=== PATIENT | female | born 1940 | race Caucasian/White ===

== ENCOUNTER → 2017-03-30 | Outpatient (REF) | payer MEDICARE ==
[2017-03-30 15:43] LABS: ALBUMIN 3.5 GM/DL (3.2-5.2); ALBUMIN/GLOBULIN RATIO 1.06 (1.00-1.93); BILIRUBIN,TOTAL 0.6 MG/DL (0.2-1.0); CALCIUM LEVEL 8.9 MG/DL (8.8-10.2); CREATININE FOR GFR 1.01 MG/DL (0.55-1.02); GLOMERULAR FILTRATION RATE 56.6 (>39); POTASSIUM SERUM 4.3 MEQ/L (3.5-5.1); TOTAL PROTEIN 6.8 GM/DL (6.4-8.2)
== END ==
LOC: M SFHCLACO 07:59
PROVIDERS: ATTEND Physician Assistant
DX: I10 Essential (primary) hypertension (principal); E11.9 Type 2 diabetes mellitus without complications; E78.2 Mixed hyperlipidemia

== ENCOUNTER → 2017-10-03 | Outpatient (REF) | payer MEDICARE ==
[2017-10-03 13:21] LABS: ALBUMIN 3.9 GM/DL (3.2-5.2); ALBUMIN/GLOBULIN RATIO 1.26 (1.00-1.93); BILIRUBIN,TOTAL 0.5 MG/DL (0.2-1.0); CALCIUM LEVEL 9.2 MG/DL (8.8-10.2); CREATININE FOR GFR 0.98 MG/DL (0.55-1.02); GLOMERULAR FILTRATION RATE 58.6 (>39); POTASSIUM SERUM 4.1 MEQ/L (3.5-5.1)
== END ==
LOC: M SFHCLACO 07:58
PROVIDERS: ATTEND Physician Assistant
DX: I10 Essential (primary) hypertension (principal); E78.2 Mixed hyperlipidemia; E11.9 Type 2 diabetes mellitus without complications; Z23 Encounter for immunization
CPT/HCPCS: 36415; 80053; 80061; 83036; 90662; G0008

== ENCOUNTER → 2018-05-17 | Outpatient (REF) | payer MEDICARE ==
[2018-05-17 15:01] LABS: ESTIMATED AVERAGE GLUCOSE 120 MG/DL (60-110); HEMOGLOBIN A1c 5.8 %
[2018-05-17 15:10] LABS: ALBUMIN 3.7 GM/DL (3.2-5.2); ALBUMIN/GLOBULIN RATIO 1.09 (1.00-1.93); ALKALINE PHOSPHATASE 78 U/L (45-117); ALT/SGPT 60 U/L (12-78); ANION GAP 11 MEQ/L (8-16); AST/SGOT 75 U/L (7-37); BILIRUBIN,TOTAL 0.6 MG/DL (0.2-1.0); BLOOD UREA NITROGEN 20 MG/DL (7-18); CARBON DIOXIDE LEVEL 28 MEQ/L (21-32); CHLORIDE LEVEL 90 MEQ/L (98-107); CHOLESTEROL LEVEL 207 MG/DL (<200); CHOLESTEROL RISK RATIO 2.325 (<5); CREATININE FOR GFR 0.94 MG/DL (0.55-1.30); GLOMERULAR FILTRATION RATE > 60.0 (>39); GLUCOSE, FASTING 201 MG/DL (70-100); HDL CHOLESTEROL 89 MG/DL (>40); LDL CHOLESTEROL 101.6 MG/DL (<100); NON-HDL-C 118 MG/DL; POTASSIUM SERUM 4.3 MEQ/L (3.5-5.1); SODIUM LEVEL 129 MEQ/L (136-145); TOTAL PROTEIN 7.1 GM/DL (6.4-8.2); TRIGLYCERIDES LEVEL 82 MG/DL (<150)
== END ==
LOC: M SFHCLACO 08:03
DX: I10 Essential (primary) hypertension (principal); E11.9 Type 2 diabetes mellitus without complications; E78.2 Mixed hyperlipidemia
CPT/HCPCS: 80053

== ENCOUNTER 2018-11-22 08:00 | Day surgery (SDC) | payer MEDICARE ==
[~2018-11-22] VITALS: Ht 165.1 cm; Wt 56.2 kg
[~2018-11-22 08:00] MED LIST: BALANCED SALT IRRIGATION SOLUTION 500ML BAG (FOR OR EYE MACHINE) As Ordered ONE; CEFUROXIME 1MG/0.1ML INTRACAMERAL INJ As Ordered ONE; DUOVISC (0.50ML VISCOAT/0.55ML PROVISC) OPHTH KIT As Ordered ONE; LIDOCAINE 0.75%/EPINEPHRINE 0.025% IN BSS 1ML SYR INTRACAMERAL (OR ONLY) As Ordered ONE; LISI10TA4 PO; MIDAZOLAM INJ 2 MG/2 ML VIAL (J2250) As Ordered ONE; OFLOXACIN 0.3 % (OCUFLOX) OPTH SOL 5ML OD ONE; PHENYLEPHRINE 2.5% OPHTH SOL 2ML OD ONE; POVIDONE-IODINE 5% OPHTH PREP SOL 30ML As Ordered ONE; PROPARACAINE 0.5% OPHTH SOL 15ML OD ONE; TRIA37.5 PO; TROPICAMIDE 1% OPHTH SOLN 2ML OD ONE; fentaNYL 100 MCG/2 ML INJECTION (J3010) As Ordered ONE
[2018-11-22 10:10] VITALS: BP 133/95
--- NOTE | 2018-11-22 16:05 | RO ---
DATE OF PROCEDURE: 11/22/2018 PREOPERATIVE DIAGNOSIS: 1. Visually significant nuclear sclerotic cataract right eye. POSTOPERATIVE DIAGNOSIS: 1. Visually significant nuclear sclerotic cataract right eye. PROCEDURE: 1. Cataract extraction with use of phacoemulsification and placement of intraocular lens AU00T0, 21.5 D, right eye. SURGEON: Joe Tiwari DO PURCHASING INTERNSHIP: None. ANESTHESIA: Local with monitored anesthesia care (MAC). COMPLICATIONS: None. POSTOPERATIVE CONDITION: Stable. INDICATIONS FOR SURGERY: 1. Blurred vision affecting patients activities of daily living. DESCRIPTION OF PROCEDURE: The patient was seen in the preoperative area and properly identified. The correct operative eye was identified and marked. The patient received topical anesthetic, antibiotics, and topical dilating drops. The patient was then transferred to the operating room. The correct side was re-identified, and a time-out was performed. The eye was prepped and draped in a sterile fashion. The eyelids were isolated with Tegaderm tape, and the lids were held open with an adjustable speculum. A 1.0 mm paracentesis incision was made. Intraocular preservative-free Shugarcaine was then injected into the anterior chamber. Viscoelastic was then injected into the anterior chamber through the paracentesis. Using a 2.4 mm sharp-tipped keratome, the anterior chamber was entered via a temporal clear cornea incision. A continuous curvilinear capsulorrhexis was created with Utrata forceps. Hydrodissection was performed with balanced salt solution (BSS) on a blunt cannula until the nucleus was able to rotate freely. The crystalline lens was phacoemulsified and aspirated. Irrigation/aspiration was used to remove the cortical material. Cohesive viscoelastic was placed into the capsular bag to deepen it. The implant was placed into the capsular bag and allowed to unfold. Placement was confirmed by visualizing the anterior capsulorrhexis. Irrigation/aspiration was used to remove the viscoelastic. The clear corneal incision was hydrated with BSS on a blunt cannula. The lens was well positioned. The incisions were then tested for leaks and found to be negative. The eye was then palpated for appropriate pressure and adjusted accordingly with BSS. The eyelid speculum was then carefully removed. A shield was placed over the eye. The patient tolerated the procedure well and was discharged to the recovery unit in a stable condition.
== END 2018-11-22 10:44 | disposition home or self-care (01) ==
LOC: M SDC 08:00
PROVIDERS: ATTEND Ophthalmology
DX: H25.11 Age-related nuclear cataract, right eye (principal); Z87.891 Personal history of nicotine dependence; Z79.899 Other long term (current) drug therapy
CPT/HCPCS: 66982; J2250; J3010; V2632

== ENCOUNTER 2018-11-29 08:09 | Day surgery (SDC) | payer MEDICARE ==
[~2018-11-29] VITALS: Ht 165.1 cm; Wt 56.2 kg
[~2018-11-29 08:09] MED LIST changes: -OFLOXACIN 0.3 % (OCUFLOX) OPTH SOL 5ML OD ONE; +OFLOXACIN 0.3 % (OCUFLOX) OPTH SOL 5ML OS ONE; -PHENYLEPHRINE 2.5% OPHTH SOL 2ML OD ONE; +PHENYLEPHRINE 2.5% OPHTH SOL 2ML OS ONE; -PROPARACAINE 0.5% OPHTH SOL 15ML OD ONE; +PROPARACAINE 0.5% OPHTH SOL 15ML OS ONE; -TROPICAMIDE 1% OPHTH SOLN 2ML OD ONE; +TROPICAMIDE 1% OPHTH SOLN 2ML OS ONE
[2018-11-29 11:15] VITALS: BP 144/82
--- NOTE | 2018-11-29 15:48 | RO ---
DATE OF PROCEDURE: 11/29/2018 PREOPERATIVE DIAGNOSIS: 1. Visually significant nuclear sclerotic cataract left eye. POSTOPERATIVE DIAGNOSIS: 1. Visually significant nuclear sclerotic cataract left eye. PROCEDURE: 1. Cataract extraction with use of phacoemulsification and placement of intraocular lens, AU00T0, 21.5 D, left eye. SURGEON: Joe Tiwari DO WHIPPED TOPPING SUPERVISOR: None. ANESTHESIA: Local with monitored anesthesia care (MAC). COMPLICATIONS: None. POSTOPERATIVE CONDITION: Stable. INDICATIONS FOR SURGERY: 1. Blurred vision affecting patients activities of daily living. DESCRIPTION OF PROCEDURE: The patient was seen in the preoperative area and properly identified. The correct operative eye was identified and marked. The patient received topical anesthetic, antibiotics, and topical dilating drops. The patient was then transferred to the operating room. The correct side was re-identified, and a time-out was performed. The eye was prepped and draped in a sterile fashion. The eyelids were isolated with Tegaderm tape, and the lids were held open with an adjustable speculum. A 1.0 mm paracentesis incision was made. Intraocular preservative-free Shugarcaine was then injected into the anterior chamber. Viscoelastic was then injected into the anterior chamber through the paracentesis. Using a 2.4 mm sharp-tipped keratome, the anterior chamber was entered via a temporal clear cornea incision. A continuous curvilinear capsulorrhexis was created with Utrata forceps. Hydrodissection was performed with balanced salt solution (BSS) on a blunt cannula until the nucleus was able to rotate freely. The crystalline lens was phacoemulsified and aspirated. Irrigation/aspiration was used to remove the cortical material. Cohesive viscoelastic was placed into the capsular bag to deepen it. The implant was placed into the capsular bag and allowed to unfold. Placement was confirmed by visualizing the anterior capsulorrhexis. Irrigation/aspiration was used to remove the viscoelastic. The clear corneal incision was hydrated with BSS on a blunt cannula. The lens was well positioned. The incisions were then tested for leaks and found to be negative. The eye was then palpated for appropriate pressure and adjusted accordingly with BSS. The eyelid speculum was then carefully removed. A shield was placed over the eye. The patient tolerated the procedure well and was discharged to the recovery unit in a stable condition. YVETTE
== END 2018-11-29 11:20 | disposition home or self-care (01) ==
LOC: M SDC 08:09
PROVIDERS: ATTEND Ophthalmology
DX: H25.12 Age-related nuclear cataract, left eye (principal); M54.2 Cervicalgia; Z87.891 Personal history of nicotine dependence; Z79.899 Other long term (current) drug therapy
CPT/HCPCS: 66984; J2250; J3010; V2632

== ENCOUNTER → 2019-02-22 | Outpatient (REF) | payer MEDICARE ==
[~2019-02-22] MED LIST changes: -BALANCED SALT IRRIGATION SOLUTION 500ML BAG (FOR OR EYE MACHINE) As Ordered ONE; -CEFUROXIME 1MG/0.1ML INTRACAMERAL INJ As Ordered ONE; -DUOVISC (0.50ML VISCOAT/0.55ML PROVISC) OPHTH KIT As Ordered ONE; -LIDOCAINE 0.75%/EPINEPHRINE 0.025% IN BSS 1ML SYR INTRACAMERAL (OR ONLY) As Ordered ONE; -MIDAZOLAM INJ 2 MG/2 ML VIAL (J2250) As Ordered ONE; -OFLOXACIN 0.3 % (OCUFLOX) OPTH SOL 5ML OS ONE; -PHENYLEPHRINE 2.5% OPHTH SOL 2ML OS ONE; -POVIDONE-IODINE 5% OPHTH PREP SOL 30ML As Ordered ONE; -PROPARACAINE 0.5% OPHTH SOL 15ML OS ONE; -TROPICAMIDE 1% OPHTH SOLN 2ML OS ONE; -fentaNYL 100 MCG/2 ML INJECTION (J3010) As Ordered ONE
[2019-02-22 19:17] LABS: ALBUMIN 3.9 GM/DL (3.2-5.2); BILIRUBIN,TOTAL 0.4 MG/DL (0.2-1.0); CALCIUM LEVEL 9.4 MG/DL (8.8-10.2); CHOLESTEROL RISK RATIO 2.375 (<5); CREATININE FOR GFR 1.05 MG/DL (0.55-1.30); GLOMERULAR FILTRATION RATE 53.8 (>39); HEMOGLOBIN A1c 6.5 %; POTASSIUM SERUM 5.3 MEQ/L (3.5-5.1); TOTAL PROTEIN 6.9 GM/DL (6.4-8.2)
== END ==
LOC: M SFHCADAM 14:32
PROVIDERS: ATTEND Physician Assistant
DX: I10 Essential (primary) hypertension (principal); E78.2 Mixed hyperlipidemia; E11.9 Type 2 diabetes mellitus without complications

== ENCOUNTER → 2019-08-30 | Outpatient (REF) | payer MEDICARE ==
[2019-08-30 16:29] LABS: BILIRUBIN,TOTAL 0.4 MG/DL (0.2-1.0); CALCIUM LEVEL 9.1 MG/DL (8.8-10.2); CREATININE FOR GFR 1.12 MG/DL (0.55-1.30); POTASSIUM SERUM 4.1 MEQ/L (3.5-5.1)
[2019-08-30 16:30] LABS: ALBUMIN 3.6 GM/DL (3.2-5.2); CHOLESTEROL RISK RATIO 2.043 (<5); TOTAL PROTEIN 6.7 GM/DL (6.4-8.2)
== END ==
LOC: M SFHCADAM 14:38
PROVIDERS: ATTEND Physician Assistant
DX: I10 Essential (primary) hypertension (principal); E78.2 Mixed hyperlipidemia; E11.9 Type 2 diabetes mellitus without complications

== ENCOUNTER → 2020-03-03 | Outpatient (REF) | payer MEDICARE ==
[2020-03-03 16:22] LABS: HEMOGLOBIN A1c 6.3 %
[2020-03-03 16:26] LABS: ALBUMIN 3.7 GM/DL (3.2-5.2); BILIRUBIN,TOTAL 0.5 MG/DL (0.2-1.0); CALCIUM LEVEL 9.9 MG/DL (8.8-10.2); CHOLESTEROL RISK RATIO 2.488 (<5); CREATININE FOR GFR 1.3 MG/DL (0.55-1.30); POTASSIUM SERUM 4.8 MEQ/L (3.5-5.1); TOTAL PROTEIN 7.3 GM/DL (6.4-8.2)
== END ==
LOC: M SFHCADAM 14:38
PROVIDERS: ATTEND Physician Assistant
DX: I10 Essential (primary) hypertension (principal); E78.2 Mixed hyperlipidemia; E11.9 Type 2 diabetes mellitus without complications

== ENCOUNTER 2020-06-05 09:38 | Inpatient (IN) | payer MEDICARE ==
[~2020-06-05] VITALS: Ht 167.6 cm; Wt 49.2 kg
[2020-06-05] MEDS ORDERED: LISI-538 PO (09:48)
[2020-06-05] MEDS ORDERED: BIMA01SOL (09:48)
[2020-06-05 10:24] LABS: BASO % 0.2 % (0.0-1.0); HEMATOCRIT 35.6 % (36.0-47.0); HEMOGLOBIN 12.5 g/dl (12.0-15.5); LYMPH # 0.7 10^3/uL (1.5-5.0); LYMPH % 16.4 % (24.0-44.0); MEAN CORPUSCULAR HGB CONC 35.1 g/dl (32.0-36.5); MEAN CORPUSCULAR VOLUME 108.2 fl (80.0-96.0); MONO # 0.6 10^3/uL (0.0-0.8); MONO % 14.3 % (0.0-5.0); NEUTROPHILS # 2.8 10^3/uL (1.5-8.5); NEUTROPHILS % 68.4 % (36.0-66.0); PLATELET COUNT, AUTOMATED 169 10^3/uL (150-450); RED BLOOD COUNT 3.29 10^6/uL (4.00-5.40); WHITE BLOOD COUNT 4.1 10^3/uL (4.0-10.0)
[2020-06-05 10:56] LABS: BILIRUBIN,DIRECT 0.2 MG/DL (0.0-0.2); BILIRUBIN,TOTAL 0.5 MG/DL (0.2-1.0); THYROID STIMULATING HORMONE 0.605 uIU/ML (0.358-3.740); TOTAL PROTEIN 7.5 GM/DL (6.4-8.2)
[2020-06-05] MEDS ORDERED: NS 1,580 ML in IV 1 EA IV ONE (11:00)
--- NOTE | 2020-06-05 11:31 | REP ---
REASON: Unilateral ocular disturbance. There are no priors for comparison. There is decreased density in the left insular cortex. The ventricles and sulci are within normal limits. There are no extra-axial fluid collections. There is no shift of the midline structures. Posterior fossa is within normal limits. The imaged paranasal sinuses and mastoid air cells are clear. IMPRESSION: Decreased density in the left insular cortex suggesting acute nonhemorrhagic infarction. This should be correlated clinically and if necessary, obtain an MRI examination for further evaluation. Electronically Signed by Indra Garcia DO 06/05/2020 04:58 P
--- NOTE | 2020-06-05 11:51 | REP ---
CHEST, SINGLE VIEW: There is no evidence of acute infiltrate. No pleural effusion is seen. The heart is normal in size. The mediastinal silhouette is unremarkable. The visualized osseous structures are intact. IMPRESSION: No acute pulmonary disease. Electronically Signed by Anthony Hassan MD 06/08/2020 09:24 A
[2020-06-05] MEDS: ASPIRIN 81 MG CHEW TABLET PO ONE ×2 (13:15→16:10)
[2020-06-05] MEDS ORDERED: GLUCOSE 4GM CHEW TABLET PO PRN (13:30)
[2020-06-05] MEDS ORDERED: DEXTROSE 50% 50 ML SYRINGE IV PRN (13:30)
[2020-06-05] MEDS ORDERED: GLUCAGON INJ 1MG VIAL SC PRN (13:30)
--- NOTE | 2020-06-05 13:30 | HPEPDOC ---
General Date of Admission 06/05/20 Date of Service: Jun 05, 2020 Chief Complaint The patient is a 79-year-old female admitted with a reason for visit of Altered Mental Status. Source: Patient Exam Limitations: No limitations Timing/Duration: Week(s) Severity: Moderate History of Present Illness Patient is 79 years old female with past history of hyperlipidemia, hypertension presented to the hospital with altered mental status. According to her for past 3-4 weeks patient developed progressive forgetfulness and she became aggressive towards him. He described that his became easily angry, and its very unusual for her, they lived more than 50 years together and she never had angry or aggressive towards him. Today in the morning patient stated that most likely she developed stroke and asked her to bring her to the hospital. Since morning she has been having fluctuating mental status, he was disoriented in time and in place. When I saw patient in ER she refused to talk to me and her , she developed emotional flat affect. In ER patient was found to have on CT head Decreased density in the left insular cortex suggesting acute nonhemorrhagic infarction. Also patient was found to have elevated blood pressure 200/110. Labs pertinent for macrocytic anemia. 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 1 SON(S) - HEALTHY. Social History * Smoker: former Smoker Alcohol: occationally Drugs: denies A-FIB/CHADSVASC A-FIB History Current/History of A-Fib/PAF?: No Current PO Anticoag Therapy: No Review of Systems Constitutional: Reports: Chills, Other (unable to obtain due to the emotional affect) Physical Examination General Exam: Negative: Cooperative Eye Exam: Negative: PERRLA ENT Exam: Negative: Atraumatic Neck Exam: Negative: Supple, JVD Chest Exam: Positive: Clear to auscultation Heart Exam: Positive: Rate Normal Telemetry: Positive: No significant arrhythmia Abdomen Exam: Positive: Normal bowel sounds Extremity Exam: Negative: Clubbing Skin Exam: Positive: Nl turgor and temperature Neuro Exam: Positive: Normal Tone, Reflexes 2+ Psych Exam: Positive: Other (flat emotional affect) Vital Signs Vital Signs Date Time Temp Pulse Resp B/P (MAP) Pulse Ox O2 Delivery O2 Flow Rate FiO2 06/05/20 12:15 95 18 187/107 (133) 96 Room Air 06/05/20 09:38 96.9 Laboratory Data Labs 24H Laboratory Tests 2 06/05/20 10:06: Immature Granulocyte % (Auto) 0.7, Neutrophils (%) (Auto) 68.4H, Lymphocytes (%) (Auto) 16.4L, Monocytes (%) (Auto) 14.3H, Eosinophils (%) (Auto) 0.0, Basophils (%) (Auto) 0.2, Neutrophils # (Auto) 2.8, Lymphocytes # (Auto) 0.7L, Monocytes # (Auto) 0.6, Eosinophils # (Auto) 0.0, Basophils # (Auto) 0.0, Nucleated Red Blood Cells % (auto) 0.0, Lactic Acid Level 4.4*H, Total Bilirubin 0.5, Direct Bilirubin 0.2, Aspartate Amino Transf (AST/SGOT) 49H, Alanine Aminotransferase (ALT/SGPT) 40, Alkaline Phosphatase 73, Ammonia < 10, Total Protein 7.5, Albumin 4.0, Albumin/Globulin Ratio 1.1L, Thyroid Stimulating Hormone (TSH) 0.605 06/05/20 10:08: POC Glucose (Misc Panel) 207H, POC Sodium (Misc Panel) 127L, POC Potassium (Misc Panel) 3.8, POC Chloride (Misc Panel) 92L, POC Total CO2 (Misc Panel) 21.0L, POC Blood Urea Nitrogen (Misc Panel 18, POC Ionized Calcium (Misc Panel) 4.3L, POC Creatinine (Misc Panel) 1.0, POC Hematocrit (Misc Panel) 41.0 06/05/20 10:11: POC Troponin I (Misc) 0.00 CBC/BMP Laboratory Tests 06/05/20 10:06 Microbiology Microbiology 06/05/20 Blood Culture, Received Pending 06/05/20 Blood Culture, Received Pending Assessment/Plan Patient is 79 years old female with past history of hyperlipidemia, hypertension presented to the hospital with altered mental status. According to her for past 3-4 weeks patient developed progressive forgetfulness and she became aggressive towards him. He described that his became easily angry, and its very unusual for her, they lived more than 50 years together and she never had angry or aggressive towards him. Today in the morning patient stated that most likely she developed stroke and asked her to bring her to the hospital. Since morning she has been having fluctuating mental status, he was disoriented in time and in place. When I saw patient in ER she refused to talk to me and her , she developed emotional flat affect. In ER patient was found to have on CT head Decreased density in the left insular cortex suggesting acute nonhemorrhagic infarction. Also patient was found to have elevated blood pressure 200/110 Problems (1) Altered mental status Status: Acute Problem Text: Differential diagnosis includes CVA, manifestation of Alzheimer diseases/dementia Patient afebrile, doesn't have leukocytosis. Elevated lactic acid can be attributed to possible ischemic stroke. Patient developed gradual forgetfulness with aggressive behavior. Patient might need psych evaluation We will check UA (2) CVA (cerebrovascular accident due to intracerebral hemorrhage) Status: Acute Problem Text: CT showed Decreased density in the left insular cortex suggesting acute nonhemorrhagic infarction We will proceed with MRI and MRA Aspirin 325 mg Continue statin (3) Hypertensive urgency Status: Acute Problem Text: Capoten 6.25 with parameters Continue home cardioprotective medications (4) Hyperlipidemia Status: Chronic Problem Text: I started statin and daily aspirin (5) Macrocytic anemia Status: Chronic Problem Text: There is concern for alcohol abuse However denied that she drinks alcohol daily, but admitted that she drinks wine frequently We will check B12 and folate Utox Carbohydrate deficient transferrin to rule out alcohol abuse Plan / VTE VTE Prophylaxis Ordered?: Yes LORELEI ARGUELLES DO Jun 05, 2020 13:30
[2020-06-05] MEDS ORDERED: CAPTOpril 6.25 MG PER 1/2 TABLET PO SCH (14:00)
[2020-06-05 14:51] LABS: FOLATE 20.1 NG/ML (>5.4)
[2020-06-05] MEDS: CAPTOpril 6.25 MG PER 1/2 TABLET PO SCH ×3 (15:00→17:00)
[2020-06-05 15:30] LABS: AMPHETAMINES LEVEL URINE NEGATIVE (NEGATIVE); BARBITURATES URINE NEGATIVE (NEGATIVE); BENZODIAZEPINES URINE NEGATIVE (NEGATIVE); CANNABINOIDS URINE NEGATIVE (NEGATIVE); COCAINE METABOLITE URINE NEGATIVE (NEGATIVE); METHADONE URINE NEGATIVE (NEGATIVE); OPIATES URINE NEGATIVE (NEGATIVE); PHENCYCLIDINE URINE NEGATIVE (NEGATIVE)
[2020-06-05] MEDS: lisinopriL 10 MG TAB PO SCH (16:11)
[2020-06-05] MEDS: HumaLOG INSULIN (NovoLOG) PER UNIT SC SCH ×2 (17:30→22:40)
[2020-06-05] MEDS: HEPARIN SOD (PORCINE) 5000UNITS/ML VIAL (J1644 PER 1000UNITS) SC SCH (18:00)
[2020-06-05] MEDS: DYAZIDE 37.5/25 CAP (TRIAM/HCTZ) PO SCH (21:00)
[2020-06-05] MEDS: ATORVASTATIN 20 MG TAB PO SCH (21:00)
[2020-06-05] MEDS: LABETALOL 100MG/20ML VIAL IV PRN ×2 (21:34→22:34)
[2020-06-05 22:34] VITALS: BP 206/122
[2020-06-05 22:40] VITALS: BP 160/90
[2020-06-06] VITALS (8 sets, daily range): BP systolic 132–188; BP diastolic 70–108
[2020-06-06] MEDS: LABETALOL 100MG/20ML VIAL IV PRN ×2 (00:17→16:50)
[2020-06-06 05:13] LABS: HEMATOCRIT 32.6 % (36.0-47.0); HEMOGLOBIN 11.6 g/dl (12.0-15.5); MEAN CORPUSCULAR HEMOGLOBIN 37.9 pg (27.0-33.0); MEAN CORPUSCULAR HGB CONC 35.6 g/dl (32.0-36.5); MEAN CORPUSCULAR VOLUME 106.5 fl (80.0-96.0); PLATELET COUNT, AUTOMATED 144 10^3/uL (150-450); RED BLOOD COUNT 3.06 10^6/uL (4.00-5.40)
[2020-06-06 05:38] LABS: ALBUMIN 3.1 GM/DL (3.2-5.2); ALT/SGPT 32 U/L (12-78); BILIRUBIN,TOTAL 0.7 MG/DL (0.2-1.0); BLOOD UREA NITROGEN 15 MG/DL (7-18); CALCIUM LEVEL 8.5 MG/DL (8.8-10.2); CARBON DIOXIDE LEVEL 28 MEQ/L (21-32); CHLORIDE LEVEL 95 MEQ/L (98-107); CREATININE FOR GFR 0.81 MG/DL (0.55-1.30); GLOMERULAR FILTRATION RATE > 60.0 (>32); GLUCOSE, FASTING 103 MG/DL (70-100); MAGNESIUM LEVEL 1.2 MG/DL (1.8-2.4); POTASSIUM SERUM 4.2 MEQ/L (3.5-5.1); SODIUM LEVEL 131 MEQ/L (136-145); TOTAL PROTEIN 6.5 GM/DL (6.4-8.2)
[2020-06-06] MEDS: HEPARIN SOD (PORCINE) 5000UNITS/ML VIAL (J1644 PER 1000UNITS) SC SCH ×2 (06:07→18:32)
[2020-06-06] MEDS: MAG SULF 1GM/100ML (MAG RUN) 1 GM in IV 1 EA IV SCH ×2 (06:59→09:06)
[2020-06-06] MEDS: HumaLOG INSULIN (NovoLOG) PER UNIT SC SCH ×4 (07:30→21:00)
[2020-06-06] MEDS: NS 1,000 ML IV SCH ×2 (09:00→22:58)
[2020-06-06] MEDS ORDERED: LORazepam 2 MG/ML VIAL IV ONE ×2 (09:00)
[2020-06-06] MEDS: DYAZIDE 37.5/25 CAP (TRIAM/HCTZ) PO SCH ×2 (09:03→21:00)
[2020-06-06] MEDS: ASPIRIN 81 MG CHEW TABLET PO SCH (09:03)
[2020-06-06] MEDS: lisinopriL 10 MG TAB PO SCH (09:03)
--- NOTE | 2020-06-06 09:24 | ECGEPIP ---
[facility] - ED Test Date: 2020-06-05 Pat Name: SAPPHIRE SMYTH Department: Room: - Gender: Female Artist Representative: TC : 1940 Requested By: Africa Malone Order Number: [id number] Reading MD: Donnie Isaac Measurements Intervals [place] Rate: 108 P: 66 [place]: 204 QRS: -7 QRSD: 105 T: 52 QT: 321 QTc: 430 Interpretive Statements SINUS TACHYCARDIA POSSIBLE LEFT ATRIAL ENLARGEMENT LOW QRS VOLTAGE IN PRECORDIAL LEADS POSSIBLE ANTERIOR MYOCARDIAL INFARCTION, OF INDETERMINATE AGE POSSIBLE PRIOR INFERIOR INFARCT NO PRIORS FOR COMPARISON Electronically Signed on 06-06-2020 9:24:20 EDT by Donnie Isaac
--- NOTE | 2020-06-06 19:06 | IPNPDOC ---
Date Seen The patient was seen on 06/06/20. Progress Note SUBJECTIVE: Patient would not interact with most people today, including her son. Believed to be intentionally ignoring questions, concerns. On exam, clinically would not follow commands. OBJECTIVE: VITAL SIGNS: Please see below PHYSICAL EXAMINATION: CONSTITUTIONAL: No acute distress, resting comfortably in bed, awake but not answering questions of orientation EYES: PERRLA, EOM intact HENT, MOUTH: Normocephalic, atraumatic, moist mucous membranes NECK: SUPPLE, no JVD, no lymphadenopathy, no carotid bruit CV: Regular rate and rhythm, S1S2 normal, no murmurs/rubs/gallops RESPIRATORY: Clear to auscultation bilaterally, no rales/rhonchi/wheezes GI: BS positive in 4 quadrants, soft, nontender, nondistended, no rebound or guarding, no organomegaly : Deferred MUSCULOSKELETAL: Normal ROM. No cyanosis, clubbing, swelling, joint deformity, extremity edema INTEGUMENTARY: Intact, no rashes, no lesions, no erythema NEUROLOGIC: Cranial Nerves II-XII are intact, no focal deficits PSYCHIATRIC: Mood and affect are normal CURRENT MEDICATIONS: Please see below LABORATORY DATA: Please see below IMAGING: No new imaging MRI/MRA ordered ASSESSMENT: 79 years old female with past history of hyperlipidemia, hypertension presented to the hospital with hypertensive emergency, altered mental status, admitted for CVA, questionable behaviors. PLAN: 1. Altered mental status, possibly 2/2 to moderate hyponatremia, CVA, underlying behaviors (psych?, aggressive at times) or dementia? or multifactorial -Per , his is normally AAOx3, manages bills in house and this is co mpletely different from her baseline -Ignored me and staff today when trying to do exam. -Vitamin B12, folate, TSH wnl - Please see below for treatment of individual issues 2. Acute on chronic hyponatremia, moderate -As per , she has had this issue for some time. Cause unknown, was on ofe t tabs in the past. - F/u urine osmolality, urine sodium, serum osmolality -Improving slowly, totay 131 from 127 -C/w IVFS, monitoring of Na 3. CVA likely 2/2 to hypertensive emergency -CT head: acute nonhemorrhagic infarction -F/u MRI and MRA, echo, carotid doppler -ASA, statin, no dysphagia concerns -PT/OT 4. Hypertensive emergency. Resolved. -Increase lisinopril to home dose 20 mg PO daily -Unfortunately with low sodium, need mild IVFs; however, when able start diuretics. -Monitor closely 5. Lactic acidosis- resolved -wnl 6. Hyperlipidemia -C/w statin and daily aspirin 7. Macrocytic anemia, chronic. -Vitamin B12, folate wnl. -F/u daily cBC -No signs of acute bleeding 8. DVT -Heparin DISPOSITION: Admitted under acute inpatient. If patient continues to not speak to us, may want to consider psych consult. VS, I&O, 24H, Fishbone Vital Signs/I&O Vital Signs Date Time Temp Pulse Resp B/P (MAP) Pulse Ox O2 Delivery O2 Flow Rate FiO2 06/06/20 16:50 80 172/90 06/06/20 16:00 96.4 16 97 Room Air I&O- Last 24 Hours up to 6 AM 06/06/20 05:59 Intake Total 1580 ml Output Total 0 ml Balance 1580 ml Laboratory Data 24H LABS Laboratory Tests 2 06/05/20 22:37: Bedside Glucose (Misc Panel) 127H 06/06/20 05:00: Nucleated Red Blood Cells % (auto) 0.0, Anion Gap 8, Glomerular Filtration Rate > 60.0, Calcium Level 8.5L, Magnesium Level 1.2L, Total Bilirubin 0.7, Aspartate Amino Transf (AST/SGOT) 38H, Alanine Aminotransferase (ALT/SGPT) 32, Alkaline Phosphatase 55, Total Protein 6.5, Albumin 3.1#L, Albumin/Globulin Ratio 0.9L 06/06/20 08:55: Lactic Acid Level 1.3 06/06/20 11:10: Bedside Glucose (Misc Panel) 136H 06/06/20 15:08: Magnesium Level 1.9 06/06/20 17:23: Bedside Glucose (Misc Panel) 138H CBC/BMP Laboratory Tests 06/06/20 05:00 Microbiology Microbiology 06/05/20 Blood Culture - Preliminary, Resulted No growth after 24 hours . All specim... 06/05/20 Blood Culture - Preliminary, Resulted No growth after 24 hours . All specim... 06/05/20 Blood Culture - Preliminary, Resulted No growth after 24 hours . All specim... Current Medications Current Medications Medications (Trade) Dose Ordered Sig/Yandy Route PRN Reason Start Time Stop Time Status Last Admin Dose Admin Aspirin (Aspirin Chewable) 81 mg DAILY PO 06/06/20 09:00 06/06/20 09:03 Atorvastatin Calcium (Lipitor) 20 mg QHS PO 06/05/20 21:00 Captopril (CAPOten) 6.25 mg NOW PO 06/05/20 14:00 06/05/20 14:01 DC 06/05/20 16:11 Captopril (CAPOten) 6.25 mg Q1H PO 06/05/20 15:00 06/05/20 17:01 DC Dextrose (Dextrose 50%) 25 ml ASDIRECTED PRN IV SEE LABEL COMMENTS 06/05/20 13:30 Glucagon (Glucagon) 1 mg ASDIRECTED PRN SC SEE LABEL COMMENTS 06/05/20 13:30 Glucose (Glucose) 16 GM ASDIRECTED PRN PO SEE LABEL COMMENTS 06/05/20 13:30 Heparin Sodium (Porcine) (Heparin) 5,000 units Q12H SC 06/05/20 18:00 06/06/20 18:32 Home Med (Med Rec Complete!) ASDIRECTED XX 06/05/20 12:15 06/05/20 12:07 DC Insulin Human Lispro (HumaLOG INSULIN) SEE PROTOCOL TABLE AC SC 06/05/20 17:30 06/06/20 18:32 Insulin Human Lispro (HumaLOG INSULIN) SEE PROTOCOL TABLE QHS MT 06/05/20 21:00 Labetalol HCl (Normodyne, Trandate) 10 mg Q1H PRN IV htn 06/05/20 16:00 06/06/20 16:50 Lisinopril (Prinivil) 10 mg DAILY PO 06/05/20 09:00 06/06/20 09:03 Magnesium Sulfate/ Dextrose 1 gm/IV Miscellaneous Supplies 100 ml @ 100 mls/hr 0700,0800 IV 06/06/20 07:00 06/06/20 14:00 DC 06/06/20 09:06 Sodium Chloride 1,000 ml @ 75 mls/hr [id number] IV 06/06/20 09:00 06/06/20 09:00 Triamterene/HCTZ (Dyazide 37.5-25 Mg) 1 ea BID PO 06/05/20 21:00 06/06/20 09:03 Allergies Coded Allergies: aspirin (Verified Adverse Reaction, Mild, stomach upset , 06/05/20) Kirstin Chambers MD Jun 06, 2020 19:06
[2020-06-06] MEDS ORDERED: lisinopriL 10 MG TAB PO ONE (19:15)
[2020-06-06 19:41] LABS: OSMOLALITY URINE 468 MOSM/KG (500-800)
[2020-06-06 19:44] LABS: BLOOD UREA NITROGEN 16 MG/DL (7-18); CALCIUM LEVEL 8.5 MG/DL (8.8-10.2); CARBON DIOXIDE LEVEL 28 MEQ/L (21-32); CHLORIDE LEVEL 96 MEQ/L (98-107); CREATININE FOR GFR 0.92 MG/DL (0.55-1.30); GLOMERULAR FILTRATION RATE > 60.0 (>32); GLUCOSE, FASTING 153 MG/DL (70-100); POTASSIUM SERUM 3.5 MEQ/L (3.5-5.1); SODIUM LEVEL 130 MEQ/L (136-145)
[2020-06-06 19:46] LABS: OSMOLALITY SERUM 274 MOSM/KG (280-301)
[2020-06-06 19:51] LABS: SODIUM,RANDOM URINE 157 MEQ/L
[2020-06-06] MEDS: ATORVASTATIN 20 MG TAB PO SCH (21:00)
--- NOTE | 2020-06-06 22:20 | REPVR ---
PROCEDURE INFORMATION: Exam: US Duplex Bilateral Extracranial Arteries Exam date and time: 06/06/2020 9:21 PM Age: 79 years old Clinical indication: Other: TIA; Additional info: CVA TECHNIQUE: Imaging protocol: Real-time Duplex ultrasound scan of the bilateral carotid and vertebral arteries combining nunez scale, color Doppler and spectral waveform analysis. Bilateral exam. COMPARISON: No relevant prior studies available. FINDINGS: Right common carotid artery: Mild plaque without significant stenosis or occlusion. Waveforms are normal. Right internal carotid artery: Mild plaque in the proximal ICA and bifurcation. Waveforms are normal. Peak systolic velocity is 50.6 cm/s. Right ICA/CCA ratio: Normal at 0.7. Right external carotid artery: No stenosis in the origin. Right vertebral artery: Unremarkable. Antegrade flow. Left common carotid artery: Mild plaque without significant stenosis or occlusion.. Waveforms are normal. Left internal carotid artery: Mild plaque in the proximal ICA and bifurcation. Peak systolic velocity is 75 cm/s. Waveforms are normal. Left ICA/CCA ratio: Normal at 1.2. Left external carotid artery: No stenosis in the origin. Left vertebral artery: Unremarkable. Antegrade flow. IMPRESSION: Mild atherosclerotic plaque without significant stenosis or occlusion. REFERENCES: SRU CRITERIA. The degree of internal carotid artery stenosis is based on criteria defined by the Society of Radiologists in Ultrasound (SRU). Normal is no stenosis. Mild is less than 50% stenosis. Moderate is 50-69% stenosis. Severe is greater than 69% stenosis to near occlusion. Near occlusion is a markedly narrowed lumen. Total occlusion is no detectable patent lumen. Electronically signed by: Keon Ponce On 06/06/2020 22:20:08 PM
[2020-06-07] VITALS (7 sets, daily range): BP systolic 130–190; BP diastolic 70–100
[2020-06-07] MEDS: LABETALOL 100MG/20ML VIAL IV PRN ×3 (00:34→12:56)
[2020-06-07 05:34] LABS: HEMATOCRIT 32.9 % (36.0-47.0); HEMOGLOBIN 11.7 g/dl (12.0-15.5); MEAN CORPUSCULAR HEMOGLOBIN 37.9 pg (27.0-33.0); MEAN CORPUSCULAR HGB CONC 35.6 g/dl (32.0-36.5); MEAN CORPUSCULAR VOLUME 106.5 fl (80.0-96.0); PLATELET COUNT, AUTOMATED 148 10^3/uL (150-450); RED BLOOD COUNT 3.09 10^6/uL (4.00-5.40); WHITE BLOOD COUNT 4.5 10^3/uL (4.0-10.0)
[2020-06-07] MEDS: HEPARIN SOD (PORCINE) 5000UNITS/ML VIAL (J1644 PER 1000UNITS) SC SCH ×2 (05:44→18:03)
[2020-06-07 05:57] LABS: ALBUMIN 3.2 GM/DL (3.2-5.2); ALT/SGPT 33 U/L (12-78); BILIRUBIN,TOTAL 0.8 MG/DL (0.2-1.0); BLOOD UREA NITROGEN 15 MG/DL (7-18); CALCIUM LEVEL 8.5 MG/DL (8.8-10.2); CARBON DIOXIDE LEVEL 27 MEQ/L (21-32); CHLORIDE LEVEL 99 MEQ/L (98-107); CREATININE FOR GFR 0.84 MG/DL (0.55-1.30); GLOMERULAR FILTRATION RATE > 60.0 (>32); GLUCOSE, FASTING 133 MG/DL (70-100); POTASSIUM SERUM 3.4 MEQ/L (3.5-5.1); SODIUM LEVEL 133 MEQ/L (136-145); TOTAL PROTEIN 6.9 GM/DL (6.4-8.2)
[2020-06-07] MEDS: HumaLOG INSULIN (NovoLOG) PER UNIT SC SCH ×4 (07:30→21:00)
[2020-06-07] MEDS: ASPIRIN 81 MG CHEW TABLET PO SCH ×2 (08:28→09:00)
[2020-06-07] MEDS: DYAZIDE 37.5/25 CAP (TRIAM/HCTZ) PO SCH (08:29)
[2020-06-07] MEDS: POTASSIUM CHLORIDE 10 MEQ SR TABLET PO ONE ×2 (08:29→09:29)
[2020-06-07] MEDS ORDERED: lisinopriL 10 MG TAB PO SCH (09:00)
[2020-06-07] MEDS: NS 1,000 ML IV SCH ×2 (11:40→18:51)
--- NOTE | 2020-06-07 18:22 | IPNPDOC ---
Date Seen The patient was seen on 06/07/20. Progress Note SUBJECTIVE: I tried multiple times to engage the patient during morning rounds, she would not answer questions however when observed from afar the patient was getting up, moving her bedside tray, going to the bathroom. She was communicating with both her and the nurse today. Again, believed to be intentionally ignoring questions at times. Sodium is improving, physical therapy to resume therapy in the morning. OBJECTIVE: VITAL SIGNS: Please see below PHYSICAL EXAMINATION: CONSTITUTIONAL: No acute distress, laying still in bed, eyes closed, not answering questions of orientation EYES: PERRLA, EOM intact HENT, MOUTH: Normocephalic, atraumatic, moist mucous membranes NECK: SUPPLE, no JVD, no lymphadenopathy, no carotid bruit CV: Regular rate and rhythm, S1S2 normal, no murmurs/rubs/gallops RESPIRATORY: Clear to auscultation bilaterally, no rales/rhonchi/wheezes GI: BS positive in 4 quadrants, soft, nontender, nondistended, no rebound or guarding, no organomegaly : Deferred MUSCULOSKELETAL: Normal ROM. No cyanosis, clubbing, swelling, joint deformity, extremity edema INTEGUMENTARY: Intact, no rashes, no lesions, no erythema NEUROLOGIC:no focal deficits CURRENT MEDICATIONS: Please see below LABORATORY DATA: Please see below IMAGING: MRI/MRA- patient refused Carotid US: Mild atherosclerotic plaque without significant stenosis or occlusion. ASSESSMENT: 79 years old female with past history of hyperlipidemia, hypertension presented to the hospital with hypertensive emergency, altered mental status, admitted for CVA, questionable behaviors. PLAN: 1. Altered mental status, possibly 2/2 to moderate hyponatremia, CVA, underlying behaviors (psych?, aggressive at times) or dementia? or multifactorial -Per , his is normally AAOx3, manages bills in house and this is completely different from her baseline -Ignored me again today when trying to do exam; however, is noticed by myself from afar that she is functioning when she chooses at times, interacting when she chooses . -Vitamin B12, folate, TSH wnl - Please see below for treatment of individual issues 2. Acute on chronic hyponatremia, moderate possibly 2/2 to thiazide diuretic -Improving slowly -As per , she has had this issue for some time. Cause unknown, was on s alt tabs in the past. -C/w IVFS, monitoring of Na -If hyponatremia after stopping thiazide diuretic,then likely medication that caused this. If does not, then check another urine osmolality, urine sodium. -F/u daily labs 3. CVA likely 2/2 to hypertensive emergency -CT head: acute nonhemorrhagic infarction -MRI and MRA- patient refused. -Echo: f/u results -Carotid doppler: neg for stenosis -ASA, statin, no dysphagia concerns -PT/OT: Safety concerns. Resume therapy on 06/08/20 4. HTN, uncontrolled -Increase lisinopril to home dose 20 mg PO daily -Stopped thiazide, replaced with spironolactone -Unfortunately with low sodium, need mild IVFs; however, when able start lasix instead of HCTZ. -Hydralazine x 1 now. -Tele 5. Hyperlipidemia -C/w statin and daily aspirin 6. Macrocytic anemia, chronic. -Vitamin B12, folate wnl. -F/u daily cBC -No signs of acute bleeding 7. DVT -Heparin DISPOSITION: Admitted under acute inpatient. If patient continues to not speak to us, may want to consider psych consult if there is a concern that this is behavioral. Updated this AM. VS, I&O, 24H, Fishbone Vital Signs/I&O Vital Signs Date Time Temp Pulse Resp B/P (MAP) Pulse Ox O2 Delivery O2 Flow Rate FiO2 06/07/20 12:56 65 188/90 06/07/20 12:00 97.8 17 95 Room Air I&O- Last 24 Hours up to 6 AM 06/07/20 05:59 Intake Total 375 ml Output Total 950 ml Balance -575 ml Laboratory Data 24H LABS Laboratory Tests 2 06/06/20 19:01: Anion Gap 6L, Glomerular Filtration Rate > 60.0, Osmolality 274L, Calcium Level 8.5L 06/06/20 19:13: Urine Random Osmolality 468L, Urine Random Sodium 157 06/06/20 21:56: Bedside Glucose (Misc Panel) 143H 06/07/20 05:17: Anion Gap 7L, Glomerular Filtration Rate > 60.0, Calcium Level 8.5L, Nucleated Red Blood Cells % (auto) 0.0, Total Bilirubin 0.8, Aspartate Amino Transf (AST/SGOT) 41H, Alanine Aminotransferase (ALT/SGPT) 33, Alkaline Phosphatase 64, Total Protein 6.9, Albumin 3.2, Albumin/Globulin Ratio 0.9L 06/07/20 11:21: Bedside Glucose (Misc Panel) 163H 06/07/20 17:17: Bedside Glucose (Misc Panel) 130H CBC/BMP Laboratory Tests 06/06/20 19:01 06/07/20 05:17 Microbiology Microbiology 06/05/20 Blood Culture - Preliminary, Resulted No Growth after 48 hours. All Specime... 06/05/20 Blood Culture - Preliminary, Resulted No Growth after 48 hours. All Specime... 06/05/20 Blood Culture - Preliminary, Resulted No Growth after 48 hours. All Specime... Current Medications Current Medications Medications (Trade) Dose Ordered Sig/Yandy Route PRN Reason Start Time Stop Time Status Last Admin Dose Admin Aspirin (Aspirin Chewable) 81 mg DAILY PO 06/06/20 09:00 06/06/20 09:03 Atorvastatin Calcium (Lipitor) 20 mg QHS PO 06/05/20 21:00 Captopril (CAPOten) 6.25 mg NOW PO 06/05/20 14:00 06/05/20 14:01 DC 06/05/20 16:11 Captopril (CAPOten) 6.25 mg Q1H PO 06/05/20 15:00 06/05/20 17:01 DC Dextrose (Dextrose 50%) 25 ml ASDIRECTED PRN IV SEE LABEL COMMENTS 06/05/20 13:30 Glucagon (Glucagon) 1 mg ASDIRECTED PRN SC SEE LABEL COMMENTS 06/05/20 13:30 Glucose (Glucose) 16 GM ASDIRECTED PRN PO SEE LABEL COMMENTS 06/05/20 13:30 Heparin Sodium (Porcine) (Heparin) 5,000 units Q12H SC 06/05/20 18:00 06/07/20 18:03 Home Med (Med Rec Complete!) ASDIRECTED XX 06/05/20 12:15 06/05/20 12:07 DC Insulin Human Lispro (HumaLOG INSULIN) SEE PROTOCOL TABLE AC SC 06/05/20 17:30 06/06/20 18:32 Insulin Human Lispro (HumaLOG INSULIN) SEE PROTOCOL TABLE QHS SC 06/05/20 21:00 Labetalol HCl (Normodyne, Trandate) 10 mg Q1H PRN IV htn 06/05/20 16:00 06/07/20 12:56 Lisinopril (Prinivil) 10 mg DAILY PO 06/05/20 09:00 06/06/20 19:03 DC 06/06/20 09:03 Lisinopril (Prinivil) 20 mg DAILY PO 06/07/20 09:00 06/07/20 08:41 DC Lisinopril (Prinivil) 20 mg DAILY PO 06/08/20 09:00 Magnesium Sulfate/ Dextrose 1 gm/IV Miscellaneous Supplies 100 ml @ 100 mls/hr 0700,0800 IV 06/06/20 07:00 06/06/20 14:00 DC 06/06/20 09:06 Sodium Chloride 1,000 ml @ 50 mls/hr Q20H IV 06/07/20 18:30 UNV Sodium Chloride 1,000 ml @ 75 mls/hr [id number] IV 06/06/20 09:00 06/07/20 18:20 DC 06/07/20 11:40 Spironolactone (Aldactone) 25 mg QAM PO 06/08/20 09:00 Triamterene/HCTZ (Dyazide 37.5-25 Mg) 1 ea BID PO 06/05/20 21:00 06/07/20 08:39 DC 06/06/20 09:03 Allergies Coded Allergies: aspirin (Verified Adverse Reaction, Mild, stomach upset , 06/05/20) Kirstin Chambers MD Jun 07, 2020 18:22
[2020-06-07] MEDS ORDERED: hydrALAZINE 20MG/ML 1ML VIAL (J0360 PER 20MG) IV STA (18:24)
[2020-06-07] MEDS ORDERED: FUROSEMIDE 40MG/4ML VIAL (J1940) IV ONE (19:00)
[2020-06-07] MEDS ORDERED: hydrALAZINE 20MG/ML 1ML VIAL (J0360 PER 20MG) IV PRN (20:30)
[2020-06-07] MEDS: ATORVASTATIN 20 MG TAB PO SCH (21:00)
[2020-06-08] VITALS (7 sets, daily range): BP systolic 116–178; BP diastolic 76–89
[2020-06-08] MEDS: NS 1,000 ML IV SCH (04:58)
[2020-06-08 05:47] LABS: HEMATOCRIT 32.4 % (36.0-47.0); HEMOGLOBIN 11.3 g/dl (12.0-15.5); MEAN CORPUSCULAR HEMOGLOBIN 37.4 pg (27.0-33.0); MEAN CORPUSCULAR HGB CONC 34.9 g/dl (32.0-36.5); MEAN CORPUSCULAR VOLUME 107.3 fl (80.0-96.0); PLATELET COUNT, AUTOMATED 139 10^3/uL (150-450); RED BLOOD COUNT 3.02 10^6/uL (4.00-5.40)
[2020-06-08 06:09] LABS: ALBUMIN 2.9 GM/DL (3.2-5.2); ALT/SGPT 33 U/L (12-78); BILIRUBIN,TOTAL 0.7 MG/DL (0.2-1.0); BLOOD UREA NITROGEN 13 MG/DL (7-18); CARBON DIOXIDE LEVEL 25 MEQ/L (21-32); CHLORIDE LEVEL 97 MEQ/L (98-107); CREATININE FOR GFR 0.72 MG/DL (0.55-1.30); GLOMERULAR FILTRATION RATE > 60.0 (>32); GLUCOSE, FASTING 90 MG/DL (70-100); POTASSIUM SERUM 3.2 MEQ/L (3.5-5.1); SODIUM LEVEL 132 MEQ/L (136-145); TOTAL PROTEIN 5.8 GM/DL (6.4-8.2)
[2020-06-08] MEDS: HEPARIN SOD (PORCINE) 5000UNITS/ML VIAL (J1644 PER 1000UNITS) SC SCH ×2 (06:28→17:30)
[2020-06-08] MEDS: HumaLOG INSULIN (NovoLOG) PER UNIT SC SCH ×4 (07:30→21:00)
[2020-06-08] MEDS ORDERED: POTASSIUM CHLORIDE 10 MEQ SR TABLET PO ONE (08:15)
[2020-06-08] MEDS: lisinopriL 20 MG TAB PO SCH (08:59)
[2020-06-08] MEDS: ASPIRIN 81 MG CHEW TABLET PO SCH ×2 (08:59→09:00)
[2020-06-08] MEDS: SPIRONOLACTONE 25 MG TAB PO SCH (08:59)
--- NOTE | 2020-06-08 10:16 | ECHO ---
DATE OF SERVICE: 06/07/2020 AGE: 79. REFERRING PROVIDER: Dr. Chambers PATIENT LOCATION: Room 3218. REASON FOR THE STUDY: Cerebrovascular accident (CVA), altered mental status. 2D MEASUREMENTS: IVS: 0.9 cm LV: 3.9 cm LVPW: 0.9 cm LA: 3.2 cm Aorta: 3.0 cm RV: 2.8 cm IVC: 1.0 cm DOPPLER MEASUREMENTS: Mitral E: 0.69 Mitral A: 1.1 with a ratio of 0.6 2D COMMENTS: 1. Normal left ventricular size, wall thickness, and normal global left ventricular systolic function. The estimated left ventricular systolic ejection fraction is 60% to 65%. 2. Normal left atrium. Normal right atrium and right ventricle. 3. The atrial septum appeared to be normal without evidence of defect or shunt. 4. Normal aortic root. 5. No pericardial effusion seen. 6. Minimally calcified aortic valve with normal leaflet excursion. No mitral valve, tricuspid valve. The pulmonic valve and proximal pulmonary artery branches were not well visualized. 7. The inferior vena cava was normal in size, central venous pressure is most likely normal. DOPPLER: Only mild mitral regurgitation detected. Assessment of the left ventricular diastolic function revealed impaired relaxation consistent with features of grade 1 left ventricular diastolic dysfunction. IMPRESSION: 1. Normal global left ventricular systolic function. There are some features of grade 1 left ventricular diastolic dysfunction manifest by abnormal relaxation. 2. Aortic valve sclerosis without any stenosis or aortic regurgitation. 3. Mild mitral regurgitation.
--- NOTE | 2020-06-08 20:11 | IPNPDOC ---
Date Seen The patient was seen on 06/08/20. Progress Note SUBJECTIVE: AAOx2. Patient thought her was so slightly delusional, otherwise was alert, oriented. Followed commands for me for the first time since admission, knew year, month, week, day. IVFs stopped due to plateaued sodium, believed to be her baseline. Denies chest pain, n/v/d, fevers, chills, shortness of breath. OBJECTIVE: VITAL SIGNS: Please see below PHYSICAL EXAMINATION: CONSTITUTIONAL: No acute distress, sitting up at bedside chair, following commands, AAOx3 EYES: PERRLA, EOM intact HENT, MOUTH: Normocephalic, atraumatic, moist mucous membranes NECK: SUPPLE, no JVD, no lymphadenopathy, no carotid bruit CV: Regular rate and rhythm, S1S2 normal, no murmurs/rubs/gallops RESPIRATORY: Clear to auscultation bilaterally, no rales/rhonchi/wheezes GI: BS positive in 4 quadrants, soft, nontender, nondistended, no rebound or guarding, no organomegaly : Deferred MUSCULOSKELETAL: Normal ROM. No cyanosis, clubbing, swelling, joint deformity, extremity edema INTEGUMENTARY: Intact, no rashes, no lesions, no erythema NEUROLOGIC: No focal deficits, CN 2-12 intact, sensory and motor intact CURRENT MEDICATIONS: Please see below LABORATORY DATA: Please see below IMAGING: MRI/MRA- patient refused Carotid US: Mild atherosclerotic plaque without significant stenosis or occlusion. Echo: EF 60-65% Normal global left ventricular systolic function. There are some features of grade 1 left ventricular diastolic dysfunction manifest by abnormal relaxation Aortic valve sclerosis without any stenosis or aortic regurgitation. Mild mitral regurgitation. ASSESSMENT: 79 years old female with past history of hyperlipidemia, hypertension presented to the hospital with hypertensive emergency, altered mental status with delirium, admitted for CVA, questionable behaviors. PLAN: 1. Altered mental status, possibly 2/2 to moderate hyponatremia, new CVA, unde rlying behaviors (psych?, aggressive at times) with acute delirium or can be multifactorial - Per , his is normally AAOx3, manages bills in house and this is completely different from her baseline - Claimed 06/09/20 but he is alive. She was truly surprised when I told her he is still alive. Odd that she knew year, month, week, day very clearly. - Vitamin B12, folate, TSH wnl - Please see below for treatment of individual issues 2. Acute on chronic hyponatremia, moderate possibly 2/2 to thiazide diuretic use -Last dose thiazide diuretic 06/06 09:00 -Improving slowly off thiazide diuretic but did not correct completely, currently 133- this is believed to be close to her baseline with hx of hyponatremia, previously on salt tabs. Due to not correcting completely with IVFs or off thiazide diuretic, will repeat urine osmolality, urine sodium in AM. -Stopped IVFs -F/u daily labs, urine osmolality, urine sodium 3. CVA likely 2/2 to hypertensive emergency. Possible cause of acute delirium? -CT head: acute nonhemorrhagic infarction -MRI and MRA- patient refused. -Echo: above -Carotid doppler: neg for stenosis -ASA, statin, no dysphagia concerns -PT/OT 4. HTN -Better controlled with current meds. -Stopped thiazide, replaced with spironolactone -Tele 5. Hyperlipidemia -C/w statin and daily aspirin 6. Macrocytic anemia, chronic. -Vitamin B12, folate wnl. -No signs of acute bleeding -F/u daily cBC 7. DVT -Heparin DISPOSITION: Admitted under acute inpatient. Doing well with PT. Plan is undecided yet for discharge. VS, I&O, 24H, Fishbone Vital Signs/I&O Vital Signs Date Time Temp Pulse Resp B/P (MAP) Pulse Ox O2 Delivery O2 Flow Rate FiO2 06/08/20 16:00 97.7 84 20 138/87 (104) 97 Room Air I&O- Last 24 Hours up to 6 AM 06/08/20 06:00 Intake Total 550 ml Output Total 350 ml Balance 200 ml Laboratory Data 24H LABS Laboratory Tests 2 06/07/20 21:33: Bedside Glucose (Misc Panel) 155H 06/08/20 05:24: Nucleated Red Blood Cells % (auto) 0.0, Anion Gap 10, Glomerular Filtration Rate > 60.0, Calcium Level 8.0L, Total Bilirubin 0.7, Aspartate Amino Transf (AST/SGOT) 37, Alanine Aminotransferase (ALT/SGPT) 33, Alkaline Phosphatase 50, Total Protein 5.8L, Albumin 2.9L, Albumin/Globulin Ratio 1.0L 06/08/20 11:51: Bedside Glucose (Misc Panel) 177H 06/08/20 16:30: Bedside Glucose (Misc Panel) 87 CBC/BMP Laboratory Tests 06/08/20 05:24 Microbiology Microbiology 06/05/20 Blood Culture - Preliminary, Resulted No Growth after 72 hours. All specime... 06/05/20 Blood Culture - Preliminary, Resulted No Growth after 72 hours. All specime... 06/05/20 Blood Culture - Preliminary, Resulted No Growth after 72 hours. All specime... Current Medications Current Medications Medications (Trade) Dose Ordered Sig/Yandy Route PRN Reason Start Time Stop Time Status Last Admin Dose Admin Aspirin (Aspirin Chewable) 81 mg DAILY PO 06/06/20 09:00 06/06/20 09:03 Atorvastatin Calcium (Lipitor) 20 mg QHS PO 06/05/20 21:00 Captopril (CAPOten) 6.25 mg NOW PO 06/05/20 14:00 06/05/20 14:01 DC 06/05/20 16:11 Captopril (CAPOten) 6.25 mg Q1H PO 06/05/20 15:00 06/05/20 17:01 DC Dextrose (Dextrose 50%) 25 ml ASDIRECTED PRN IV SEE LABEL COMMENTS 06/05/20 13:30 Glucagon (Glucagon) 1 mg ASDIRECTED PRN SC SEE LABEL COMMENTS 06/05/20 13:30 Glucose (Glucose) 16 GM ASDIRECTED PRN PO SEE LABEL COMMENTS 06/05/20 13:30 Heparin Sodium (Porcine) (Heparin) 5,000 units Q12H SC 06/05/20 18:00 06/08/20 17:30 Home Med (Med Rec Complete!) ASDIRECTED XX 06/05/20 12:15 06/05/20 12:07 DC Hydralazine HCl (Apresoline) 10 mg Q4H PRN IV SEE DOSE INSTRUCTIONS 06/07/20 20:30 Hydralazine HCl (Apresoline) 10 mg STAT STAT IV 06/07/20 18:24 06/07/20 18:25 DC 06/07/20 18:56 Insulin Human Lispro (HumaLOG INSULIN) SEE PROTOCOL TABLE AC SC 06/05/20 17:30 06/08/20 12:30 Insulin Human Lispro (HumaLOG INSULIN) SEE PROTOCOL TABLE QHS SC 06/05/20 21:00 Labetalol HCl (Normodyne, Trandate) 10 mg Q1H PRN IV htn 06/05/20 16:00 06/07/20 20:31 DC 06/07/20 12:56 Lisinopril (Prinivil) 10 mg DAILY PO 06/05/20 09:00 06/06/20 19:03 DC 06/06/20 09:03 Lisinopril (Prinivil) 20 mg DAILY PO 06/07/20 09:00 06/07/20 08:41 DC Lisinopril (Prinivil) 20 mg DAILY PO 06/08/20 09:00 06/08/20 08:59 Magnesium Sulfate/ Dextrose 1 gm/IV Miscellaneous Supplies 100 ml @ 100 mls/hr 0700,0800 IV 06/06/20 07:00 06/06/20 14:00 DC 06/06/20 09:06 Sodium Chloride 1,000 ml @ 50 mls/hr Q20H IV 06/07/20 18:30 06/08/20 07:57 DC 06/08/20 04:58 Sodium Chloride 1,000 ml @ 75 mls/hr [id number] IV 06/06/20 09:00 06/07/20 18:20 DC 06/07/20 11:40 Spironolactone (Aldactone) 25 mg QAM PO 06/08/20 09:00 06/08/20 08:59 Triamterene/HCTZ (Dyazide 37.5-25 Mg) 1 ea BID PO 06/05/20 21:00 06/07/20 08:39 DC 06/06/20 09:03 Allergies Coded Allergies: aspirin (Verified Adverse Reaction, Mild, stomach upset , 06/05/20) Kirstin Chambers MD Jun 08, 2020 20:11
[2020-06-08] MEDS: ATORVASTATIN 20 MG TAB PO SCH (21:11)
[2020-06-08] MEDS: SLF 3 ML SYR IV SCH (21:11)
[2020-06-08] MEDS ORDERED: SLF 3 ML SYR IV PRN (21:15)
[2020-06-09] VITALS: BP 148/82
[2020-06-09 04:00] VITALS: BP 142/74
[2020-06-09] MEDS: HEPARIN SOD (PORCINE) 5000UNITS/ML VIAL (J1644 PER 1000UNITS) SC SCH (05:33)
[2020-06-09] MEDS: SLF 3 ML SYR IV SCH (05:33)
[2020-06-09 05:51] LABS: HEMATOCRIT 32.6 % (36.0-47.0); HEMOGLOBIN 11.4 g/dl (12.0-15.5); MEAN CORPUSCULAR VOLUME 108.7 fl (80.0-96.0); PLATELET COUNT, AUTOMATED 142 10^3/uL (150-450); WHITE BLOOD COUNT 4.2 10^3/uL (4.0-10.0)
[2020-06-09 07:08] VITALS: BP 164/84
[2020-06-09 07:33] LABS: ALBUMIN 3.1 GM/DL (3.2-5.2); ALT/SGPT 33 U/L (12-78); BILIRUBIN,TOTAL 0.9 MG/DL (0.2-1.0); BLOOD UREA NITROGEN 23 MG/DL (7-18); CALCIUM LEVEL 8.4 MG/DL (8.8-10.2); CARBON DIOXIDE LEVEL 25 MEQ/L (21-32); CHLORIDE LEVEL 100 MEQ/L (98-107); CREATININE FOR GFR 0.93 MG/DL (0.55-1.30); GLOMERULAR FILTRATION RATE > 60.0 (>32); GLUCOSE, FASTING 91 MG/DL (70-100); POTASSIUM SERUM 3.6 MEQ/L (3.5-5.1); SODIUM LEVEL 132 MEQ/L (136-145)
[2020-06-09 07:39] LABS: OSMOLALITY SERUM 276 MOSM/KG (280-301)
[2020-06-09] MEDS: SPIRONOLACTONE 25 MG TAB PO SCH (08:48)
[2020-06-09] MEDS: ASPIRIN 81 MG CHEW TABLET PO SCH ×2 (08:48→08:56)
[2020-06-09] MEDS: lisinopriL 20 MG TAB PO SCH (08:49)
[2020-06-09] MEDS: HumaLOG INSULIN (NovoLOG) PER UNIT SC SCH ×2 (08:53→13:39)
[2020-06-09 10:28] LABS: CORTISOL AM 19.8 UG/DL (4.3-22.4)
[2020-06-09 12:00] VITALS: BP 147/74
[2020-06-09] MEDS ORDERED: LISI40TA PO (15:03)
[2020-06-09] MEDS ORDERED: ATOR1TAB21 PO (15:03)
[2020-06-09] MEDS ORDERED: ALDA25TA2 PO (15:03)
[2020-06-09] MEDS ORDERED: ASPI81CH8 PO (15:03)
--- NOTE | 2020-06-09 16:01 | DS.PDOC ---
Discharge Summary General Date of Admission Jun 05, 2020 at 13:03 Date of Discharge 06/09/20 Discharge Summary PROCEDURES PERFORMED DURING STAY: [None]. ADMITTING DIAGNOSES: Altered mental status hyponatremia CVA HTN Hyperlipidemia Macrocytic anemia, chronic DISCHARGE DIAGNOSES: Altered mental status hyponatremia CVA HTN Hyperlipidemia Macrocytic anemia, chronic COMPLICATIONS/CHIEF COMPLAINT: Altered Mental Status. HISTORY OF PRESENT ILLNESS: 79 years old female with past history of hyperlipidemia, hypertension presented to the hospital with hypertensive emergency, altered mental status with delirium, admitted for CVA HOSPITAL COURSE: During hospital stay following issue addressed Altered mental status due to new CVA Also there is concern for Alzheimer diseases Resolved on 06/09/20. Patient alert, oriented, awake. CVA likely 2/2 to hypertensive emergency. -CT head: acute nonhemorrhagic infarction -MRI and MRA- patient refused. -Echo: Negative for PFO or blood clots Telemetry shows normal sinus rhythm -Carotid doppler: neg for stenosis -ASA, statin, no dysphagia concerns -PT/OT Hyperlipidemia -C/w statin and daily aspirin Macrocytic anemia, chronic. -Vitamin B12, folate wnl. Patient will need workup for MDS in the outpatient settings. Follow-up with PCP -No signs of acute bleeding DISCHARGE MEDICATIONS: Please see below. ALLERGIES: Please see below. PHYSICAL EXAMINATION ON DISCHARGE: VITAL SIGNS: Please see below. General NAD EYES: PERRLA, EOM intact HENT, MOUTH: Normocephalic, atraumatic, moist mucous membranes NECK: SUPPLE, no JVD, no lymphadenopathy, no carotid bruit CV: Regular rate and rhythm, S1S2 normal, no murmurs/rubs/gallops RESPIRATORY: Clear to auscultation bilaterally, no rales/rhonchi/wheezes GI: BS positive in 4 quadrants, soft, nontender, nondistended, no rebound or guarding, no organomegaly MUSCULOSKELETAL: Normal ROM. No cyanosis, clubbing, swelling, joint deformity, extremity edema INTEGUMENTARY: Intact, no rashes, no lesions, no erythema NEUROLOGIC: No focal deficits, CN 2-12 intact, sensory and motor intact LABORATORY DATA: Please see below. IMAGING: REASON: Unilateral ocular disturbance. There are no priors for comparison. There is decreased density in the left insular cortex. The ventricles and sulci are within normal limits. There are no extra-axial fluid collections. There is no shift of the midline structures. Posterior fossa is within normal limits. The imaged paranasal sinuses and mastoid air cells are clear. IMPRESSION: Decreased density in the left insular cortex suggesting acute nonhemorrhagic infarction. This should be correlated clinically and if necessary, obtain an MRI examination for further evaluation. PROGNOSIS: fair ACTIVITY: As tolerated DIET: Cardiac DISCHARGE PLAN: Home with home health DISCHARGE INSTRUCTIONS: Follow-up with neurologist and PCP DISCHARGE CONDITION: [Stable]. TIME SPENT ON DISCHARGE: Greater than 40 minutes. Vital Signs/I&Os Vital Signs Date Time Temp Pulse Resp B/P (MAP) Pulse Ox O2 Delivery O2 Flow Rate FiO2 06/09/20 12:00 96.4 73 18 147/74 (98) 96 Room Air I&O- Last 24 Hours up to 6 AM 06/09/20 06:00 Intake Total 660 ml Output Total 300 ml Balance 360 ml Laboratory Data Labs 24H Laboratory Tests 2 06/08/20 16:30: Bedside Glucose (Misc Panel) 87 06/08/20 20:58: Bedside Glucose (Misc Panel) 108 06/09/20 05:26: Nucleated Red Blood Cells % (auto) 0.0, Anion Gap 7L, Glomerular Filtration Rate > 60.0, Osmolality 276L, Calcium Level 8.4L, Total Bilirubin 0.9, Aspartate Amino Transf (AST/SGOT) 44H, Alanine Aminotransferase (ALT/SGPT) 33, Alkaline Phosphatase 57, Total Protein 6.0L, Albumin 3.1L, Albumin/Globulin Ratio 1.1L, Cortisol AM Sample 19.8 06/09/20 07:40: Bedside Glucose (Misc Panel) 109 06/09/20 13:03: Bedside Glucose (Misc Panel) 121H CBC/BMP Laboratory Tests 06/09/20 05:26 FSBS Laboratory Tests Test 06/08/20 16:30 06/08/20 20:58 06/09/20 07:40 06/09/20 13:03 Range/Units Bedside Glucose (Misc Panel) 87 108 109 121 83-110 MG/DL Microbiology Microbiology 06/05/20 Blood Culture - Preliminary, Resulted No Growth after 72 hours. All specime... 06/05/20 Blood Culture - Preliminary, Resulted No Growth after 72 hours. All specime... 06/05/20 Blood Culture - Preliminary, Resulted No Growth after 72 hours. All specime... Discharge Medications Scheduled Aspirin (Children's Aspirin) 81 Mg Tab.chew, 81 MG PO DAILY Atorvastatin Calcium (Atorvastatin Calcium) 20 Mg Tablet, 40 MG PO QHS Lisinopril (Lisinopril) 40 Mg Tablet, 40 MG PO DAILY Spironolactone (Aldactone) 25 Mg Tablet, 25 MG PO QAM Triamterene/Hydrochlorothiazid (Triamterene-Hctz 37.5-25 mg Tb) 1 Tab Tab, 0.5 TAB PO BID, (Reported) Allergies Coded Allergies: aspirin (Verified Adverse Reaction, Mild, stomach upset , 06/05/20) LORELEI ARGUELLES DO Jun 09, 2020 16:01
[2020-06-10] MEDS ORDERED: ASPI1CHW3 PO (06:40)
[2020-06-10] MEDS ORDERED: BIMA01SOL OU (06:40)
[2020-06-10] MEDS ORDERED: LISI40TA PO (06:40)
[2020-06-10] MEDS ORDERED: ATOR40TA75 PO (06:40)
[2020-06-10] MEDS ORDERED: SPIR-10 PO (06:40)
[2020-06-10] MEDS ORDERED: TRIA37.5 PO (06:40)
[2020-06-10] MEDS ORDERED: PATIENT COMMENT (06:42)
== END 2020-06-09 17:16 | disposition home health service (06) | DRG 65 ==
LOC: M ED 09:38 → M ED INP 13:03 → ENRESERV 15:20 → CANRESERV 15:20 → ENRESERV 20:13 → M PCU 21:54
PROVIDERS: ADMIT Internal Medicine; ATTEND Internal Medicine
DX: I63.9 Cerebral infarction, unspecified (principal); E87.1 Hypo-osmolality and hyponatremia; E87.2 Acidosis; I16.1 Hypertensive emergency; D53.9 Nutritional anemia, unspecified; E78.5 Hyperlipidemia, unspecified; Z79.82 Long term (current) use of aspirin; Z79.899 Other long term (current) drug therapy; Z87.891 Personal history of nicotine dependence

== ENCOUNTER 2020-06-09 23:23 | Inpatient (IN) | payer MEDICARE ==
[~2020-06-09 23:23] MED LIST changes: +ALDA25TA2 PO; +ASPI81CH8 PO; +ATOR1TAB21 PO; +BIMA01SOL; +LISI-538 PO; +LISI40TA PO
[2020-06-10 01:19] LABS: BASO % 0.2 % (0.0-1.0); EOS % 0.4 % (0.0-3.0); HEMATOCRIT 34.3 % (36.0-47.0); LYMPH # 0.9 10^3/uL (1.5-5.0); MEAN CORPUSCULAR HEMOGLOBIN 38.2 pg (27.0-33.0); MEAN CORPUSCULAR VOLUME 109.2 fl (80.0-96.0); MONO # 0.6 10^3/uL (0.0-0.8); MONO % 13.8 % (0.0-5.0); NEUTROPHILS % 66.2 % (36.0-66.0); PLATELET COUNT, AUTOMATED 150 10^3/uL (150-450); RED BLOOD COUNT 3.14 10^6/uL (4.00-5.40); WHITE BLOOD COUNT 4.6 10^3/uL (4.0-10.0)
[2020-06-10 01:49] LABS: ALBUMIN 3.8 GM/DL (3.2-5.2); BILIRUBIN,DIRECT 0.4 MG/DL (0.0-0.2); BILIRUBIN,TOTAL 1.1 MG/DL (0.2-1.0); TOTAL PROTEIN 7.1 GM/DL (6.4-8.2)
[2020-06-10] MEDS ORDERED: BIMA01SOL OU (06:40)
[2020-06-10] MEDS ORDERED: LISI40TA PO (06:40)
[2020-06-10] MEDS ORDERED: ATOR40TA75 PO (06:40)
[2020-06-10] MEDS ORDERED: SPIR-10 PO (06:40)
[2020-06-10] MEDS ORDERED: ASPI1CHW3 PO (06:40)
[2020-06-10] MEDS ORDERED: TRIA37.5 PO (06:40)
[2020-06-10] MEDS ORDERED: PATIENT COMMENT (06:42)
[2020-06-10] MEDS ORDERED: MAALOX 30 ML SUSP *UDC PO PRN (09:15)
[2020-06-10] MEDS ORDERED: ACETAMINOPHEN TAB 650MG DOSE (2X325MG) PO PRN (09:15)
[2020-06-10] MEDS ORDERED: MOM 30ML SUSPENSION UDC PO PRN (09:15)
[2020-06-10] MEDS ORDERED: lisinopriL 40 MG TAB PO ONE (10:30)
[2020-06-10 12:00] VITALS: BP 165/85
[2020-06-10] MEDS: HEPARIN SOD (PORCINE) 5000UNITS/ML 1ML VIAL/SYRINGE SC SCH ×2 (13:31→21:32)
--- NOTE | 2020-06-10 14:07 | HPEPDOC ---
[facility] Medical History & Physical Date of Admission Jun 10, 2020 Date of Service: Jun 10, 2020 Primary Care Physician: Christa Duckworth PA-C, LAC Attending Physician: LORELEI ARGUELLES DO History and Physical CHIEF COMPLAINT: back pain, unable to be cared for at home HISTORY OF PRESENT ILLNESS: Sosa Shepherd is an 79-year-old female who presented to the emergency room complaining of back pain. She was recently admitted for a stroke and discharged home yesterday after clearance from physical therapy and follow-up scheduled with neurology. At the time of my evaluation, she was not complaining of any back pain. She was sent in by her , whom she lives with at home, who was concerned about uncontrollable behavior. Her noted that the patient was flailing around uncontrollably naked on the floor. The is concerned that further discharge planning is needed for the patient to return home safely. During my evaluation of the patient, her behavior was appropriate. PAST MEDICAL HISTORY: 1. HTN 2. Hyperlipidemia 3. Borderline diabetes mellitus, diet controlled. 4. Eczema over the eyelids PAST SURGICAL HISTORY: Patient denies any surgical history SOCIAL HISTORY: Former smoker. Drinks 1 glass of wine per day. Lives at home with . FAMILY HISTORY: Father: 50 yrs, Brain hemorrhage Mother: 82 yrs, Hypertension, heart disease ALLERGIES: Please see below. REVIEW OF SYSTEMS: CONSTITUTIONAL: Denies fevers, chills, night sweats, fatigue, unexpected change in weight. HEENT: Denies change in vision, change in hearing. CARDIOVASCULAR: Denies chest pain, palpitations, shortness of breath, lightheadedness. RESPIRATORY: Denies dyspnea, cough, wheezing. GASTROINTESTINAL: Denies nausea, vomiting, abdominal pain, diarrhea, constip ation, blood in stool. GENITOURINARY: Denies dysuria, urinary frequency, urinary urgency. SKIN: Denies rash, lesions. MUSCULOSKELETAL: Denies joint pain or muscle aches. NEUROLOGICAL: Denies headache, dizziness, weakness. PSYCHIATRIC: Denies change in mood. HOME MEDICATIONS: Please see below. PHYSICAL EXAMINATION: VITAL SIGNS: See below GENERAL: Alert, comfortable, in no acute distress HEENT: Normocephalic, atraumatic, PERRLA, EOMI, moist mucous membranes NECK: Supple, trachea midline, no lymphadenopathy, no JVD CARDIOVASCULAR: Regular rate and rhythm, normal S1 and S2. No murmurs, rubs, or gallops RESPIRATORY: Clear to auscultation bilaterally with equal air entry bilaterally. No wheezing, rhonchi, or rales. ABDOMEN: Soft, nontender, nondistended, bowel sounds present, no masses or hep atosplenomegaly appreciated EXTREMITIES: No cyanosis or edema. Pulses 2+/4 in bilateral upper and lower extremities SKIN: [place], warm, dry NEUROLOGIC: Alert and oriented x3 to person, place and time. No focal deficits appreciated PSYCHIATRIC: Mood and affect appropriate LABORATORY DATA: See below. IMAGING: None MICROBIOLOGY: Please see below. ASSESSMENT: 79-year-old female with history of recent hospital admission for an ischemic stroke presents to the emergency department due to inappropriate behavior at home and report of back pain which has resolved PLAN: 1. Altered mental status Patient is orientedx3 on my evaluation, no confusion or inappropriate behavior. Patient has had some elevated blood pressures up to 193/79 early this morning, hypertensive encephalopathy causing transient altered mental status is possible. Continue to monitor blood pressure and adjust her antihypertensive medications while inpatient. If patient exhibits inappropriate behavior while inpatient, consider speech cognitive eval or psychiatric consult for further evaluation. 2. Physical deconditioning PT/OT evaluations pending, possible placement versus returning home with services Back pain, resolved. Patient denies any back pain on my evaluation. Examination benign. No further work up. Hypertension. Continue lisinopril Monitor blood pressure trend Recent ischemic CVA. Continue statin. Patient refused aspirin therapy, reports aspirin allergy Hyperlipidemia. Continue statin DVT prophylaxis: Subcutaneous heparin. Disposition: Pending evaluation by PT/OT, possible placement versus returning home Vital Signs Vital Signs Date Time Temp Pulse Resp B/P (MAP) Pulse Ox O2 Delivery O2 Flow Rate FiO2 06/10/20 12:00 97.1 83 16 165/85 (111) 97 Room Air Laboratory Data Labs 24H Laboratory Tests 2 06/10/20 01:03: Immature Granulocyte % (Auto) 0.4, Neutrophils (%) (Auto) 66.2H, Lymphocytes (%) (Auto) 19.0L, Monocytes (%) (Auto) 13.8H, Eosinophils (%) (Auto) 0.4, Basophils (%) (Auto) 0.2, Neutrophils # (Auto) 3.0, Lymphocytes # (Auto) 0.9L, Monocytes # (Auto) 0.6, Eosinophils # (Auto) 0.0, Basophils # (Auto) 0.0, Nucleated Red Blood Cells % (auto) 0.0, Lactic Acid Level 1.2, Total Bilirubin 1.1H, Direct Bilirubin 0.4H, Aspartate Amino Transf (AST/SGOT) 48H, Alanine Aminotransferase (ALT/SGPT) 41, Alkaline Phosphatase 59, Total Protein 7.1, Albumin 3.8#, Albumin/Globulin Ratio 1.2, Lipase 498H 06/10/20 01:09: POC Glucose (Misc Panel) 113H, POC Sodium (Misc Panel) 130L, POC Potassium (Misc Panel) 3.7, POC Chloride (Misc Panel) 96L, POC Total CO2 (Misc Panel) 22.0L, POC Blood Urea Nitrogen (Misc Panel 28H, POC Ionized Calcium (Misc Panel) 4.8, POC Creatinine (Misc Panel) 1.1, POC Hematocrit (Misc Panel) 39.0 06/10/20 01:13: POC Troponin I (Misc) 0.00 06/10/20 01:50: Urine Color YELLOW, Urine Appearance HAZY, Urine pH 5.0, Urine Specific [place] 1.014, Urine Protein NEGATIVE, Urine Glucose (UA) NEGATIVE, Urine Ketones 1+H, Urine Blood NEGATIVE, Urine Nitrite NEGATIVE, Urine Bilirubin NEGATIVE, Urine Urobilinogen 2.0H, Urine Leukocyte Esterase NEGATIVE, Urine WBC (Auto) 6H, Urine RBC (Auto) 0, Urine Hyaline Casts (Auto) 0, Urine Bacteria (Auto) 3+H, Urine Squamous Epithelial Cells 0, Urine Mucus (Auto) SMALL, Urine Sperm (Auto) CBC/BMP Laboratory Tests 06/10/20 01:03 Microbiology Microbiology 06/10/20 Blood Culture, Received Pending 06/10/20 Blood Culture, Received Pending Home Medications Scheduled Aspirin (Aspirin) 81 Mg Tab.chew, 81 MG PO DAILY Atorvastatin Calcium (Atorvastatin Calcium) 40 Mg Tablet, 40 MG PO QHS Bimatoprost (Lumigan) 0.01% 2.5ML Drops, 1 DROP OU QHS Lisinopril (Lisinopril) 40 Mg Tablet, 40 MG PO DAILY Spironolactone (Spironolactone) 25 Mg Tablet, 25 MG PO DAILY Triamterene/Hydrochlorothiazid (Triamterene-Hctz 37.5-25 mg Tb) 1 Each Tablet, 0.5 TAB PO BID Miscellaneous Medications [Patient Comment] USED DISCHARGE PAPERWORK (06/09/2020) FOR MED REC. CONFIRMED EYE DROPS WITH PATIENT'S . Allergies Coded Allergies: aspirin (Verified Adverse Reaction, Mild, stomach upset , 06/05/20) A-FIB/CHADSVASC A-FIB History Current/History of A-Fib/PAF?: No BALDEV BROWN D.O. Jun 10, 2020 14:07
[2020-06-10] MEDS: CLOPIDOGREL 75 MG TAB PO SCH (17:16)
[2020-06-10] MEDS ORDERED: DYAZIDE 37.5/25 CAP (TRIAM/HCTZ) PO SCH (21:00)
[2020-06-10] MEDS ORDERED: ATORVASTATIN 20 MG TAB PO SCH (21:00)
--- NOTE | 2020-06-10 21:18 | REPVR ---
PROCEDURE INFORMATION: Exam: MR Head Without Contrast Exam date and time: 06/10/2020 8:59 PM Age: 79 years old Clinical indication: Altered mental status/memory loss; Confusion or disorientation; Patient HX: Severe AMS, weakness. Best images due to PT condition; Additional info: New balance problem TECHNIQUE: Imaging protocol: MR of the head without contrast. COMPARISON: CT Head without contrast 06/05/2020 10:22 AM FINDINGS: Brain: No acute infarct. Ventricles: Normal. No ventriculomegaly. Bones/joints: Unremarkable. Sinuses: Normal as visualized. No acute sinusitis. Mastoid air cells: Normal as visualized. No mastoid effusion. Orbits: Unremarkable. Soft tissues: Unremarkable. IMPRESSION: No acute intracranial abnormality. Electronically signed by: Mahin Lyons On 06/10/2020 21:18:23 PM
--- NOTE | 2020-06-10 21:22 | REPVR ---
PROCEDURE INFORMATION: Exam: MR Angiogram Head Without Contrast, Arteries Exam date and time: 06/10/2020 8:59 PM Age: 79 years old Clinical indication: Cognitive deficit; Altered mental status; Patient HX: Severe AMS, weakness. Best images due to PT condition; Additional info: CVA TECHNIQUE: Imaging protocol: MR angiogram head without contrast. Exam focused on the arteries. 3D rendering (Not supervised by radiologist): MIP and/or 3D reconstructed images were created by the technologist. COMPARISON: CT Head without contrast 06/05/2020 10:22 AM FINDINGS: Anterior cerebral arteries: Intracranial segment is patent with no significant stenosis. No aneurysm. Right internal carotid artery: Intracranial segment is patent with no significant stenosis. No aneurysm. Right middle cerebral artery: No occlusion or significant stenosis. No aneurysm. Right posterior cerebral artery: No occlusion or significant stenosis. No aneurysm. Right vertebral artery: No occlusion or significant stenosis. No aneurysm. Left internal carotid artery: Intracranial segment is patent with no significant stenosis. No aneurysm. Left middle cerebral artery: No occlusion or significant stenosis. No aneurysm. Left posterior cerebral artery: No occlusion or significant stenosis. No aneurysm. Left vertebral artery: No occlusion or significant stenosis. No aneurysm. Basilar artery: No occlusion or significant stenosis. No aneurysm. IMPRESSION: No stenosis or occlusion. Electronically signed by: Mahin Lyons On 06/10/2020 21:22:29 PM
[2020-06-10 22:00] VITALS: BP 139/82
[2020-06-11 06:00] VITALS: BP 132/80
[2020-06-11 06:18] LABS: HEMATOCRIT 30.5 % (36.0-47.0); HEMOGLOBIN 10.9 g/dl (12.0-15.5); MEAN CORPUSCULAR HEMOGLOBIN 38.4 pg (27.0-33.0); MEAN CORPUSCULAR HGB CONC 35.7 g/dl (32.0-36.5); MEAN CORPUSCULAR VOLUME 107.4 fl (80.0-96.0); PLATELET COUNT, AUTOMATED 133 10^3/uL (150-450); RED BLOOD COUNT 2.84 10^6/uL (4.00-5.40); WHITE BLOOD COUNT 4.5 10^3/uL (4.0-10.0)
[2020-06-11 06:35] LABS: CALCIUM LEVEL 8.8 MG/DL (8.8-10.2); CREATININE FOR GFR 0.99 MG/DL (0.55-1.30); GLOMERULAR FILTRATION RATE 57.5 (>32); POTASSIUM SERUM 3.4 MEQ/L (3.5-5.1)
[2020-06-11] MEDS ORDERED: lisinopriL 40 MG TAB PO SCH (09:00)
[2020-06-11] MEDS ORDERED: SPIRONOLACTONE 25 MG TAB PO SCH (09:00)
[2020-06-11] MEDS: CLOPIDOGREL 75 MG TAB PO SCH (09:55)
[2020-06-11] MEDS: HEPARIN SOD (PORCINE) 5000UNITS/ML 1ML VIAL/SYRINGE SC SCH (09:55)
[2020-06-11 10:00] VITALS: BP 144/83
== END 2020-06-12 | disposition home or self-care (01) | DRG 79 ==
LOC: EDBD 23:23 → M ED 23:23 → M ED INP 06-10 08:45 → ENRESERVDT 06-10 10:43 → ENRESERVTM 06-10 10:43 → M MSPAV 06-10 11:57
PROVIDERS: ADMIT Internal Medicine; ATTEND Internal Medicine
DX: I67.4 Hypertensive encephalopathy (principal); E78.5 Hyperlipidemia, unspecified; E11.9 Type 2 diabetes mellitus without complications; Z87.891 Personal history of nicotine dependence; Z86.73 Personal history of transient ischemic attack (TIA), and cerebral infarction without residual deficits; M54.5 Low back pain; I10 Essential (primary) hypertension; Z79.82 Long term (current) use of aspirin; Z79.899 Other long term (current) drug therapy

== ENCOUNTER → 2020-07-10 | Outpatient (CLI) | payer MEDICARE ==
[~2020-07-10] MED LIST changes: +ACET-683 PO; +APAP325T4 PO; +ASPI1CHW3 PO; +ATIV1TAB10 PO; +ATOR40TA75 PO; +BENEPOW18 PO; +BIMA01SOL OU; +BISA10SU27 PR; +BUSP10TA PO; +CLOP75TA2 PO; +ENEMENE PR; +ENSU1LIQ36 PO; +JUVEPOW3 PO; +KEFL500C17 PO; +KEPP250T5 PO; +KLOR20TA42 PO; +MILKSUS3 PO; +PANT-23 PO; +PATIENT COMMENT; +QUET1TAB7 PO; +SENN-23 PO; +SERT25TA21 PO; +SERT50TA29 PO; +SPIR-10 PO; +VITMTA PO
[2020-07-10 15:18] LABS: HEMATOCRIT 28.2 % (36.0-47.0); HEMOGLOBIN 9.4 g/dl (12.0-15.5); MEAN CORPUSCULAR HGB CONC 33.3 g/dl (32.0-36.5); MEAN CORPUSCULAR VOLUME 93.1 fl (80.0-96.0); RED BLOOD COUNT 3.03 10^6/uL (4.00-5.40); WHITE BLOOD COUNT 4.7 10^3/uL (4.0-10.0)
[2020-07-10 16:04] LABS: BLOOD UREA NITROGEN 25 MG/DL (7-18); CARBON DIOXIDE LEVEL 32 MEQ/L (21-32); CHLORIDE LEVEL 98 MEQ/L (98-107); CREATININE FOR GFR 0.66 MG/DL (0.55-1.30); GLOMERULAR FILTRATION RATE > 60.0 (>32); GLUCOSE, FASTING 115 MG/DL (70-100); NT-PRO BNP 4113 PG/ML (<450); POTASSIUM SERUM 3.1 MEQ/L (3.5-5.1); SODIUM LEVEL 137 MEQ/L (136-145)
[2020-07-10 16:11] LABS: PLATELET COUNT, AUTOMATED 37 10^3/uL (150-450)
--- NOTE | 2020-08-13 08:43 | REPPI ---
CHEST X-RAY: SINGLE VIEW AP RADIOGRAPH HISTORY: Congestive heart failure (CHF). Edema. COMPARISON: Chest x-ray 02/10/2020. FINDINGS: There are small bilateral pleural effusions. Heart is at the upper range of normal in size. Pulmonary vasculature is not increased. There is no evidence of pulmonary edema. IMPRESSION: Borderline heart size with small bilateral pleural effusions consistent with congestive heart failure (CHF). MTDD
== END ==
PROVIDERS: ATTEND Physician Assistant
DX: I50.9 Heart failure, unspecified (principal)

== ENCOUNTER → 2020-07-17 | Outpatient (REF) | payer MEDICARE ==
[2020-08-04 10:11] LABS: HEMATOCRIT 27.7 % (36.0-47.0); HEMOGLOBIN 9.1 g/dl (12.0-15.5); MEAN CORPUSCULAR HEMOGLOBIN 30.6 pg (27.0-33.0); MEAN CORPUSCULAR HGB CONC 32.9 g/dl (32.0-36.5); MEAN CORPUSCULAR VOLUME 93.3 fl (80.0-96.0); PLATELET COUNT, AUTOMATED 57 10^3/uL (150-450); RED BLOOD COUNT 2.97 10^6/uL (4.00-5.40); WHITE BLOOD COUNT 2.3 10^3/uL (4.0-10.0)
[2020-08-04 10:44] LABS: BLOOD UREA NITROGEN 26 MG/DL (7-18); CALCIUM LEVEL 7.8 MG/DL (8.8-10.2); CARBON DIOXIDE LEVEL 33 MEQ/L (21-32); CHLORIDE LEVEL 100 MEQ/L (98-107); CREATININE FOR GFR 0.64 MG/DL (0.55-1.30); GLOMERULAR FILTRATION RATE > 60.0 (>32); GLUCOSE, FASTING 127 MG/DL (70-100); NT-PRO BNP 864 PG/ML (<450); SODIUM LEVEL 140 MEQ/L (136-145)
== END ==
PROVIDERS: ATTEND Physician Assistant
DX: G40.909 Epilepsy, unspecified, not intractable, without status epilepticus (principal)

== ENCOUNTER → 2020-07-18 | Outpatient (REF) ==
[2020-07-18 22:15] LABS: BLOOD UREA NITROGEN 26 MG/DL (7-18); CALCIUM LEVEL 8.5 MG/DL (8.8-10.2); CARBON DIOXIDE LEVEL 31 mmol/L (20-29); CHLORIDE LEVEL 101 MEQ/L (98-107); CREATININE FOR GFR 0.76 MG/DL (0.55-1.30); GLOMERULAR FILTRATION RATE > 60.0 (>32); GLUCOSE, FASTING 124 MG/DL (70-100); POTASSIUM SERUM 3.9 MEQ/L (3.5-5.1); SODIUM LEVEL 140 MEQ/L (136-145)
[2020-07-18 22:18] LABS: HEMATOCRIT 30.8 % (36.0-47.0); MEAN CORPUSCULAR HEMOGLOBIN 30.2 pg (27.0-33.0); MEAN CORPUSCULAR HGB CONC 32.5 g/dl (32.0-36.5); MEAN CORPUSCULAR VOLUME 93.1 fl (80.0-96.0); PLATELET COUNT, AUTOMATED 66 10^3/uL (150-450); RED BLOOD COUNT 3.31 10^6/uL (4.00-5.40); WHITE BLOOD COUNT 2.1 10^3/uL (4.0-10.0)
== END ==
LOC: M LAB 21:51
PROVIDERS: ATTEND Internal Medicine
DX: I50.9 Heart failure, unspecified (principal)

== ENCOUNTER → 2020-07-20 | Outpatient (REF) ==
[2020-07-20 11:35] LABS: CALCIUM LEVEL 8.6 MG/DL (8.8-10.2); CREATININE FOR GFR 0.98 MG/DL (0.55-1.30); GLOMERULAR FILTRATION RATE 58.1 (>32); POTASSIUM SERUM 3.7 MEQ/L (3.5-5.1)
== END ==
PROVIDERS: ATTEND Physician Assistant
DX: I50.9 Heart failure, unspecified (principal)

== ENCOUNTER → 2020-07-21 | Outpatient (REF) ==
[2020-07-21 12:52] LABS: HEMATOCRIT 28.5 % (36.0-47.0); HEMOGLOBIN 8.9 g/dl (12.0-15.5); MEAN CORPUSCULAR HEMOGLOBIN 30.7 pg (27.0-33.0); MEAN CORPUSCULAR HGB CONC 31.2 g/dl (32.0-36.5); MEAN CORPUSCULAR VOLUME 98.3 fl (80.0-96.0); WHITE BLOOD COUNT 2.6 10^3/uL (4.0-10.0)
[2020-07-21 12:53] LABS: PLATELET COUNT, AUTOMATED 78 10^3/uL (150-450)
[2020-07-21 13:09] LABS: BLOOD UREA NITROGEN 30 MG/DL (7-18); CALCIUM LEVEL 8.2 MG/DL (8.8-10.2); CARBON DIOXIDE LEVEL 28 MEQ/L (21-32); CHLORIDE LEVEL 106 MEQ/L (98-107); GLOMERULAR FILTRATION RATE > 60.0 (>32); GLUCOSE, FASTING 160 MG/DL (70-100); POTASSIUM SERUM 3.7 MEQ/L (3.5-5.1); SODIUM LEVEL 142 MEQ/L (136-145)
== END ==
PROVIDERS: ATTEND Physician Assistant
DX: E87.6 Hypokalemia (principal)

== ENCOUNTER → 2020-07-22 | Outpatient (REF) ==
[2020-07-22 10:23] LABS: BLOOD UREA NITROGEN 26 MG/DL (7-18); CALCIUM LEVEL 8.2 MG/DL (8.8-10.2); CARBON DIOXIDE LEVEL 28 MEQ/L (21-32); CHLORIDE LEVEL 107 MEQ/L (98-107); CREATININE FOR GFR 0.77 MG/DL (0.55-1.30); GLOMERULAR FILTRATION RATE > 60.0 (>32); GLUCOSE, FASTING 141 MG/DL (70-100); POTASSIUM SERUM 3.7 MEQ/L (3.5-5.1); SODIUM LEVEL 142 MEQ/L (136-145)
== END ==
PROVIDERS: ATTEND Physician Assistant
DX: E86.0 Dehydration (principal)

== ENCOUNTER → 2020-08-11 | Outpatient (REF) | PROVIDERS: ATTEND Internal Medicine | DX: Z51.81 Encounter for therapeutic drug level monitoring (principal) ==

== ENCOUNTER → 2020-08-18 | Outpatient (REF) ==
[2020-08-18 10:47] LABS: HEMATOCRIT 26.6 % (36.0-47.0); HEMOGLOBIN 8.4 g/dl (12.0-15.5); MEAN CORPUSCULAR HEMOGLOBIN 32.4 pg (27.0-33.0); MEAN CORPUSCULAR HGB CONC 31.6 g/dl (32.0-36.5); MEAN CORPUSCULAR VOLUME 102.7 fl (80.0-96.0); PLATELET COUNT, AUTOMATED 152 10^3/uL (150-450); RED BLOOD COUNT 2.59 10^6/uL (4.00-5.40); WHITE BLOOD COUNT 4.7 10^3/uL (4.0-10.0)
[2020-08-18 11:03] LABS: BLOOD UREA NITROGEN 23 MG/DL (7-18); CALCIUM LEVEL 8.6 MG/DL (8.8-10.2); CARBON DIOXIDE LEVEL 28 MEQ/L (21-32); CHLORIDE LEVEL 109 MEQ/L (98-107); CREATININE FOR GFR 0.89 MG/DL (0.55-1.30); GLOMERULAR FILTRATION RATE > 60.0 (>32); GLUCOSE, FASTING 160 MG/DL (70-100); NT-PRO BNP 367 PG/ML (<450); POTASSIUM SERUM 4.4 MEQ/L (3.5-5.1); SODIUM LEVEL 141 MEQ/L (136-145)
== END ==
PROVIDERS: ATTEND Internal Medicine
DX: Z79.899 Other long term (current) drug therapy (principal)

== ENCOUNTER → 2020-08-26 | Outpatient (REF) ==
[~2020-08-26] MED LIST changes: -ACET-683 PO; -APAP325T4 PO; -ATIV1TAB10 PO; -BENEPOW18 PO; -BISA10SU27 PR; -BUSP10TA PO; -CLOP75TA2 PO; -ENEMENE PR; -ENSU1LIQ36 PO; -JUVEPOW3 PO; -KEFL500C17 PO; -KEPP250T5 PO; -KLOR20TA42 PO; -MILKSUS3 PO; -PANT-23 PO; -QUET1TAB7 PO; -SENN-23 PO; -SERT25TA21 PO; -SERT50TA29 PO; -VITMTA PO
== END ==
PROVIDERS: ATTEND Internal Medicine
DX: Z79.899 Other long term (current) drug therapy (principal)

== ENCOUNTER → 2020-09-14 | Outpatient (REF) | payer MEDICARE ==
[~2020-09-14] MED LIST changes: +ACET-683 PO; +APAP325T4 PO; +ATIV1TAB10 PO; +BENEPOW18 PO; +BISA10SU27 PR; +BUSP10TA PO; +CLOP75TA2 PO; +ENEMENE PR; +ENSU1LIQ36 PO; +JUVEPOW3 PO; +KEFL500C17 PO; +KEPP250T5 PO; +KLOR20TA42 PO; +MILKSUS3 PO; +PANT-23 PO; +QUET1TAB7 PO; +SENN-23 PO; +SERT25TA21 PO; +SERT50TA29 PO; +VITMTA PO
[2020-09-14 10:18] LABS: BASO % 0.4 % (0.0-1.0); HEMATOCRIT 27.7 % (36.0-47.0); LYMPH # 0.9 10^3/uL (1.5-5.0); LYMPH % 34.1 % (24.0-44.0); MEAN CORPUSCULAR HEMOGLOBIN 34.5 pg (27.0-33.0); MEAN CORPUSCULAR HGB CONC 32.5 g/dl (32.0-36.5); MEAN CORPUSCULAR VOLUME 106.1 fl (80.0-96.0); MONO # 0.5 10^3/uL (0.0-0.8); MONO % 17.4 % (0.0-5.0); NEUTROPHILS # 1.3 10^3/uL (1.5-8.5); NEUTROPHILS % 47.7 % (36.0-66.0); PLATELET COUNT, AUTOMATED 146 10^3/uL (150-450); RED BLOOD COUNT 2.61 10^6/uL (4.00-5.40); WHITE BLOOD COUNT 2.7 10^3/uL (4.0-10.0)
[2020-09-14 10:40] LABS: ALBUMIN 2.6 GM/DL (3.2-5.2); ALT/SGPT 20 U/L (12-78); BILIRUBIN,TOTAL 0.5 MG/DL (0.2-1.0); BLOOD UREA NITROGEN 22 MG/DL (7-18); CALCIUM LEVEL 8.5 MG/DL (8.8-10.2); CARBON DIOXIDE LEVEL 27 MEQ/L (21-32); CHLORIDE LEVEL 108 MEQ/L (98-107); CREATININE FOR GFR 0.84 MG/DL (0.55-1.30); GLOMERULAR FILTRATION RATE > 60.0 (>32); GLUCOSE, FASTING 138 MG/DL (70-100); NT-PRO BNP 848 PG/ML (<450); SODIUM LEVEL 139 MEQ/L (136-145); TOTAL PROTEIN 5.8 GM/DL (6.4-8.2)
== END ==
PROVIDERS: ATTEND Internal Medicine
DX: G40.909 Epilepsy, unspecified, not intractable, without status epilepticus (principal)

== ENCOUNTER 2020-09-18 13:49 | Inpatient (IN) | payer MEDICARE ==
[~2020-09-18 13:49] MED LIST changes: -ACET-683 PO; -APAP325T4 PO; -ATIV1TAB10 PO; -BENEPOW18 PO; -BISA10SU27 PR; -BUSP10TA PO; -CLOP75TA2 PO; -ENEMENE PR; -ENSU1LIQ36 PO; -JUVEPOW3 PO; -KEFL500C17 PO; -KEPP250T5 PO; -KLOR20TA42 PO; -MILKSUS3 PO; -PANT-23 PO; -QUET1TAB7 PO; -SENN-23 PO; -SERT25TA21 PO; -SERT50TA29 PO; -VITMTA PO
[2020-09-18] MEDS ORDERED: KEFL500C17 PO (14:29)
[2020-09-18] MEDS ORDERED: SERT25TA21 PO (14:29)
[2020-09-18] MEDS ORDERED: PANT-23 PO (14:29)
[2020-09-18] MEDS ORDERED: KEPP250T5 PO (14:29)
[2020-09-18] MEDS ORDERED: BISA10SU27 PR (14:29)
[2020-09-18] MEDS ORDERED: JUVEPOW3 PO (14:29)
[2020-09-18] MEDS ORDERED: BENEPOW18 PO (14:29)
[2020-09-18] MEDS ORDERED: ENSU1LIQ36 PO (14:29)
[2020-09-18] MEDS ORDERED: VITMTA PO (14:29)
[2020-09-18] MEDS ORDERED: SENN-23 PO (14:29)
[2020-09-18] MEDS ORDERED: APAP325T4 PO (14:29)
[2020-09-18] MEDS ORDERED: ATIV1TAB10 PO (14:29)
[2020-09-18] MEDS ORDERED: BUSP10TA PO (14:29)
[2020-09-18] MEDS ORDERED: KLOR20TA42 PO (14:29)
[2020-09-18] MEDS ORDERED: ACET-683 PO (14:29)
[2020-09-18] MEDS ORDERED: SERT50TA29 PO (14:29)
[2020-09-18] MEDS ORDERED: ENEMENE PR (14:29)
[2020-09-18] MEDS ORDERED: MILKSUS3 PO (14:29)
--- NOTE | 2020-09-18 15:34 | REP ---
INDICATION: Altered Mental Status. COMPARISON: Comparison MRI study June 10, 2020. Comparison CT study June 05, 2020.. TECHNIQUE: Helical scanning is acquired. 5 mm axial images were reformatted. Coronal MPR images were generated. FINDINGS: Bone window settings demonstrate a small focal thickening in the outer cortex of the right parietal bone consistent with a a small osteoma. This is unchanged from the comparison CT study. Bony calvarium is intact otherwise. No acute bony abnormality. Visualized paranasal sinuses are clear. On soft tissue window settings there is generalized volume loss. Vascular calcification is noted heavily distributed in in the distal vertebral and distal carotid arteries bilaterally. There is evidence of a subacute cortical infarction in the right occipital lobe over a fairly large area of brain parenchyma. In addition, there is evidence of a subacute lacunar infarct in the left basal ganglia. There is another ill-defined low-density area in the right thalamus consistent with a subacute right thalamic lacunar infarct. Each of these findings are new when compared with the prior MRI study and prior CT study. No acute intracranial hemorrhage is seen. No mass extra-axial fluid collection or midline shift is seen. IMPRESSION: Vascular calcification and diffuse atrophy. Subacute infarct pattern right occipital lobe and subacute pattern of lacunar infarct left basal ganglia. Subacute lacunar infarct right thalamus.. <Electronically signed by Jai Flores > 09/18/20 [id number]
[2020-09-18 15:56] LABS: VENOUS HCO3 23.9 MEQ/L (23.0-27.0); VENOUS O2 SATURATION 74.7 % (60.0-80.0); VENOUS PARTIAL PRESSURE CO2 40.4 mmHg (38.0-50.0); VENOUS PARTIAL PRESSURE O2 42.3 mmHg (30.0-50.0); VENOUS STANDARD HCO3 23.3 MEQ/L; VENOUS TOTAL CO2 25.1 MEQ/L (24.0-28.0)
--- NOTE | 2020-09-18 15:58 | REP ---
INDICATION: Altered Mental Status. COMPARISON: 07/10/2020 as well as other prior exams. TECHNIQUE: SINGLE PORTABLE AP VIEW OF THE CHEST WAS PERFORMED. FINDINGS: There is no evidence of acute infiltrate. The heart appears to be at the upper limits of normal in size. There is calcification of the thoracic aorta. The mediastinal silhouette is unchanged. IMPRESSION: No acute infiltrate. <Electronically signed by Anthony Hassan > 09/18/20 [id number]
[2020-09-18 15:59] LABS: HEMATOCRIT 28.9 % (36.0-47.0); HEMOGLOBIN 9.3 g/dl (12.0-15.5); MEAN CORPUSCULAR HEMOGLOBIN 34.6 pg (27.0-33.0); MEAN CORPUSCULAR HGB CONC 32.2 g/dl (32.0-36.5); MEAN CORPUSCULAR VOLUME 107.4 fl (80.0-96.0); PLATELET COUNT, AUTOMATED 142 10^3/uL (150-450); RED BLOOD COUNT 2.69 10^6/uL (4.00-5.40); WHITE BLOOD COUNT 3.1 10^3/uL (4.0-10.0)
[2020-09-18 16:27] LABS: ATYPICAL LYMPH 1 % (0-5); BASOPHILS 1 % (0-1); LYMPHOCYTES 35 % (16-44); METAMYELOCYTES 1 % (0-0); MONOCYTES 12 % (0-5); NEUTROPHILS 49 % (28-66)
[2020-09-18 16:28] LABS: ACETAMINOPHEN LEVEL 6.2 UG/ML (10.0-30.0); ALBUMIN 2.7 GM/DL (3.2-5.2); ALT/SGPT 19 U/L (12-78); BILIRUBIN,DIRECT 0.2 MG/DL (0.0-0.2); BILIRUBIN,TOTAL 0.4 MG/DL (0.2-1.0); BLOOD UREA NITROGEN 18 MG/DL (7-18); CALCIUM LEVEL 8.6 MG/DL (8.8-10.2); CARBON DIOXIDE LEVEL 25 MEQ/L (21-32); CHLORIDE LEVEL 107 MEQ/L (98-107); CK-MB VALUE MASS < 1.0 NG/ML (<3.6); CPK CREATINE PHOSPHOKINASE 30 U/L (26-192); CREATININE FOR GFR 0.88 MG/DL (0.55-1.30); GLOMERULAR FILTRATION RATE > 60.0 (>32); GLUCOSE, FASTING 104 MG/DL (70-100); MB/CK RELATIVE INDEX 3.33 (< OR =4); POTASSIUM SERUM 3.7 MEQ/L (3.5-5.1); SALICYLATE LEVEL < 1.7 MG/DL (5.0-30.0); SODIUM LEVEL 140 MEQ/L (136-145); THYROID STIMULATING HORMONE 0.725 uIU/ML (0.358-3.740); TOTAL PROTEIN 5.9 GM/DL (6.4-8.2); TROPONIN I < 0.02 NG/ML (< 0.10)
[2020-09-18 16:29] LABS: ANISOCYTOSIS 2+; PLATELET ESTIMATE NORMAL (NORMAL)
[2020-09-18 16:54] LABS: POIKILOCYTOSIS 1+
[2020-09-18] MEDS ORDERED: ACETAMINOPHEN TAB 650MG DOSE (2X325MG) PO PRN (18:00)
[2020-09-18] MEDS ORDERED: MOM 30ML SUSPENSION UDC PO PRN (18:00)
[2020-09-18] MEDS ORDERED: BISACODYL 10 MG SUPP PR PRN (18:00)
[2020-09-18] MEDS ORDERED: FLEET ENEMA PR PRN (18:00)
--- NOTE | 2020-09-18 18:51 | HPEPDOC ---
[facility] Medical History & Physical Date of Admission Sep 18, 2020 Date of Service: Sep 18, 2020 History and Physical CHIEF COMPLAINT: AMS HISTORY OF PRESENT ILLNESS: 79 yo female sent from [facility] assisted living for altered mental status. Patient has no medical complaints, and was found to be alert, awake and oriented. Extensive discussion with her on the phone who is requesting transfer to [place] as he was disappointed with her care during her previous hospital admission at [facility]. He is agreeable to continue stay at [facility] for now. Patient denies SOB, chest pain, JEAN, N/V/D, numbness/tingling, weakness. PAST MEDICAL HISTORY: #HTN #DM #DLP ALLERGIES: Please see below. REVIEW OF SYSTEMS: Negative except as per HPI. HOME MEDICATIONS: Please see below. PHYSICAL EXAMINATION: VITAL SIGNS: See below General: NAD, elderly, frail, lying comfortably in bed HEENT: NC/AT, EOMI, edentulous Lungs: CTA B/L HEart: +S1S2, RRR, -M/R/G Abd: soft, NT, +BS Ext: LE edema R>L Neuro: sensation intact, face symmetric, strength 5/5 throughout Psych: AAOx3 LABORATORY DATA: See below. MICROBIOLOGY: Please see below. A/P: 79 yo female sent from [facility] for AMS, found to have multiple CVA on CT, new from previous imaging in May, PMHx HTN, DM. #multiple CVA - echocardiogram with bubble study pending - MRI/MRA, carotid US pending - check lipid profile - start Plavix - d/w neurology - c/s pending - assistance appreciated - PT/OT - states that there was a new diagnoses from her workup at [place] in May - with treatment providing significant improvement; ordered copies of her medical records from [place] #HTN - continue home meds #DM - diet controlled - check A1C #DLP - continue statin - check lipid panel #DVT prophylaxis - mechanical Vital Signs Vital Signs Date Time Temp Pulse Resp B/P (MAP) Pulse Ox O2 Delivery O2 Flow Rate FiO2 09/18/20 17:15 74 16 182/81 (114) 100 Nasal Cannula 2.0 09/18/20 14:05 97.3 Laboratory Data Labs 24H Laboratory Tests 2 09/18/20 15:43: Neutrophils (%) (Auto) , Nucleated Red Blood Cells % (auto) 0.0, Neutrophils 49, Band Neutrophils 1, Lymphocytes (Manual) 35, Monocytes (Manual) 12H, Basophils (Manual) 1, Metamyelocytes 1H, Atypical Lymphocytes 1, Polychromasia , Poikilocytosis 1+, Anisocytosis 2+, Macrocytosis 2+, Platelet Estimate NORMAL, Urine Color YELLOW, Urine Appearance CLEAR, Urine pH 6.0, Urine Specific [place] 1.010, Urine Protein NEGATIVE, Urine Glucose (UA) NEGATIVE, Urine Ketones NEGATIVE, Urine Blood NEGATIVE, Urine Nitrite NEGATIVE, Urine Bilirubin NEGATIVE, Urine Urobilinogen 0.2, Urine Leukocyte Esterase 1+H, Urine WBC (Auto) 9H, Urine RBC (Auto) 1, Urine Hyaline Casts (Auto) 0, Urine Bacteria (Auto) NEGATIVE, Urine Squamous Epithelial Cells 1, Urine Mucus (Auto) SMALL, Urine Sperm (Auto) , Blood Gas Bicarbonate Standard 23.3, Venous Blood pH 7.390, Venous Blood Partial Pressure CO2 40.4, Venous Blood Partial Pressure O2 42.3, Venous Blood Total Carbon Dioxide 25.1, Venous Blood HCO3 23.9, Venous Blood Oxygen Saturation 74.7, Venous Blood Base Excess -1.0, Anion Gap 8, Glomerular Filtration Rate > 60.0, Lactic Acid Level 1.2, Calcium Level 8.6L, Total Bilirubin 0.4, Direct Bilirubin 0.2, Aspartate Amino Transf (AST/SGOT) 29, Alanine Aminotransferase (ALT/SGPT) 19, Alkaline Phosphatase 111, Ammonia 14, Total Creatine Kinase 30, Creatine Kinase MB < 1.0, Creatine Kinase MB Relative Index 3.33, Troponin I < 0.02, Total Protein 5.9L, Albumin 2.7L, Albumin/Globulin Ratio 0.8L, Thyroid Stimulating Hormone (TSH) 0.725, Salicylates Level < 1.7L, Acetaminophen Level 6.2L CBC/BMP Laboratory Tests 09/18/20 15:43 Microbiology Microbiology 09/18/20 Urine Culture, Received Pending 09/18/20 Blood Culture, Received Pending Home Medications Scheduled Acetaminophen (Acetaminophen) 500 Mg Tablet, 1,000 MG PO TID Arginine/Glutamine/Calcium Bmb (Agus Packet) 1 Each Powd.pack, 2 POW PO BID Atorvastatin Calcium (Atorvastatin Calcium) 40 Mg Tablet, 40 MG PO QHS Buspirone HCl (Buspirone HCl) 10 Mg Tablet, 10 MG PO DAILY TAKES AT NOON Cephalexin (Keflex) 500 Mg Capsule, 500 MG PO BID STARTED 09/13/20 FOR 7 DAYS. LAST DOSE OF COURSE 09/19 Lactose-Reduced Food (Ensure Enlive) 237 Ml Liquid, 237 ML PO TID Levetiracetam (Keppra) 250 Mg Tablet, 250 MG PO BID Lorazepam (Ativan) 0.5 Mg Tablet, 0.5 MG PO TID Multivitamins (Thera M Plus Tablet) 1 Each Tablet, 1 TAB PO DAILY Pantoprazole Sodium (Pantoprazole Sodium) 40 Mg Tablet.dr, 40 MG PO BID Potassium Chloride (Klor-Con M20) 20 Meq Tab.er.prt, 20 MEQ PO BID Sennosides/Docusate Sodium (Senna-S Tablet) 1 Each Tablet, 1 TAB PO DAILY Sertraline HCl (Sertraline HCl) 25 Mg Tablet, 25 MG PO QHS 75MG TOTAL QHS Sertraline HCl (Sertraline HCl) 50 Mg Tablet, 50 MG PO QHS 75MG TOTAL QHS Wheat Dextrin (Benefiber) 1 Each Powd.pack, 1 POW PO BID Scheduled PRN Acetaminophen (Acetaminophen) 325 Mg Tablet, 650 MG PO Q4H PRN for PAIN / FEVER Bisacodyl (Bisacodyl) 10 Mg Supp.rect, 10 MG SD DAILY PRN for CONSTIPATION Magnesium Hydroxide (Milk of Magnesia) 400 Mg/5 Ml Oral.susp, 30 ML PO DAILY PRN for CONSTIPATION Sodium Phosphate,Rice-Dibasic (Enema) 133 Ml Enema, 1 BIENVENIDO SD DAILY PRN for CONSTIPATION Allergies Coded Allergies: aspirin (Verified Adverse Reaction, Mild, stomach upset , 06/05/20) A-FIB/CHADSVASC A-FIB History Current/History of A-Fib/PAF?: No DEX JAMISON MD Sep 18, 2020 18:51
[2020-09-18] MEDS ORDERED: LORazepam 2 MG/ML VIAL IV STA (19:21)
--- NOTE | 2020-09-18 19:33 | REPVR ---
PROCEDURE INFORMATION: Exam: US Duplex Bilateral Extracranial Arteries Exam date and time: 09/18/2020 7:09 PM Age: 79 years old Clinical indication: Other: CVA TECHNIQUE: Imaging protocol: Real-time Duplex ultrasound scan of the bilateral carotid and vertebral arteries combining nunez scale, color Doppler and spectral waveform analysis. Bilateral exam. COMPARISON: US Duplex,carotid (complete) 06/06/2020 9:03 PM FINDINGS: Right common carotid artery: PSV 67.5 cm/s. Mild/moderate plaque No occlusion or significant stenosis. Right internal carotid artery: PSV 70.2 cm/s. EDV 21.2 cm/s. Mild/moderate plaque No occlusion or significant stenosis. Right external carotid artery: PSV 59.9 cm/s. Mild/moderate plaque. No occlusion or significant stenosis. Right vertebral artery: Not seen. Right ICA/CCA ratio: 1.04. Within normal limits. Left common carotid artery: PSV 68.2 cm/s. Mild/moderate plaque. No occlusion or significant stenosis. Left internal carotid artery: PSV 43.9 cm/s. EDV 13.3 cm/s. Mild/moderate plaque. No occlusion or significant stenosis. Left external carotid artery: PSV 57.3 cm/s. Mild/moderate plaque. No occlusion or significant stenosis. Left vertebral artery: Antegrade flow. Left ICA/CCA ratio: 0.64. Within normal limits. IMPRESSION: Mild/moderate partially calcified plaque in the carotid arteries bilaterally, left side worse than right. The extracranial carotid arteries are free of significant stenosis (greater than 50%), occlusion or dissection. There is antegrade flow in the left vertebral artery. The right vertebral is not seen. REFERENCES: Society of Radiologists in Ultrasound (SRU) criteria: Mild: <50% stenosis. ICA PSV is less than 125 cm/second and plaque or intimal thickening is visible. Moderate: 50-69% stenosis. ICA PSV is 125 to 230 cm/second and plaque is visible. Severe: 70-94% stenosis. ICA PSV is more than 230 cm/second and visible plaque and lumen narrowing are seen. Near occlusion: 95-99% stenosis. ICA PSV is variable and significant plaque and luminal narrowing are seen. Occluded: 100% stenosis. No flow identified. Electronically signed by: Hugo Delgado On 09/18/2020 19:32:48 PM
[2020-09-18 20:12] VITALS: BP 177/88
[2020-09-18] MEDS: ACETAMINOPHEN 500 MG TAB PO SCH (20:43)
[2020-09-18] MEDS: SERTRALINE HCL 25 MG TABLET PO SCH (20:43)
[2020-09-18] MEDS: CLOPIDOGREL 75 MG TAB PO SCH (20:44)
[2020-09-18] MEDS: CEPHALEXIN 500 MG CAP PO SCH (20:44)
[2020-09-18] MEDS: LORazepam 0.5 MG TAB PO SCH (20:44)
[2020-09-18] MEDS: levETIRAcetam 250MG TABLET (KEPPRA) PO SCH (20:44)
[2020-09-18] MEDS: PANTOPRAZOLE 40MG TAB (PROTONIX) PO SCH (20:44)
[2020-09-18] MEDS: ATORVASTATIN 20 MG TAB PO SCH (20:44)
[2020-09-18] MEDS ORDERED: SERTRALINE HCL 50 MG TAB PO SCH (21:00)
[2020-09-19] VITALS: BP 124/60
[2020-09-19 04:00] VITALS: BP 127/67
[2020-09-19 05:31] LABS: HEMATOCRIT 26.5 % (36.0-47.0); HEMOGLOBIN 8.7 g/dl (12.0-15.5); MEAN CORPUSCULAR HEMOGLOBIN 34.8 pg (27.0-33.0); MEAN CORPUSCULAR HGB CONC 32.8 g/dl (32.0-36.5); PLATELET COUNT, AUTOMATED 135 10^3/uL (150-450); WHITE BLOOD COUNT 3.4 10^3/uL (4.0-10.0)
[2020-09-19 06:03] LABS: BLOOD UREA NITROGEN 16 MG/DL (7-18); CALCIUM LEVEL 8.3 MG/DL (8.8-10.2); CARBON DIOXIDE LEVEL 27 MEQ/L (21-32); CHLORIDE LEVEL 106 MEQ/L (98-107); CHOLESTEROL LEVEL 113 MG/DL (<200); CHOLESTEROL RISK RATIO 2.511 (<5); GLOMERULAR FILTRATION RATE > 60.0 (>32); GLUCOSE, FASTING 86 MG/DL (70-100); HDL CHOLESTEROL 45 MG/DL (>40); LDL CHOLESTEROL 54 MG/DL (<100); NON-HDL-C 68 MG/DL; POTASSIUM SERUM 3.5 MEQ/L (3.5-5.1); SODIUM LEVEL 140 MEQ/L (136-145); TRIGLYCERIDES LEVEL 69 MG/DL (<150)
--- NOTE | 2020-09-19 07:52 | ECGEPIP ---
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
[2020-09-19 07:53] VITALS: BP 131/59
--- NOTE | 2020-09-19 08:19 | IPNPDOC ---
Text Note Date of Service The patient was seen on 09/19/20. NOTE Subjective: Patient seen and examined at bedside. No acute overnight events reported. Patient voices no new medical complaints this morning. Objective: VITAL SIGNS: See below General: NAD, elderly, frail, lying comfortably in bed HEENT: NC/AT, EOMI, edentulous Lungs: CTA B/L HEart: +S1S2, RRR, -M/R/G Abd: soft, NT, +BS Ext: LE edema R>L Neuro: sensation intact, face symmetric, strength 5/5 throughout Psych: AAOx3 CHIEF COMPLAINT: AMS A/P: 79 yo female sent from [facility] for AMS, found to have multiple CVA on CT head, new from previous imaging in May, PMHx HTN, DM, DLP. #multiple CVA - echocardiogram with bubble study pending - MRI/MRA pending - carotid US completed - lipid profile WNL - started Plavix - d/w neurology - c/s pending - assistance appreciated - PT/OT - states that there was a new diagnoses from her workup at [facility] in May - with treatment providing significant improvement - pending medical records from [facility] #seizure disorder - as per medical records - apparently new diagnoses from recent admission at [facility]? #HTN - continue home meds #DM - diet controlled - check A1C #DLP - continue statin - lipid panel noted #DVT prophylaxis - mechanical VS,Fishbone, I+O VS, Fishbone, I+O Laboratory Tests 09/18/20 15:43 09/19/20 05:13 Vital Signs Date Time Temp Pulse Resp B/P (MAP) Pulse Ox O2 Delivery O2 Flow Rate FiO2 09/19/20 07:53 97.6 81 18 131/59 (83) 100 Nasal Cannula 1.0 I&O- Last 24 Hours up to 6 AM 09/19/20 06:00 Output Total 200 ml Balance -200 ml DEX JAMISON MD Sep 19, 2020 08:19
[2020-09-19] MEDS: CEPHALEXIN 500 MG CAP PO SCH ×2 (08:48→20:20)
[2020-09-19] MEDS: LORazepam 0.5 MG TAB PO SCH ×3 (08:48→20:20)
[2020-09-19] MEDS: MULTIVITAMINS/MINERALS THERAP 1 TAB PO SCH (08:49)
[2020-09-19] MEDS: levETIRAcetam 250MG TABLET (KEPPRA) PO SCH ×2 (08:49→20:21)
[2020-09-19] MEDS: CLOPIDOGREL 75 MG TAB PO SCH (08:49)
[2020-09-19] MEDS: busPIRone 10 MG TAB PO SCH (08:49)
[2020-09-19] MEDS: SENOKOT S TAB PO SCH (08:49)
[2020-09-19] MEDS: PANTOPRAZOLE 40MG TAB (PROTONIX) PO SCH ×2 (08:49→20:20)
[2020-09-19] MEDS: ACETAMINOPHEN 500 MG TAB PO SCH ×3 (08:49→20:21)
[2020-09-19 11:00] LABS: HEMOGLOBIN A1c 5.5 %
[2020-09-19 11:52] VITALS: BP 119/71
[2020-09-19 16:00] VITALS: BP 157/64
[2020-09-19 20:00] VITALS: BP 161/74
[2020-09-19] MEDS: SERTRALINE HCL 25 MG TABLET PO SCH (20:20)
[2020-09-19] MEDS: ATORVASTATIN 20 MG TAB PO SCH (20:21)
[2020-09-20] VITALS: BP 138/67
[2020-09-20 04:00] VITALS: BP 155/82
[2020-09-20 05:37] LABS: HEMATOCRIT 27.8 % (36.0-47.0); HEMOGLOBIN 9.3 g/dl (12.0-15.5); MEAN CORPUSCULAR HEMOGLOBIN 34.8 pg (27.0-33.0); MEAN CORPUSCULAR HGB CONC 33.5 g/dl (32.0-36.5); MEAN CORPUSCULAR VOLUME 104.1 fl (80.0-96.0); PLATELET COUNT, AUTOMATED 142 10^3/uL (150-450); RED BLOOD COUNT 2.67 10^6/uL (4.00-5.40); WHITE BLOOD COUNT 3.4 10^3/uL (4.0-10.0)
[2020-09-20 05:52] LABS: BLOOD UREA NITROGEN 13 MG/DL (7-18); CALCIUM LEVEL 8.5 MG/DL (8.8-10.2); CARBON DIOXIDE LEVEL 25 MEQ/L (21-32); CHLORIDE LEVEL 105 MEQ/L (98-107); CREATININE FOR GFR 0.73 MG/DL (0.55-1.30); GLOMERULAR FILTRATION RATE > 60.0 (>32); GLUCOSE, FASTING 106 MG/DL (70-100); POTASSIUM SERUM 3.5 MEQ/L (3.5-5.1); SODIUM LEVEL 137 MEQ/L (136-145)
[2020-09-20] MEDS ORDERED: LevoFLOXacin 250 MG TABLET PO SCH (06:00)
[2020-09-20 07:39] VITALS: BP 142/92
[2020-09-20] MEDS: CEPHALEXIN 500 MG CAP PO SCH ×2 (09:05→20:39)
[2020-09-20] MEDS: levETIRAcetam 250MG TABLET (KEPPRA) PO SCH ×2 (09:05→20:40)
[2020-09-20] MEDS: PANTOPRAZOLE 40MG TAB (PROTONIX) PO SCH ×2 (09:05→20:40)
[2020-09-20] MEDS: SENOKOT S TAB PO SCH (09:05)
[2020-09-20] MEDS: MULTIVITAMINS/MINERALS THERAP 1 TAB PO SCH (09:05)
[2020-09-20] MEDS: busPIRone 10 MG TAB PO SCH (09:06)
[2020-09-20] MEDS: LORazepam 0.5 MG TAB PO SCH ×3 (09:06→20:40)
[2020-09-20] MEDS: CLOPIDOGREL 75 MG TAB PO SCH (09:06)
[2020-09-20] MEDS: ACETAMINOPHEN 500 MG TAB PO SCH ×3 (09:06→20:38)
[2020-09-20 12:00] VITALS: BP 124/84
--- NOTE | 2020-09-20 13:49 | IPNPDOC ---
Subjective Date Seen The patient was seen on 09/20/20. Subjective Chief Complaint/HPI Mrs. Shepherd is an 79 year old female from [facility] here with AMS and subacute infarct patter on CT. This morning, she was emotional. She wanted to go home. She has been in the hospital and rehab since . After taking her medications and speaking with family members, she calmed down. Denies fever, chest pain, dyspnea, abdominal pain, or dysuria. Still pending results from [facility]. Constitutional: Denies: Fever Pulmonary: Denies: Dyspnea Cardiovascular: Denies: Chest Pain Gastrointestinal: Denies: Abdominal Pain Genitourinary: Denies: Dysuria Objective Physical Examination General Exam: Positive: Cooperative, Mild Distress Eye Exam: Positive: EOMI; Negative: Sclera icteric ENT Exam: Positive: Tongue Midline Neck Exam: Positive: Supple Chest Exam: Positive: Clear to auscultation; Negative: Rales, Rhonchi, Wheezing Heart Exam: Positive: Rate Normal, Regular Rhythm Abdomen Exam: Positive: Normal bowel sounds, Soft; Negative: Tenderness Extremity Exam: Negative: Cyanosis, Edema Neuro Exam: Positive: Cranial Nerves 3-12 NL, Other (Muscle strength 5/5 in arms, but finger to nose is weak on left side) Psych Exam: Positive: Anxiety Assessment /Plan Assessment Mrs. Shepherd is an 79 year old female from [facility] here with AMS and subacute infarct patter on CT. Unsure if this is new or from CVA from May. Spoke with Neurology. Patient has refused MRI. Working on receiving information from [facility] to determine acuity. Otherwise, in terms of her AMS, ammonia and UTI unremarkable. Disposition pending on documents from [facility]. Plan/VTE VTE Prophylaxis Ordered?: Yes Plan 1. Subacute CVA -CVA in May -CT head demonstrates subacute stroke which may be represented by CVA in May. Unable to obtain MRI to determine duration -Spoke with Neurology. Will need documents from [facility] to determine disposition -On statin and Plavix 2. Seizure disorder -As per medical records, new diagnosis at [facility]. Will confirm when records are obtained -On Keppra 3. HTN -Blood pressure labile. May be secondary to anxiety -Blood pressure generally controlled with systolic in the 110s to 120s -Continue to monitor 4. DM -Diet controlled -HbA1c 5.5 5. DLP -continue statin 6. DVT prophylaxis -SCD and TEDs VS, I&O, 24H, Fishbone Vital Signs/I&O Vital Signs Date Time Temp Pulse Resp B/P (MAP) Pulse Ox O2 Delivery O2 Flow Rate FiO2 09/20/20 12:00 97.7 80 20 124/84 (97) 98 Room Air 09/19/20 16:00 I&O- Last 24 Hours up to 6 AM 09/20/20 06:00 Intake Total 600 ml Output Total 515 ml Balance 85 ml Laboratory Data 24H LABS Laboratory Tests 2 09/20/20 05:14: Nucleated Red Blood Cells % (auto) 0.0, Anion Gap 7L, Glomerular Filtration Rate > 60.0, Calcium Level 8.5L CBC/BMP Laboratory Tests 09/20/20 05:14 Microbiology Microbiology 09/18/20 Urine Culture, Received Pending 09/18/20 Blood Culture - Preliminary, Resulted No growth after 24 hours . All specim... JERRICA VILLAREAL DO Sep 20, 2020 13:49
[2020-09-20] MEDS ORDERED: POTASSIUM CHLORIDE 10 MEQ SR TABLET PO ONE (14:00)
[2020-09-20 16:00] VITALS: BP 156/87
[2020-09-20 20:00] VITALS: BP 120/69
[2020-09-20] MEDS: QUEtiapine FUMARATE 12.5 MG HALF-TAB PO SCH (20:38)
[2020-09-20] MEDS: ATORVASTATIN 20 MG TAB PO SCH (20:39)
[2020-09-20] MEDS: SERTRALINE HCL 25 MG TABLET PO SCH (20:39)
[2020-09-21] VITALS (7 sets, daily range): BP systolic 132–169; BP diastolic 60–90
[2020-09-21 04:46] LABS: HEMATOCRIT 27.9 % (36.0-47.0); HEMOGLOBIN 9.4 g/dl (12.0-15.5); MEAN CORPUSCULAR HEMOGLOBIN 34.8 pg (27.0-33.0); MEAN CORPUSCULAR HGB CONC 33.7 g/dl (32.0-36.5); MEAN CORPUSCULAR VOLUME 103.3 fl (80.0-96.0); PLATELET COUNT, AUTOMATED 140 10^3/uL (150-450); WHITE BLOOD COUNT 3.5 10^3/uL (4.0-10.0)
[2020-09-21 05:12] LABS: BLOOD UREA NITROGEN 13 MG/DL (7-18); CALCIUM LEVEL 8.7 MG/DL (8.8-10.2); CARBON DIOXIDE LEVEL 23 MEQ/L (21-32); CHLORIDE LEVEL 106 MEQ/L (98-107); CREATININE FOR GFR 0.84 MG/DL (0.55-1.30); GLOMERULAR FILTRATION RATE > 60.0 (>32); GLUCOSE, FASTING 97 MG/DL (70-100); MAGNESIUM LEVEL 1.3 MG/DL (1.8-2.4); SODIUM LEVEL 138 MEQ/L (136-145)
[2020-09-21] MEDS: MAG SULF 1GM/100ML (MAG RUN) 1 GM in IV 1 EA IV SCH ×4 (09:43→12:51)
[2020-09-21] MEDS: CLOPIDOGREL 75 MG TAB PO SCH (09:44)
[2020-09-21] MEDS: CEPHALEXIN 500 MG CAP PO SCH (09:44)
[2020-09-21] MEDS: SENOKOT S TAB PO SCH (09:44)
[2020-09-21] MEDS: MULTIVITAMINS/MINERALS THERAP 1 TAB PO SCH (09:44)
[2020-09-21] MEDS: busPIRone 10 MG TAB PO SCH (09:44)
[2020-09-21] MEDS: levETIRAcetam 250MG TABLET (KEPPRA) PO SCH ×2 (09:44→20:44)
[2020-09-21] MEDS: PANTOPRAZOLE 40MG TAB (PROTONIX) PO SCH ×2 (09:44→20:44)
[2020-09-21] MEDS: LORazepam 0.5 MG TAB PO SCH ×3 (09:44→20:45)
[2020-09-21] MEDS: ACETAMINOPHEN 500 MG TAB PO SCH ×3 (09:44→20:44)
--- NOTE | 2020-09-21 11:21 | CR ---
DATE: 09/19/2020 REFERRING PHYSICIAN: Daniel Carrizales M.D. REASON FOR CONSULTATION: Altered mental status. HISTORY OF PRESENT ILLNESS: The patient is an 79-year-old woman who was sent from assisted living facility for altered mental status. The patient herself stated that she was living at her home and she was brought to [facility] due to falling. The patient states that her brought her in the hospital. She appears back to her baseline. She denies any current medical or neurological problems. The patient states that she was admitted at [facility] in 2019 after stroke. The patient states that she remembers that her left side of body was weak and was feeling incoordinated. She started living at assisted living facility after her discharge from [facility] in [place], [place]. The patient denies any headaches, neck pain, back pain dysphagia, dysarthria, diplopia, urinary incontinence, falls, loss of consciousness, numbness, weakness of her arms and legs, difficulty with speech, urinary incontinence, head injuries. According to Dr. Carrizales, the patient had coded when she was at [facility], requiring resuscitation. We have requested records from [facility] but have not received anything yet. DIAGNOSTIC STUDIES: The patient had a complete stroke workup in May, when she was admitted here and we believe that admission was before she was admitted at [facility]. Those scans were reviewed. compared to those scans, her current scans showed right occipital, left basal ganglia and right thalamic hypodensities, consistent with strokes since that time. Carotid ultrasound showed mild-moderate bilateral carotid artery atherosclerosis. MRA brain and MRI brain in May, at [facility] showed atherosclerosis and small vessel ischemic disease of brain present. Her telemetry monitoring so far shows sinus rhythm. Her temporal LDL was 54, HDL 45, total cholesterol 113. PAST MEDICAL HISTORY: * Hypertension. * Diabetes. * Dyslipidemia. * Stroke. ALLERGIES: THE PATIENT IS ALLERGIC TO ASPIRIN. HOME MEDICATIONS: * Tylenol 1000 mg p.o. t.i.d. p.r.n. * Lipitor 40 mg p.o. daily. * BuSpar 10 mg p.o. daily. * Cephalexin 500 mg p.o. b.i.d. for seven days as needed. * Keppra 50 mg p.o. b.i.d. which was started at [facility] for possible seizure. * Ativan 0.5 mg p.o. t.i.d. * Protonix 40 mg p.o. b.i.d. * Sertraline 25 mg, three p.o. at bedtime * Benefiber lactose reduced Ensure. * Bisacodyl. * Magnesium hydroxide as needed. * Phosphate enema. REVIEW OF SYSTEMS: All systems were reviewed with patient and found to be noncontributory except as mentioned in the history of present illness. SOCIAL HISTORY: She denies smoking, alcohol, or illicit drugs. FAMILY HISTORY: Unremarkable and noncontributory. PHYSICAL EXAMINATION: Vital signs: Temperature 97.6, pulse 81, respiratory rate 18, blood pressure 131/59 100% saturation on one liter nasal cannula. Heart: Regular rate and rhythm. Lungs: Clear to auscultation. Abdomen: Soft, nontender, nondistended. No pedal edema. No musculoskeletal abnormalities. No rash. No signs of meningeal irritation. The patient is awake, alert and oriented to place, person and time. Normal speech, comprehension and interpretation. Extraocular muscles are intact. No facial weakness. Tongue and uvula are midline, The patient is able to tell me day, date, month and year, name of president, city, state and name of hospital. She was unable to tell me where she was living before she came to [facility]. Extraocular muscles are intact. No nystagmus. Visual mcmillan are full to confrontation on the right side and she has decreased visual mcmillan on the left side. 5/5 strength in all four extremities. Deep tendon reflexes are 1+ throughout. Normal sensation throughout. Gait was not tested. 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 in 2019. * History of seizure and patient required resuscitation for an episode when she was at [facility]. PLAN: * MRI and MRA brain and echocardiogram. * Continue telemetry monitoring. * Plavix 75 mg p.o. daily. * Lipitor 40 mg p.o. daily. * Get entire record from [facility] from her last admission. No extent in areas of her stroke at that time and history of possible seizure. * Continue Keppra 250 mg p.o. b.i.d. MTDD
[2020-09-21] MEDS ORDERED: CLOP75TA2 PO (11:30)
[2020-09-21] MEDS ORDERED: QUET1TAB7 PO (11:30)
[2020-09-21] MEDS ORDERED: KEPP250T5 PO (11:30)
--- NOTE | 2020-09-21 11:55 | IPNPDOC ---
Subjective Date Seen The patient was seen on 09/21/20. Subjective Chief Complaint/HPI Mrs. Shepherd is an 79 year old female from [facility] here with AMS and subacute infarct patter on CT. Overnight, she slept well with the Seroquel. This morning, she was cognitively stronger and more emotionally stable. Denies any fever, chest pain, dyspnea, abdominal pain, or dysuria. Urine culture grew VRE. Spoke with the antimicrobial stewardship. Most likely colonization since there is <100,000 CFU and asymptomatic. UA was not impressive. No fever or leukocytosis. Pancytopenia chronic and WBC was between 2.2 and 3.9 in [place]. She has gotten better without treatment for VRE and the VRE is most likely colonization Otherwise, records were obtained from [place] which demonstrated partial seizure, small acute right infarct with signs of encephalitis vs post-ictal changes. Spoke with Neurology. Recommended increasing Keppra. Since the left sided changes were new, we would need an MRI. Spoke with the patient, she refused MRI since it was loud and she would hurt all over afterwards. Offered a medication to calm her and she still refused. Spoke with Neurology. They were okay with having the patient returned to [facility] with Neurology follow up. Since it was later in the morning, unable to send back to [facility]. Plan to return tomorrow. Spoke with the patient who is agreeable with the plan. Objective Physical Examination General Exam: Positive: Cooperative Eye Exam: Positive: EOMI; Negative: Sclera icteric ENT Exam: Positive: Tongue Midline Neck Exam: Positive: Supple Chest Exam: Positive: Clear to auscultation; Negative: Rales, Rhonchi, Wheezing Heart Exam: Positive: Rate Normal, Regular Rhythm Abdomen Exam: Positive: Normal bowel sounds, Soft; Negative: Tenderness Extremity Exam: Negative: Cyanosis, Edema Neuro Exam: Positive: Cranial Nerves 3-12 NL, Other (Muscle strength 5/5 in arms, but finger to nose is weak on left side) Psych Exam: Positive: Anxiety Assessment /Plan Assessment Mrs. Shepherd is an 79 year old female from [facility] here with AMS and subacute infarct patter on CT. Unsure if this is new or from CVA from May, thus obtained records from [place]. Records show that the stroke was on the right side. Imaging here shows subacute stroke on right and left. She was not on antiplatelet therapy before admission. Spoke with patient again about MRI, but she refused it because it was loud and painful afterwards. Spoke with neurology again, okay to return to [facility] with Plavix and statin for CVA and increased Keppra dose for seizure. Plan to return to [facility] tomorrow Plan/VTE VTE Prophylaxis Ordered?: Yes Plan 1. Metabolic encephalopathy -Possibly secondary to subacute stroke, seizure, or insomnia/poor sleep -Patient refused MRI, unable to complete work up -Patient slept well last night with Seroquel, cognitively stronger today -Continue Seroquel 2. VRE colonization -Improved without treatment for VRE -<100,000 CFU, no fever, no dysuria, no leukocytosis -No treatment needed for colonization. Antibiotics would cause more harm than good 3. Pancytopenia -Monitor -Pancytopenia present in [place] -Follow up with PCP 4. Partial Seizure -Spoke with Neurology, recommended increasing Keppra from 250mg BID to 500mg BID 5. HTN -Controlled -Continue to monitor 6. DM -Diet controlled -HbA1c 5.5 7. DLP -continue statin 8. DVT prophylaxis -SCD and TEDs Dispo: Plan to return to [facility] tomorrow. Follow up with neurology outpatient VS, I&O, 24H, [place] Vital Signs/I&O Vital Signs Date Time Temp Pulse Resp B/P (MAP) Pulse Ox O2 Delivery O2 Flow Rate FiO2 09/21/20 08:00 97.4 84 18 138/60 (86) 96 Room Air 09/19/20 16:00 I&O- Last 24 Hours up to 6 AM 09/21/20 05:59 Intake Total 720 ml Output Total 1770 ml Balance -1050 ml Laboratory Data 24H LABS Laboratory Tests 2 09/21/20 04:13: Nucleated Red Blood Cells % (auto) 0.0, Anion Gap 9, Glomerular Filtration Rate > 60.0, Calcium Level 8.7L, Magnesium Level 1.3L CBC/BMP Laboratory Tests 09/21/20 04:13 Microbiology Microbiology 09/18/20 Urine Culture - Final, Complete Enterococcus Faecium (Vre) 09/18/20 Blood Culture - Preliminary, Resulted No Growth after 48 hours. All Specime... JERRICA VILLAREAL DO Sep 21, 2020 11:55
[2020-09-21] MEDS ORDERED: MAG SULF 1GM/100ML (MAG RUN) 1 GM in IV 1 EA IV ONE (15:45)
[2020-09-21] MEDS ORDERED: **hydrALAZINE HCL** 25 MG TAB PO ONE (18:45)
[2020-09-21] MEDS: SERTRALINE HCL 25 MG TABLET PO SCH (20:44)
[2020-09-21] MEDS: QUEtiapine FUMARATE 12.5 MG HALF-TAB PO SCH (20:44)
[2020-09-21] MEDS: ATORVASTATIN 20 MG TAB PO SCH (20:44)
[2020-09-22] VITALS: BP 111/65
[2020-09-22 04:00] VITALS: BP 131/67
[2020-09-22 04:58] LABS: HEMATOCRIT 28.8 % (36.0-47.0); HEMOGLOBIN 9.3 g/dl (12.0-15.5); MEAN CORPUSCULAR HEMOGLOBIN 34.3 pg (27.0-33.0); MEAN CORPUSCULAR HGB CONC 32.3 g/dl (32.0-36.5); MEAN CORPUSCULAR VOLUME 106.3 fl (80.0-96.0); PLATELET COUNT, AUTOMATED 151 10^3/uL (150-450); RED BLOOD COUNT 2.71 10^6/uL (4.00-5.40); WHITE BLOOD COUNT 3.5 10^3/uL (4.0-10.0)
[2020-09-22 05:29] LABS: BLOOD UREA NITROGEN 14 MG/DL (7-18); CALCIUM LEVEL 8.3 MG/DL (8.8-10.2); CARBON DIOXIDE LEVEL 26 MEQ/L (21-32); CHLORIDE LEVEL 105 MEQ/L (98-107); CREATININE FOR GFR 0.89 MG/DL (0.55-1.30); GLOMERULAR FILTRATION RATE > 60.0 (>32); GLUCOSE, FASTING 95 MG/DL (70-100); MAGNESIUM LEVEL 2.3 MG/DL (1.8-2.4); POTASSIUM SERUM 3.9 MEQ/L (3.5-5.1); SODIUM LEVEL 138 MEQ/L (136-145)
--- NOTE | 2020-09-22 07:27 | ECHO ---
DATE OF PROCEDURE: 09/19/2020 Age: 79 Gender: Female Height: 63 inches Weight: 101 pounds Body surface area: 1.45 m2 PATIENT LOCATION: Inpatient progressive care unit (PCU), Room 3229. REFERRING PHYSICIAN: Joe Manning DO. INDICATION: Cerebrovascular accident (CVA) cardiac source of embolic material? Requesting saline contrast study to rule out [id number] shunting. MEASUREMENTS: 2D Measurements: RV 3.3 cm LV 4.2 cm Septum 1.0 cm Posterior wall 1.0 cm Aortic Root 2.7 cm LA 3.0 cm LVEF 70% Doppler Measurements: AV - Not measured LVOT Not measured MV-E 63, A 98, E/A ratio 0.6 Early mitral deceleration time 346 m/s E prime medial 5.7, A prime medial 9.5, E prime lateral 6 Average E/E prime ratio 10.8/PCWP 15.3 mmHg RVSP 35 mmHg IVC 1.6 cm COMMENTS: Normal sinus rhythm without intraventricular conduction disturbance. M-mode and two-dimensional echocardiography was performed with pulse, continuous wave, color flow, and tissue Doppler studies. Normal left ventricular size, wall thickness, and hyperkinetic wall motion. Normal left atrial size with grade 1 left ventricular (LV) diastolic dysfunction with current estimated mean left atrial pressure upper limits of normal. Normal right heart chamber sizes and motion with Doppler evidence of borderline to mild pulmonary hypertension. Normal aortic diameters. Mild aortic valvular sclerosis without stenosis and only trace insufficiency. Mild degenerative changes of the mitral valvular apparatus without inflow tract obstruction and very mild to mild mitral insufficiency. Normal appearing tricuspid valve with very mild insufficiency. No apparent intracardiac mass. 0.4 mm posterior pericardial effusion without evidence of cardiac chamber compression or tamponade. Saline contrast was injected into a large forearm vein with imaging from the subcostal four chamber projection. Good opacification of right heart chambers was observed with no contrast reaching the left heart. No evidence of [id number] heart shunting. If a cardiac source of embolic material is seriously suspect, transesophageal echocardiography would be the investigation of choice. YVETTE
[2020-09-22] MEDS: PANTOPRAZOLE 40MG TAB (PROTONIX) PO SCH ×2 (08:06→20:37)
[2020-09-22] MEDS: SENOKOT S TAB PO SCH (08:06)
[2020-09-22] MEDS: levETIRAcetam 250MG TABLET (KEPPRA) PO SCH ×2 (08:06→20:36)
[2020-09-22] MEDS: CLOPIDOGREL 75 MG TAB PO SCH (08:06)
[2020-09-22] MEDS: ACETAMINOPHEN 500 MG TAB PO SCH ×3 (08:06→20:36)
[2020-09-22] MEDS: MULTIVITAMINS/MINERALS THERAP 1 TAB PO SCH (08:06)
[2020-09-22] MEDS: LORazepam 0.5 MG TAB PO SCH ×3 (08:06→20:36)
[2020-09-22] MEDS: busPIRone 10 MG TAB PO SCH (08:07)
[2020-09-22 15:00] VITALS: BP 144/97
[2020-09-22] MEDS: SERTRALINE HCL 25 MG TABLET PO SCH (20:37)
[2020-09-22] MEDS: ATORVASTATIN 20 MG TAB PO SCH (20:37)
[2020-09-22] MEDS: QUEtiapine FUMARATE 12.5 MG HALF-TAB PO SCH (20:37)
[2020-09-22 22:00] VITALS: BP 133/72
[2020-09-23 06:00] VITALS: BP 132/84
[2020-09-23] MEDS: LORazepam 0.5 MG TAB PO SCH (08:43)
[2020-09-23] MEDS: levETIRAcetam 250MG TABLET (KEPPRA) PO SCH (08:43)
[2020-09-23] MEDS: MULTIVITAMINS/MINERALS THERAP 1 TAB PO SCH (08:43)
[2020-09-23] MEDS: SENOKOT S TAB PO SCH (08:43)
[2020-09-23] MEDS: busPIRone 10 MG TAB PO SCH (08:43)
[2020-09-23] MEDS: ACETAMINOPHEN 500 MG TAB PO SCH (08:43)
[2020-09-23] MEDS: PANTOPRAZOLE 40MG TAB (PROTONIX) PO SCH (08:44)
[2020-09-23] MEDS: CLOPIDOGREL 75 MG TAB PO SCH (08:44)
--- NOTE | 2020-09-23 20:56 | DS.PDOC ---
Discharge Summary General Date of Admission Sep 18, 2020 at 17:58 Date of Discharge Sep 23, 2020 Attending Physician: JERRICA VILLAREAL DO Specialist/Consultants Involve Neurology, Dr. Hernández Discharge Summary PROCEDURES PERFORMED DURING STAY: [None]. ADMITTING DIAGNOSES: 1. Multiple CVA 2. Hypertension 3. Diabetes mellitus 4. Dyslipidemia DISCHARGE DIAGNOSES: 1. Metabolic encephalopathy 2. VRE colonization of urine 3. Pancytopenia 4. Partial seizure 5. Hypertension 6. Diabetes mellitus 7. Dyslipidemia COMPLICATIONS/CHIEF COMPLAINT: Stroke. HISTORY OF PRESENT ILLNESS: Mrs. Shepherd is a 79-year-old female from [facility] who is here for altered mental status. When she arrived in the ED, CT had demonstrated subacute infarct pattern of the right occipital lobe and subcutaneous pattern of lacunar infarct in the left basal ganglia. There is also a subacute lacunar infarct in the right thalamus. Neurology was consulted HOSPITAL COURSE: Since patient arrived Monday evening, unable to receive records from [facility] until Monday. Tried to obtain MRI to determine if these subacute infarcts were from CVA from [facility] May 2020 admission, or new CVA. Patient did not want to do MRI because is loud and painful. I offered to give her medication that would calm her down, but she continued to decline. Since she was not sleeping well, she was started on Seroquel. She slept well, and the following day has been noted that her mental status was better. At times, she is still emotionally unstable and she strongly desires to go home. When we received records from [facility], it demonstrated that she had a focal seizure and right-sided CVA. There is also signs suggestive of encephalitis versus post ictal changes. The left-sided CT findings on our CT head may be new. Neurology recommended MRI, but patient continues to refuse. Only other recommendation was to continue Plavix. She was not on antiplatelet agents before and she had allergy to aspirin. In terms of her history of focal seizures, neurology recommended increasing Keppra. Of note, on admission patient had a UA that only had 1+ leuk esterase otherwise largely unremarkable. The culture grew VRE but only had 60,000 CFU. Patient did not have any symptoms of UTI. Most likely colonization. Today she is feeling well and was anxious to get back to rehabilitation so she could eventually go home. She was subsequently sent back to [facility] DISCHARGE MEDICATIONS: Please see below. ALLERGIES: Please see below. PHYSICAL EXAMINATION ON DISCHARGE: VITAL SIGNS: Please see below. GENERAL: Comfortable HEENT: Head normocephalic/atraumatic, EOMI, sclera clear. NECK: Supple RESPIRATORY: Lungs clear to auscultation bilaterally, no rales, wheeze or rhonchi. CARDIOVASCULAR: Regular rate and rhythm. ABDOMEN: Soft, nontender, no guarding or rebound tenderness. Normal bowel sounds. MUSCLE SKELETAL: Mild pitting edema NEUROLOGICAL: CN 312 grossly intact PSYCHOLOGICAL: Depressed and anxious LABORATORY DATA: Please see below. IMAGING: CT head Vascular calcification and diffuse atrophy. Subacute infarct pattern right occipital lobe and subacute pattern of lacunar infarct left basal ganglia. Subacute lacunar infarct right thalamus.. Ultrasound duplex bilateral extracranial arteries Mild/moderate partially calcified plaque in the carotid arteries bilaterally, left side worse than right. The extracranial carotid arteries are free of significant stenosis (greater than 50%), occlusion or dissection. There is antegrade flow in the left vertebral artery. The right vertebral is not seen. PROGNOSIS: Stable ACTIVITY: Walk with walker DIET: 2 g sodium DISCHARGE PLAN: Return to [facility] DISPOSITION: [facility]. DISCHARGE INSTRUCTIONS: 1. Follow-up with her PCP at [facility] 2. Follow with her neurologist in 1-2 weeks DISCHARGE CONDITION: Stable Total time spent on discharge planning, discharge summary, and medication reconciliation: 45 minutes Vital Signs/I&Os Vital Signs Date Time Temp Pulse Resp B/P (MAP) Pulse Ox O2 Delivery O2 Flow Rate FiO2 09/23/20 06:00 97.6 76 18 132/84 (100) 97 Room Air 09/19/20 16:00 I&O- Last 24 Hours up to 6 AM 09/23/20 06:00 Intake Total 0 ml Output Total 150 ml Balance -150 ml Microbiology Microbiology 09/18/20 Urine Culture - Final, Complete Enterococcus Faecium (Vre) 09/18/20 Blood Culture - Final, Complete NO GROWTH AFTER 5 DAYS Discharge Medications Scheduled Acetaminophen (Acetaminophen) 500 Mg Tablet, 1,000 MG PO TID, (Reported) Arginine/Glutamine/Calcium Bmb (Agus Packet) 1 Each Powd.pack, 2 POW PO BID, (Reported) Atorvastatin Calcium (Atorvastatin Calcium) 40 Mg Tablet, 40 MG PO QHS, (R eported) Buspirone HCl (Buspirone HCl) 10 Mg Tablet, 10 MG PO DAILY, (Reported) TAKES AT NOON Clopidogrel Bisulfate (Clopidogrel) 75 Mg Tablet, 75 MG PO DAILY Lactose-Reduced Food (Ensure Enlive) 237 Ml Liquid, 237 ML PO TID, (Reported) Levetiracetam (Keppra) 250 Mg Tablet, 500 MG PO BID Lorazepam (Ativan) 0.5 Mg Tablet, 0.5 MG PO TID, (Reported) Multivitamins (Thera M Plus Tablet) 1 Each Tablet, 1 TAB PO DAILY, (Reported) Pantoprazole Sodium (Pantoprazole Sodium) 40 Mg Tablet.dr, 40 MG PO BID, (Reported) Potassium Chloride (Klor-Con M20) 20 Meq Tab.er.prt, 20 MEQ PO BID, (Reported) Quetiapine Fumarate (Quetiapine Fumarate) 25 Mg Tablet, 12.5 MG PO QHS Sennosides/Docusate Sodium (Senna-S Tablet) 1 Each Tablet, 1 TAB PO DAILY, (Reported) Sertraline HCl (Sertraline HCl) 25 Mg Tablet, 25 MG PO QHS, (Reported) 75MG TOTAL QHS Sertraline HCl (Sertraline HCl) 50 Mg Tablet, 50 MG PO QHS, (Reported) 75MG TOTAL QHS Wheat Dextrin (Benefiber) 1 Each Powd.pack, 1 POW PO BID, (Reported) Scheduled PRN Bisacodyl (Bisacodyl) 10 Mg Supp.rect, 10 MG OR DAILY PRN for CONSTIPATION, (Reported) Magnesium Hydroxide (Milk of Magnesia) 400 Mg/5 Ml Oral.susp, 30 ML PO DAILY PRN for CONSTIPATION, (Reported) Sodium Phosphate,Barnwell-Dibasic (Enema) 133 Ml Enema, 1 BIENVENIDO OR DAILY PRN for CONSTIPATION, (Reported) Allergies Coded Allergies: aspirin (Verified Adverse Reaction, Mild, stomach upset , 06/05/20) JERRICA VILLAREAL DO Sep 23, 2020 20:55
== END 2020-09-23 12:00 | DRG 64 ==
LOC: M ED 13:49 → EEVIPCON 17:58 → M ED INP 17:58 → ENRESERV 19:22 → M PCU 20:04 → M MS5PR 09-22 15:10
PROVIDERS: ADMIT Internal Medicine; ATTEND Internal Medicine
DX: I63.59 Cerebral infarction due to unspecified occlusion or stenosis of other cerebral artery (principal); G93.41 Metabolic encephalopathy; D61.818 Other pancytopenia; G40.109 Localization-related (focal) (partial) symptomatic epilepsy and epileptic syndromes with simple partial seizures, not intractable, without status epilepticus; E11.9 Type 2 diabetes mellitus without complications; I67.2 Cerebral atherosclerosis; I65.23 Occlusion and stenosis of bilateral carotid arteries; R41.82 Altered mental status, unspecified; E78.5 Hyperlipidemia, unspecified; I10 Essential (primary) hypertension; Z88.6 Allergy status to analgesic agent; Z79.899 Other long term (current) drug therapy; Z20.828 Contact with and (suspected) exposure to other viral communicable diseases

== ENCOUNTER → 2020-09-24 | Outpatient (REF) | payer MEDICARE ==
[~2020-09-24] MED LIST changes: +ACET-683 PO; +APAP325T4 PO; +ATIV1TAB10 PO; +BENEPOW18 PO; +BISA10SU27 PR; +BUSP10TA PO; +CLOP75TA2 PO; +ENEMENE PR; +ENSU1LIQ36 PO; +JUVEPOW3 PO; +KEFL500C17 PO; +KEPP250T5 PO; +KLOR20TA42 PO; +MILKSUS3 PO; +PANT-23 PO; +QUET1TAB7 PO; +SENN-23 PO; +SERT25TA21 PO; +SERT50TA29 PO; +VITMTA PO
== END ==
PROVIDERS: ATTEND Internal Medicine
DX: Z79.899 Other long term (current) drug therapy (principal); B97.19 Other enterovirus as the cause of diseases classified elsewhere

== ENCOUNTER → 2020-09-25 | Outpatient (REF) | payer MEDICARE | PROVIDERS: ATTEND Internal Medicine | DX: Z79.899 Other long term (current) drug therapy (principal); B97.19 Other enterovirus as the cause of diseases classified elsewhere ==

== ENCOUNTER → 2020-09-30 | Outpatient (REF) | payer MEDICARE ==
[~2020-09-30] MED LIST changes: +AZIT-10 PO; +DIPH25CA32 PO; +DIVA1TAB48 PO; +FURO20TA2 PO; +KEPP1TAB PO; +PLAV1TAB2 PO; +VITA1CHW7 PO; +ZINC1TAB PO
[2020-09-30 09:26] LABS: HEMATOCRIT 30.6 % (36.0-47.0); HEMOGLOBIN 9.7 g/dl (12.0-15.5); MEAN CORPUSCULAR HEMOGLOBIN 34.9 pg (27.0-33.0); MEAN CORPUSCULAR HGB CONC 31.7 g/dl (32.0-36.5); MEAN CORPUSCULAR VOLUME 110.1 fl (80.0-96.0); PLATELET COUNT, AUTOMATED 159 10^3/uL (150-450); RED BLOOD COUNT 2.78 10^6/uL (4.00-5.40); WHITE BLOOD COUNT 3.4 10^3/uL (4.0-10.0)
[2020-09-30 09:49] LABS: BLOOD UREA NITROGEN 27 MG/DL (7-18); CALCIUM LEVEL 8.8 MG/DL (8.8-10.2); CARBON DIOXIDE LEVEL 23 MEQ/L (21-32); CHLORIDE LEVEL 106 MEQ/L (98-107); CREATININE FOR GFR 0.88 MG/DL (0.55-1.30); GLOMERULAR FILTRATION RATE > 60.0 (>32); GLUCOSE, FASTING 135 MG/DL (70-100); POTASSIUM SERUM 3.9 MEQ/L (3.5-5.1); SODIUM LEVEL 138 MEQ/L (136-145)
== END ==
PROVIDERS: ATTEND Internal Medicine
DX: G40.909 Epilepsy, unspecified, not intractable, without status epilepticus (principal)

== ENCOUNTER → 2020-10-01 | Outpatient (REF) ==
[~2020-10-01] MED LIST changes: -AZIT-10 PO; -DIPH25CA32 PO; -DIVA1TAB48 PO; -FURO20TA2 PO; -KEPP1TAB PO; -PLAV1TAB2 PO; -VITA1CHW7 PO; -ZINC1TAB PO
== END ==
PROVIDERS: ATTEND Internal Medicine
DX: Z20.828 Contact with and (suspected) exposure to other viral communicable diseases (principal)

== ENCOUNTER → 2020-10-05 | Outpatient (REF) | payer MEDICARE ==
[~2020-10-05] MED LIST changes: +AZIT-10 PO; +DIPH25CA32 PO; +DIVA1TAB48 PO; +FURO20TA2 PO; +KEPP1TAB PO; +PLAV1TAB2 PO; +VITA1CHW7 PO; +ZINC1TAB PO
[2020-10-05 18:59] LABS: APPEARANCE, URINE HAZY (CLEAR); BACTERIA, URINE AUTO 3+ (NEGATIVE); BILIRUBIN, URINE AUTO NEGATIVE (NEGATIVE); BLOOD, URINE BLOOD NEGATIVE (NEGATIVE); COLOR, URINE YELLOW (YELLOW); GLUCOSE, URINE (UA) AUTO NEGATIVE (NEGATIVE); KETONE, URINE AUTO TRACE mg/dL (NEGATIVE); LEUKOCYTE ESTERASE, URINE AUTO 1+ (NEGATIVE); NITRITE, URINE AUTO POSITIVE (NEGATIVE); PROTEIN, URINE AUTO NEGATIVE (NEGATIVE); RBC, URINE AUTO 1 /HPF (0-3); SPECIFIC GRAVITY URINE AUTO 1.021 (1.002-1.035); SQUAMOUS EPITHELIAL CELL UR AU 1 /HPF (0-6); UROBILINOGEN, URINE AUTO 0.2 mg/dL (0.0-2.0); WBC, URINE AUTO 13 /HPF (0-3)
== END ==
PROVIDERS: ATTEND Internal Medicine
DX: Z79.899 Other long term (current) drug therapy (principal); B95.2 Enterococcus as the cause of diseases classified elsewhere; Z16.21 Resistance to vancomycin

== ENCOUNTER → 2020-10-07 | Outpatient (REF) | payer MEDICARE ==
[2020-10-07 11:26] LABS: HEMATOCRIT 29.5 % (36.0-47.0); HEMOGLOBIN 9.5 g/dl (12.0-15.5); MEAN CORPUSCULAR HGB CONC 32.2 g/dl (32.0-36.5); MEAN CORPUSCULAR VOLUME 111.7 fl (80.0-96.0); PLATELET COUNT, AUTOMATED 148 10^3/uL (150-450); RED BLOOD COUNT 2.64 10^6/uL (4.00-5.40); WHITE BLOOD COUNT 3.4 10^3/uL (4.0-10.0)
[2020-10-07 12:07] LABS: BLOOD UREA NITROGEN 19 MG/DL (7-18); CALCIUM LEVEL 8.7 MG/DL (8.8-10.2); CARBON DIOXIDE LEVEL 28 MEQ/L (21-32); CHLORIDE LEVEL 105 MEQ/L (98-107); CREATININE FOR GFR 0.91 MG/DL (0.55-1.30); GLOMERULAR FILTRATION RATE > 60.0 (>32); GLUCOSE, FASTING 119 MG/DL (70-100); POTASSIUM SERUM 3.9 MEQ/L (3.5-5.1); SODIUM LEVEL 139 MEQ/L (136-145)
== END ==
PROVIDERS: ATTEND Internal Medicine
DX: I67.9 Cerebrovascular disease, unspecified (principal)

== ENCOUNTER 2020-10-08 08:24 | Outpatient (RCR) ==
[~2020-10-08 08:24] MED LIST changes: -AZIT-10 PO; -DIPH25CA32 PO; -DIVA1TAB48 PO; -FURO20TA2 PO; -KEPP1TAB PO; -PLAV1TAB2 PO; -VITA1CHW7 PO; -ZINC1TAB PO
== END 2020-10-19 ==
PROVIDERS: ATTEND Internal Medicine
DX: Z20.828 Contact with and (suspected) exposure to other viral communicable diseases (principal)

== ENCOUNTER → 2020-10-12 | Outpatient (CLI) | payer MEDICARE ==
--- NOTE | 2020-10-12 16:02 | REP ---
INDICATION: SOLO LOWER EXTREMITY EDEMA,R/O DVT--STAT FLOOR 4 [facility] COMPARISON: None. TECHNIQUE: Hassan scale and color Doppler evaluation of the bilateral lower extremities using linear high frequency transducer. FINDINGS: Ultrasound examination of the right and left lower extremity deep venous structures from the common femoral vein to the popliteal vein demonstrates normal compressibility flow and wave patterns in response to respiration and augmentation. There is no evidence for deep venous thrombosis. IMPRESSION: No evidence for deep venous thrombosis of the bilateral lower extremities. <Electronically signed by Yunior Parra > 10/12/20 [id number]
== END ==
LOC: M WHC 15:20
PROVIDERS: ATTEND Internal Medicine
DX: R60.0 Localized edema (principal); I50.9 Heart failure, unspecified; Z79.899 Other long term (current) drug therapy; Z16.21 Resistance to vancomycin

== ENCOUNTER → 2020-10-12 | Outpatient (REF) | payer MEDICARE ==
[2020-10-12 14:17] LABS: APPEARANCE, URINE HAZY (CLEAR); BACTERIA, URINE AUTO 1+ (NEGATIVE); BILIRUBIN, URINE AUTO NEGATIVE (NEGATIVE); BLOOD, URINE BLOOD NEGATIVE (NEGATIVE); COLOR, URINE YELLOW (YELLOW); GLUCOSE, URINE (UA) AUTO NEGATIVE (NEGATIVE); KETONE, URINE AUTO NEGATIVE (NEGATIVE); LEUKOCYTE ESTERASE, URINE AUTO 1+ (NEGATIVE); MUCUS, URINE SMALL (NEGATIVE); NITRITE, URINE AUTO POSITIVE (NEGATIVE); PROTEIN, URINE AUTO NEGATIVE (NEGATIVE); RBC, URINE AUTO 0 /HPF (0-3); SPECIFIC GRAVITY URINE AUTO 1.012 (1.002-1.035); SQUAMOUS EPITHELIAL CELL UR AU 2 /HPF (0-6); UROBILINOGEN, URINE AUTO 0.2 mg/dL (0.0-2.0); WBC, URINE AUTO 21 /HPF (0-3)
[2020-10-12 15:34] LABS: HEMATOCRIT 30.4 % (36.0-47.0); HEMOGLOBIN 9.8 g/dl (12.0-15.5); MEAN CORPUSCULAR HEMOGLOBIN 35.6 pg (27.0-33.0); MEAN CORPUSCULAR HGB CONC 32.2 g/dl (32.0-36.5); MEAN CORPUSCULAR VOLUME 110.5 fl (80.0-96.0); PLATELET COUNT, AUTOMATED 148 10^3/uL (150-450); RED BLOOD COUNT 2.75 10^6/uL (4.00-5.40); WHITE BLOOD COUNT 3.2 10^3/uL (4.0-10.0)
[2020-10-12 16:12] LABS: BLOOD UREA NITROGEN 17 MG/DL (7-18); CALCIUM LEVEL 9.5 MG/DL (8.8-10.2); CARBON DIOXIDE LEVEL 26 MEQ/L (21-32); CHLORIDE LEVEL 102 MEQ/L (98-107); GLOMERULAR FILTRATION RATE > 60.0 (>32); GLUCOSE, FASTING 129 MG/DL (70-100); NT-PRO BNP 312 PG/ML (<450); POTASSIUM SERUM 3.9 MEQ/L (3.5-5.1); SODIUM LEVEL 137 MEQ/L (136-145)
== END ==
PROVIDERS: ATTEND Internal Medicine
DX: Z79.899 Other long term (current) drug therapy (principal); Z16.21 Resistance to vancomycin

== ENCOUNTER → 2020-10-14 | Outpatient (REF) ==
[~2020-10-14] MED LIST changes: +AZIT-10 PO; +DIPH25CA32 PO; +DIVA1TAB48 PO; +FURO20TA2 PO; +KEPP1TAB PO; +PLAV1TAB2 PO; +VITA1CHW7 PO; +ZINC1TAB PO
== END ==
PROVIDERS: ATTEND Internal Medicine
DX: Z20.828 Contact with and (suspected) exposure to other viral communicable diseases (principal)

== ENCOUNTER → 2020-10-19 | Outpatient (REF) | payer MEDICARE ==
[2020-10-19 14:27] LABS: APPEARANCE, URINE CLEAR (CLEAR); BACTERIA, URINE AUTO 1+ (NEGATIVE); BILIRUBIN, URINE AUTO NEGATIVE (NEGATIVE); BLOOD, URINE BLOOD NEGATIVE (NEGATIVE); COLOR, URINE AMBER (YELLOW); GLUCOSE, URINE (UA) AUTO NEGATIVE (NEGATIVE); KETONE, URINE AUTO TRACE mg/dL (NEGATIVE); LEUKOCYTE ESTERASE, URINE AUTO TRACE (NEGATIVE); MUCUS, URINE SMALL (NEGATIVE); NITRITE, URINE AUTO NEGATIVE (NEGATIVE); PROTEIN, URINE AUTO NEGATIVE (NEGATIVE); RBC, URINE AUTO 0 /HPF (0-3); SPECIFIC GRAVITY URINE AUTO 1.024 (1.002-1.035); SQUAMOUS EPITHELIAL CELL UR AU 4 /HPF (0-6); UROBILINOGEN, URINE AUTO 0.2 mg/dL (0.0-2.0); WBC, URINE AUTO 5 /HPF (0-3)
== END ==
PROVIDERS: ATTEND Internal Medicine
DX: Z79.899 Other long term (current) drug therapy (principal); B95.2 Enterococcus as the cause of diseases classified elsewhere; Z16.21 Resistance to vancomycin

== ENCOUNTER → 2020-10-20 | Outpatient (REF) ==
[~2020-10-20] MED LIST changes: -AZIT-10 PO; -DIPH25CA32 PO; -DIVA1TAB48 PO; -FURO20TA2 PO; -KEPP1TAB PO; -PLAV1TAB2 PO; -VITA1CHW7 PO; -ZINC1TAB PO
[2020-10-20 16:22] LABS: BLOOD UREA NITROGEN 24 MG/DL (7-18); CARBON DIOXIDE LEVEL 27 MEQ/L (21-32); CHLORIDE LEVEL 103 MEQ/L (98-107); CREATININE FOR GFR 0.95 MG/DL (0.55-1.30); GLOMERULAR FILTRATION RATE > 60.0 (>32); GLUCOSE, FASTING 107 MG/DL (70-100); NT-PRO BNP 477 PG/ML (<450); POTASSIUM SERUM 4.1 MEQ/L (3.5-5.1); SODIUM LEVEL 136 MEQ/L (136-145)
== END ==
PROVIDERS: ATTEND Internal Medicine
DX: I50.9 Heart failure, unspecified (principal)

== ENCOUNTER → 2020-10-27 | Outpatient (REF) | payer MEDICARE ==
[2020-10-27 11:18] LABS: HEMATOCRIT 33.5 % (36.0-47.0); HEMOGLOBIN 11.3 g/dl (12.0-15.5); MEAN CORPUSCULAR HEMOGLOBIN 37.2 pg (27.0-33.0); MEAN CORPUSCULAR HGB CONC 33.7 g/dl (32.0-36.5); MEAN CORPUSCULAR VOLUME 110.2 fl (80.0-96.0); PLATELET COUNT, AUTOMATED 171 10^3/uL (150-450); RED BLOOD COUNT 3.04 10^6/uL (4.00-5.40); WHITE BLOOD COUNT 3.6 10^3/uL (4.0-10.0)
[2020-10-27 11:44] LABS: BLOOD UREA NITROGEN 22 MG/DL (7-18); CALCIUM LEVEL 9.1 MG/DL (8.8-10.2); CARBON DIOXIDE LEVEL 29 MEQ/L (21-32); CHLORIDE LEVEL 101 MEQ/L (98-107); GLOMERULAR FILTRATION RATE > 60.0 (>32); GLUCOSE, FASTING 145 MG/DL (70-100); POTASSIUM SERUM 3.5 MEQ/L (3.5-5.1); SODIUM LEVEL 136 MEQ/L (136-145)
== END ==
PROVIDERS: ATTEND Internal Medicine
DX: Z86.73 Personal history of transient ischemic attack (TIA), and cerebral infarction without residual deficits (principal); Z79.899 Other long term (current) drug therapy

== ENCOUNTER → 2020-11-01 | Outpatient (REF) | PROVIDERS: ATTEND Internal Medicine | DX: Z20.828 Contact with and (suspected) exposure to other viral communicable diseases (principal) ==

== ENCOUNTER → 2020-11-05 | Outpatient (REF) | payer MEDICARE ==
[~2020-11-05] MED LIST changes: +AMLO25TA PO; +AZIT-10 PO; +DIPH25CA32 PO; +DIVA1TAB48 PO; +FURO20TA2 PO; +KEPP1TAB PO; +LISI-542 PO; +MAG400TA PO; +PLAV1TAB2 PO; +VITA1CHW7 PO; +ZINC1TAB PO
== END ==
PROVIDERS: ATTEND Internal Medicine
DX: Z20.828 Contact with and (suspected) exposure to other viral communicable diseases (principal)

== ENCOUNTER 2020-11-08 09:16 | Inpatient (IN) | payer MEDICARE ==
[~2020-11-08] VITALS: Ht 167.6 cm; Wt 43.5 kg
[~2020-11-08 09:16] MED LIST changes: -AMLO25TA PO; -AZIT-10 PO; -DIPH25CA32 PO; -DIVA1TAB48 PO; -FURO20TA2 PO; -KEPP1TAB PO; -LISI-538 PO; -LISI-542 PO; +LISI10TA22 PO; -LISI10TA4 PO; +LISI20TA33 PO; -LISI40TA PO; +LISI40TA4 PO; -MAG400TA PO; -PLAV1TAB2 PO; -QUET1TAB7 PO; +QUET25TA3 PO; -VITA1CHW7 PO; -ZINC1TAB PO
[2020-11-08] MEDS ORDERED: ISOVUE-370 76% 100ML VIAL As Ordered ONE (09:36)
[2020-11-08 09:47] LABS: EOS % 0.8 % (0.0-3.0); HEMATOCRIT 37.7 % (36.0-47.0); HEMOGLOBIN 12.6 g/dl (12.0-15.5); LYMPH % 37.8 % (24.0-44.0); MEAN CORPUSCULAR HEMOGLOBIN 35.9 pg (27.0-33.0); MEAN CORPUSCULAR HGB CONC 33.4 g/dl (32.0-36.5); MEAN CORPUSCULAR VOLUME 107.4 fl (80.0-96.0); MONO # 0.5 10^3/uL (0.0-0.8); MONO % 20.5 % (0.0-5.0); NEUTROPHILS # 1.1 10^3/uL (1.5-8.5); NEUTROPHILS % 40.9 % (36.0-66.0); PLATELET COUNT, AUTOMATED 138 10^3/uL (150-450); RED BLOOD COUNT 3.51 10^6/uL (4.00-5.40); WHITE BLOOD COUNT 2.6 10^3/uL (4.0-10.0)
[2020-11-08 09:58] LABS: INR 0.9; PROTHROMBIN TIME 12.3 SECONDS (12.5-14.3)
[2020-11-08 09:59] LABS: PARTIAL THROMBOPLASTIN TIME 31.3 SECONDS (24.2-38.5)
[2020-11-08 10:01] LABS: D-DIMER QUANT 1707.37 ng/ml (<500)
[2020-11-08 10:51] LABS: ALBUMIN 3.4 GM/DL (3.2-5.2); ALT/SGPT 29 U/L (12-78); BILIRUBIN,DIRECT 0.2 MG/DL (0.0-0.2); BILIRUBIN,TOTAL 0.4 MG/DL (0.2-1.0); C REACTIVE PROTEIN QUANTITATIV 0.31 MG/DL (0.00-0.30); CK-MB VALUE MASS < 1.0 NG/ML (<3.6); CPK CREATINE PHOSPHOKINASE 38 U/L (26-192); FERRITIN 2382 NG/ML (8-252); LDH LACTATE DEHYDROGENASE 224 U/L (84-246); MB/CK RELATIVE INDEX 2.63 (< OR =4); TOTAL PROTEIN 6.8 GM/DL (6.4-8.2); TROPONIN I < 0.02 NG/ML (< 0.10)
--- NOTE | 2020-11-08 10:56 | REP ---
INDICATION: CVA - Nursing interventions must not delay CT COMPARISON: 08/22/2020 TECHNIQUE: Axial noncontrast images from the skull base to the thoracic inlet with coronal reformations. This CT examination was performed using the following dose reduction techniques: Automated exposure control, adjustment of mA and/or kv according to the patient's size, and use of iterative reconstruction technique. FINDINGS: Atrophy with periventricular leukomalacia and microvascular ischemic changes are appreciated. Low-density changes in the basal ganglia and right parieto-occipital region consistent with prior infarctions are unchanged compared to prior. The ventricles and sulci are symmetric. Hassan-white differentiation is maintained. There is no evidence for acute intracranial hemorrhage, mass/mass effect, pathology or infarction. No extra-axial fluid collection. Calvarium is intact. Paranasal sinuses and mastoid air cells are clear. IMPRESSION: Age related atrophy and microvascular ischemic changes. Stable areas of prior infarction. No acute intracranial hemorrhage, infarction, or mass/mass effect. <Electronically signed by Yunior Parra > 11/08/20 [id number]
[2020-11-08 11:11] LABS: MAGNESIUM LEVEL 1.4 MG/DL (1.8-2.4)
--- NOTE | 2020-11-08 11:14 | REP ---
INDICATION: CVA - Nursing interventions must not delay CT. COMPARISON: None. TECHNIQUE: CT contrast dose: 100 ml of intravenous Isovue 370. Axial contrast-enhanced images were obtained from the skull base to the vertex with coronal reformations using 100 cc Isovue 370 intravenous contrast material. Maximal intensity projection and multiplanar re-formation images along with 3-D rendered imaging of the arterial vasculature. FINDINGS: Evaluation is limited by motion artifact. The [id number] and visualized vertebrobasilar system appear intact and essentially normal. The left vertebral artery appears dominant. Vasculature to the bilateral hemispheres appear symmetric. No obvious arteriovenous malformation or aneurysm detected. Remainder of the examination appears essentially normal. Incidental near complete opacification of the right maxillary sinus suggesting chronic sinusitis and mucosal. IMPRESSION: No obvious arteriovenous malformation or aneurysm. Vasculature to the bilateral hemispheres and posterior fossa appear essentially symmetric. <Electronically signed by Yunior Parra > 11/08/20 [id number]
--- NOTE | 2020-11-08 11:22 | REP ---
INDICATION: cva. COMPARISON: None. TECHNIQUE: Axial contrast-enhanced images were obtained from the thoracic inlet to the skull base with coronal and sagittal reformations using 100 cc Isovue 370 intravenous contrast material. Maximal intensity projection and multiplanar re-formation images along with 3-D rendered imaging of the arterial vasculature. This CT examination was performed using the following dose reduction techniques: Automated exposure control, adjustment of mA and/or kv according to the patient's size, and the use of iterative reconstruction technique. FINDINGS: Scattered partially calcified atheromatous plaquing through the common carotid arteries and proximal internal carotid arteries noted. The common carotid arteries, carotid bulbs and visualized portions of the external and the internal carotid arteries demonstrate satisfactory enhancement without significant areas of narrowing/stenosis or occlusion. The vertebral arteries are patent. No obvious vascular abnormality noted.. IMPRESSION: No evidence for significant narrowing/stenosis or occlusion. <Electronically signed by Yunior Parra > 11/08/20 [id number]
--- NOTE | 2020-11-08 11:24 | REP ---
INDICATION: altered mental COMPARISON: None TECHNIQUE: Axial contrast enhanced images from the thoracic inlet to the upper abdomen with coronal and sagittal reformations using 100 ml Isovue 370 intravenous contrast material. This CT examination was performed using the following dose reduction techniques: Automated exposure control, adjustment of mA and/or kv according to the patient's size, and use of iterative reconstruction technique. FINDINGS: Evaluation is limited by motion artifact. Biapical scarring (right greater than left) suggested. Moderate emphysematous changes noted. No consolidation, obvious nodule or mass lesion. No pleural effusion. No pneumothorax. Tracheobronchial tree is patent. No adenopathy. Atherosclerotic changes to the thoracic aorta and coronary arteries noted without aortic aneurysm. No cardiomegaly or pericardial effusion. Surrounding musculoskeletal structures demonstrate age-related degenerative changes. IMPRESSION: Chronic changes including emphysematous disease and suspected biapical scarring. <Electronically signed by Yunior Parra > 11/08/20 [id number]
--- NOTE | 2020-11-08 11:27 | REP ---
INDICATION: altered mental. COMPARISON: None TECHNIQUE: Axial contrast-enhanced images from the lung bases to the pubic symphysis using 100 cc Isovue 370 intravenous contrast material. Coronal and sagittal reformations obtained. This CT examination was performed using the following dose reduction techniques: Automated exposure control, adjustment of mA and/or kv according to the patient's size, and the use of iterative reconstruction technique. FINDINGS: Examination is significantly limited by motion artifact and essentially nondiagnostic. No obvious significant abnormality identified. No obvious ascites. No obvious free air. IMPRESSION: Severely limited and essentially nondiagnostic due to motion artifact. No obvious gross abnormality identified. <Electronically signed by Yunior Parra > 11/08/20 [id number]
[2020-11-08] MEDS ORDERED: ACETAMINOPHEN TAB 650MG DOSE (2X325MG) PO ONE (11:30)
[2020-11-08] MEDS ORDERED: MAG SULF 1GM/100ML (MAG RUN) 1 GM in IV 1 EA IV ONE (12:00)
[2020-11-08 12:07] LABS: BLOOD UREA NITROGEN 17 MG/DL (7-18); CALCIUM LEVEL 9.3 MG/DL (8.8-10.2); CARBON DIOXIDE LEVEL 27 MEQ/L (21-32); CHLORIDE LEVEL 103 MEQ/L (98-107); CREATININE FOR GFR 0.88 MG/DL (0.55-1.30); GLOMERULAR FILTRATION RATE > 60.0 (>32); GLUCOSE, FASTING 149 MG/DL (70-100); POTASSIUM SERUM 3.9 MEQ/L (3.5-5.1); SODIUM LEVEL 138 MEQ/L (136-145)
[2020-11-08] MEDS ORDERED: VITA1CHW7 PO (12:52)
[2020-11-08] MEDS ORDERED: AZIT-10 PO (12:52)
[2020-11-08] MEDS ORDERED: FURO20TA2 PO (12:52)
[2020-11-08] MEDS ORDERED: DIPH25CA32 PO (12:52)
[2020-11-08] MEDS ORDERED: ZINC1TAB PO (12:52)
[2020-11-08] MEDS ORDERED: ATIV1TAB10 PO (12:52)
[2020-11-08] MEDS ORDERED: KEPP1TAB PO (12:52)
[2020-11-08] MEDS ORDERED: PLAV1TAB2 PO (12:52)
[2020-11-08] MEDS ORDERED: DIVA1TAB48 PO (12:52)
[2020-11-08] MEDS ORDERED: LR 1,000 ML IV SCH (13:00)
[2020-11-08] MEDS: LORazepam 2 MG/ML VIAL IV PRN (14:34)
[2020-11-08] MEDS ORDERED: QUEtiapine FUMARATE 12.5 MG HALF-TAB PO ONE (15:00)
[2020-11-08] MEDS: ACETAMINOPHEN 500 MG TAB PO SCH ×2 (16:00→20:50)
[2020-11-08] MEDS ORDERED: ENOXAPARIN 60MG/0.6ML SYRINGE (J1650 PER 10MG) SC SCH (16:00)
[2020-11-08] MEDS: HALOPERIDOL 5MG/ML VIAL (J1630 PER 1) IV PRN (16:21)
[2020-11-08 18:00] VITALS: O2SAT 98
[2020-11-08 18:01] VITALS: BP 179/86
--- NOTE | 2020-11-08 19:04 | ECGEPIP ---
[facility] - ED Test Date: 2020-11-08 Pat Name: SAPPHIRE SMYTH Department: Room: [place] [address] Gender: Female Stablehand: deepa : 1940 Requested By: ESSIE Dobbins Order Number: [id number] Reading MD: Africa Malone Measurements Intervals [place] Rate: 77 P: 69 RI: 194 QRS: 1 QRSD: 74 T: 81 QT: 376 QTc: 426 Interpretive Statements SINUS RHYTHM WITH OCCASIONAL ECTOPIC PREMATURE COMPLEXES NSTTW abnormalities baseline artifact may affect interpretation delayed r progression increased rate/ectopy 09/18/20 Electronically Signed on 11-08-2020 19:03:47 EST by Africa Malone
[2020-11-08 20:00] VITALS: BP 140/82
[2020-11-08] MEDS ORDERED: SODIUM CHLORIDE 0.9% 1000ML IV ONE (20:30)
--- NOTE | 2020-11-08 20:39 | HPEPDOC ---
General Date of Admission 11/08/20 Date of Service: Nov 08, 2020 Chief Complaint The patient is a 80-year-old female admitted with a reason for visit of Cva/Covid+. 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 Today she suddenly developed left sided weakness with facial droop at 8:20 am so EMS was called . When EMS arrived on Scene she was noted to be hypoxic to 85% in room air. By the time she arrived to ED her symptoms had resolved. There was no facial droop noted. Patient was agitated and trying to get out of bed. There was some tremulous movements of the left upper extremity. She denied any SOB or cough. She was admitted for TIA. Home Medications Scheduled Acetaminophen (Acetaminophen) 500 Mg Tablet, 1,000 MG PO TID, (Reported) Atorvastatin Calcium (Atorvastatin Calcium) 40 Mg Tablet, 40 MG PO QHS, (Reported) Azithromycin (Azithromycin) 250 Mg Tablet, 250 MG PO DAILY, (Reported) @ 1200. Cholecalciferol (Vitamin D3) (Vitamin D3) 50 Mcg (2000 Unit) Tab.chew, 100 MCG PO QHS, (Reported) Clopidogrel Bisulfate (Plavix) 75 Mg Tablet, 75 MG PO DAILY, (Reported) Divalproex Sodium (Divalproex Sodium) 125 Mg Tablet.dr, 125 MG PO DAILY, (Reported) @ 1600 Furosemide (Furosemide) 20 Mg Tablet, 10 MG PO DAILY, (Reported) Lactose-Reduced Food (Ensure Enlive) 237 Ml Liquid, 237 ML PO TID, (Reported) Levetiracetam (Keppra) 500 Mg Tablet, 500 MG PO BID, (Reported) Lorazepam (Ativan) 0.5 Mg Tablet, 0.5 MG PO QHS, (Reported) Multivitamins (Thera M Plus Tablet) 1 Each Tablet, 1 TAB PO DAILY, (Reported) Pantoprazole Sodium (Pantoprazole Sodium) 40 Mg Tablet.dr, 40 MG PO BID, (Reported) Potassium Chloride (Klor-Con M20) 20 Meq Tab.er.prt, 20 MEQ PO BID, (Reported) Sennosides/Docusate Sodium (Senna-S Tablet) 1 Each Tablet, 1 TAB PO DAILY, (Reported) Sertraline HCl (Sertraline HCl) 25 Mg Tablet, 25 MG PO QHS, (Reported) 75MG TOTAL QHS Sertraline HCl (Sertraline HCl) 50 Mg Tablet, 50 MG PO QHS, (Reported) 75MG TOTAL QHS Wheat Dextrin (Benefiber) 1 Each Powd.pack, 1 POW PO BID, (Reported) Zinc Amino Acid Chelate (Zinc Chelated) 50 Mg Tablet, 100 MG PO QHS, (Reported) Scheduled PRN Bisacodyl (Bisacodyl) 10 Mg Supp.rect, 10 MG MN DAILY PRN for CONSTIPATION, (Reported) Diphenhydramine HCl (Diphenhydramine HCl) 25 Mg Capsule, 25 MG PO QHS PRN for SLEEP, (Reported) Lorazepam (Ativan) 0.5 Mg Tablet, 0.25 MG PO DAILY PRN for ANXIETY, (Reported) Magnesium Hydroxide (Milk of Magnesia) 400 Mg/5 Ml Oral.susp, 30 ML PO DAILY PRN for CONSTIPATION, (Reported) Sodium Phosphate,Dixie-Dibasic (Enema) 133 Ml Enema, 1 BIENVENIDO MN DAILY PRN for CONSTIPATION, (Reported) Allergies Coded Allergies: aspirin (Verified Adverse Reaction, Mild, stomach upset , 06/05/20) Past Medical History Medical History 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 which happened after May 2020. She was admitted in [place] between May and August for stroke and had cardiac arrest there and was resuscitated. H/o Cardiac arrest and resuscitation in summer at [place]. 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 Surgical History No surgical history Family History FATHER: 50 YRS, BRAIN HEMORRHAGE MOTHER: 82 YRS, HYPERTENSION, HEART DISEASE SIBLINGS: SISTER WITH ASTHMA Social History * Smoker: Denies Alcohol: Denies Drugs: denies A-FIB/CHADSVASC A-FIB History Current/History of A-Fib/PAF?: No Review of Systems Constitutional: Denies: Chills, Fever, Night Sweats Eyes: Denies: Pain, Vision change ENT: Denies: Head Aches, Ear Pain, Dysphagia Skin: Denies: Rash, Lesions, Breakdown Pulmonary: Reports: Dyspnea Cardiovascular: Denies: Chest Pain, Palpitations, Orthopnea, Paroxysmal Noc. Dyspnea, Lt Headedness Gastrointestinal: Denies: Nausea, Vomiting, Abdominal Pain, Diarrhea Genitourinary: Denies: Dysuria, Frequency, Incontinence, Retention Hematologic: Denies: Bruising, Bleeding Excessively Neurological: Reports: Weakness Physical Examination General Exam: Positive: Alert, No Acute Distress, Other (agitated) Eye Exam: Positive: PERRLA, Conjunctiva & lids normal; Negative: Sclera icteric ENT Exam: Positive: Atraumatic, Mucous membr. moist/pink, Pharynx Normal Neck Exam: Positive: Supple; Negative: JVD, thyromegaly Chest Exam: Positive: Clear to auscultation, Normal air movement Heart Exam: Positive: Rate Normal, Regular Rhythm, Normal S1, Normal S2; Negative: Murmurs, Rubs Telemetry: Positive: No significant arrhythmia Abdomen Exam: Positive: Normal bowel sounds, Soft; Negative: Tenderness, Hepatospenomegaly Extremity Exam: Positive: Normal pulses; Negative: Clubbing, Cyanosis, Edema Neuro Exam: Positive: Normal Speech, Normal Tone, Reflexes 2+, Other (Power 4/5 ont he right and 3/5 onthe left both upper and lower extremity. ) Psych Exam: Positive: Other (oriented to name and knows she is in hospital, dementia. ) Vital Signs Vital Signs Date Time Temp Pulse Resp B/P (MAP) Pulse Ox O2 Delivery O2 Flow Rate FiO2 11/08/20 10:00 91 168/82 (110) 100 Nasal Cannula 1.0 11/08/20 09:19 98.0 17 Laboratory Data Labs 24H Laboratory Tests 2 11/08/20 09:31: Immature Granulocyte % (Auto) 0.0, Neutrophils (%) (Auto) 40.9, Lymphocytes (%) (Auto) 37.8, Monocytes (%) (Auto) 20.5H, Eosinophils (%) (Auto) 0.8, Basophils (%) (Auto) 0.0, Neutrophils # (Auto) 1.1L, Lymphocytes # (Auto) 1.0L, Monocytes # (Auto) 0.5, Eosinophils # (Auto) 0.0, Basophils # (Auto) 0.0, Nucleated Red Blood Cells % (auto) 0.0, Prothrombin Time 12.3, Prothromb Time International Ratio 0.90, Activated Partial Thromboplast Time 31.3, D-Dimer, Quantitative 1707.37H, Lactic Acid Level 2.3*H, Magnesium Level 1.4L, Ferritin 2382H, Total Bilirubin 0.4, Direct Bilirubin 0.2, Aspartate Amino Transf (AST/SGOT) 32, Alanine Aminotransferase (ALT/SGPT) 29, Alkaline Phosphatase 120H, Lactate Dehydrogenase 224, Total Creatine Kinase 38, Creatine Kinase MB < 1.0, Creatine Kinase MB Relative Index 2.63, Troponin I < 0.02, C-Reactive Protein, Jordon titative 0.31H, Total Protein 6.8, Albumin 3.4, Albumin/Globulin Ratio 1.0L CBC/BMP Laboratory Tests 11/08/20 09:31 Microbiology Microbiology 11/08/20 Blood Culture, Received Pending 11/08/20 Blood Culture, Received Pending Assessment/Plan 80 year old lady from [facility] assisted living with PMH of 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 Today she suddenly developed left sided weakness with facial droop at 8:20 am so EMS was called . When EMS arrived on Scene she was noted to be hypoxic to 85% in room air. By the time she arrived to ED her sym ptoms had resolved. There was no facial droop noted. Patient was agitated and trying to get out of bed. There was some tremulous movements of the left upper extremity. She denied any SOB or cough. She was admitted for TIA. TIA Vs CVA could have been due to hypoxia CT head, CT angio of head, CTA of neck did not show any new acute infarct or hemorrhage. Will continue Plavix . She is allergic to ASA. continue statin. Allow permissive hypertension. discussed with Dr Telles to repeat CT head in the am. Lovenox bid. Had echo with bubble study in aug 2020 which did not reveal any cause for stroke. Hypertension could be due to agitation or TIA will allow permissive hypertension. Amlodipine HS with hold parameters. COVID- [address] chest: Chronic changes including emphysematous disease and suspected biapical scarring. Hypoxia noted in [place] so started on oxygen supplementation at present on 1 L. If oxygen supplementation requirement increases will start on steroid. Inflammatory markers are elevated will continue to monitor. Hypomagnesemia replaced Lacticacidosis could be due to hypoxia and increased work of breathing received 1 L of fluid. HLD statin. Dementia with delirium patient agitated ativan and haldol prn seroquel am and pm and continue ativan at bedtime. Sertraline. sitter. Focal seizures continue keppra continue ativan prn. Sarcopenia and protein calorie malnutrition BMI of 15.5, bitemporal wasting. Plan / VTE VTE Prophylaxis Ordered?: Yes DENNIS TIJERINA MD Nov 08, 2020 12:10
[2020-11-08] MEDS: SERTRALINE HCL 25 MG TABLET PO SCH (20:49)
[2020-11-08] MEDS: DIVALPROEX 125 MG TAB PO SCH (20:51)
[2020-11-08] MEDS: ATORVASTATIN 20 MG TAB PO SCH (20:52)
[2020-11-08] MEDS: PANTOPRAZOLE 40MG TAB (PROTONIX) PO SCH (20:52)
[2020-11-08] MEDS: levETIRAcetam 250MG TABLET (KEPPRA) PO SCH (20:52)
[2020-11-08] MEDS: SERTRALINE HCL 50 MG TAB PO SCH (20:52)
[2020-11-08] MEDS: LORazepam 0.5 MG TAB PO SCH (20:53)
[2020-11-08] MEDS ORDERED: ENOXAPARIN 30MG/0.3ML SYRINGE (J1650 PER 10MG) SC SCH (21:00)
[2020-11-08] MEDS: ENOXAPARIN 60MG/0.6ML SYRINGE (J1650 PER 10MG) SC SCH (21:37)
[2020-11-08 23:37] VITALS: BP 150/80
[2020-11-09] VITALS (7 sets, daily range): BP systolic 108–159; BP diastolic 54–82
[2020-11-09 06:57] LABS: HEMATOCRIT 32.8 % (36.0-47.0); LYMPH # 0.8 10^3/uL (1.5-5.0); LYMPH % 38.7 % (24.0-44.0); MEAN CORPUSCULAR HEMOGLOBIN 36.2 pg (27.0-33.0); MEAN CORPUSCULAR HGB CONC 33.5 g/dl (32.0-36.5); MEAN CORPUSCULAR VOLUME 107.9 fl (80.0-96.0); MONO # 0.6 10^3/uL (0.0-0.8); MONO % 28.6 % (0.0-5.0); NEUTROPHILS % 32.2 % (36.0-66.0); PLATELET COUNT, AUTOMATED 128 10^3/uL (150-450); RED BLOOD COUNT 3.04 10^6/uL (4.00-5.40); WHITE BLOOD COUNT 2.2 10^3/uL (4.0-10.0)
[2020-11-09 07:09] LABS: INR 0.95; PROTHROMBIN TIME 12.9 SECONDS (12.5-14.3)
[2020-11-09 07:12] LABS: NEUTROPHILS # 0.7 10^3/uL (1.5-8.5)
[2020-11-09 07:33] LABS: ALBUMIN 2.8 GM/DL (3.2-5.2); ALT/SGPT 23 U/L (12-78); BILIRUBIN,DIRECT 0.1 MG/DL (0.0-0.2); BILIRUBIN,TOTAL 0.3 MG/DL (0.2-1.0); BLOOD UREA NITROGEN 21 MG/DL (7-18); CALCIUM LEVEL 8.3 MG/DL (8.8-10.2); CARBON DIOXIDE LEVEL 26 MEQ/L (21-32); CHLORIDE LEVEL 104 MEQ/L (98-107); CREATININE FOR GFR 0.78 MG/DL (0.55-1.30); FERRITIN 2307 NG/ML (8-252); GLOMERULAR FILTRATION RATE > 60.0 (>32); GLUCOSE, FASTING 102 MG/DL (70-100); MAGNESIUM LEVEL 1.8 MG/DL (1.8-2.4); NT-PRO BNP 995 PG/ML (<450); POTASSIUM SERUM 3.7 MEQ/L (3.5-5.1); SODIUM LEVEL 139 MEQ/L (136-145); TOTAL PROTEIN 5.8 GM/DL (6.4-8.2)
[2020-11-09] MEDS ORDERED: LORazepam 2 MG/ML VIAL As Ordered ONE ×2 (08:51→16:20)
[2020-11-09] MEDS: PANTOPRAZOLE 40MG TAB (PROTONIX) PO SCH ×2 (08:58→19:58)
[2020-11-09] MEDS: ENOXAPARIN 60MG/0.6ML SYRINGE (J1650 PER 10MG) SC SCH (08:58)
[2020-11-09] MEDS: ACETAMINOPHEN 500 MG TAB PO SCH ×3 (08:58→19:59)
[2020-11-09] MEDS: CLOPIDOGREL 75 MG TAB PO SCH (08:59)
[2020-11-09] MEDS: LORazepam 2 MG/ML VIAL IV PRN ×2 (08:59→16:30)
[2020-11-09] MEDS: SENOKOT S TAB PO SCH (08:59)
[2020-11-09] MEDS: levETIRAcetam 250MG TABLET (KEPPRA) PO SCH ×2 (08:59→19:58)
[2020-11-09] MEDS: QUEtiapine FUMARATE 12.5 MG HALF-TAB PO SCH (12:15)
[2020-11-09] MEDS: HALOPERIDOL 5MG/ML VIAL (J1630 PER 1) IV PRN (13:19)
--- NOTE | 2020-11-09 13:58 | IPNPDOC ---
Subjective Date Seen The patient was seen on 11/09/20. Subjective Chief Complaint/HPI HISTORY OF PRESENT ILLNESS: Pt was seen at bedside this am. No acute complaints at bedside. No acute events reported by nursing staff overnight. Pending a CT head this am. No focal neuro deficits on exam and sensation intact and strength preserved. Pts a little sleepy which may be due to the Ativan given REVIEW OF SYSTEMS: CONSTITUTIONAL: No fevers, chills, diaphoresis overnight HEENT: No blurred vision, loss of vision, or headache, no hearing loss CARDIOVASCULAR: patient denies chest pain, palpitations. RESPIRATORY: patient denies shortness of breath, cough, hemoptysis. GASTROINTESTINAL: No epigastric abdominal pain, constipation GENITOURINARY: No dysuria SKIN: patient denies rashes, necrotic looking skin noted MUSCULOSKELETAL: patient denies joint pain, neck pain. NEUROLOGICAL: No focal neuro deficits, strength 4/5 throughout PSYCHIATRIC: appropriate mood and affect ENDOCRINE: patient denies polyuria, heat intolerance, cold intolerance HEMATOLOGIC/LYMPHATIC: patient denies easy bruising, no visible bleeding PHYSICAL EXAMINATION: VITAL SIGNS: please see below General: A bit sleepy, NAD, lying in bed, comfortable; satting 98%n on RA. HEENT: PERRLA, EOMI, sclerae non jaundiced, no hearing loss Neck: supple, normal ROM, no JVD Respiratory: lungs CTAB, no wheeze, no rales, no crackles CVS: Sinus rhythm, normal S1, S2, no murmurs Abdomen: non distended and non tender on palpation, + BS, no guarding Extremities: no edema, pulses 2+ lower extr MSK: no joint deformities, normal ROM, left CVA tenderness to percussion Neuro: no focal neuro deficits, moving all 4 extremities, CN2-12 intact. Strength 4/5 in all 4 extremities. No nystagmus. 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 She also presented left sided weakness with facial droop and EMS was called to the scene. Upon their arrival, it was noted that pt was satting at 85% RA; her hypoxia resolved in the ED. She was admitted to [facility] for further workup to r/o TIA. So far, all imaging has been unimpressive. Shes continues to sat well on 98% RA. #TIA vs. CVA - CT head, CTA of head, CTA of neck WNL - CT head repeat today- pending results - No neurological deficits on exam; sensation and motor intact on exam - Will continue Plavix - Continue heparin TID - Continue statin - Bp this am 140/74 -allowing for permission HTN - Discussed with Dr Telles whom agrees with repeat CT head - ECHO performed in Aug 2020- No evidence of stroke #Hypertension -current bp 140/74 - c/w amlodipine with hold parameters - c/w neuro checks # COVID 19 infection -CXR unimpressive -CT chest: Chronic changes including emphysematous disease and suspected biapical scarring. Currently satting 98% on RA -Will start dexamethasone if she desats -Heparin 5000 TID for AC #Hypomagnesemia -1.8 - Will replete as needed #Lactic acidosis (resolved) -This may be 2/2 to hypoxia which she initially presented with - received 1L fluid bolus #HLD -c/w statin #Hx of Dementia with delirium -patient agitated and requireds Ativan and Haldol PRN - C/w Seroquel am and pm and Ativan at bedtime - c/w sertraline # Hx of Focal seizures -No seizures witnessed in the past day - c/w keppra DVT ppx: Heparin 5000mg subQ TID GI ppx: protonix Fluids: none Diet:2g Na Code status: Full Disposition: Will need another COVID test that's negative prior to d/c back to [facility]. Last covid + test was 17 Objective Physical Examination General Exam: Positive: Alert, No Acute Distress, Other (agitated) Eye Exam: Positive: PERRLA, Conjunctiva & lids normal; Negative: Sclera icteric ENT Exam: Positive: Atraumatic, Mucous membr. moist/pink, Pharynx Normal Neck Exam: Positive: Supple; Negative: JVD, thyromegaly Chest Exam: Positive: Clear to auscultation, Normal air movement Heart Exam: Positive: Rate Normal, Regular Rhythm, Normal S1, Normal S2; Negative: Murmurs, Rubs Telemetry: Positive: No significant arrhythmia Abdomen Exam: Positive: Normal bowel sounds, Soft; Negative: Tenderness, Hepatospenomegaly Extremity Exam: Positive: Normal pulses; Negative: Clubbing, Cyanosis, Edema Neuro Exam: Positive: Normal Speech, Normal Tone, Reflexes 2+, Other (Power 4/5 ont he right and 3/5 onthe left both upper and lower extremity. ) Psych Exam: Positive: Other (oriented to name and knows she is in hospital, dementia. ) Assessment /Plan Plan/VTE VTE Prophylaxis Ordered?: Yes VS, I&O, 24H, Fishbone Vital Signs/I&O Vital Signs Date Time Temp Pulse Resp B/P (MAP) Pulse Ox O2 Delivery O2 Flow Rate FiO2 11/09/20 09:15 65 18 127/82 (97) 98 Room Air 11/09/20 08:00 95.0 11/08/20 18:01 1.0 I&O- Last 24 Hours up to 6 AM 11/09/20 06:00 Intake Total 726 ml Output Total 150 ml Balance 576 ml Laboratory Data 24H LABS Laboratory Tests 2 11/08/20 14:18: Lactic Acid Followup at 4 Hours 2.3*H 11/09/20 00:31: Troponin I < 0.02 11/09/20 05:58: Immature Granulocyte % (Auto) 0.5, Neutrophils (%) (Auto) 32.2L, Lymphocytes (%) (Auto) 38.7, Monocytes (%) (Auto) 28.6H, Eosinophils (%) (Auto) 0.0, Basophils (%) (Auto) 0.0, Neutrophils # (Auto) 0.7L, Lymphocytes # (Auto) 0.8L, Monocytes # (Auto) 0.6, Eosinophils # (Auto) 0.0, Basophils # (Auto) 0.0, Nucleated Red Blood Cells % (auto) 0.0, Prothrombin Time 12.9, Prothromb Time International Ratio 0.95, Activated Partial Thromboplast Time 36.0, Fibrinogen 338, Anion Gap 9, Glomerular Filtration Rate > 60.0, Calcium Level 8.3L, Magnesium Level 1.8, Ferritin 2307H, Total Bilirubin 0.3, Direct Bilirubin 0.1, Aspartate Amino Transf (AST/SGOT) 27, Alanine Aminotransferase (ALT/SGPT) 23, Alkaline Phosphat ase 94, UT-Hza-J-Type Natriuretic Peptide 995H, Total Protein 5.8L, Albumin 2.8L, Albumin/Globulin Ratio 0.9L, Procalcitonin 0.10 11/09/20 12:34: Troponin I < 0.02 CBC/BMP Laboratory Tests 11/09/20 05:58 Microbiology Microbiology 11/08/20 Blood Culture - Preliminary, Resulted No growth after 24 hours . All specim... 11/08/20 Blood Culture - Preliminary, Resulted No growth after 24 hours . All specim... GME ATTESTATION GME ATTESTATION My faculty preceptor for this patient encounter was physically present during the encounter and was fully available. All aspects of the patient interview, examination, medical decision making process, and medical care plan development were reviewed and approved by the faculty preceptor. The faculty preceptor is aware and concurs with the plan as stated in the body of this note and will attest to such by his/her cosignature. ATTENDING NOTE I, Maximino Haile MD, have independently examined this patient and performed my own physical exam, as well as reviewed the documentation and edited where necessary. I have discussed in detail with the resident / student the findings and plan of treatment as documented by the resident / student and edited their note. I agree with their findings and treatment plan and have edited their documentation. Edis Mae DO Nov 09, 2020 13:58 MAXIMINO HAILE MD Nov 19, 2020 14:28
[2020-11-09] MEDS: HEPARIN SOD (PORCINE) 5000UNITS/ML 1ML VIAL/SYRINGE SQ SCH ×2 (15:38→20:00)
--- NOTE | 2020-11-09 16:19 | REPVR ---
PROCEDURE INFORMATION: Exam: CT Head Without Contrast Exam date and time: 11/09/2020 1:42 PM Age: 80 years old Clinical indication: Condition or disease; Other: Follow up for tia/ stroke TECHNIQUE: Imaging protocol: Computed tomography of the head without contrast. Radiation optimization: All CT scans at this facility use at least one of these dose optimization techniques: automated exposure control; mA and/or kV adjustment per patient size (includes targeted exams where dose is matched to clinical indication); or iterative reconstruction. COMPARISON: 1. CT Head without contrast 11/08/2020 10:[address] Head without contrast 09/18/2020 3:08:56 PM FINDINGS: Brain: Chronic encephalomalacia is present in the right occipital and right parietal lobes. There is no acute intracranial hemorrhage, cerebral edema, or midline shift. Age-related cerebral and cerebellar volume loss is present. Cerebral ventricles: There is mild ex vacuo dilation of the lateral and 3rd ventricles. Bones/joints: No acute fracture. Paranasal sinuses: There is no acute sinusitis. Mastoid air cells: Visualized mastoid air cells are well aerated. Orbital cavity: Unremarkable as visualized. Vasculature: Atherosclerotic calcifications are seen involving the cavernous carotid arteries. Soft tissues: Unremarkable. IMPRESSION: 1. No acute abnormality. 2. Chronic findings as discussed above. Electronically signed by: Tylor Martin On 11/09/2020 16:19:12 PM
[2020-11-09] MEDS: DIVALPROEX 125 MG TAB PO SCH (16:28)
[2020-11-09] MEDS: ATORVASTATIN 20 MG TAB PO SCH (19:58)
[2020-11-09] MEDS: SERTRALINE HCL 25 MG TABLET PO SCH (19:58)
[2020-11-09] MEDS: SERTRALINE HCL 50 MG TAB PO SCH (19:59)
[2020-11-09] MEDS: LORazepam 0.5 MG TAB PO SCH (19:59)
[2020-11-10] VITALS (26 sets, daily range): BP systolic 125–161; BP diastolic 68–88; O2SAT 90–98
[2020-11-10] MEDS: HEPARIN SOD (PORCINE) 5000UNITS/ML 1ML VIAL/SYRINGE SQ SCH ×2 (05:27→20:32)
[2020-11-10 06:46] LABS: BASO % 0.3 % (0.0-1.0); EOS % 0.7 % (0.0-3.0); HEMATOCRIT 33.2 % (36.0-47.0); HEMOGLOBIN 11.3 g/dl (12.0-15.5); LYMPH # 0.8 10^3/uL (1.5-5.0); LYMPH % 28.3 % (24.0-44.0); MEAN CORPUSCULAR HEMOGLOBIN 36.2 pg (27.0-33.0); MEAN CORPUSCULAR VOLUME 106.4 fl (80.0-96.0); MONO # 0.5 10^3/uL (0.0-0.8); MONO % 17.4 % (0.0-5.0); NEUTROPHILS # 1.6 10^3/uL (1.5-8.5); PLATELET COUNT, AUTOMATED 128 10^3/uL (150-450); RED BLOOD COUNT 3.12 10^6/uL (4.00-5.40); WHITE BLOOD COUNT 2.9 10^3/uL (4.0-10.0)
[2020-11-10 06:58] LABS: INR 1.03; PROTHROMBIN TIME 13.7 SECONDS (12.5-14.3)
[2020-11-10 07:11] LABS: PARTIAL THROMBOPLASTIN TIME 186.7 SECONDS (24.2-38.5)
[2020-11-10 08:06] LABS: ALBUMIN 2.9 GM/DL (3.2-5.2); ALT/SGPT 24 U/L (12-78); BILIRUBIN,DIRECT 0.1 MG/DL (0.0-0.2); BILIRUBIN,TOTAL 0.4 MG/DL (0.2-1.0); BLOOD UREA NITROGEN 22 MG/DL (7-18); CALCIUM LEVEL 8.2 MG/DL (8.8-10.2); CARBON DIOXIDE LEVEL 26 MEQ/L (21-32); CHLORIDE LEVEL 106 MEQ/L (98-107); CREATININE FOR GFR 0.89 MG/DL (0.55-1.30); FERRITIN 2378 NG/ML (8-252); GLOMERULAR FILTRATION RATE > 60.0 (>32); GLUCOSE, FASTING 88 MG/DL (70-100); MAGNESIUM LEVEL 1.7 MG/DL (1.8-2.4); NT-PRO BNP 386 PG/ML (<450); POTASSIUM SERUM 3.2 MEQ/L (3.5-5.1); SODIUM LEVEL 141 MEQ/L (136-145); TOTAL PROTEIN 5.7 GM/DL (6.4-8.2)
[2020-11-10] MEDS: SENOKOT S TAB PO SCH (08:06)
[2020-11-10] MEDS: QUEtiapine FUMARATE 12.5 MG HALF-TAB PO SCH (08:06)
[2020-11-10] MEDS: levETIRAcetam 250MG TABLET (KEPPRA) PO SCH ×2 (08:06→20:30)
[2020-11-10] MEDS: ACETAMINOPHEN 500 MG TAB PO SCH ×3 (08:06→20:31)
[2020-11-10] MEDS: PANTOPRAZOLE 40MG TAB (PROTONIX) PO SCH ×2 (08:06→20:30)
[2020-11-10] MEDS: CLOPIDOGREL 75 MG TAB PO SCH (09:40)
--- NOTE | 2020-11-10 12:44 | IPNPDOC ---
Text Note Date of Service The patient was seen on 11/10/20. NOTE Subjective Pt was seen at bedside this am. No acute complaints at bedside. No acute events reported by nursing staff overnight. Physical examination General: Alert, lying in bed, comfortable; satting 98%n on RA. HEENT: PERRLA, EOMI, sclerae non jaundiced, no hearing loss Neck: supple, normal ROM, no JVD Respiratory: lungs CTAB, no wheeze, no rales, no crackles CVS: Sinus rhythm, normal S1, S2, no murmurs Abdomen: non distended and non tender on palpation, + BS, no guarding Extremities: no edema, pulses 2+ lower extr MSK: no joint deformities, normal ROM, left CVA tenderness to percussion Neuro: no focal neuro deficits, moving all 4 extremities, CN2-[address] ngth 4/5 in all 4 extremities. No nystagmus. 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 She also presented left sided weakness with facial droop and EMS was called to the scene. She was admitted to [facility] for further workup to r/o TIA. CTA. CT scan of the head with a repeat CT of the head has been negative. Shes continues to sat well on 98% RA. 1. TIA vs. CVA: CT head, CTA of head, CTA of neck within normal limits. Repeat CT of the head was done on 11/09/20, which has been negative. The patient has been continued on statin as well as Plavix as per neurology's recommendations. Echo was done in August 2020, which was normal Ejection fraction. Continue cardiac monitoring. Continue heparin subcutaneous, as the patient is at high risk of protocol instituted because of cold 19 infection as well. 2. Hypertension: c/w amlodipine with hold parameters 3. COVID 19 infection: CXR unimpressive. CT chest was done which shows chronic biapical scarring and emphysematous changes. The patient saturating on 98 on room air. No need of any steroids. The patient was diagnosed with Covid on 11/05/2020. Patient is not a candidate for them to severe as well. Continue monitoring. 4. Hx of Dementia with delirium. The patient was agitated and required Ativan and Haldol PRN . We'll continue the home dose of Seroquel and Ativan. Continue with sertraline. 5. Hx of Focal seizures: c/w keppra DVT ppx: Heparin 5000mg subQ TID Disposition: Will need another COVID test that's negative prior to d/c back to [facility]. Last covid + test was 17 VS,Geraldo, I+O VS, Kerrye, I+O Laboratory Tests 11/10/20 05:27 Vital Signs Date Time Temp Pulse Resp B/P (MAP) Pulse Ox O2 Delivery O2 Flow Rate FiO2 11/10/20 10:00 98.0 83 19 134/69 (90) 98 Room Air 11/08/20 18:01 1.0 I&O- Last 24 Hours up to 6 AM 11/10/20 06:00 Intake Total 440 ml Output Total 450 ml Balance -10 ml GENIA HAILE MD Nov 10, 2020 12:44
[2020-11-10] MEDS ORDERED: LORazepam 2 MG/ML VIAL As Ordered ONE (15:31)
[2020-11-10] MEDS: LORazepam 2 MG/ML VIAL IV PRN (15:37)
[2020-11-10] MEDS: DIVALPROEX 125 MG TAB PO SCH (15:37)
[2020-11-10] MEDS: SERTRALINE HCL 25 MG TABLET PO SCH (20:31)
[2020-11-10] MEDS: SERTRALINE HCL 50 MG TAB PO SCH (20:31)
[2020-11-10] MEDS: LORazepam 0.5 MG TAB PO SCH (20:31)
[2020-11-10] MEDS: ATORVASTATIN 20 MG TAB PO SCH (20:31)
[2020-11-10] MEDS: diphenhydrAMINE 25MG CAP PO PRN (22:56)
[2020-11-11] VITALS (24 sets, daily range): BP systolic 124–174; BP diastolic 69–93; O2SAT 92–100
[2020-11-11] MEDS: HEPARIN SOD (PORCINE) 5000UNITS/ML 1ML VIAL/SYRINGE SQ SCH ×2 (08:31→20:11)
[2020-11-11] MEDS: PANTOPRAZOLE 40MG TAB (PROTONIX) PO SCH ×2 (08:32→20:12)
[2020-11-11] MEDS: SENOKOT S TAB PO SCH (08:32)
[2020-11-11] MEDS: CLOPIDOGREL 75 MG TAB PO SCH (08:32)
[2020-11-11] MEDS: QUEtiapine FUMARATE 12.5 MG HALF-TAB PO SCH (08:32)
[2020-11-11] MEDS: ACETAMINOPHEN 500 MG TAB PO SCH ×3 (08:32→20:12)
[2020-11-11] MEDS: levETIRAcetam 250MG TABLET (KEPPRA) PO SCH ×2 (08:32→20:14)
[2020-11-11 08:48] LABS: BASO % 0.4 % (0.0-1.0); EOS % 1.4 % (0.0-3.0); HEMOGLOBIN 10.6 g/dl (12.0-15.5); LYMPH # 0.9 10^3/uL (1.5-5.0); MEAN CORPUSCULAR HEMOGLOBIN 35.2 pg (27.0-33.0); MEAN CORPUSCULAR HGB CONC 33.1 g/dl (32.0-36.5); MEAN CORPUSCULAR VOLUME 106.3 fl (80.0-96.0); MONO # 0.6 10^3/uL (0.0-0.8); MONO % 21.5 % (0.0-5.0); NEUTROPHILS # 1.3 10^3/uL (1.5-8.5); NEUTROPHILS % 45.3 % (36.0-66.0); PLATELET COUNT, AUTOMATED 123 10^3/uL (150-450); RED BLOOD COUNT 3.01 10^6/uL (4.00-5.40); WHITE BLOOD COUNT 2.8 10^3/uL (4.0-10.0)
[2020-11-11 09:29] LABS: PARTIAL THROMBOPLASTIN TIME 84.1 SECONDS (24.2-38.5)
[2020-11-11 09:32] LABS: INR 0.98; PROTHROMBIN TIME 13.2 SECONDS (12.5-14.3)
[2020-11-11 09:45] LABS: ALBUMIN 3.1 GM/DL (3.2-5.2); ALT/SGPT 27 U/L (12-78); BILIRUBIN,DIRECT 0.2 MG/DL (0.0-0.2); BILIRUBIN,TOTAL 0.3 MG/DL (0.2-1.0); BLOOD UREA NITROGEN 22 MG/DL (7-18); CALCIUM LEVEL 8.7 MG/DL (8.8-10.2); CARBON DIOXIDE LEVEL 25 MEQ/L (21-32); CHLORIDE LEVEL 105 MEQ/L (98-107); CREATININE FOR GFR 0.94 MG/DL (0.55-1.30); FERRITIN 2272 NG/ML (8-252); GLOMERULAR FILTRATION RATE > 60.0 (>32); GLUCOSE, FASTING 98 MG/DL (70-100); MAGNESIUM LEVEL 1.6 MG/DL (1.8-2.4); NT-PRO BNP 369 PG/ML (<450); POTASSIUM SERUM 3.4 MEQ/L (3.5-5.1); SODIUM LEVEL 140 MEQ/L (136-145)
[2020-11-11] MEDS ORDERED: MAGNESIUM OXIDE 400MG TAB (MAG-OX) PO ONE (11:00)
[2020-11-11] MEDS ORDERED: POTASSIUM CHLORIDE 10 MEQ SR TABLET PO ONE (11:00)
--- NOTE | 2020-11-11 12:05 | IPNPDOC ---
Text Note Date of Service The patient was seen on 11/11/20. NOTE Pt was seen at bedside this am. No acute complaints Physical examination General: Alert, lying in bed, comfortable; satting 97 %n on RA. HEENT: PERRLA, EOMI, sclerae non jaundiced, no hearing loss Neck: supple, normal ROM, no JVD Respiratory: lungs CTAB, no wheeze, no rales, no crackles CVS: Sinus rhythm, normal S1, S2, no murmurs Abdomen: non distended and non tender on palpation, + BS, no guarding Extremities: no edema, pulses 2+ lower extr MSK: no joint deformities, normal ROM, left CVA tenderness to percussion Neuro: no focal neuro deficits, moving all 4 extremities, CN2-12 intact. Strength 4/5 in all 4 extremities. No nystagmus. Psych: calm, cooperative, AAO x 3 Assessment and plan: This is a 80 year old lady from 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 She also presented left sided weakness with facial droop and EMS was called to the scene. She was admitted to [facility] for further workup to r/o TIA. CTA. CT scan of the head with a repeat CT of the head has been negative. Shes continues to sat well on 98% RA. 1. TIA vs. CVA: CT head, CTA of head, CTA of neck within normal limits. Repeat CT of the head was done on 11/09/20, which has been negative. The patient has been continued on statin as well as Plavix as per neurology's recommendations. Echo was done in August 2020, which was normal Ejection fraction. Continue cardiac monitoring. Continue heparin subcutaneous, as the patient is at high risk of protocol instituted because of cold 19 infection as well. 2. Hypertension: c/w amlodipine with hold parameters 3. COVID 19 infection: CXR unimpressive. CT chest was done which shows chronic biapical scarring and emphysematous changes. The patient saturating on 98 on room air. No need of any steroids. The patient was diagnosed with Covid on 11/05/2020. Patient is not a candidate for remdesiver. Continue monitoring. 4. Hx of Dementia with delirium. The patient was agitated and required Ativan and Haldol PRN . We'll continue the home dose of Seroquel and Ativan. Continue with sertraline. 5. Hx of Focal seizures: c/w keppra DVT ppx: Heparin 5000mg subQ TID Disposition: Will need another COVID test that's negative prior to d/c back to [facility]. Last covid + test was 17 VS,Kerrye, I+O VS, Fishbone, I+O Laboratory Tests 11/11/20 08:07 Vital Signs Date Time Temp Pulse Resp B/P (MAP) Pulse Ox O2 Delivery O2 Flow Rate FiO2 11/11/20 09:00 97 Room Air 11/11/20 08:00 97.6 69 20 174/93 (120) 11/08/20 18:01 1.0 I&O- Last 24 Hours up to 6 AM 11/11/20 06:00 Intake Total 920 ml Output Total 376 ml Balance 544 ml GENIA HAILE MD Nov 11, 2020 12:05
[2020-11-11] MEDS: DIVALPROEX 125 MG TAB PO SCH (17:12)
[2020-11-11] MEDS ORDERED: SLF 3 ML SYR IV PRN (18:15)
[2020-11-11] MEDS: ATORVASTATIN 20 MG TAB PO SCH (20:12)
[2020-11-11] MEDS: SERTRALINE HCL 50 MG TAB PO SCH (20:12)
[2020-11-11] MEDS: SERTRALINE HCL 25 MG TABLET PO SCH (20:14)
[2020-11-11] MEDS: SLF 3 ML SYR IV SCH ×2 (20:14→22:25)
[2020-11-11] MEDS: LORazepam 0.5 MG TAB PO SCH (20:18)
[2020-11-12] VITALS (26 sets, daily range): BP systolic 150–168; BP diastolic 79–97; O2SAT 94–98
[2020-11-12] MEDS: diphenhydrAMINE 25MG CAP PO PRN (00:41)
[2020-11-12 06:44] LABS: EOS # 0.1 10^3/uL (0.0-0.5); HEMATOCRIT 32.3 % (36.0-47.0); HEMOGLOBIN 11.2 g/dl (12.0-15.5); LYMPH % 38.1 % (24.0-44.0); MEAN CORPUSCULAR HEMOGLOBIN 36.6 pg (27.0-33.0); MEAN CORPUSCULAR HGB CONC 34.7 g/dl (32.0-36.5); MEAN CORPUSCULAR VOLUME 105.6 fl (80.0-96.0); MONO # 0.5 10^3/uL (0.0-0.8); MONO % 20.4 % (0.0-5.0); NEUTROPHILS % 38.1 % (36.0-66.0); PLATELET COUNT, AUTOMATED 127 10^3/uL (150-450); RED BLOOD COUNT 3.06 10^6/uL (4.00-5.40); WHITE BLOOD COUNT 2.7 10^3/uL (4.0-10.0)
[2020-11-12 06:48] LABS: PROTHROMBIN TIME 13.4 SECONDS (12.5-14.3)
[2020-11-12 06:54] LABS: PARTIAL THROMBOPLASTIN TIME 225.9 SECONDS (24.2-38.5)
[2020-11-12] MEDS: ACETAMINOPHEN 500 MG TAB PO SCH ×2 (09:00→09:37)
[2020-11-12 09:03] LABS: ALT/SGPT 28 U/L (12-78); BILIRUBIN,DIRECT 0.1 MG/DL (0.0-0.2); BILIRUBIN,TOTAL 0.3 MG/DL (0.2-1.0); BLOOD UREA NITROGEN 18 MG/DL (7-18); CALCIUM LEVEL 8.4 MG/DL (8.8-10.2); CARBON DIOXIDE LEVEL 24 MEQ/L (21-32); CHLORIDE LEVEL 108 MEQ/L (98-107); CREATININE FOR GFR 0.81 MG/DL (0.55-1.30); FERRITIN 2631 NG/ML (8-252); GLOMERULAR FILTRATION RATE > 60.0 (>32); GLUCOSE, FASTING 103 MG/DL (70-100); MAGNESIUM LEVEL 1.5 MG/DL (1.8-2.4); NT-PRO BNP 492 PG/ML (<450); POTASSIUM SERUM 3.8 MEQ/L (3.5-5.1); SODIUM LEVEL 142 MEQ/L (136-145); TOTAL PROTEIN 5.8 GM/DL (6.4-8.2)
[2020-11-12] MEDS: HEPARIN SOD (PORCINE) 5000UNITS/ML 1ML VIAL/SYRINGE SQ SCH (09:36)
[2020-11-12] MEDS: SENOKOT S TAB PO SCH (09:37)
[2020-11-12] MEDS: PANTOPRAZOLE 40MG TAB (PROTONIX) PO SCH ×2 (09:37→22:36)
[2020-11-12] MEDS: lisinopriL 5 MG TAB PO SCH (09:37)
[2020-11-12] MEDS: levETIRAcetam 250MG TABLET (KEPPRA) PO SCH ×2 (09:37→22:36)
[2020-11-12] MEDS: QUEtiapine FUMARATE 12.5 MG HALF-TAB PO SCH (09:37)
[2020-11-12] MEDS: CLOPIDOGREL 75 MG TAB PO SCH (09:38)
[2020-11-12] MEDS: guaiFENesin 200 MG TAB PO SCH ×3 (11:54→20:00)
[2020-11-12] MEDS: MAGNESIUM OXIDE 400MG TAB (MAG-OX) PO SCH (11:59)
--- NOTE | 2020-11-12 12:38 | IPNPDOC ---
Text Note Date of Service The patient was seen on 11/12/20. NOTE Subjective: Patient seen and examined at bedside. Doing well overnight. Scheduled Tylenol 1000 mg TID D/Gil this am Objective: Constitutional: Alert. Non-distressed. Saturating 97 on RA. HEENT: PEERLA. EMOI. Non-jaundiced Neck: Supple, non-tender Respiratory: some crackling heard, cleared with coughing. No wheezing appreciated Cardiovascular: Sinus. HS 1 + 2 normal. No murmurs, regurgitations, gallos Abdominal: Non-distended. Soft, non-tender. BS + Extremities: no edema MSK: Normal ROM Neuro: AO x 3. 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 She also presented left sided weakness with facial droop and EMS was called to the scene. She was admitted to [facility] for further workup to r/o TIA. CTA, as well CT scan of the head x 2 has been negative. Medical management initiated with plavix/statin. Patient saturating well on RA and medical management not-indicated for her COVID status. #TIA vs. CVA: Workup with CT head x 2, CTA of neck unremarkable. ECHO with agitated saline performed in Aug. --> Negative for any evidence of shunting. As per neurology, patient to continue with medical management of statin + Plavix. The patient has been continued on statin as well as Plavix as per neurology's recommendations. #Hypertension: BP elevated to 168/91 on 11/12. Lisinopril 5 added. C/W amlodipine 2.5 qhs #COVID 19 infection: Diagnosed 11/05/2020. Currently asymptomatic and saturating 97% on RA. CXR unimpressive. CT chest (11/08) was done which shows chronic biapical scarring and emphysematous changes. Not a candidate for medical therapy with steroids/remdesivir. Scheduled guaifenecin added 11/12 due to congestion. Consider making PRN after 24 hours #Hypomagnesemia: unclear etiology. C/W Mag ox 400 daily. Monitor #Hx of Dementia with delirium. The patient was agitated and required Ativan and Haldol PRN . We'll continue the home dose of Seroquel and Ativan. Continue with sertraline. #Hx of Focal seizures: likely 2/2 hx of CVA. c/w home medication keppra 500 BID #Hx of headaches: Scheduled tylenol 1000 mg TID previously ordered. D/Gil on 11/12 with PRN tylenol [address]. Observe for Analgesic rebound/overuse headache DVT ppx: Heparin 5000mg subQ BID Disposition: Will need another COVID test that's negative prior to d/c back to [facility]. Last covid + test was . Consider ALC status tomorrow Diet: Low sodium diet Case discussed with Dr. Romaine Jon MD Hospitalist Resident Geraldo LUKE I+Geraldo MORELAND I+Angus Laboratory Tests 11/12/20 05:16 11/12/20 05:17 Vital Signs Date Time Temp Pulse Resp B/P (MAP) Pulse Ox O2 Delivery O2 Flow Rate FiO2 11/12/20 09:37 168/91 11/12/20 08:00 97.1 71 18 97 Room Air 11/08/20 18:01 1.0 l I&O- Last 24 Hours up to 6 AM 11/12/20 06:00 Intake Total 660 ml Output Total 850 ml Balance -190 ml GME ATTESTATION GME ATTESTATION My faculty preceptor for this patient encounter was physically present during the encounter and was fully available. All aspects of the patient interview, examination, medical decision making process, and medical care plan development were reviewed and approved by the faculty preceptor. The faculty preceptor is aware and concurs with the plan as stated in the body of this note and will att est to such by his/her cosignature. ATTENDING NOTE I, Maximino Gavin MD, have independently examined this patient and performed my own physical exam, as well as reviewed the documentation and edited where necessary. I have discussed in detail with the resident / student the findings and plan of treatment as documented by the resident / student and edited their note. I agree with their findings and treatment plan and have edited their documentation. JAMI JON M.D.,PGY-2 Nov 12, 2020 12:38 MAXIMINO GAVIN MD Nov 19, 2020 14:33
[2020-11-12] MEDS: SLF 3 ML SYR IV SCH ×2 (14:00→22:00)
[2020-11-12] MEDS: DIVALPROEX 125 MG TAB PO SCH (16:56)
[2020-11-12] MEDS: ENOXAPARIN 40MG/0.4ML SYRINGE (J1650 PER 10MG) SC SCH (18:57)
[2020-11-12] MEDS: ATORVASTATIN 20 MG TAB PO SCH (22:35)
[2020-11-12] MEDS: SERTRALINE HCL 50 MG TAB PO SCH (22:36)
[2020-11-12] MEDS: LORazepam 0.5 MG TAB PO SCH (22:36)
[2020-11-12] MEDS: SERTRALINE HCL 25 MG TABLET PO SCH (22:36)
[2020-11-13] VITALS (28 sets, daily range): BP systolic 111–160; BP diastolic 60–80; O2SAT 91–97
[2020-11-13] MEDS: guaiFENesin 200 MG TAB PO SCH ×3 (04:28→08:03)
[2020-11-13] MEDS: SLF 3 ML SYR IV SCH ×3 (06:00→20:18)
[2020-11-13] MEDS: ENOXAPARIN 40MG/0.4ML SYRINGE (J1650 PER 10MG) SC SCH ×2 (06:55→18:25)
--- NOTE | 2020-11-13 07:12 | IPNPDOC ---
Text Note Date of Service The patient was seen on 11/13/20. NOTE Patient seen and examined at bedside. Doing well overnight. Saturating 92% on RA but given emphysematous changes on CXR this is acceptable. No signs of analgesic rebound headaches after tylenol D/C Objective: Constitutional: Alert. Non-distressed. Saturating 97 on RA. HEENT: PEERLA. EMOI. Non-jaundiced Neck: Supple, non-tender Respiratory: some crackling heard, cleared with coughing. No wheezing appreciated Cardiovascular: Sinus. HS 1 + 2 normal. No murmurs, regurgitations, gallos Abdominal: Non-distended. Soft, non-tender. BS + Extremities: no edema MSK: Normal ROM Neuro: AO x 3. 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 She also presented left sided weakness with facial droop and EMS was called to the scene. She was admitted to [facility] for further workup to r/o TIA. CTA, as well CT scan of the head x 2 has been negative. Medical management initiated with plavix/statin. Patient saturating well on RA and medical management not-indicated for her COVID status. #TIA vs. CVA: Workup with CT head x 2, CTA of neck unremarkable. ECHO with agitated saline performed in Aug. --> Negative for any evidence of shunting. As per neurology, patient to continue with medical management of statin + Plavix. The patient has been continued on statin as well as Plavix as per neurology's recommendations. #Hypertension (resolved): Lisinopril 5 added + amlodipine 2.5 qhs #COVID 19 infection: Diagnosed 11/05/2020. Currently asymptomatic and saturating 97% on RA. CXR unimpressive. CT chest (11/08) was done which shows chronic biapical scarring and emphysematous changes. Not a candidate for medical therapy with steroids/remdesivir. Guaifenesin PRN. Incentive spirometer ordered #Hypomagnesemia: unclear etiology. C/W Mag ox 400 daily. Mag gluconate given BID rather than QID as mag levels this am were measured prior to administration of supplementation. Monitor #Hx of Dementia with delirium. The patient was agitated and required Ativan and Haldol PRN . We'll continue the home dose of Seroquel and Ativan. Continue with sertraline. #Hx of Focal seizures: likely 2/2 hx of CVA. c/w home medication keppra 500 BID #Hx of headaches: Scheduled tylenol 1000 mg TID previously ordered. D/Gil on 11/12 with PRN tylenol [address]. No signs of analgesic rebound headache DVT ppx: Heparin 5000mg subQ BID Disposition: Will need another COVID test that's negative prior to d/c back to [facility]. Last covid + test was . Next tentative covid test Nov 19. CURRENTLY ALC. Labs to be ordered every other day (next lab due 11/15) Diet: Low sodium diet Case discussed with Dr. Romaine Jon MD Hospitalist Resident Geraldo LUKE, I+O VSGeraldo I+O Vital Signs Date Time Temp Pulse Resp B/P (MAP) Pulse Ox O2 Delivery O2 Flow Rate FiO2 11/13/20 06:00 92 Room Air 11/13/20 04:00 99.1 86 17 127/60 (82) 11/08/20 18:01 1.0 I&O- Last 24 Hours up to 6 AM 11/13/20 05:59 Intake Total 420 ml Output Total 550 ml Balance -130 ml GME ATTESTATION GME ATTESTATION My faculty preceptor for this patient encounter was physically present during the encounter and was fully available. All aspects of the patient interview, examination, medical decision making process, and medical care plan development were reviewed and approved by the faculty preceptor. The faculty preceptor is aware and concurs with the plan as stated in the body of this note and will attest to such by his/her cosignature. ATTENDING NOTE I, Maximino Gavin MD, have independently examined this patient and performed my own physical exam, as well as reviewed the documentation and edited where necessary. I have discussed in detail with the resident / student the findings and plan of treatment as documented by the resident / student and edited their note. I agree with their findings and treatment plan and have edited their documentation. JAMI JON M.D.,PGY-2 Nov 13, 2020 07:12 MAXIMINO GAVIN MD Nov 19, 2020 14:47
[2020-11-13] MEDS: PANTOPRAZOLE 40MG TAB (PROTONIX) PO SCH ×2 (08:03→20:16)
[2020-11-13] MEDS: MAGNESIUM OXIDE 400MG TAB (MAG-OX) PO SCH (08:03)
[2020-11-13] MEDS: SENOKOT S TAB PO SCH (08:03)
[2020-11-13] MEDS: QUEtiapine FUMARATE 12.5 MG HALF-TAB PO SCH (08:04)
[2020-11-13] MEDS: CLOPIDOGREL 75 MG TAB PO SCH (08:04)
[2020-11-13] MEDS: levETIRAcetam 250MG TABLET (KEPPRA) PO SCH ×2 (08:04→20:12)
[2020-11-13] MEDS: lisinopriL 5 MG TAB PO SCH (08:05)
[2020-11-13 08:35] LABS: BASO % 0.2 % (0.0-1.0); EOS # 0.1 10^3/uL (0.0-0.5); EOS % 1.1 % (0.0-3.0); HEMATOCRIT 30.6 % (36.0-47.0); HEMOGLOBIN 10.4 g/dl (12.0-15.5); LYMPH # 0.9 10^3/uL (1.5-5.0); LYMPH % 20.2 % (24.0-44.0); MEAN CORPUSCULAR HEMOGLOBIN 35.5 pg (27.0-33.0); MEAN CORPUSCULAR VOLUME 104.4 fl (80.0-96.0); MONO # 0.7 10^3/uL (0.0-0.8); MONO % 14.3 % (0.0-5.0); NEUTROPHILS # 2.9 10^3/uL (1.5-8.5); NEUTROPHILS % 63.5 % (36.0-66.0); PLATELET COUNT, AUTOMATED 123 10^3/uL (150-450); RED BLOOD COUNT 2.93 10^6/uL (4.00-5.40); WHITE BLOOD COUNT 4.6 10^3/uL (4.0-10.0)
[2020-11-13 08:51] LABS: PROTHROMBIN TIME 13.4 SECONDS (12.5-14.3)
[2020-11-13 08:53] LABS: PARTIAL THROMBOPLASTIN TIME 61.7 SECONDS (24.2-38.5)
[2020-11-13 09:15] LABS: ALBUMIN 3.1 GM/DL (3.2-5.2); ALT/SGPT 28 U/L (12-78); BILIRUBIN,DIRECT 0.2 MG/DL (0.0-0.2); BILIRUBIN,TOTAL 0.5 MG/DL (0.2-1.0); BLOOD UREA NITROGEN 19 MG/DL (7-18); CALCIUM LEVEL 8.6 MG/DL (8.8-10.2); CARBON DIOXIDE LEVEL 25 MEQ/L (21-32); CHLORIDE LEVEL 104 MEQ/L (98-107); CREATININE FOR GFR 0.94 MG/DL (0.55-1.30); FERRITIN 2458 NG/ML (8-252); GLOMERULAR FILTRATION RATE > 60.0 (>32); GLUCOSE, FASTING 101 MG/DL (70-100); MAGNESIUM LEVEL 1.5 MG/DL (1.8-2.4); NT-PRO BNP 589 PG/ML (<450); POTASSIUM SERUM 3.8 MEQ/L (3.5-5.1); SODIUM LEVEL 137 MEQ/L (136-145); TOTAL PROTEIN 5.9 GM/DL (6.4-8.2)
[2020-11-13] MEDS: LORazepam 0.5 MG TAB PO PRN (11:31)
[2020-11-13] MEDS ORDERED: guaiFENesin 200 MG TAB PO PRN (12:00)
[2020-11-13] MEDS: MAGNESIUM GLUCONATE 500 MG TAB PO SCH ×2 (12:18→20:16)
[2020-11-13] MEDS: DIVALPROEX 125 MG TAB PO SCH (16:14)
[2020-11-13] MEDS: ATORVASTATIN 20 MG TAB PO SCH (20:12)
[2020-11-13] MEDS: SERTRALINE HCL 50 MG TAB PO SCH (20:16)
[2020-11-13] MEDS: LORazepam 0.5 MG TAB PO SCH (20:16)
[2020-11-13] MEDS: SERTRALINE HCL 25 MG TABLET PO SCH (20:16)
[2020-11-13] MEDS: diphenhydrAMINE 25MG CAP PO PRN (21:14)
[2020-11-14] VITALS: O2SAT 91
[2020-11-14 01:00] VITALS: O2SAT 92
[2020-11-14] MEDS: ENOXAPARIN 40MG/0.4ML SYRINGE (J1650 PER 10MG) SC SCH ×2 (06:00→17:01)
[2020-11-14 08:23] VITALS: BP 148/75
[2020-11-14] MEDS: QUEtiapine FUMARATE 12.5 MG HALF-TAB PO SCH (08:42)
[2020-11-14] MEDS: levETIRAcetam 250MG TABLET (KEPPRA) PO SCH ×2 (08:42→20:10)
[2020-11-14] MEDS: SENOKOT S TAB PO SCH (08:42)
[2020-11-14] MEDS: CLOPIDOGREL 75 MG TAB PO SCH (08:45)
[2020-11-14] MEDS: PANTOPRAZOLE 40MG TAB (PROTONIX) PO SCH ×2 (08:45→20:11)
[2020-11-14] MEDS: MAGNESIUM OXIDE 400MG TAB (MAG-OX) PO SCH (08:45)
[2020-11-14] MEDS: lisinopriL 5 MG TAB PO SCH (08:46)
[2020-11-14] MEDS: LORazepam 0.5 MG TAB PO PRN ×2 (12:25→23:32)
[2020-11-14] MEDS: DIVALPROEX 125 MG TAB PO SCH (16:58)
[2020-11-14 20:00] VITALS: O2SAT 96
[2020-11-14] MEDS: LORazepam 0.5 MG TAB PO SCH (20:10)
[2020-11-14] MEDS: SERTRALINE HCL 50 MG TAB PO SCH (20:11)
[2020-11-14] MEDS: ATORVASTATIN 20 MG TAB PO SCH (20:11)
[2020-11-14] MEDS: SERTRALINE HCL 25 MG TABLET PO SCH (20:11)
[2020-11-14] MEDS: diphenhydrAMINE 25MG CAP PO PRN (23:32)
[2020-11-15] VITALS (7 sets, daily range): BP systolic 144; BP diastolic 61; O2SAT 89–96
[2020-11-15] MEDS: ENOXAPARIN 40MG/0.4ML SYRINGE (J1650 PER 10MG) SC SCH ×2 (06:14→17:20)
[2020-11-15] MEDS: CLOPIDOGREL 75 MG TAB PO SCH (08:55)
[2020-11-15] MEDS: levETIRAcetam 250MG TABLET (KEPPRA) PO SCH ×2 (08:55→21:41)
[2020-11-15] MEDS: PANTOPRAZOLE 40MG TAB (PROTONIX) PO SCH ×2 (08:55→21:41)
[2020-11-15] MEDS: LORazepam 0.5 MG TAB PO PRN ×2 (08:55→15:40)
[2020-11-15] MEDS: SENOKOT S TAB PO SCH (08:55)
[2020-11-15] MEDS: QUEtiapine FUMARATE 12.5 MG HALF-TAB PO SCH (08:55)
[2020-11-15] MEDS: MAGNESIUM OXIDE 400MG TAB (MAG-OX) PO SCH (08:56)
[2020-11-15] MEDS: lisinopriL 5 MG TAB PO SCH (08:59)
[2020-11-15] MEDS: DIVALPROEX 125 MG TAB PO SCH (15:40)
[2020-11-15] MEDS: ATORVASTATIN 20 MG TAB PO SCH (21:41)
[2020-11-15] MEDS: SERTRALINE HCL 25 MG TABLET PO SCH (21:41)
[2020-11-15] MEDS: SERTRALINE HCL 50 MG TAB PO SCH (21:41)
[2020-11-15] MEDS: LORazepam 0.5 MG TAB PO SCH (21:41)
[2020-11-15] MEDS: diphenhydrAMINE 25MG CAP PO PRN (21:42)
[2020-11-16] VITALS: O2SAT 96
[2020-11-16 01:00] VITALS: O2SAT 96
[2020-11-16] MEDS: LORazepam 0.5 MG TAB PO PRN ×2 (01:27→13:03)
[2020-11-16 02:00] VITALS: O2SAT 94
[2020-11-16] MEDS: ACETAMINOPHEN TAB 650MG DOSE (2X325MG) PO PRN ×2 (02:37→13:48)
[2020-11-16 04:00] VITALS: BP 155/83
[2020-11-16] MEDS: ENOXAPARIN 40MG/0.4ML SYRINGE (J1650 PER 10MG) SC SCH ×2 (06:00→18:41)
[2020-11-16] MEDS: QUEtiapine FUMARATE 12.5 MG HALF-TAB PO SCH (08:09)
[2020-11-16] MEDS: levETIRAcetam 250MG TABLET (KEPPRA) PO SCH ×2 (08:09→20:48)
[2020-11-16] MEDS: lisinopriL 5 MG TAB PO SCH (08:10)
[2020-11-16] MEDS: MAGNESIUM OXIDE 400MG TAB (MAG-OX) PO SCH (08:10)
[2020-11-16] MEDS: SENOKOT S TAB PO SCH (08:10)
[2020-11-16] MEDS: PANTOPRAZOLE 40MG TAB (PROTONIX) PO SCH ×2 (08:10→20:49)
[2020-11-16] MEDS: CLOPIDOGREL 75 MG TAB PO SCH (08:10)
[2020-11-16] MEDS: DIVALPROEX 125 MG TAB PO SCH (18:42)
[2020-11-16] MEDS: LORazepam 0.5 MG TAB PO SCH (20:48)
[2020-11-16] MEDS: SERTRALINE HCL 25 MG TABLET PO SCH (20:49)
[2020-11-16] MEDS: SERTRALINE HCL 50 MG TAB PO SCH (20:49)
[2020-11-16] MEDS: ATORVASTATIN 20 MG TAB PO SCH (20:49)
[2020-11-17 04:00] VITALS: BP 116/54
[2020-11-17] MEDS: ENOXAPARIN 40MG/0.4ML SYRINGE (J1650 PER 10MG) SC SCH ×2 (05:54→18:12)
[2020-11-17] MEDS: SENOKOT S TAB PO SCH (11:32)
[2020-11-17] MEDS: PANTOPRAZOLE 40MG TAB (PROTONIX) PO SCH ×2 (11:32→21:39)
[2020-11-17] MEDS: QUEtiapine FUMARATE 12.5 MG HALF-TAB PO SCH (11:32)
[2020-11-17] MEDS: CLOPIDOGREL 75 MG TAB PO SCH (11:32)
[2020-11-17] MEDS: MAGNESIUM OXIDE 400MG TAB (MAG-OX) PO SCH (11:33)
[2020-11-17] MEDS: levETIRAcetam 250MG TABLET (KEPPRA) PO SCH ×2 (11:33→21:39)
[2020-11-17] MEDS: lisinopriL 5 MG TAB PO SCH (11:35)
[2020-11-17] MEDS: DIVALPROEX 125 MG TAB PO SCH (15:24)
[2020-11-17] MEDS: LORazepam 0.5 MG TAB PO PRN (15:24)
[2020-11-17] MEDS: ATORVASTATIN 20 MG TAB PO SCH (21:39)
[2020-11-17] MEDS: SERTRALINE HCL 25 MG TABLET PO SCH (21:39)
[2020-11-17] MEDS: SERTRALINE HCL 50 MG TAB PO SCH (21:39)
[2020-11-17] MEDS: LORazepam 0.5 MG TAB PO SCH (21:43)
[2020-11-18 04:00] VITALS: BP 130/61
[2020-11-18] MEDS: ENOXAPARIN 40MG/0.4ML SYRINGE (J1650 PER 10MG) SC SCH ×2 (06:52→18:31)
[2020-11-18] MEDS: PANTOPRAZOLE 40MG TAB (PROTONIX) PO SCH ×2 (09:49→19:47)
[2020-11-18] MEDS: QUEtiapine FUMARATE 12.5 MG HALF-TAB PO SCH (09:49)
[2020-11-18] MEDS: MAGNESIUM OXIDE 400MG TAB (MAG-OX) PO SCH (09:49)
[2020-11-18] MEDS: lisinopriL 5 MG TAB PO SCH (09:49)
[2020-11-18] MEDS: SENOKOT S TAB PO SCH (09:49)
[2020-11-18] MEDS: CLOPIDOGREL 75 MG TAB PO SCH (09:49)
[2020-11-18] MEDS: levETIRAcetam 250MG TABLET (KEPPRA) PO SCH ×2 (09:50→19:46)
[2020-11-18] MEDS: DIVALPROEX 125 MG TAB PO SCH (16:32)
[2020-11-18] MEDS: SERTRALINE HCL 25 MG TABLET PO SCH (19:47)
[2020-11-18] MEDS: SERTRALINE HCL 50 MG TAB PO SCH (19:47)
[2020-11-18] MEDS: LORazepam 0.5 MG TAB PO SCH (19:47)
[2020-11-18] MEDS: ATORVASTATIN 20 MG TAB PO SCH (19:47)
[2020-11-18] MEDS: diphenhydrAMINE 25MG CAP PO PRN (21:41)
[2020-11-19 04:00] VITALS: BP 132/71
[2020-11-19] MEDS: ENOXAPARIN 40MG/0.4ML SYRINGE (J1650 PER 10MG) SC SCH ×2 (06:08→17:45)
[2020-11-19] MEDS: MAGNESIUM OXIDE 400MG TAB (MAG-OX) PO SCH (09:38)
[2020-11-19] MEDS: QUEtiapine FUMARATE 12.5 MG HALF-TAB PO SCH (09:38)
[2020-11-19] MEDS: levETIRAcetam 250MG TABLET (KEPPRA) PO SCH ×2 (09:39→22:37)
[2020-11-19] MEDS: SENOKOT S TAB PO SCH (09:39)
[2020-11-19] MEDS: CLOPIDOGREL 75 MG TAB PO SCH (09:39)
[2020-11-19] MEDS: PANTOPRAZOLE 40MG TAB (PROTONIX) PO SCH ×2 (09:39→22:37)
[2020-11-19] MEDS: lisinopriL 5 MG TAB PO SCH (09:40)
--- NOTE | 2020-11-19 15:13 | IPNPDOC ---
Text Note Date of Service The patient was seen on 11/19/20. NOTE Pt was seen at bedside this am. No acute complaints . The patient is clinically stable and outside the window of being communicable with regards to code 19, and for that reason, [facility] Physical examination General: Alert, lying in bed, comfortable; satting 97 %n on RA. HEENT: PERRLA, EOMI, sclerae non jaundiced, no hearing loss Neck: supple, normal ROM, no JVD Respiratory: lungs CTAB, no wheeze, no rales, no crackles CVS: Sinus rhythm, normal S1, S2, no murmurs Abdomen: non distended and non tender on palpation, + BS, no guarding Extremities: no edema, pulses 2+ lower extr MSK: no joint deformities, normal ROM, left CVA tenderness to percussion Neuro: no focal neuro deficits, moving all 4 extremities, CN2-12 intact. Strength 4/5 in all 4 extremities. No nystagmus. 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 She also presented left sided weakness with facial droop and EMS was called to the scene. She was admitted to [facility] for further workup to r/o TIA. CTA. CT scan of the head with a repeat CT of the head has been negative. Shes continues to sat well on 98% RA. 1. TIA : CT head, CTA of head, CTA of neck within normal limits. Repeat CT of the head was done on 11/09/20, which has been negative. The patient has been continued on statin as well as Plavix as per neurology's recommendations. Echo was done in August 2020, which was normal Ejection fraction. Continue heparin subcutaneous 2. Hypertension: c/w amlodipine with hold parameters 3. COVID 19 infection: CXR unimpressive. CT chest was done which shows chronic biapical scarring and emphysematous changes. The patient saturating on 98 on room air. No need of any steroids. The patient was diagnosed with Covid on 11/05/2020. Patient was not a candidate for remdesiver. Continue monitoring. 4. Hx of Dementia with delirium. The patient was agitated and required Ativan and Haldol PRN . We'll continue the home dose of Seroquel and Ativan. Continue with sertraline. 5. Hx of Focal seizures: c/w keppra DVT ppx: Heparin 5000mg subQ TID Disposition: Will need another COVID test that's negative prior to d/c back to [facility] But as of now is stable to go to [facility] for now. VS,Fishbone, I+O VS, Fishbone, I+O Vital Signs Date Time Temp Pulse Resp B/P (MAP) Pulse Ox O2 Delivery O2 Flow Rate FiO2 11/19/20 04:00 96.0 83 18 132/71 (91) 95 Room Air I&O- Last 24 Hours up to 6 AM 11/19/20 06:00 Intake Total 960 ml Output Total 0 ml Balance 960 ml GENIA HAILE MD Nov 19, 2020 15:13
[2020-11-19] MEDS: LORazepam 0.5 MG TAB PO PRN (17:44)
[2020-11-19] MEDS: DIVALPROEX 125 MG TAB PO SCH (17:45)
[2020-11-19 20:45] VITALS: BP 146/75
[2020-11-19] MEDS: SERTRALINE HCL 25 MG TABLET PO SCH (22:37)
[2020-11-19] MEDS: SERTRALINE HCL 50 MG TAB PO SCH (22:37)
[2020-11-19] MEDS: ATORVASTATIN 20 MG TAB PO SCH (22:37)
[2020-11-19] MEDS: LORazepam 0.5 MG TAB PO SCH (22:37)
[2020-11-19] MEDS: diphenhydrAMINE 25MG CAP PO PRN (22:37)
[2020-11-20] MEDS: ENOXAPARIN 40MG/0.4ML SYRINGE (J1650 PER 10MG) SC SCH ×2 (05:45→17:21)
[2020-11-20 06:00] VITALS: BP 141/75
[2020-11-20] MEDS: levETIRAcetam 250MG TABLET (KEPPRA) PO SCH ×2 (09:35→20:01)
[2020-11-20] MEDS: SENOKOT S TAB PO SCH (09:35)
[2020-11-20] MEDS: QUEtiapine FUMARATE 12.5 MG HALF-TAB PO SCH (09:35)
[2020-11-20] MEDS: CLOPIDOGREL 75 MG TAB PO SCH (09:35)
[2020-11-20] MEDS: MAGNESIUM OXIDE 400MG TAB (MAG-OX) PO SCH (09:36)
[2020-11-20] MEDS: lisinopriL 5 MG TAB PO SCH (09:36)
[2020-11-20] MEDS: PANTOPRAZOLE 40MG TAB (PROTONIX) PO SCH ×2 (09:36→20:02)
[2020-11-20 13:47] VITALS: BP 109/71
[2020-11-20] MEDS: DIVALPROEX 125 MG TAB PO SCH (16:11)
[2020-11-20] MEDS: LORazepam 0.5 MG TAB PO SCH (20:01)
[2020-11-20] MEDS: ATORVASTATIN 20 MG TAB PO SCH (20:01)
[2020-11-20] MEDS: SERTRALINE HCL 50 MG TAB PO SCH (20:01)
[2020-11-20] MEDS: SERTRALINE HCL 25 MG TABLET PO SCH (20:02)
[2020-11-21] MEDS: ENOXAPARIN 40MG/0.4ML SYRINGE (J1650 PER 10MG) SC SCH ×2 (05:06→17:07)
[2020-11-21 06:00] VITALS: BP 119/70
[2020-11-21] MEDS: lisinopriL 5 MG TAB PO SCH (08:39)
[2020-11-21] MEDS: SENOKOT S TAB PO SCH (08:39)
[2020-11-21] MEDS: QUEtiapine FUMARATE 12.5 MG HALF-TAB PO SCH (08:39)
[2020-11-21] MEDS: levETIRAcetam 250MG TABLET (KEPPRA) PO SCH ×2 (08:39→20:08)
[2020-11-21] MEDS: CLOPIDOGREL 75 MG TAB PO SCH (08:39)
[2020-11-21] MEDS: PANTOPRAZOLE 40MG TAB (PROTONIX) PO SCH ×2 (08:39→20:09)
[2020-11-21] MEDS: MAGNESIUM OXIDE 400MG TAB (MAG-OX) PO SCH (08:39)
[2020-11-21] MEDS: DIVALPROEX 125 MG TAB PO SCH (17:07)
[2020-11-21] MEDS: SERTRALINE HCL 50 MG TAB PO SCH (20:08)
[2020-11-21] MEDS: ATORVASTATIN 20 MG TAB PO SCH (20:08)
[2020-11-21] MEDS: SERTRALINE HCL 25 MG TABLET PO SCH (20:08)
[2020-11-21] MEDS: LORazepam 0.5 MG TAB PO SCH (20:09)
[2020-11-21] MEDS: diphenhydrAMINE 25MG CAP PO PRN (23:46)
[2020-11-22] MEDS: ENOXAPARIN 40MG/0.4ML SYRINGE (J1650 PER 10MG) SC SCH ×2 (05:31→18:13)
[2020-11-22 06:00] VITALS: BP 121/58
[2020-11-22] MEDS: PANTOPRAZOLE 40MG TAB (PROTONIX) PO SCH ×2 (08:14→20:00)
[2020-11-22] MEDS: SENOKOT S TAB PO SCH (08:14)
[2020-11-22] MEDS: QUEtiapine FUMARATE 12.5 MG HALF-TAB PO SCH (08:14)
[2020-11-22] MEDS: levETIRAcetam 250MG TABLET (KEPPRA) PO SCH ×2 (08:15→20:00)
[2020-11-22] MEDS: CLOPIDOGREL 75 MG TAB PO SCH (08:15)
[2020-11-22] MEDS: MAGNESIUM OXIDE 400MG TAB (MAG-OX) PO SCH (08:15)
[2020-11-22] MEDS: lisinopriL 5 MG TAB PO SCH (08:15)
[2020-11-22 15:38] LABS: ABG HCO3 25.2 MEQ/L (22.0-26.0); ABG O2 SATURATION 97.2 % (95.0-99.0); ABG PARTIAL PRESSURE CO2 38.1 mmHg (35.0-45.0); ABG PARTIAL PRESSURE O2 94.1 mmHg (75.0-100.0); ABG STANDARD HCO3 25.4 MEQ/L (22.0-26.0); ABG TOTAL CO2 26.4 MEQ/L (23.0-31.0); ABG pH (ARTERIAL) 7.438 UNITS (7.350-7.450)
[2020-11-22 15:50] VITALS: BP 105/67
[2020-11-22 15:50] LABS: BASO % 0.3 % (0.0-1.0); EOS % 0.8 % (0.0-3.0); HEMATOCRIT 29.5 % (36.0-47.0); HEMOGLOBIN 9.6 g/dl (12.0-15.5); LYMPH # 1.3 10^3/uL (1.5-5.0); MEAN CORPUSCULAR HEMOGLOBIN 35.7 pg (27.0-33.0); MEAN CORPUSCULAR HGB CONC 32.5 g/dl (32.0-36.5); MEAN CORPUSCULAR VOLUME 109.7 fl (80.0-96.0); MONO # 0.7 10^3/uL (0.0-0.8); MONO % 17.3 % (0.0-5.0); NEUTROPHILS # 1.9 10^3/uL (1.5-8.5); NEUTROPHILS % 47.6 % (36.0-66.0); PLATELET COUNT, AUTOMATED 148 10^3/uL (150-450); RED BLOOD COUNT 2.69 10^6/uL (4.00-5.40); WHITE BLOOD COUNT 3.9 10^3/uL (4.0-10.0)
[2020-11-22] MEDS: DIVALPROEX 125 MG TAB PO SCH (16:00)
[2020-11-22 16:06] LABS: INR 0.95; PROTHROMBIN TIME 12.9 SECONDS (12.5-14.3)
[2020-11-22 16:07] LABS: PARTIAL THROMBOPLASTIN TIME 40.9 SECONDS (24.2-38.5)
[2020-11-22 16:25] LABS: ALBUMIN 2.9 GM/DL (3.2-5.2); ALT/SGPT 25 U/L (12-78); BILIRUBIN,TOTAL 0.4 MG/DL (0.2-1.0); BLOOD UREA NITROGEN 28 MG/DL (7-18); CALCIUM LEVEL 8.8 MG/DL (8.8-10.2); CARBON DIOXIDE LEVEL 28 MEQ/L (21-32); CHLORIDE LEVEL 106 MEQ/L (98-107); CREATININE FOR GFR 0.92 MG/DL (0.55-1.30); GLOMERULAR FILTRATION RATE > 60.0 (>32); GLUCOSE, FASTING 130 MG/DL (70-100); POTASSIUM SERUM 3.8 MEQ/L (3.5-5.1); SODIUM LEVEL 141 MEQ/L (136-145); TOTAL PROTEIN 6.2 GM/DL (6.4-8.2)
--- NOTE | 2020-11-22 16:29 | REP ---
INDICATION: AMS COMPARISON: 11/09/2020 TECHNIQUE: Axial noncontrast images from the skull base to the thoracic inlet with coronal reformations. This CT examination was performed using the following dose reduction techniques: Automated exposure control, adjustment of mA and/or kv according to the patient's size, and use of iterative reconstruction technique. FINDINGS: Atrophy with periventricular leukomalacia, old right parieto-occipital infarct and microvascular ischemic changes are appreciated. The ventricles and sulci are symmetric. Hassan-white differentiation is maintained. There is no evidence for acute intracranial hemorrhage, mass/mass effect, pathology or infarction. No extra-axial fluid collection. Calvarium is intact. Partial opacification to the ethmoid sinuses is nonspecific. The mastoid air cells are well aerated bilaterally. IMPRESSION: Atrophy and microvascular ischemic changes. Stable old right parieto-occipital lobe infarction. No acute intracranial hemorrhage, infarction, or mass/mass effect. <Electronically signed by Yunior Parra > 11/22/20 [id number]
[2020-11-22 19:56] VITALS: BP 127/70
[2020-11-22] MEDS: SERTRALINE HCL 50 MG TAB PO SCH (19:59)
[2020-11-22] MEDS: diphenhydrAMINE 25MG CAP PO PRN (20:00)
[2020-11-22] MEDS: ATORVASTATIN 20 MG TAB PO SCH (20:00)
[2020-11-22] MEDS: SERTRALINE HCL 25 MG TABLET PO SCH (20:00)
[2020-11-22] MEDS: LORazepam 0.5 MG TAB PO SCH (20:00)
--- NOTE | 2020-11-22 21:07 | IPNPDOC ---
Subjective Date Seen The patient was seen on 11/22/20. Subjective Chief Complaint/HPI Mrs. Shepherd is an 80-year-old female from [facility] who is here for TIA workup and was COVID positive. This afternoon, she was very confused and agitated. She thought she was home. It was difficult to get a oxygen saturation due to her nail salvadorean. After removing her nail salvadorean, initial read was 77%. Obtain ABG. Oxygen saturation was 97.2%. PCO2 was 38.1. Otherwise obtained a CT head and UA for altered mental status. CT head was negative. UA only demonstrated pyuria, no nitrites or bacteria. Spoke with nurse. Patient does have history of periodic confusion and delirium. Objective Physical Examination General Exam: Positive: Other (agitated); Negative: Cooperative Eye Exam: Positive: PERRLA, Conjunctiva & lids normal; Negative: Sclera icteric ENT Exam: Positive: Atraumatic, Mucous membr. moist/pink, Pharynx Normal Neck Exam: Positive: Supple Chest Exam: Positive: Clear to auscultation Heart Exam: Positive: Rate Normal, Regular Rhythm Telemetry: Positive: No significant arrhythmia Abdomen Exam: Positive: Normal bowel sounds, Soft Neuro Exam: Positive: Normal Speech Psych Exam: Positive: Other (confused) Assessment /Plan Assessment Mrs. Shepherd is an 80-year-old female from [facility] who is here for TIA workup and was COVID positive. She is currently waiting for transfer back to [facility]. Cannot return until COVID negative. She does have dementia and episodes of delirium. This episode this morning most likely delirium secondary to hospitalization. Supportive care and reorientation. We'll order sitter for patient tonight Plan/VTE VTE Prophylaxis Ordered?: Yes Plan 1. TIA Workup was negative Repeat CT head today also negative Continue statin and Plavix 2. Dementia and delirium Supportive care and reorientation 3. Hypertension Blood pressure controlled Continue amlodipine 4. History of focal seizures Continue with Keppra 5. DVT prophylaxis Lovenox Disposition: Pending return to skilled nursing. Patient will need a negative COVID test before returning. VS, I&O, 24H, Fishbone Vital Signs/I&O Vital Signs Date Time Temp Pulse Resp B/P (MAP) Pulse Ox O2 Delivery O2 Flow Rate FiO2 11/22/20 20:00 67 127/70 11/22/20 19:56 98.0 16 100 Nasal Cannula 1.0 I&O- Last 24 Hours up to 6 AM 11/22/20 05:59 Intake Total 1320 ml Balance 1320 ml Laboratory Data 24H LABS Laboratory Tests 2 11/22/20 15:24: Urine Color YELLOW, Urine Appearance CLEAR, Urine pH 6.0, Urine Specific [place] 1.025, Urine Protein 1+H, Urine Glucose (UA) NEGATIVE, Urine Ketones TRACEH, Urine Blood NEGATIVE, Urine Nitrite NEGATIVE, Urine Bilirubin NEGATIVE, Urine Urobilinogen 2.0H, Urine Leukocyte Esterase 2+H, Urine WBC (Auto) 10H, Urine RBC (Auto) 0, Urine Hyaline Casts (Auto) 0, Urine Bacteria (Auto) NEGATIVE, Urine Squamous Epithelial Cells 2, Urine Sperm (Auto) 11/22/20 15:30: Blood Gas Bicarbonate Standard 25.4, Arterial Blood pH 7.438, Arterial Blood Partial Pressure CO2 38.1, Arterial Blood Partial Pressure O2 94.1, Arterial Blood Total CO2 26.4, Arterial Blood HCO3 25.2, Arterial Blood Base Excess 1.0, Arterial Blood Oxygen Saturation 97.2 11/22/20 15:42: Immature Granulocyte % (Auto) 1.0, Neutrophils (%) (Auto) 47.6, Lymphocytes (%) (Auto) 33.0, Monocytes (%) (Auto) 17.3H, Eosinophils (%) (Auto) 0.8, Basophils (%) (Auto) 0.3, Neutrophils # (Auto) 1.9, Lymphocytes # (Auto) 1.3L, Monocytes # (Auto) 0.7, Eosinophils # (Auto) 0.0, Basophils # (Auto) 0.0, Nucleated Red Blood Cells % (auto) 0.0, Prothrombin Time 12.9, Prothromb Time International Ratio 0.95, Activated Partial Thromboplast Time 40.9H, Anion Gap 7L, Glomerular Filtration Rate > 60.0, Lactic Acid Level 1.3, Calcium Level 8.8, Total Bilirubin 0.4, Aspartate Amino Transf (AST/SGOT) 24, Alanine Aminotransferase (ALT/SGPT) 25, Alkaline Phosphatase 97, Total Protein 6.2L, Albumin 2.9L, Albumin/Globulin Ratio 0.9L CBC/BMP Laboratory Tests 11/22/20 15:42 Microbiology Microbiology 11/22/20 Blood Culture, Received Pending 11/22/20 Urine Culture, Received Pending JERRICA VILLAREAL DO Nov 22, 2020 21:07
[2020-11-23] MEDS: ENOXAPARIN 40MG/0.4ML SYRINGE (J1650 PER 10MG) SC SCH ×2 (05:15→18:37)
[2020-11-23 05:58] LABS: HEMATOCRIT 26.8 % (36.0-47.0); HEMOGLOBIN 9.2 g/dl (12.0-15.5); MEAN CORPUSCULAR HEMOGLOBIN 39.3 pg (27.0-33.0); MEAN CORPUSCULAR HGB CONC 34.3 g/dl (32.0-36.5); PLATELET COUNT, AUTOMATED 135 10^3/uL (150-450); RED BLOOD COUNT 2.34 10^6/uL (4.00-5.40); WHITE BLOOD COUNT 4.4 10^3/uL (4.0-10.0)
[2020-11-23 06:00] VITALS: BP 144/68
[2020-11-23 06:23] LABS: MEAN CORPUSCULAR VOLUME 114.5 fl (80.0-96.0)
[2020-11-23] MEDS: MAGNESIUM OXIDE 400MG TAB (MAG-OX) PO SCH (09:30)
[2020-11-23] MEDS: QUEtiapine FUMARATE 12.5 MG HALF-TAB PO SCH (09:30)
[2020-11-23] MEDS: ACETAMINOPHEN TAB 650MG DOSE (2X325MG) PO PRN (09:30)
[2020-11-23] MEDS: CLOPIDOGREL 75 MG TAB PO SCH (09:30)
[2020-11-23] MEDS: PANTOPRAZOLE 40MG TAB (PROTONIX) PO SCH ×2 (09:30→21:14)
[2020-11-23] MEDS: SENOKOT S TAB PO SCH (09:30)
[2020-11-23] MEDS: levETIRAcetam 250MG TABLET (KEPPRA) PO SCH ×2 (09:30→21:15)
[2020-11-23] MEDS: lisinopriL 5 MG TAB PO SCH (09:31)
[2020-11-23] MEDS: LORazepam 0.5 MG TAB PO PRN ×2 (09:31→18:38)
[2020-11-23] MEDS: DIVALPROEX 125 MG TAB PO SCH (18:38)
[2020-11-23] MEDS: SERTRALINE HCL 25 MG TABLET PO SCH (21:14)
[2020-11-23] MEDS: SERTRALINE HCL 50 MG TAB PO SCH (21:14)
[2020-11-23] MEDS: ATORVASTATIN 20 MG TAB PO SCH (21:14)
[2020-11-23] MEDS: diphenhydrAMINE 25MG CAP PO PRN (21:16)
[2020-11-23] MEDS: LORazepam 0.5 MG TAB PO SCH (21:16)
[2020-11-24] MEDS: ENOXAPARIN 40MG/0.4ML SYRINGE (J1650 PER 10MG) SC SCH ×2 (05:26→17:29)
[2020-11-24 06:00] VITALS: BP 110/63
[2020-11-24] MEDS: ACETAMINOPHEN TAB 650MG DOSE (2X325MG) PO PRN ×2 (07:39→20:53)
[2020-11-24] MEDS: QUEtiapine FUMARATE 12.5 MG HALF-TAB PO SCH (07:40)
[2020-11-24] MEDS: levETIRAcetam 250MG TABLET (KEPPRA) PO SCH ×2 (07:40→20:53)
[2020-11-24] MEDS: MAGNESIUM OXIDE 400MG TAB (MAG-OX) PO SCH (07:40)
[2020-11-24] MEDS: SENOKOT S TAB PO SCH (07:40)
[2020-11-24] MEDS: PANTOPRAZOLE 40MG TAB (PROTONIX) PO SCH ×2 (07:41→20:53)
[2020-11-24] MEDS: lisinopriL 5 MG TAB PO SCH (07:41)
[2020-11-24] MEDS: CLOPIDOGREL 75 MG TAB PO SCH (07:41)
[2020-11-24] MEDS: LORazepam 0.5 MG TAB PO PRN ×2 (07:42→13:09)
[2020-11-24 11:11] LABS: RSV AMPLIFICATION NEGATIVE (NEGATIVE)
[2020-11-24] MEDS: DIVALPROEX 125 MG TAB PO SCH (15:59)
[2020-11-24] MEDS: LORazepam 0.5 MG TAB PO SCH (20:52)
[2020-11-24] MEDS: SERTRALINE HCL 50 MG TAB PO SCH (20:52)
[2020-11-24] MEDS: ATORVASTATIN 20 MG TAB PO SCH (20:53)
[2020-11-24] MEDS: SERTRALINE HCL 25 MG TABLET PO SCH (20:53)
[2020-11-25] MEDS: ENOXAPARIN 40MG/0.4ML SYRINGE (J1650 PER 10MG) SC SCH ×2 (05:08→17:29)
[2020-11-25 06:00] VITALS: BP 126/64
[2020-11-25] MEDS: QUEtiapine FUMARATE 12.5 MG HALF-TAB PO SCH (09:46)
[2020-11-25] MEDS: SENOKOT S TAB PO SCH (09:46)
[2020-11-25] MEDS: lisinopriL 5 MG TAB PO SCH (09:46)
[2020-11-25] MEDS: CLOPIDOGREL 75 MG TAB PO SCH (09:46)
[2020-11-25] MEDS: MAGNESIUM OXIDE 400MG TAB (MAG-OX) PO SCH (09:47)
[2020-11-25] MEDS: levETIRAcetam 250MG TABLET (KEPPRA) PO SCH ×2 (09:47→20:31)
[2020-11-25] MEDS: PANTOPRAZOLE 40MG TAB (PROTONIX) PO SCH ×2 (09:47→20:30)
[2020-11-25] MEDS: ACETAMINOPHEN TAB 650MG DOSE (2X325MG) PO PRN ×2 (10:34→17:55)
[2020-11-25] MEDS: LORazepam 0.5 MG TAB PO PRN ×2 (10:34→17:55)
[2020-11-25] MEDS: DIVALPROEX 125 MG TAB PO SCH (16:45)
[2020-11-25] MEDS: LORazepam 0.5 MG TAB PO SCH (20:31)
[2020-11-25] MEDS: SERTRALINE HCL 50 MG TAB PO SCH (20:31)
[2020-11-25] MEDS: ATORVASTATIN 20 MG TAB PO SCH (20:31)
[2020-11-25] MEDS: SERTRALINE HCL 25 MG TABLET PO SCH (20:31)
[2020-11-25] MEDS: CALCIUM CARBONATE 500 MG CHEW U/D PO PRN (21:34)
[2020-11-26] MEDS: diphenhydrAMINE 25MG CAP PO PRN ×2 (00:18→20:52)
[2020-11-26] MEDS: LORazepam 0.5 MG TAB PO PRN ×2 (04:10→10:08)
[2020-11-26] MEDS: LORazepam 0.5 MG TAB PO SCH ×2 (04:10→20:55)
[2020-11-26] MEDS: ACETAMINOPHEN TAB 650MG DOSE (2X325MG) PO PRN ×2 (04:11→16:21)
[2020-11-26] MEDS: ENOXAPARIN 40MG/0.4ML SYRINGE (J1650 PER 10MG) SC SCH ×2 (05:55→16:21)
[2020-11-26 06:00] VITALS: BP 111/63
[2020-11-26] MEDS: CLOPIDOGREL 75 MG TAB PO SCH (08:38)
[2020-11-26] MEDS: levETIRAcetam 250MG TABLET (KEPPRA) PO SCH ×2 (08:38→20:55)
[2020-11-26] MEDS: PANTOPRAZOLE 40MG TAB (PROTONIX) PO SCH ×2 (08:38→20:55)
[2020-11-26] MEDS: QUEtiapine FUMARATE 12.5 MG HALF-TAB PO SCH (08:38)
[2020-11-26] MEDS: lisinopriL 5 MG TAB PO SCH (08:38)
[2020-11-26] MEDS: MAGNESIUM OXIDE 400MG TAB (MAG-OX) PO SCH (08:38)
[2020-11-26] MEDS: SENOKOT S TAB PO SCH (08:38)
[2020-11-26] MEDS: OLANZapine INTRAMUSCULAR 10MG VIAL IM PRN (15:59)
[2020-11-26] MEDS: DIVALPROEX 125 MG TAB PO SCH (16:24)
[2020-11-26] MEDS: SERTRALINE HCL 50 MG TAB PO SCH (20:52)
[2020-11-26] MEDS: SERTRALINE HCL 25 MG TABLET PO SCH (20:52)
[2020-11-26] MEDS: ATORVASTATIN 20 MG TAB PO SCH (20:55)
[2020-11-27] MEDS: ACETAMINOPHEN TAB 650MG DOSE (2X325MG) PO PRN ×2 (00:39→19:51)
[2020-11-27] MEDS: ENOXAPARIN 40MG/0.4ML SYRINGE (J1650 PER 10MG) SC SCH ×2 (06:04→16:55)
[2020-11-27] MEDS: lisinopriL 5 MG TAB PO SCH (10:14)
[2020-11-27] MEDS: levETIRAcetam 250MG TABLET (KEPPRA) PO SCH ×2 (10:14→19:50)
[2020-11-27] MEDS: CLOPIDOGREL 75 MG TAB PO SCH (10:15)
[2020-11-27] MEDS: PANTOPRAZOLE 40MG TAB (PROTONIX) PO SCH ×2 (10:15→19:51)
[2020-11-27] MEDS: MAGNESIUM OXIDE 400MG TAB (MAG-OX) PO SCH (10:15)
[2020-11-27] MEDS: SENOKOT S TAB PO SCH (10:16)
[2020-11-27] MEDS: QUEtiapine FUMARATE 12.5 MG HALF-TAB PO SCH (10:16)
[2020-11-27] MEDS: LORazepam 0.5 MG TAB PO PRN (13:56)
[2020-11-27] MEDS: DIVALPROEX 125 MG TAB PO SCH (16:55)
[2020-11-27] MEDS: SERTRALINE HCL 25 MG TABLET PO SCH (19:51)
[2020-11-27] MEDS: LORazepam 0.5 MG TAB PO SCH (19:51)
[2020-11-27] MEDS: SERTRALINE HCL 50 MG TAB PO SCH (19:51)
[2020-11-27] MEDS: ATORVASTATIN 20 MG TAB PO SCH (19:51)
[2020-11-28] MEDS: ENOXAPARIN 40MG/0.4ML SYRINGE (J1650 PER 10MG) SC SCH ×2 (04:43→17:38)
[2020-11-28 06:02] VITALS: BP 107/63
[2020-11-28] MEDS: lisinopriL 5 MG TAB PO SCH (09:00)
[2020-11-28] MEDS: LORazepam 0.5 MG TAB PO PRN ×2 (09:30→15:05)
[2020-11-28] MEDS: CLOPIDOGREL 75 MG TAB PO SCH (09:33)
[2020-11-28] MEDS: SENOKOT S TAB PO SCH (09:33)
[2020-11-28] MEDS: levETIRAcetam 250MG TABLET (KEPPRA) PO SCH ×2 (09:33→21:31)
[2020-11-28] MEDS: PANTOPRAZOLE 40MG TAB (PROTONIX) PO SCH ×2 (09:33→21:31)
[2020-11-28] MEDS: MAGNESIUM OXIDE 400MG TAB (MAG-OX) PO SCH (09:33)
[2020-11-28] MEDS: QUEtiapine FUMARATE 12.5 MG HALF-TAB PO SCH (09:33)
[2020-11-28] MEDS: DIVALPROEX 125 MG TAB PO SCH (15:05)
[2020-11-28] MEDS: ATORVASTATIN 20 MG TAB PO SCH (21:30)
[2020-11-28] MEDS: SERTRALINE HCL 25 MG TABLET PO SCH (21:31)
[2020-11-28] MEDS: SERTRALINE HCL 50 MG TAB PO SCH (21:31)
[2020-11-28] MEDS: LORazepam 0.5 MG TAB PO SCH (21:33)
[2020-11-29 06:00] VITALS: BP 119/63
[2020-11-29] MEDS: LORazepam 0.5 MG TAB PO PRN ×3 (06:51→17:01)
[2020-11-29] MEDS: LORazepam 0.5 MG TAB PO SCH ×2 (06:51→21:08)
[2020-11-29] MEDS: ENOXAPARIN 40MG/0.4ML SYRINGE (J1650 PER 10MG) SC SCH ×2 (06:51→17:11)
[2020-11-29] MEDS: CLOPIDOGREL 75 MG TAB PO SCH (08:34)
[2020-11-29] MEDS: PANTOPRAZOLE 40MG TAB (PROTONIX) PO SCH ×2 (08:34→21:09)
[2020-11-29] MEDS: MAGNESIUM OXIDE 400MG TAB (MAG-OX) PO SCH (08:34)
[2020-11-29] MEDS: SENOKOT S TAB PO SCH (08:34)
[2020-11-29] MEDS: lisinopriL 5 MG TAB PO SCH (08:35)
[2020-11-29] MEDS: QUEtiapine FUMARATE 12.5 MG HALF-TAB PO SCH (08:35)
[2020-11-29] MEDS: levETIRAcetam 250MG TABLET (KEPPRA) PO SCH ×2 (08:35→21:08)
[2020-11-29] MEDS: ACETAMINOPHEN TAB 650MG DOSE (2X325MG) PO PRN ×2 (13:11→21:08)
[2020-11-29] MEDS: DIVALPROEX 125 MG TAB PO SCH (17:01)
[2020-11-29] MEDS: SERTRALINE HCL 25 MG TABLET PO SCH (21:08)
[2020-11-29] MEDS: SERTRALINE HCL 50 MG TAB PO SCH (21:08)
[2020-11-29] MEDS: diphenhydrAMINE 25MG CAP PO PRN (21:08)
[2020-11-29] MEDS: ATORVASTATIN 20 MG TAB PO SCH (21:09)
[2020-11-30] MEDS: ENOXAPARIN 40MG/0.4ML SYRINGE (J1650 PER 10MG) SC SCH ×2 (05:02→16:49)
[2020-11-30 06:00] VITALS: BP 116/64
[2020-11-30] MEDS: CLOPIDOGREL 75 MG TAB PO SCH (08:44)
[2020-11-30] MEDS: QUEtiapine FUMARATE 12.5 MG HALF-TAB PO SCH (08:44)
[2020-11-30] MEDS: PANTOPRAZOLE 40MG TAB (PROTONIX) PO SCH ×2 (08:45→20:48)
[2020-11-30] MEDS: MAGNESIUM OXIDE 400MG TAB (MAG-OX) PO SCH (08:45)
[2020-11-30] MEDS: LORazepam 0.5 MG TAB PO PRN ×2 (08:45→14:37)
[2020-11-30] MEDS: lisinopriL 5 MG TAB PO SCH (08:45)
[2020-11-30] MEDS: SENOKOT S TAB PO SCH (08:45)
[2020-11-30] MEDS: levETIRAcetam 250MG TABLET (KEPPRA) PO SCH ×2 (08:45→20:48)
[2020-11-30] MEDS: DIVALPROEX 125 MG TAB PO SCH (15:26)
[2020-11-30] MEDS ORDERED: MOM 30ML SUSPENSION UDC PO PRN (17:00)
[2020-11-30] MEDS: DOCUSATE SODIUM 100MG CAPSULE PO SCH (20:48)
[2020-11-30] MEDS: ATORVASTATIN 20 MG TAB PO SCH (20:48)
[2020-11-30] MEDS: SERTRALINE HCL 25 MG TABLET PO SCH (20:49)
[2020-11-30] MEDS: SERTRALINE HCL 50 MG TAB PO SCH (20:49)
[2020-11-30] MEDS: LORazepam 0.5 MG TAB PO SCH (20:49)
--- NOTE | 2020-11-30 21:27 | IPNPDOC ---
Text Note Date of Service The patient was seen on 11/30/20. NOTE Subjective: No any acute events overnight Objective: GENERAL APPEARANCE: NAD HEENT: no scleral icterus, no JVD, EOMI CARDIOVASCULAR: S1S2 LUNGS: CTA ABDOMEN: soft & not tender w palpitation MUSCULOSKELETAL: no cyanosis, no swelling INTEGUMENT: no generalized pallor NEUROLOGICAL: cranial nerve function from 2-12 intact intact Assessment Mrs. Shepherd is an 80-year-old female from [facility] who is here for TIA workup and was COVID 19 positive. She is currently waiting for transfer back to [facility]. Cannot return until COVID negative. She does have dementia and episodes of delirium. This episode this morning most likely delirium secondary to hospitalization. Supportive care and reorientation. Plan 1. TIA Workup was negative Repeat CT head today also negative Continue statin and Plavix 2. Dementia and delirium Supportive care and reorientation 3. Hypertension Blood pressure controlled Continue amlodipine 4. History of focal seizures Continue with Keppra VS,Fishbone, I+O VS, Fishbone, I+O Vital Signs Date Time Temp Pulse Resp B/P (MAP) Pulse Ox O2 Delivery O2 Flow Rate FiO2 11/30/20 20:50 98/53 11/30/20 06:00 98.3 85 16 98 Room Air 11/25/20 09:00 1.0 I&O- Last 24 Hours up to 6 AM 11/30/20 06:00 Intake Total 1680 ml Output Total 1200 ml Balance 480 ml LORELEI ARGUELLES DO Nov 30, 2020 21:27
[2020-12-01] MEDS: ENOXAPARIN 40MG/0.4ML SYRINGE (J1650 PER 10MG) SC SCH ×2 (05:32→17:05)
[2020-12-01] MEDS: LORazepam 0.5 MG TAB PO PRN (05:33)
[2020-12-01 06:00] VITALS: BP 99/60
[2020-12-01] MEDS: lisinopriL 5 MG TAB PO SCH (09:00)
[2020-12-01] MEDS: levETIRAcetam 250MG TABLET (KEPPRA) PO SCH ×2 (10:20→21:18)
[2020-12-01] MEDS: SENOKOT S TAB PO SCH (10:22)
[2020-12-01] MEDS: QUEtiapine FUMARATE 12.5 MG HALF-TAB PO SCH (10:22)
[2020-12-01] MEDS: PANTOPRAZOLE 40MG TAB (PROTONIX) PO SCH ×2 (10:23→21:18)
[2020-12-01] MEDS: MAGNESIUM OXIDE 400MG TAB (MAG-OX) PO SCH (10:23)
[2020-12-01] MEDS: CLOPIDOGREL 75 MG TAB PO SCH (10:23)
[2020-12-01] MEDS: DOCUSATE SODIUM 100MG CAPSULE PO SCH ×2 (10:24→21:18)
[2020-12-01] MEDS: DIVALPROEX 125 MG TAB PO SCH (17:06)
[2020-12-01] MEDS: LORazepam 0.5 MG TAB PO SCH (21:18)
[2020-12-01] MEDS: SERTRALINE HCL 50 MG TAB PO SCH (21:18)
[2020-12-01] MEDS: SERTRALINE HCL 25 MG TABLET PO SCH (21:18)
[2020-12-01] MEDS: ATORVASTATIN 20 MG TAB PO SCH (21:18)
[2020-12-02] MEDS: ENOXAPARIN 40MG/0.4ML SYRINGE (J1650 PER 10MG) SC SCH ×3 (05:04→17:17)
[2020-12-02 06:00] VITALS: BP 101/62
[2020-12-02] MEDS: LORazepam 0.5 MG TAB PO PRN ×2 (06:38→12:40)
[2020-12-02] MEDS: lisinopriL 5 MG TAB PO SCH (09:00)
[2020-12-02] MEDS: SENOKOT S TAB PO SCH (09:00)
[2020-12-02] MEDS: DOCUSATE SODIUM 100MG CAPSULE PO SCH ×2 (09:00→21:38)
[2020-12-02] MEDS: levETIRAcetam 250MG TABLET (KEPPRA) PO SCH ×2 (09:14→21:38)
[2020-12-02] MEDS: PANTOPRAZOLE 40MG TAB (PROTONIX) PO SCH ×2 (09:15→21:38)
[2020-12-02] MEDS: CLOPIDOGREL 75 MG TAB PO SCH (09:15)
[2020-12-02] MEDS: QUEtiapine FUMARATE 12.5 MG HALF-TAB PO SCH (09:23)
[2020-12-02] MEDS: MAGNESIUM OXIDE 400MG TAB (MAG-OX) PO SCH (09:23)
[2020-12-02] MEDS: DIVALPROEX 125 MG TAB PO SCH (17:16)
[2020-12-02] MEDS: LORazepam 0.5 MG TAB PO SCH (21:38)
[2020-12-02] MEDS: ACETAMINOPHEN TAB 650MG DOSE (2X325MG) PO PRN (21:38)
[2020-12-02] MEDS: SERTRALINE HCL 25 MG TABLET PO SCH (21:38)
[2020-12-02] MEDS: ATORVASTATIN 20 MG TAB PO SCH (21:38)
[2020-12-02] MEDS: SERTRALINE HCL 50 MG TAB PO SCH (21:38)
[2020-12-03] MEDS: ENOXAPARIN 40MG/0.4ML SYRINGE (J1650 PER 10MG) SC SCH ×2 (04:56→17:15)
[2020-12-03 06:00] VITALS: BP 121/68
[2020-12-03] MEDS: levETIRAcetam 250MG TABLET (KEPPRA) PO SCH ×2 (08:34→20:17)
[2020-12-03] MEDS: QUEtiapine FUMARATE 12.5 MG HALF-TAB PO SCH (08:34)
[2020-12-03] MEDS: SENOKOT S TAB PO SCH (08:34)
[2020-12-03] MEDS: CLOPIDOGREL 75 MG TAB PO SCH (08:35)
[2020-12-03] MEDS: lisinopriL 5 MG TAB PO SCH (08:35)
[2020-12-03] MEDS: MAGNESIUM OXIDE 400MG TAB (MAG-OX) PO SCH (08:35)
[2020-12-03] MEDS: PANTOPRAZOLE 40MG TAB (PROTONIX) PO SCH ×2 (08:35→20:17)
[2020-12-03] MEDS: DOCUSATE SODIUM 100MG CAPSULE PO SCH ×2 (08:35→20:17)
[2020-12-03] MEDS: LORazepam 0.5 MG TAB PO PRN (10:56)
[2020-12-03] MEDS: DIVALPROEX 125 MG TAB PO SCH (17:14)
[2020-12-03] MEDS: ATORVASTATIN 20 MG TAB PO SCH (20:17)
[2020-12-03] MEDS: ACETAMINOPHEN TAB 650MG DOSE (2X325MG) PO PRN (20:17)
[2020-12-03] MEDS: LORazepam 0.5 MG TAB PO SCH (20:17)
[2020-12-03] MEDS: SERTRALINE HCL 25 MG TABLET PO SCH (20:17)
[2020-12-03] MEDS: SERTRALINE HCL 50 MG TAB PO SCH (20:17)
[2020-12-04] MEDS: ENOXAPARIN 40MG/0.4ML SYRINGE (J1650 PER 10MG) SC SCH ×2 (05:06→17:24)
[2020-12-04 06:00] VITALS: BP 120/69
[2020-12-04] MEDS: PANTOPRAZOLE 40MG TAB (PROTONIX) PO SCH ×2 (09:00→20:37)
[2020-12-04] MEDS: CLOPIDOGREL 75 MG TAB PO SCH (09:00)
[2020-12-04] MEDS: lisinopriL 5 MG TAB PO SCH (09:00)
[2020-12-04] MEDS: levETIRAcetam 250MG TABLET (KEPPRA) PO SCH ×2 (09:00→20:37)
[2020-12-04] MEDS: MAGNESIUM OXIDE 400MG TAB (MAG-OX) PO SCH (09:00)
[2020-12-04] MEDS: QUEtiapine FUMARATE 12.5 MG HALF-TAB PO SCH (09:00)
[2020-12-04] MEDS: DOCUSATE SODIUM 100MG CAPSULE PO SCH ×2 (09:00→20:38)
[2020-12-04] MEDS: SENOKOT S TAB PO SCH (09:00)
[2020-12-04] MEDS ORDERED: LORazepam 2 MG/ML VIAL As Ordered ONE (11:24)
[2020-12-04] MEDS: LORazepam 2 MG/ML VIAL IM PRN (11:27)
[2020-12-04] MEDS: OLANZapine INTRAMUSCULAR 10MG VIAL IM ONE ×2 (13:24→14:25)
[2020-12-04] MEDS: DIVALPROEX 125 MG TAB PO SCH (16:00)
[2020-12-04] MEDS ORDERED: HALOPERIDOL 5MG/ML VIAL (J1630 PER 1) IM ONE (18:30)
[2020-12-04] MEDS: SERTRALINE HCL 25 MG TABLET PO SCH (20:37)
[2020-12-04] MEDS: SERTRALINE HCL 50 MG TAB PO SCH (20:37)
[2020-12-04] MEDS: LORazepam 0.5 MG TAB PO SCH (20:37)
[2020-12-04] MEDS: ATORVASTATIN 20 MG TAB PO SCH (20:37)
[2020-12-04] MEDS: diphenhydrAMINE 25MG CAP PO PRN (20:37)
[2020-12-04] MEDS: OLANZapine INTRAMUSCULAR 10MG VIAL IM PRN (21:10)
[2020-12-05 05:42] VITALS: BP 115/63
[2020-12-05] MEDS: ENOXAPARIN 40MG/0.4ML SYRINGE (J1650 PER 10MG) SC SCH ×2 (06:43→16:56)
[2020-12-05] MEDS: SENOKOT S TAB PO SCH (10:03)
[2020-12-05] MEDS: DOCUSATE SODIUM 100MG CAPSULE PO SCH ×2 (10:03→20:37)
[2020-12-05] MEDS: levETIRAcetam 250MG TABLET (KEPPRA) PO SCH ×2 (10:03→20:38)
[2020-12-05] MEDS: MAGNESIUM OXIDE 400MG TAB (MAG-OX) PO SCH (10:04)
[2020-12-05] MEDS: PANTOPRAZOLE 40MG TAB (PROTONIX) PO SCH ×2 (10:04→20:38)
[2020-12-05] MEDS: lisinopriL 5 MG TAB PO SCH (10:04)
[2020-12-05] MEDS: LORazepam 0.5 MG TAB PO PRN (10:04)
[2020-12-05] MEDS: CLOPIDOGREL 75 MG TAB PO SCH (10:04)
[2020-12-05] MEDS: QUEtiapine FUMARATE 12.5 MG HALF-TAB PO SCH (10:05)
[2020-12-05] MEDS: LORazepam 2 MG/ML VIAL IM PRN (13:46)
[2020-12-05] MEDS: DIVALPROEX 125 MG TAB PO SCH (16:57)
[2020-12-05] MEDS: SERTRALINE HCL 50 MG TAB PO SCH (20:37)
[2020-12-05] MEDS: SERTRALINE HCL 25 MG TABLET PO SCH (20:37)
[2020-12-05] MEDS: ATORVASTATIN 20 MG TAB PO SCH (20:38)
[2020-12-05] MEDS: diphenhydrAMINE 25MG CAP PO PRN (20:38)
[2020-12-05] MEDS: LORazepam 0.5 MG TAB PO SCH (20:38)
[2020-12-05] MEDS: OLANZapine INTRAMUSCULAR 10MG VIAL IM PRN (21:21)
[2020-12-06] MEDS: diphenhydrAMINE 25MG CAP PO PRN (08:06)
[2020-12-06] MEDS: LORazepam 0.5 MG TAB PO PRN ×2 (08:06→13:47)
[2020-12-06] MEDS: SENOKOT S TAB PO SCH (08:06)
[2020-12-06] MEDS: CALCIUM CARBONATE 500 MG CHEW U/D PO PRN (08:06)
[2020-12-06] MEDS: PANTOPRAZOLE 40MG TAB (PROTONIX) PO SCH ×2 (08:07→22:00)
[2020-12-06] MEDS: MAGNESIUM OXIDE 400MG TAB (MAG-OX) PO SCH (08:07)
[2020-12-06] MEDS: ACETAMINOPHEN TAB 650MG DOSE (2X325MG) PO PRN (08:07)
[2020-12-06] MEDS: DOCUSATE SODIUM 100MG CAPSULE PO SCH ×2 (08:08→22:00)
[2020-12-06] MEDS: lisinopriL 5 MG TAB PO SCH (08:08)
[2020-12-06] MEDS: levETIRAcetam 250MG TABLET (KEPPRA) PO SCH ×2 (08:08→22:00)
[2020-12-06] MEDS: CLOPIDOGREL 75 MG TAB PO SCH (08:08)
[2020-12-06] MEDS: QUEtiapine FUMARATE 12.5 MG HALF-TAB PO SCH (08:08)
[2020-12-06] MEDS: ENOXAPARIN 40MG/0.4ML SYRINGE (J1650 PER 10MG) SC SCH ×2 (08:09→08:13)
[2020-12-06] MEDS: OLANZapine INTRAMUSCULAR 10MG VIAL IM PRN (13:47)
[2020-12-06] MEDS: LORazepam 2 MG/ML VIAL IM PRN (17:23)
[2020-12-06] MEDS: DIVALPROEX 125 MG TAB PO SCH (17:23)
[2020-12-06] MEDS: ATORVASTATIN 20 MG TAB PO SCH (22:00)
[2020-12-06] MEDS: SERTRALINE HCL 50 MG TAB PO SCH (22:00)
[2020-12-06] MEDS: LORazepam 0.5 MG TAB PO SCH (22:00)
[2020-12-06] MEDS: SERTRALINE HCL 25 MG TABLET PO SCH (22:00)
[2020-12-07 06:43] VITALS: BP 120/76
[2020-12-07] MEDS: MAGNESIUM OXIDE 400MG TAB (MAG-OX) PO SCH (09:00)
[2020-12-07] MEDS: DOCUSATE SODIUM 100MG CAPSULE PO SCH ×2 (09:00→21:55)
[2020-12-07] MEDS: SENOKOT S TAB PO SCH (09:00)
[2020-12-07] MEDS: PANTOPRAZOLE 40MG TAB (PROTONIX) PO SCH ×2 (09:00→21:56)
[2020-12-07] MEDS: lisinopriL 5 MG TAB PO SCH (09:00)
[2020-12-07] MEDS: ENOXAPARIN 40MG/0.4ML SYRINGE (J1650 PER 10MG) SC SCH ×2 (09:00→21:55)
[2020-12-07] MEDS: CLOPIDOGREL 75 MG TAB PO SCH (09:00)
[2020-12-07] MEDS: levETIRAcetam 250MG TABLET (KEPPRA) PO SCH ×2 (09:01→21:56)
[2020-12-07] MEDS: QUEtiapine FUMARATE 12.5 MG HALF-TAB PO SCH (09:01)
[2020-12-07] MEDS: diphenhydrAMINE 25MG CAP PO PRN ×2 (09:02→23:15)
[2020-12-07] MEDS: LORazepam 0.5 MG TAB PO PRN (13:40)
[2020-12-07] MEDS: DIVALPROEX 125 MG TAB PO SCH (15:34)
[2020-12-07] MEDS: ACETAMINOPHEN TAB 650MG DOSE (2X325MG) PO PRN (21:55)
[2020-12-07] MEDS: SERTRALINE HCL 25 MG TABLET PO SCH (21:55)
[2020-12-07] MEDS: SERTRALINE HCL 50 MG TAB PO SCH (21:56)
[2020-12-07] MEDS: LORazepam 0.5 MG TAB PO SCH (21:56)
[2020-12-07] MEDS: ATORVASTATIN 20 MG TAB PO SCH (21:56)
[2020-12-08] MEDS: LORazepam 2 MG/ML VIAL IM PRN (00:40)
[2020-12-08 06:00] VITALS: BP 125/72
[2020-12-08] MEDS: CLOPIDOGREL 75 MG TAB PO SCH (08:04)
[2020-12-08] MEDS: MAGNESIUM OXIDE 400MG TAB (MAG-OX) PO SCH (08:05)
[2020-12-08] MEDS: DOCUSATE SODIUM 100MG CAPSULE PO SCH ×2 (08:05→21:00)
[2020-12-08] MEDS: QUEtiapine FUMARATE 12.5 MG HALF-TAB PO SCH (08:05)
[2020-12-08] MEDS: PANTOPRAZOLE 40MG TAB (PROTONIX) PO SCH ×2 (08:05→21:00)
[2020-12-08] MEDS: levETIRAcetam 250MG TABLET (KEPPRA) PO SCH ×2 (08:05→21:01)
[2020-12-08] MEDS: lisinopriL 5 MG TAB PO SCH (08:06)
[2020-12-08] MEDS: SENOKOT S TAB PO SCH (08:06)
[2020-12-08] MEDS: ENOXAPARIN 40MG/0.4ML SYRINGE (J1650 PER 10MG) SC SCH ×2 (08:10→21:00)
[2020-12-08] MEDS: DIVALPROEX 125 MG TAB PO SCH (15:20)
[2020-12-08] MEDS: SERTRALINE HCL 25 MG TABLET PO SCH (21:00)
[2020-12-08] MEDS: SERTRALINE HCL 50 MG TAB PO SCH (21:01)
[2020-12-08] MEDS: ATORVASTATIN 20 MG TAB PO SCH (21:01)
[2020-12-08] MEDS: LORazepam 0.5 MG TAB PO SCH (21:01)
[2020-12-08] MEDS: ACETAMINOPHEN TAB 650MG DOSE (2X325MG) PO PRN (21:05)
[2020-12-08] MEDS: diphenhydrAMINE 25MG CAP PO PRN (21:05)
[2020-12-08] MEDS: OLANZapine INTRAMUSCULAR 10MG VIAL IM PRN (22:32)
[2020-12-09 06:00] VITALS: BP 128/71
[2020-12-09] MEDS: ENOXAPARIN 40MG/0.4ML SYRINGE (J1650 PER 10MG) SC SCH ×2 (08:36→21:37)
[2020-12-09] MEDS: CLOPIDOGREL 75 MG TAB PO SCH (08:37)
[2020-12-09] MEDS: DOCUSATE SODIUM 100MG CAPSULE PO SCH ×2 (08:37→21:37)
[2020-12-09] MEDS: lisinopriL 5 MG TAB PO SCH (08:37)
[2020-12-09] MEDS: SENOKOT S TAB PO SCH (08:37)
[2020-12-09] MEDS: QUEtiapine FUMARATE 12.5 MG HALF-TAB PO SCH (08:37)
[2020-12-09] MEDS: levETIRAcetam 250MG TABLET (KEPPRA) PO SCH ×2 (08:37→21:38)
[2020-12-09] MEDS: PANTOPRAZOLE 40MG TAB (PROTONIX) PO SCH ×2 (08:37→21:38)
[2020-12-09] MEDS: MAGNESIUM OXIDE 400MG TAB (MAG-OX) PO SCH (08:37)
[2020-12-09] MEDS: LORazepam 0.5 MG TAB PO PRN (13:18)
[2020-12-09] MEDS: HALOPERIDOL 5MG/ML VIAL (J1630 PER 1) IV PRN (13:30)
[2020-12-09] MEDS ORDERED: HALOPERIDOL 5MG/ML VIAL (J1630 PER 1) As Ordered ONE (13:38)
[2020-12-09] MEDS: OLANZapine INTRAMUSCULAR 10MG VIAL IM PRN (14:41)
[2020-12-09] MEDS: DIVALPROEX 125 MG TAB PO SCH (16:22)
[2020-12-09] MEDS: diphenhydrAMINE 25MG CAP PO PRN (21:37)
[2020-12-09] MEDS: ATORVASTATIN 20 MG TAB PO SCH (21:37)
[2020-12-09] MEDS: LORazepam 0.5 MG TAB PO SCH (21:37)
[2020-12-09] MEDS: SERTRALINE HCL 25 MG TABLET PO SCH (21:38)
[2020-12-09] MEDS: ACETAMINOPHEN TAB 650MG DOSE (2X325MG) PO PRN (21:38)
[2020-12-09] MEDS: SERTRALINE HCL 50 MG TAB PO SCH (21:38)
[2020-12-10] MEDS: lisinopriL 5 MG TAB PO SCH (08:50)
[2020-12-10] MEDS: PANTOPRAZOLE 40MG TAB (PROTONIX) PO SCH ×2 (08:50→20:38)
[2020-12-10] MEDS: DOCUSATE SODIUM 100MG CAPSULE PO SCH ×2 (08:50→20:37)
[2020-12-10] MEDS: MAGNESIUM OXIDE 400MG TAB (MAG-OX) PO SCH (08:50)
[2020-12-10] MEDS: CLOPIDOGREL 75 MG TAB PO SCH (08:50)
[2020-12-10] MEDS: ENOXAPARIN 40MG/0.4ML SYRINGE (J1650 PER 10MG) SC SCH ×2 (08:51→20:45)
[2020-12-10] MEDS: SENOKOT S TAB PO SCH (08:51)
[2020-12-10] MEDS: QUEtiapine FUMARATE 12.5 MG HALF-TAB PO SCH (08:55)
[2020-12-10] MEDS: levETIRAcetam 250MG TABLET (KEPPRA) PO SCH ×2 (08:55→20:37)
[2020-12-10] MEDS: LORazepam 0.5 MG TAB PO PRN (08:56)
[2020-12-10] MEDS: DIVALPROEX 125 MG TAB PO SCH (15:40)
[2020-12-10] MEDS: ATORVASTATIN 20 MG TAB PO SCH (20:37)
[2020-12-10] MEDS: diphenhydrAMINE 25MG CAP PO PRN (20:37)
[2020-12-10] MEDS: SERTRALINE HCL 50 MG TAB PO SCH (20:38)
[2020-12-10] MEDS: LORazepam 0.5 MG TAB PO SCH (20:38)
[2020-12-10] MEDS: SERTRALINE HCL 25 MG TABLET PO SCH (20:38)
[2020-12-10 21:37] VITALS: BP 117/78
[2020-12-10] MEDS: OLANZapine INTRAMUSCULAR 10MG VIAL IM PRN (23:23)
[2020-12-11] MEDS: HALOPERIDOL 5MG/ML VIAL (J1630 PER 1) IV PRN (00:31)
[2020-12-11] MEDS: MAGNESIUM OXIDE 400MG TAB (MAG-OX) PO SCH (07:50)
[2020-12-11] MEDS: levETIRAcetam 250MG TABLET (KEPPRA) PO SCH ×2 (07:51→21:41)
[2020-12-11] MEDS: QUEtiapine FUMARATE 12.5 MG HALF-TAB PO SCH (07:52)
[2020-12-11] MEDS: PANTOPRAZOLE 40MG TAB (PROTONIX) PO SCH ×2 (07:52→21:40)
[2020-12-11] MEDS: DOCUSATE SODIUM 100MG CAPSULE PO SCH ×2 (07:52→21:41)
[2020-12-11] MEDS: lisinopriL 5 MG TAB PO SCH (07:53)
[2020-12-11] MEDS: CLOPIDOGREL 75 MG TAB PO SCH (07:53)
[2020-12-11] MEDS: ENOXAPARIN 40MG/0.4ML SYRINGE (J1650 PER 10MG) SC SCH ×2 (07:55→21:39)
[2020-12-11] MEDS: SENOKOT S TAB PO SCH (07:56)
[2020-12-11] MEDS: DIVALPROEX 125 MG TAB PO SCH (16:07)
[2020-12-11] MEDS: ATORVASTATIN 20 MG TAB PO SCH (21:40)
[2020-12-11] MEDS: diphenhydrAMINE 25MG CAP PO PRN (21:40)
[2020-12-11] MEDS: ACETAMINOPHEN TAB 650MG DOSE (2X325MG) PO PRN (21:40)
[2020-12-11] MEDS: LORazepam 0.5 MG TAB PO SCH (21:40)
[2020-12-11] MEDS: SERTRALINE HCL 25 MG TABLET PO SCH (21:41)
[2020-12-11] MEDS: SERTRALINE HCL 50 MG TAB PO SCH (21:41)
[2020-12-12 06:00] VITALS: BP 105/67
[2020-12-12] MEDS: PANTOPRAZOLE 40MG TAB (PROTONIX) PO SCH ×2 (09:32→20:20)
[2020-12-12] MEDS: DOCUSATE SODIUM 100MG CAPSULE PO SCH ×2 (09:32→20:20)
[2020-12-12] MEDS: SENOKOT S TAB PO SCH (09:32)
[2020-12-12] MEDS: MAGNESIUM OXIDE 400MG TAB (MAG-OX) PO SCH (09:32)
[2020-12-12] MEDS: CLOPIDOGREL 75 MG TAB PO SCH (09:32)
[2020-12-12] MEDS: QUEtiapine FUMARATE 12.5 MG HALF-TAB PO SCH (09:32)
[2020-12-12] MEDS: levETIRAcetam 250MG TABLET (KEPPRA) PO SCH ×2 (09:32→20:21)
[2020-12-12] MEDS: lisinopriL 5 MG TAB PO SCH (09:33)
[2020-12-12] MEDS: ENOXAPARIN 40MG/0.4ML SYRINGE (J1650 PER 10MG) SC SCH ×2 (09:33→20:20)
[2020-12-12] MEDS: LORazepam 0.5 MG TAB PO PRN ×2 (09:34→16:18)
[2020-12-12] MEDS: DIVALPROEX 125 MG TAB PO SCH (16:18)
[2020-12-12] MEDS: SERTRALINE HCL 25 MG TABLET PO SCH (20:20)
[2020-12-12] MEDS: diphenhydrAMINE 25MG CAP PO PRN (20:20)
[2020-12-12] MEDS: SERTRALINE HCL 50 MG TAB PO SCH (20:20)
[2020-12-12] MEDS: LORazepam 0.5 MG TAB PO SCH (20:20)
[2020-12-12 20:21] VITALS: BP 99/58
[2020-12-12] MEDS: ACETAMINOPHEN TAB 650MG DOSE (2X325MG) PO PRN (20:21)
[2020-12-12] MEDS: ATORVASTATIN 20 MG TAB PO SCH (20:21)
[2020-12-13 06:00] VITALS: BP 113/59
[2020-12-13] MEDS: PANTOPRAZOLE 40MG TAB (PROTONIX) PO SCH ×2 (08:50→20:07)
[2020-12-13] MEDS: LORazepam 0.5 MG TAB PO PRN ×2 (08:50→15:20)
[2020-12-13] MEDS: DOCUSATE SODIUM 100MG CAPSULE PO SCH ×2 (08:50→20:07)
[2020-12-13] MEDS: CLOPIDOGREL 75 MG TAB PO SCH (08:50)
[2020-12-13] MEDS: SENOKOT S TAB PO SCH (08:50)
[2020-12-13] MEDS: levETIRAcetam 250MG TABLET (KEPPRA) PO SCH ×2 (08:50→20:07)
[2020-12-13] MEDS: QUEtiapine FUMARATE 12.5 MG HALF-TAB PO SCH (08:50)
[2020-12-13] MEDS: MAGNESIUM OXIDE 400MG TAB (MAG-OX) PO SCH (08:51)
[2020-12-13] MEDS: lisinopriL 5 MG TAB PO SCH (08:51)
[2020-12-13] MEDS: ENOXAPARIN 40MG/0.4ML SYRINGE (J1650 PER 10MG) SC SCH ×2 (08:51→20:07)
[2020-12-13] MEDS: DIVALPROEX 125 MG TAB PO SCH (15:20)
[2020-12-13] MEDS: LORazepam 0.5 MG TAB PO SCH (20:06)
[2020-12-13] MEDS: SERTRALINE HCL 50 MG TAB PO SCH (20:07)
[2020-12-13] MEDS: SERTRALINE HCL 25 MG TABLET PO SCH (20:07)
[2020-12-13] MEDS: ATORVASTATIN 20 MG TAB PO SCH (20:07)
[2020-12-13] MEDS: diphenhydrAMINE 25MG CAP PO PRN (20:07)
[2020-12-13] MEDS: HALOPERIDOL 5MG/ML VIAL (J1630 PER 1) IV PRN (22:24)
[2020-12-13] MEDS: OLANZapine INTRAMUSCULAR 10MG VIAL IM PRN (23:23)
[2020-12-14 03:51] VITALS: BP 141/73
[2020-12-14] MEDS: PANTOPRAZOLE 40MG TAB (PROTONIX) PO SCH ×2 (08:45→20:59)
[2020-12-14] MEDS: CLOPIDOGREL 75 MG TAB PO SCH (08:45)
[2020-12-14] MEDS: SENOKOT S TAB PO SCH (08:45)
[2020-12-14] MEDS: QUEtiapine FUMARATE 12.5 MG HALF-TAB PO SCH (08:45)
[2020-12-14] MEDS: levETIRAcetam 250MG TABLET (KEPPRA) PO SCH ×2 (08:45→20:59)
[2020-12-14] MEDS: DOCUSATE SODIUM 100MG CAPSULE PO SCH ×2 (08:45→20:59)
[2020-12-14] MEDS: MAGNESIUM OXIDE 400MG TAB (MAG-OX) PO SCH (08:45)
[2020-12-14] MEDS: ENOXAPARIN 40MG/0.4ML SYRINGE (J1650 PER 10MG) SC SCH ×2 (08:46→20:59)
[2020-12-14] MEDS: lisinopriL 5 MG TAB PO SCH (08:46)
[2020-12-14] MEDS: LORazepam 0.5 MG TAB PO PRN ×3 (08:49→22:36)
[2020-12-14] MEDS: DIVALPROEX 125 MG TAB PO SCH (15:12)
[2020-12-14] MEDS: HALOPERIDOL 5MG/ML VIAL (J1630 PER 1) IV PRN (16:08)
[2020-12-14] MEDS: LORazepam 2 MG/ML VIAL IM PRN (16:43)
[2020-12-14] MEDS: LORazepam 0.5 MG TAB PO SCH (20:59)
[2020-12-14] MEDS: SERTRALINE HCL 50 MG TAB PO SCH (20:59)
[2020-12-14] MEDS: ATORVASTATIN 20 MG TAB PO SCH (20:59)
[2020-12-14] MEDS: SERTRALINE HCL 25 MG TABLET PO SCH (20:59)
[2020-12-14] MEDS: diphenhydrAMINE 25MG CAP PO PRN (22:36)
[2020-12-15 06:00] VITALS: BP 111/68
[2020-12-15] MEDS: QUEtiapine FUMARATE 12.5 MG HALF-TAB PO SCH (09:37)
[2020-12-15] MEDS: levETIRAcetam 250MG TABLET (KEPPRA) PO SCH ×2 (09:37→21:47)
[2020-12-15] MEDS: ENOXAPARIN 40MG/0.4ML SYRINGE (J1650 PER 10MG) SC SCH ×2 (09:37→21:47)
[2020-12-15] MEDS: CLOPIDOGREL 75 MG TAB PO SCH (09:38)
[2020-12-15] MEDS: DOCUSATE SODIUM 100MG CAPSULE PO SCH ×2 (09:38→21:46)
[2020-12-15] MEDS: PANTOPRAZOLE 40MG TAB (PROTONIX) PO SCH ×2 (09:38→21:46)
[2020-12-15] MEDS: SENOKOT S TAB PO SCH (09:38)
[2020-12-15] MEDS: lisinopriL 5 MG TAB PO SCH (09:40)
[2020-12-15] MEDS: MAGNESIUM OXIDE 400MG TAB (MAG-OX) PO SCH (09:40)
[2020-12-15] MEDS: DIVALPROEX 125 MG TAB PO SCH (16:51)
[2020-12-15] MEDS: LORazepam 0.5 MG TAB PO SCH (21:46)
[2020-12-15] MEDS: ATORVASTATIN 20 MG TAB PO SCH (21:46)
[2020-12-15] MEDS: diphenhydrAMINE 25MG CAP PO PRN (21:46)
[2020-12-15] MEDS: SERTRALINE HCL 50 MG TAB PO SCH (21:46)
[2020-12-15] MEDS: SERTRALINE HCL 25 MG TABLET PO SCH (21:46)
[2020-12-16 05:59] VITALS: BP 122/64
[2020-12-16] MEDS: CLOPIDOGREL 75 MG TAB PO SCH (08:06)
[2020-12-16] MEDS: DOCUSATE SODIUM 100MG CAPSULE PO SCH (08:06)
[2020-12-16] MEDS: SENOKOT S TAB PO SCH (08:06)
[2020-12-16] MEDS: MAGNESIUM OXIDE 400MG TAB (MAG-OX) PO SCH (08:06)
[2020-12-16] MEDS: PANTOPRAZOLE 40MG TAB (PROTONIX) PO SCH (08:06)
[2020-12-16] MEDS: QUEtiapine FUMARATE 12.5 MG HALF-TAB PO SCH (08:06)
[2020-12-16 08:07] VITALS: BP 121/89
[2020-12-16] MEDS: levETIRAcetam 250MG TABLET (KEPPRA) PO SCH (08:07)
[2020-12-16] MEDS: lisinopriL 5 MG TAB PO SCH (08:07)
[2020-12-16] MEDS ORDERED: LISI-898 PO (09:01)
[2020-12-16] MEDS ORDERED: MAGN400T35 PO (09:01)
[2020-12-16] MEDS ORDERED: AMLO25TA PO (09:01)
[2020-12-16] MEDS: ENOXAPARIN 40MG/0.4ML SYRINGE (J1650 PER 10MG) SC SCH (09:23)
--- NOTE | 2020-12-16 23:34 | DS.PDOC ---
Discharge Summary General Date of Admission Nov 08, 2020 at 12:23 Date of Discharge Dec 16, 2020 Attending Physician: JERRICA VILLAREAL DO Discharge Summary PROCEDURES PERFORMED DURING STAY: None ADMITTING DIAGNOSES: 1. TIA 2. COVID 19 infection 3. Hypertension 4. Hyperlipidemia 5. Dementia 6. Protein calorie malnutrition DISCHARGE DIAGNOSES: 1. TIA 2. COVID 19 infection 3. Hypertension 4. Hyperlipidemia 5. Dementia 6. Protein calorie malnutrition COMPLICATIONS/CHIEF COMPLAINT: Covid-19,Transient Ischemic Attack. HISTORY OF PRESENT ILLNESS: Mrs. 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 When EMS arrived, she was hypoxic at 85% at room air. By the time she arrived to the ED, her symtpoms resolved. Patient was admitted for TIA HOSPITAL COURSE: During her hospitalization, she was worked up for TIA. Imaging results (CT head, CT angio head and neck) were all negative. Primary team had discussion with neurology who recommended continuation of Plavix and statin. Otherwise, patient did develop hypertension and was started on amlodipine and lisinopril. Patient's magnesium was low and she was started on magnesium supplements. On 11/13/2020, she was made ALC and waited for a negative COVID test. On 12/15/2020, she tested negative. This morning, she denied any chest pain or dyspnea. She was sent back to [facility] today DISCHARGE MEDICATIONS: Please see below. ALLERGIES: Please see below. PHYSICAL EXAMINATION ON DISCHARGE: VITAL SIGNS: Please see below. GENERAL: Comfortable, in no apparent distress, Thin and cachetic HEENT: EOMI, sclera clear NECK: Supple CARDIOVASCULAR EXAMINATION: Regular rate and rhythm RESPIRATORY EXAMINATION: Lungs clear to auscultation bilaterally ABDOMINAL EXAMINATION: Soft, non-tender, normal bowel sounds EXTREMITIES: No pitting edema bilaterally NEUROLOGICAL EXAMINATION: Normal speech PSYCHIATRIC EXAMINATION: Pleasant LABORATORY DATA: Please see below. IMAGING: (Radiologist interpretation) CT head Age related atrophy and microvascular ischemic changes. Stable areas of prior infarction. No acute intracranial hemorrhage, infarction, or mass/mass effect. CT angio head No obvious arteriovenous malformation or aneurysm. Vasculature to the bilateral hemispheres and posterior fossa appear essentially symmetric. CT angio neck No evidence for significant narrowing/stenosis or occlusion. PROGNOSIS: Good ACTIVITY: As tolerated. DIET: 2 gm sodium DISCHARGE PLAN: SSV DISPOSITION: [facility]. DISCHARGE INSTRUCTIONS: 1. Follow up with PCP in 5 days DISCHARGE CONDITION: Stable Total time spent on discharge planning, discharge summary, and medication reconciliation: 40 minutes Vital Signs/I&Os Vital Signs Date Time Temp Pulse Resp B/P (MAP) Pulse Ox O2 Delivery O2 Flow Rate FiO2 12/16/20 08:07 121/89 12/16/20 05:59 98.1 65 18 95 Room Air I&O- Last 24 Hours up to 6 AM 12/16/20 06:00 Intake Total 175 ml Balance 175 ml Discharge Medications Scheduled Acetaminophen (Acetaminophen) 500 Mg Tablet, 1,000 MG PO TID, (Reported) Amlodipine Besylate (Amlodipine Besylate) 2.5 Mg Tablet, 2.5 MG PO QHS Atorvastatin Calcium (Atorvastatin Calcium) 40 Mg Tablet, 40 MG PO QHS, (Reported) Cholecalciferol (Vitamin D3) (Vitamin D3) 50 Mcg (2000 Unit) Tab.chew, 100 MCG PO QHS, (Reported) Clopidogrel Bisulfate (Plavix) 75 Mg Tablet, 75 MG PO DAILY, (Reported) Divalproex Sodium (Divalproex Sodium) 125 Mg Tablet.dr, 125 MG PO DAILY, (Reported) @ 1600 Furosemide (Furosemide) 20 Mg Tablet, 10 MG PO DAILY, (Reported) Lactose-Reduced Food (Ensure Enlive) 237 Ml Liquid, 237 ML PO TID, (Reported) Levetiracetam (Keppra) 500 Mg Tablet, 500 MG PO BID, (Reported) Lisinopril (Lisinopril) 5 Mg Tablet, 5 MG PO DAILY Lorazepam (Ativan) 0.5 Mg Tablet, 0.5 MG PO QHS, (Reported) Magnesium Oxide (Magnesium Oxide) 400 Mg Tablet, 400 MG PO DAILY Multivitamins (Thera M Plus Tablet) 1 Each Tablet, 1 TAB PO DAILY, (Reported) Pantoprazole Sodium (Pantoprazole Sodium) 40 Mg Tablet.dr, 40 MG PO BID, (Reported) Potassium Chloride (Klor-Con M20) 20 Meq Tab.er.prt, 20 MEQ PO BID, (Reported) Sennosides/Docusate Sodium (Senna-S Tablet) 1 Each Tablet, 1 TAB PO DAILY, (Repo rted) Sertraline HCl (Sertraline HCl) 25 Mg Tablet, 25 MG PO QHS, (Reported) 75MG TOTAL QHS Sertraline HCl (Sertraline HCl) 50 Mg Tablet, 50 MG PO QHS, (Reported) 75MG TOTAL QHS Wheat Dextrin (Benefiber) 1 Each Powd.pack, 1 POW PO BID, (Reported) Zinc Amino Acid Chelate (Zinc Chelated) 50 Mg Tablet, 100 MG PO QHS, (Reported) Scheduled PRN Bisacodyl (Bisacodyl) 10 Mg Supp.rect, 10 MG FL DAILY PRN for CONSTIPATION, (Reported) Diphenhydramine HCl (Diphenhydramine HCl) 25 Mg Capsule, 25 MG PO QHS PRN for SLEEP, (Reported) Lorazepam (Ativan) 0.5 Mg Tablet, 0.25 MG PO DAILY PRN for ANXIETY, (Reported) Magnesium Hydroxide (Milk of Magnesia) 400 Mg/5 Ml Oral.susp, 30 ML PO DAILY PRN for CONSTIPATION, (Reported) Sodium Phosphate,[place]-Dibasic (Enema) 133 Ml Enema, 1 BIENVENIDO FL DAILY PRN for CONSTIPATION, (Reported) Allergies Coded Allergies: aspirin (Verified Adverse Reaction, Mild, stomach upset , 06/05/20) JERRICA VILLAREAL DO Dec 16, 2020 23:33
== END 2020-12-16 10:30 | DRG 178 ==
LOC: EDBD 09:16 → M ED 09:16 → M ED INP 12:23 → M 4MAIN 17:44 → M MS5PR 11-19 20:35
PROVIDERS: ADMIT Internal Medicine Nephrology; ATTEND Internal Medicine
DX: U07.1 COVID-19 (principal); E87.2 Acidosis; F03.91 Unspecified dementia, unspecified severity, with behavioral disturbance; E46 Unspecified protein-calorie malnutrition; Z68.1 Body mass index [BMI] 19.9 or less, adult; R64 Cachexia; G45.9 Transient cerebral ischemic attack, unspecified; I10 Essential (primary) hypertension; R09.02 Hypoxemia; E78.5 Hyperlipidemia, unspecified; R56.9 Unspecified convulsions; M62.84 Sarcopenia; E11.9 Type 2 diabetes mellitus without complications; E83.42 Hypomagnesemia; Z86.74 Personal history of sudden cardiac arrest; Z79.02 Long term (current) use of antithrombotics/antiplatelets; Z79.899 Other long term (current) drug therapy; Z88.6 Allergy status to analgesic agent

== ENCOUNTER 2020-12-17 15:05 | Emergency (ER) | payer MEDICARE ==
[~2020-12-17] VITALS: Ht 167.6 cm; Wt 47.7 kg
[~2020-12-17 15:05] MED LIST changes: +AMLO25TA PO; +AZIT-10 PO; +DIPH25CA32 PO; +DIVA1TAB48 PO; +FURO20TA2 PO; +KEPP1TAB PO; +LISI-898 PO; +MAGN400T35 PO; +PLAV1TAB2 PO; +VITA1CHW7 PO; +ZINC1TAB PO
[2020-12-17 15:30] VITALS: BP 136/76
--- NOTE | 2020-12-17 16:02 | REP ---
INDICATION: s/p covid, chest pain.. COMPARISON: Comparison chest x-ray September 18, 2020. TECHNIQUE: Portable upright AP chest radiograph. FINDINGS: The lungs are hyperinflated but free of infiltrate. Pleural angles are sharp. Heart is not enlarged. Pulmonary vasculature is not increased. Monitoring electrodes are seen.. No acute bony abnormality is seen. IMPRESSION: No active disease. <Electronically signed by Jai Flores > 12/17/20 3021
--- OUTSIDE RECORDS SUMMARY | 2020-12-17 16:23 | CCD | Continuity of Care Document ---
Author Sosa Padilla Organization Unknown Address [facility] [address], [address] [place] [address] Phone [phone] Problems Active Problems Provider Date Essential hypertension Shabbir Forrester MD Onset: 0 Cardiac arrest Tylor Schulte MD Onset: 09/09/2020 Chronic diastolic heart failure Tylor Schulte MD Onset: 09/09/2020 Social History Type Date Description Comments Sex Unknown ETOH Use Denies alcohol use Tobacco Use Start: Unknown Patient has never smoked (pipe, cigarette, cigar) Recreational Drug Use Never Used Drugs Smoking Status Reviewed: 09/09/20 Patient has never sm oked (pipe, cigarette, cigar) Allergies, Adverse Reactions, Alerts Description No Information Available Medications Description No Information Available Immunizations Description No Information Available Vital Signs Description No Information Available Results Description No Information Available Procedures Date Code Description Status 07/04/2020 59988 Electrocardiogram Interpretation & Report Only Completed 06/29/2020 18374 EEG Phys/QHP Ea Incr>12HR<26HR A fter 24HR W/Veeg Completed 06/29/2020 87775 Echocardiography, Tranthoracic R eal-Time Image Documentation Completed 06/29/2020 79835 Electrocardiogram Interpretation & Report Only Completed 06/28/2020 23358 EEG Phys/QHP Ea Incr>12HR<26HR A fter 24HR W/Veeg Completed 06/18/2020 50346 EEG Phys/QHP Ea Incr>12HR<26HR A fter 24HR W/Veeg Completed 06/17/2020 33650 EEG Phys/QHP Ea Incr>12HR<26HR A fter 24HR W/Veeg Completed 06/16/2020 53090 EEG Phys/QHP Ea Incr>12HR<26HR A fter 24HR W/Veeg Completed 06/13/2020 40336 Electrocardiogram Interpretation & Report Only Completed Medical Devices Description No Information Available Encounters Type Date Location Provider Dx Diagnosis Office Visit 09/09/2020 11:30a [facility] Cardiology [facility] Raleigh Schulte MD I50.32 Chronic diastolic (congestive) heart ivana lure I46.9 Cardiac arrest, cause unspec ified Office Visit 08/25/2020 12:20p [facility] Neurology Shabbir Forrester MD 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 Office Visit 07/09/2020 3:41a [facility] Evan brown MD I50.31 Acute diastolic (congestive) heart failu re E87.6 Hypokalemia I46.9 Cardiac arrest, cause unspec ified D64.9 Anemia, unspecified D69.6 Thrombocytopenia, unspecifie d Office Visit 07/08/2020 6:30a [facility] Neurology Chucky Thomas MD G 40.209 Local-rel symptc epi w cmplx prt seiz,not ntrct,w/o stat epi K66.1 Hemoperitoneum I11.0 Hypertensive heart disease w ith heart failure I50.9 Heart failure, unspecified Office Visit 07/07/2020 3:15a [facility] Evan brown MD I50.31 Acute diastolic (congestive) heart failu re I46.9 Cardiac arrest, cause unspec ified D64.9 Anemia, unspecified D69.6 Thrombocytopenia, unspecifie d Office Visit 07/07/2020 3:15a [facility] Neurology Chucky Thomas MD R 41.0 Disorientation, unspecified R90.89 Oth abnormal findings on bebet[facility] [employer] Office Visit 07/06/2020 3:16a [facility] Neurology Chucky Thomas MD R 41.0 Disorientation, unspecified R90.89 Oth abnormal findings on bebeto [facility] [employer] Office Visit 07/05/2020 8:42a [facility] Cardiology [facility] Tylor W Evan brown MD I50.31 Acute diastolic (congestive) heart failu re I46.9 Cardiac arrest, cause unspec ified D64.9 Anemia, unspecified D69.6 Thrombocytopenia, unspecifie d G04.81 Other encephalitis and encep halomyelitis Z82.3 Family history of stroke Office Visit 07/05/2020 3:12a [facility] Neurology JHONNY Lacy G40.209 Local-rel symptc epi w cmplx prt seiz,not ntrct,w/o stat epi I10 Essential (primary) hyperten dariusz G04.90 Encephalitis and encephalomy elitis, unspecified Office Visit 07/04/2020 3:39a [facility] Neurology JHONNY Lacy G40.209 Local-rel symptc epi w cmplx prt seiz,not ntrct,w/o stat epi I10 Essential (primary) hyperten dariusz G04.90 Encephalitis and encephalomy elitis, unspecified Office Visit 07/03/2020 3:49a [facility] Neurology JHONNY Deshpande G40.2 09 Local- rel symptc epi w cmplx prt seiz,not ntrct,w/o stat epi I10 Essential (primary) hyperten dariusz G04.90 Encephalitis and encephalomy elitis, unspecified Office Visit 07/02/2020 3:44a [facility] Neurology JHONNY Deshpande G40.2 09 Local- rel symptc epi w cmplx prt seiz,not ntrct,w/o stat epi I10 Essential (primary) hyperten dariusz K66.1 Hemoperitoneum G04.90 Encephalitis and encephalomy elitis, unspecified Office Visit 07/01/2020 3:03a [facility] Neurology JHONNY Deshpande G40.2 09 Local- rel symptc epi w cmplx prt seiz,not ntrct,w/o stat epi R45.1 Restlessness and agitation 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.90 Encephalitis and encephalomy elitis, unspecified K66.1 Hemoperitoneum I10 Essential (primary) hyperten dariusz Office Visit 06/30/2020 3:29a [facility] Neurology JHONNY Lacy G40.209 Local-rel symptc epi w cmplx prt seiz,not ntrct,w/o stat epi J43.9 Emphysema, unspecified I71.4 Abdominal aortic aneurysm, w ithout rupture I10 Essential (primary) hyperten dariusz Office Visit 06/29/2020 3:28a [facility] Neurology JHONNY Lacy G40.209 Local-rel symptc epi w cmplx prt seiz,not ntrct,w/o stat epi J43.9 Emphysema, unspecified I71.4 Abdominal aortic aneurysm, w ithout rupture Office Visit 06/28/2020 3:03a [facility] Neurology Chucky Thomas MD G 40.209 Local-rel symptc epi w cmplx prt seiz,not ntrct,w/o stat epi I10 Essential (primary) hyperten dariusz R41.0 Disorientation, unspecified Office Visit 06/27/2020 3:18a [facility] Sowmya Saenz PA-C G40.209 Local-rel symptc epi w cmplx prt seiz,not ntrct,w/o stat epi J43.9 Emphysema, unspecified I71.4 Abdominal aortic aneurysm, w ithout rupture Office Visit 06/26/2020 5:31a [facility] Carlos López PA-C G40 .209 Local- rel symptc epi w cmplx prt seiz,not ntrct,w/o stat epi J43.9 Emphysema, unspecified I71.4 Abdominal aortic aneurysm, w ithout rupture Office Visit 06/25/2020 3:31a [facility] JHONNY Deshpande G40.2 09 Local- rel symptc epi w cmplx prt seiz,not ntrct,w/o stat epi Office Visit 06/24/2020 3:09a [facility] Sowmya Saenz PA-C G40.209 Local-rel symptc epi w cmplx prt seiz,not ntrct,w/o stat epi Office Visit 06/23/2020 3:17a [facility] JHONNY Lacy G40.209 Local-rel symptc epi w cmplx prt seiz,not ntrct,w/o stat epi Office Visit 06/22/2020 3:07a [facility] JHONNY Lacy G40.209 Local-rel symptc epi w cmplx prt seiz,not ntrct,w/o stat epi Office Visit 06/21/2020 3:04a [facility] Neurology Chucky Thomas MD G 40.209 Local-rel symptc epi w cmplx prt seiz,not ntrct,w/o stat epi Office Visit 06/20/2020 3:19a [facility] Sowmya Saenz PA-C G40.209 Local-rel symptc epi w cmplx prt seiz,not ntrct,w/o stat epi Office Visit 06/19/2020 3:55a [facility] Ned Crane MD G40.209 Local-rel symptc epi w cmplx prt seiz,not ntrct,w/o stat epi Office Visit 06/18/2020 3:44a [facility] Ned Crane MD R53.1 Weakness D53.9 Nutritional anemia, unspecif ied Office Visit 06/17/2020 3:23a [facility] JHONNY Deshpande G40.2 09 Local- rel symptc epi w cmplx prt seiz,not ntrct,w/o stat epi Office Visit 06/16/2020 3:28a [facility] JHONNY Lacy R25.3 Fasciculation R29.810 Facial weakness R53.1 Weakness Office Visit 06/15/2020 3:21a [facility] JHONNY Lacy R25.3 Fasciculation R29.810 Facial weakness R53.1 Weakness Office Visit 06/14/2020 3:46a [facility] Hiram Ponce MD G40. 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 Shabbir Forrester MD 07/09/2020 I50.31 Acute diastolic (congestive) hea rt failure Tylor Schulte MD 07/09/2020 E87.6 Hypokalemia Tylor jensen MD 07/09/2020 I46.9 Cardiac arrest, cause unspecifie d Tylor Schulte MD 07/09/2020 D64.9 Anemia, unspecified Tylor brown MD 07/09/2020 D69.6 Thrombocytopenia, unspecified Sheila Schulte MD 07/08/2020 G40.209 Localization-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, not intractable, without status epilepticus Chucky Thomas MD 07/08/2020 K66.1 Hemoperitoneum Chucky cole MD 07/08/2020 I11.0 Hypertensive heart disease with heart failure Chucky Thomas MD 07/08/2020 I50.9 Heart failure, unspecified Chucky Thomas MD 07/07/2020 R41.0 Disorientation, unspecified Lanette Thomas MD 07/07/2020 R90.89 Other abnormal findi ngs on diagnostic imaging of central nervous system Chucky Thomas MD 07/07/2020 I50.31 Acute diastolic (congestive) hea rt failure Tylor Schulte MD 07/07/2020 I46.9 Cardiac arrest, cause unspecifie d Tylor Schulte MD 07/07/2020 D64.9 Anemia, unspecified Tylor brown MD 07/07/2020 D69.6 Thrombocytopenia, unspecified Sheila Schulte MD 07/06/2020 R41.0 Disorientation, unspecified Lanette Thomas MD 07/06/2020 R90.89 Other abnormal findi ngs on diagnostic imaging of central nervous system Chucky Thomas MD 07/05/2020 G40.209 Localization-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, not intractable, without status epilepticus JHONNY Lacy 07/05/2020 I10 Essential (primary) hypertension JHONNY Lacy 07/05/2020 G04.90 Encephalitis and encephalomyelit is, unspecified JHONNY Lacy 07/05/2020 I50.31 Acute diastolic (congestive) hea rt failure Tylor Schulte MD 07/05/2020 I46.9 Cardiac arrest, cause unspecifie d Tylor Schulte MD 07/05/2020 D64.9 Anemia, unspecified Tylor brown MD 07/05/2020 D69.6 Thrombocytopenia, unspecified Sheila Schulte MD 07/05/2020 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 Tylor Schulte MD 07/05/2020 Z82.3 Family history of stroke Tylor Schulte MD 07/04/2020 G40.209 Localization-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, not intractable, without status epilepticus JHONNY Lacy 07/04/2020 I10 Essential (primary) hypertension JHONNY Lacy 07/04/2020 G04.90 Encephalitis and encephalomyelit is, unspecified JHONNY Lacy 07/04/2020 R41.0 Disorientation, unspecified Christophe Jay MD 07/04/2020 G04.90 Encephalitis and encephalomyelit is, unspecified Evens Jay MD 07/04/2020 J96.01 Acute respiratory failure with h ypoxia Evens Jay MD 07/04/2020 I46.8 Cardiac arrest due to other unde rlying condition Evens Jay MD 07/04/2020 R57.8 Other shock Evens Jay MD 07/04/2020 I50.31 Acute diastolic (congestive) hea rt failure Evens Jay MD 07/04/2020 I63.89 Other cerebral infarction Evens Jay MD 07/04/2020 N39.0 Urinary tract infection, site no t specified Evens Jay MD 07/03/2020 G40.209 Localization-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, not intractable, without status epilepticus Vonda Eason PA 07/03/2020 I10 Essential (primary) hypertension Vonda Eason PA 07/03/2020 G04.90 Encephalitis and encephalomyelit is, unspecified Vonda Eason PA 07/02/2020 G40.209 Localization-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, not intractable, without status epilepticus Vonda Eason PA 07/02/2020 I10 Essential (primary) hypertension Vonda Eason PA 07/02/2020 K66.1 Hemoperitoneum Vonda Jenaro, PA 07/02/2020 G04.90 Encephalitis and encephalomyelit is, unspecified Vonda Jenaro, PA 07/01/2020 G40.209 Localization-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, not intractable, without status epilepticus Vonda Jenaro, PA 07/01/2020 R45.1 Restlessness and agitation Bkwoody gallo Jenaro, PA 07/01/2020 G04.90 Encephalitis and encephalomyelit is, unspecified Vonda Jenaro, PA 07/01/2020 K66.1 Hemoperitoneum Vonda Jenaro, PA 07/01/2020 I10 Essential (primary) hypertension Vonda Jenaro, PA 06/30/2020 G40.209 Localization-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, not intractable, without status epilepticus Perlitathea Laboy, PA 06/30/2020 J43.9 Emphysema, unspecified Perlita An ne [place], PA 06/30/2020 I71.4 Abdominal aortic aneurysm, witho ut rupture Perlita Laboy PA 06/30/2020 I10 Essential (primary) hypertension Perlita Laboy PA 06/29/2020 R56.9 Unspecified convulsions Abdoul Smalls pta, MD 06/29/2020 I49.9 Cardiac arrhythmia, unspecified Joe Dejesus MD 06/29/2020 G40.209 Localization-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, not intractable, without status epilepticus JHONNY Lacy 06/29/2020 J43.9 Emphysema, unspecified Perlita An ne [place], PA 06/29/2020 I71.4 Abdominal aortic aneurysm, witho ut rupture Perlita Laboy PA 06/29/2020 R41.0 Disorientation, unspecified Christophe Jay MD 06/29/2020 G04.90 Encephalitis and encephalomyelit is, unspecified Evens Jay MD 06/29/2020 J96.01 Acute respiratory failure with h ypoxia Evens Jay MD 06/29/2020 I46.8 Cardiac arrest due to other unde rlying condition Evens Jay MD 06/29/2020 R57.8 Other shock Evens Jay MD 06/29/2020 I50.31 Acute diastolic (congestive) hea rt failure Evens Jay MD 06/29/2020 I63.89 Other cerebral infarction Evens Jay MD 06/29/2020 N39.0 Urinary tract infection, site no t specified Evens Jay MD 06/28/2020 R56.9 Unspecified convulsions Abdoul Smalls pta, MD 06/28/2020 G40.209 Localization-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, not intractable, without status epilepticus Chucky Thomas MD 06/28/2020 I10 Essential (primary) hypertension Chucky Thomas MD 06/28/2020 R41.0 Disorientation, unspecified Lanette Thomas MD 06/27/2020 G40.209 Localization-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, not intractable, without status epilepticus Sowmya Saenz PA-C 06/27/2020 J43.9 Emphysema, unspecified Sowmya J micha, SEBASTIAN 06/27/2020 I71.4 Abdominal aortic aneurysm, witho ut rupture Sowmya Saenz PA-C 06/26/2020 G40.209 Localization-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, not intractable, without status epilepticus Carlos López PA-C 06/26/2020 J43.9 Emphysema, unspecified Carlos Brian landon PA-C 06/26/2020 I71.4 Abdominal aortic aneurysm, witho ut rupture Carlos López PA-C 06/25/2020 G40.209 Localization-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, not intractable, without status epilepticus JHONNY Deshpande 06/24/2020 G40.209 Localization-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, not intractable, without status epilepticus Sowmya Saenz PA-C 06/23/2020 G40.209 Localization-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, not intractable, without status epilepticus JHONNY Lcay 06/22/2020 G40.209 Localization-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, not intractable, without status epilepticus JHONNY Lacy 06/21/2020 G40.209 Localization-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, not intractable, without status epilepticus Chucky Thomas MD 06/20/2020 G40.209 Localization-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, not intractable, without status epilepticus Sowmya Saenz PA-C 06/19/2020 G40.209 Localization-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, not intractable, without status epilepticus Ned Crane MD 06/18/2020 R56.9 Unspecified convulsions Abdoul Smalls pta, MD 06/18/2020 R53.1 Weakness Ned gonsalez MD 06/18/2020 D53.9 Nutritional anemia, unspecified Ned Crane MD 06/17/2020 R56.9 Unspecified convulsions Abdoul Smalls pta, MD 06/17/2020 G40.209 Localization-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, not intractable, without status epilepticus JHONNY Deshpande 06/16/2020 R56.9 Unspecified convulsions Abdoul Smalls pta, MD 06/16/2020 R25.3 Fasciculation Perlita Rachel Ambr ose, PA 06/16/2020 R29.810 Facial weakness Perlita Rachel Ambr ose, PA 06/16/2020 R53.1 Weakness Perlita Rachel Ambr ose, PA 06/15/2020 R25.3 Fasciculation Perlita Rachel Ambr ose, PA 06/15/2020 R29.810 Facial weakness Perlita Rachel Ambr ose, PA 06/15/2020 R53.1 Weakness Perlita Rachel Ambr ose, PA 06/14/2020 G40.209 Localization-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, not intractable, without status epilepticus Hiram Ponce MD 06/13/2020 R53.1 Weakness JHONNY Deshpande 06/13/2020 R25.3 Fasciculation JHONNY Deshpande 06/13/2020 R29.810 Facial weakness JHONNY Deshpande 06/13/2020 R41.0 Disorientation, unspecified Christophe Jay MD 06/13/2020 G04.90 Encephalitis and encephalomyelit is, unspecified Evens Jay MD 06/13/2020 J96.01 Acute respiratory failure with h ypoxia Evens Jay MD 06/13/2020 I46.8 Cardiac arrest due to other unde rlying condition Evens Jay MD 06/13/2020 R57.8 Other shock Evens Jay MD 06/13/2020 I50.31 Acute diastolic (congestive) hea rt failure Evens Jay MD 06/13/2020 I63.89 Other cerebral infarction Evens Jay MD 06/13/2020 N39.0 Urinary tract infection, site no t specified Evens Jay MD Plan of Treatment Future Appointment(s):* 11/27/2020 9:40 am - Shabbir Forrester MD at [facility] Neurology 09/09/2020 - Tylor Schulte MD* I50.32 Chronic diastolic (congestive) heart failure * I46.9 Cardiac arrest, cause unspecified Functional Status Description No Information Available Mental Status Description No Information Available Referrals Description No Information Available
[2020-12-17] MEDS ORDERED: ISOVUE-370 76% 100ML VIAL As Ordered ONE (16:24)
--- OUTSIDE RECORDS SUMMARY | 2020-12-17 16:28 | CCD ---
Author Author [facility] Organization [facility] Address Unknown Phone Unavailable Care Team Providers Care General Labor Name Role Phone Brenna, Ayaan Yunior DO Unavailable Unavailable Brenna, Ayaan Yunior DO Unavailable Unavailable Brenna, Ayaan Yunior DO Unavailable Unavailable Brenna, Ayaan Yunior DO Unavailable Unavailable Brenna, Ayaan Yunior DO Unavailable Unavailable Brenna, Ayaan Yunior DO Unavailable Unavailable Brenna, Ayaan Yunior DO Unavailable Unavailable Brenna, Ayaan Yunior DO Unavailable Unavailable Brenna, Ayaan Yunior DO Unavailable Unavailable Brenna, Ayaan Yunior DO Unavailable Unavailable Brenna, Ayaan Yunior DO Unavailable Unavailable Brenna, Ayaan Yunior DO Unavailable Unavailable Brenna, Ayaan Yunior DO Unavailable Unavailable Brenna, Ayaan Yunior DO Unavailable Unavailable Brenna, Ayaan Yunior DO Unavailable Unavailable Brenna, Ayaan Yunior DO Unavailable Unavailable Brenna, Ayaan Yunior DO Unavailable Unavailable Brenna, Ayaan Yunior DO Unavailable Unavailable Brenna, Ayaan Yunior DO Unavailable Unavailable Brenna, Ayaan Yunior DO Unavailable Unavailable Brenna, Ayaan Yunior DO Unavailable Unavailable Brenna, Ayaan Yunior DO Unavailable Unavailable Krzysztof Forrester MD Unavailable Unavailable Krzysztof Forrester MD Unavailable Unavailable Krzysztof Forrester MD Unavailable Unavailable Krzysztof Forrester MD Unavailable Unavailable Krzysztof Forrester MD Unavailable Unavailable Krzysztof Forrester MD Unavailable Unavailable Krzysztfo Forrester MD Unavailable Unavailable Krzysztof Forrester MD Unavailable Unavailable Krzysztof Forrester MD Unavailable Unavailable Veronica-Malak, A Shabbir MD Unavailable Unavailable Veronica-Malak, A Shabbir MD Unavailable Unavailable Veronica-Malak, A Shabbir MD Unavailable Unavailable Veronica-Malak, A Shabbir MD Unavailable Unavailable Veronica-Malak, A Shabbir MD Unavailable Unavailable Veronica-Malak, A Shabbir MD Unavailable Unavailable Veronica-Malak, A Shabbir MD Unavailable Unavailable Veronica-Malak, A Shabbir MD Unavailable Unavailable Veronica-Malak, A Shabbir MD Unavailable Unavailable Veronica-Malak, A Shabbir MD Unavailable Unavailable Veronica-Malak, A Shabbir MD Unavailable Unavailable Veronica-Malak, A Shabbir MD Unavailable Unavailable Veronica-Malak, A Shabbir MD Unavailable Unavailable Veronica-Malak, A Shabbir MD Unavailable Unavailable Veronica-Malak, A Shabbir MD Unavailable Unavailable Veronica-Malak, A Shabbir MD Unavailable Unavailable Veronica-Malak, A Shabbir MD Unavailable Unavailable Veronica-Malak, A Shabbir MD Unavailable Unavailable Veronica-Malak, A Shabbir MD Unavailable Unavailable Veronica-Malak, A Shabbir MD Unavailable Unavailable Veronica-Malak, A Shabbir MD Unavailable Unavailable Veronica-Malak, A Shabbir MD Unavailable Unavailable Veronica-Malak, A Shabbir MD Unavailable Unavailable Veronica-Malak, A Shabbir MD Unavailable Unavailable Veronica-Malak, A Shabbir MD Unavailable Unavailable Veronica-Malak, A Shabbir MD Unavailable Unavailable Veroniac-Malak, A Shabbir MD Unavailable Unavailable Veronica-Malak, A Shabbir MD Unavailable Unavailable Veronica-Malak, A Shabbir MD Unavailable Unavailable Veronica-Malak, A Shabbir MD Unavailable Unavailable Veronica-Malak, A Shabbir MD Unavailable Unavailable Veronica-Malak, A Shabbir MD Unavailable Unavailable Veronica-Malak, A Shabbir MD Unavailable Unavailable Veronica-Malak, A Shabbir MD Unavailable Unavailable Veronica-Malak, A Shabbir MD Unavailable Unavailable Veronica-Malak, A Shabbir MD Unavailable Unavailable Veronica-Malak, A Shabbir MD Unavailable Unavailable Veronica-Malak, A Shabbir MD Unavailable Unavailable Veronica-Malak, A Shabbir MD Unavailable Unavailable Veronica-Malak, A Shabbir MD Unavailable Unavailable Veronica-Malak, A Shabbir MD Unavailable Unavailable Veronica-Malak, A Shabbir MD Unavailable Unavailable Veronica-Malak, A Shabbir MD Unavailable Unavailable Veronica-Malak, A Shabbir MD Unavailable Unavailable Veronica-Malak, A Shabbir MD Unavailable Unavailable Veronica-Malak, A Shabbir MD Unavailable Unavailable Veronica-Malak, A Shabbir MD Unavailable Unavailable Veronica-Malak, A Shabbir MD Unavailable Unavailable Veronica-Malak, A Shabbir MD Unavailable Unavailable Veronica-Malak, A Shabbir MD Unavailable Unavailable Veronica-Malak, A Shabbir MD Unavailable Unavailable Veronica-Malak, A Shabbir MD Unavailable Unavailable Veronica-Malak, A Shabbir MD Unavailable Unavailable Veronica-Malak, A Shabbir MD Unavailable Unavailable Veronica-Malak, A Shabbir MD Unavailable Unavailable Veronica-Malak, A Shabbir MD Unavailable Unavailable Veronica-Malak, A Shabbir MD Unavailable Unavailable GOSHOW, J ARTURO PA Unavailable Unavailable GOSHOW, J ARTURO PA Unavailable Unavailable GOSHOW, J ARTURO PA Unavailable Unavailable GOSHOW, J ARTURO PA Unavailable Unavailable GOSHOW, J ARTURO PA Unavailable Unavailable GOSHOW, J ARTURO PA Unavailable Unavailable Jenaro, M Vonda PA-C Unavailable Unavailable Jenaro, M Vonda PA-C Unavailable Unavailable Jenaro, M Vonda PA-C Unavailable Unavailable PHYSICIAN, PHYSICIAN ER Unavailable Unavailable JOCELYN, RICCARDO PA Unavailable Unavailable JOCELYN, RICCARDO PA Unavailable Unavailable JOCELYN, RICCARDO PA Unavailable Unavailable JOCELYN, RICCARDO PA Unavailable Unavailable JOCELYN, RICCARDO PA Unavailable Unavailable JOCELYN, RICCARDO PA Unavailable Unavailable JOCELYN, RICCARDO PA Unavailable Unavailable JOCELYN, RICCARDO PA Unavailable Unavailable JOCELYN, RICCARDO PA Unavailable Unavailable JOCELYN, RICCARDO PA Unavailable Unavailable JOCELYN, RICCARDO PA Unavailable Unavailable JOCELYN, RICCARDO PA Unavailable Unavailable JOCELYN, RICCARDO PA Unavailable Unavailable JOCELYN, RICCARDO PA Unavailable Unavailable JOCELYN, RICCARDO PA Unavailable Unavailable JOCELYN, RICCARDO PA Unavailable Unavailable JOCELYN, RICCARDO PA Unavailable Unavailable JOCELYN, RICCARDO PA Unavailable Unavailable JOCELYN, RICCARDO PA Unavailable Unavailable JOCELYN, RICCARDO PA Unavailable Unavailable JOCELYN, RICCARDO PA Unavailable Unavailable JOCELYN, RICCARDO PA Unavailable Unavailable JOCELYN, RICCARDO PA Unavailable Unavailable OJCELYN, RICCARDO PA Unavailable Unavailable JOCELYN, RICCARDO PA Unavailable Unavailable JOCELYN, RICCARDO PA Unavailable Unavailable JOCELYN, RICCARDO PA Unavailable Unavailable JOCELYN, RICCARDO PA Unavailable Unavailable JOCELYN, RICCARDO PA Unavailable Unavailable JOCELYN, RICCARDO PA Unavailable Unavailable JOCELYN, RICCARDO PA Unavailable Unavailable JOCELYN, RICCARDO PA Unavailable Unavailable ALVARORHEA MD Unavailable Unavailable ALVARORHEA MD Unavailable Unavailable ALVARORHEA MD Unavailable Unavailable RHEA JOHN MD Unavailable Unavailable RHEA JOHN MD Unavailable Unavailable RHEA JOHN MD Unavailable Unavailable RHEA JOHN MD Unavailable Unavailable RHEA JOHN MD Unavailable Unavailable RHEA JOHN MD Unavailable Unavailable RHEA JOHN MD Unavailable Unavailable RHEA JOHN MD Unavailable Unavailable RHEA JOHN MD Unavailable Unavailable RHEA JOHN MD Unavailable Unavailable RHEA JOHN MD Unavailable Unavailable RHEA JOHN MD Unavailable Unavailable RHEA JOHN MD Unavailable Unavailable RHEA JOHN MD Unavailable Unavailable RHEA JOHN MD Unavailable Unavailable RHEA JOHN MD Unavailable Unavailable RHEA JOHN MD Unavailable Unavailable RHEA JOHN MD Unavailable Unavailable Michael Montoya MD Unavailable Unavailable Michael Montoya MD Unavailable Unavailable Michael Montoya MD Unavailable Unavailable Michael Montoya MD Unavailable Unavailable Michael Montoya MD Unavailable Unavailable Michael Montoya MD Unavailable Unavailable Michael Montoya MD Unavailable Unavailable Michael Montoya MD Unavailable Unavailable Michael Montoya MD Unavailable Unavailable Michael Montoya MD Unavailable Unavailable Michael Montoya MD Unavailable Unavailable Michael Montoya MD Unavailable Unavailable Michael Montoya MD Unavailable Unavailable Michael Montoya MD Unavailable Unavailable Michael Montoya MD Unavailable Unavailable Michael Montoya MD Unavailable Unavailable Michael Montoya MD Unavailable Unavailable Michael Montoya MD Unavailable Unavailable Michael Montoya MD Unavailable Unavailable Michael Montoya MD Unavailable Unavailable Michael Montoya MD Unavailable Unavailable Michael Montoya MD Unavailable Unavailable Michael Montoya MD Unavailable Unavailable Michael Montoya MD Unavailable Unavailable Michael Montoya MD Unavailable Unavailable Michael Montoya MD Unavailable Unavailable Michael Montoya MD Unavailable Unavailable Michael Montoya MD Unavailable Unavailable RANJIT MORLEYUEL Unavailable Unavailable Alejandrina LEE MD Unavailable Unavailable Alejandrina LEE MD Unavailable Unavailable Alejandrina LEE MD Unavailable Unavailable Alejandrina LEE MD Unavailable Unavailable Alejandrina LEE MD Unavailable Unavailable Alejandrina LEE MD Unavailable Unavailable Alejandrina LEE MD Unavailable Unavailable Alejandrina LEE MD Unavailable Unavailable Alejandrina LEE MD Unavailable Unavailable Alejandrina LEE MD Unavailable Unavailable Alejandrina LEE MD Unavailable Unavailable Alejandrina LEE MD Unavailable Unavailable Alejandrina LEE MD Unavailable Unavailable Alejandrina LEE MD Unavailable Unavailable Alejandrina LEE MD Unavailable Unavailable Alejandrina LEE MD Unavailable Unavailable Alejandrina LEE MD Unavailable Unavailable Alejandrina LEE MD Unavailable Unavailable Alejandrina LEE MD Unavailable Unavailable Alejandrina LEE MD Unavailable Unavailable Alejandrina LEE MD Unavailable Unavailable Alejandrina LEE MD Unavailable Unavailable Alejandrina LEE MD Unavailable Unavailable Alejandrina LEE MD Unavailable Unavailable Alejandrina LEE MD Unavailable Unavailable Alejandrina LEE MD Unavailable Unavailable Alejandrina LEE MD Unavailable Unavailable Alejandrina LEE MD Unavailable Unavailable Alejandrina LEE MD Unavailable Unavailable Alejandrina LEE MD Unavailable Unavailable Jorge FENTON MD Unavailable Unavailable Jorge FENTON MD Unavailable Unavailable Jorge FENTON MD Unavailable Unavailable Jorge FENTON MD Unavailable Unavailable Jorge FENTON MD Unavailable Unavailable Jorge FENTON MD Unavailable Unavailable Jorge FENTON MD Unavailable Unavailable Jorge FENTON MD Unavailable Unavailable Jorge FENTON MD Unavailable Unavailable Jorge FENTON MD Unavailable Unavailable Jorge FENTON MD Unavailable Unavailable Jorge FENTON MD Unavailable Unavailable Jorge FENTON MD Unavailable Unavailable Jorge FENTON MD Unavailable Unavailable Jorge FENTON MD Unavailable Unavailable JAJA LIANG MD Unavailable Unavailable LUCYSkye FALL RACHEL PA-C Unavailable Unavailable LUCY L DARBY RACHEL PA-C Unavailable Unavailable Alejandrina LEE MD Unavailable Unavailable Alejandrina LEE MD Unavailable Unavailable Alejandrina LEE MD Unavailable Unavailable Alejandrina LEE MD Unavailable Unavailable Alejandrina LEE MD Unavailable Unavailable Alejandrina LEE MD Unavailable Unavailable Alejandrina LEE MD Unavailable Unavailable Alejandrina LEE MD Unavailable Unavailable Alejandrina LEE MD Unavailable Unavailable Alejandrina LEE MD Unavailable Unavailable Alejandrina LEE MD Unavailable Unavailable Alejandrina LEE MD Unavailable Unavailable Alejandrina LEE MD Unavailable Unavailable Alejandrina LEE MD Unavailable Unavailable Alejandrina LEE MD Unavailable Unavailable Alejandrina LEE MD Unavailable Unavailable Alejandrina LEE MD Unavailable Unavailable Alejandrina LEE MD Unavailable Unavailable Alejandrina LEE MD Unavailable Unavailable Alejandrina LEE MD Unavailable Unavailable Alejandrina LEE MD Unavailable Unavailable Alejandrina LEE MD Unavailable Unavailable Alejandrina LEE MD Unavailable Unavailable Alejandrina LEE MD Unavailable Unavailable Alejandrina LEE MD Unavailable Unavailable Alejandrina LEE MD Unavailable Unavailable Alejandrina LEE MD Unavailable Unavailable Alejandrina LEE MD Unavailable Unavailable Alejandrina LEE MD Unavailable Unavailable Alejandrina LEE MD Unavailable Unavailable Billie GUERRIER MD Unavailable Unavailable Billie GUERRIER MD Unavailable Unavailable Billie GUERRIER MD Unavailable Unavailable Billie GUERRIER MD Unavailable Unavailable Billie GUERRIER MD Unavailable Unavailable Billie GUERRIER MD Unavailable Unavailable Billie GUERRIER MD Unavailable Unavailable Billie GUERRIER MD Unavailable Unavailable Billie GUERRIER MD Unavailable Unavailable Billie GUERRIER MD Unavailable Unavailable Billie GUERRIER MD Unavailable Unavailable Billie GUERRIER MD Unavailable Unavailable Billie GUERRIER MD Unavailable Unavailable Billie GUERRIER MD Unavailable Unavailable Billie GUERRIER MD Unavailable Unavailable Billie GUERRIER MD Unavailable Unavailable Billie GUERRIER MD Unavailable Unavailable Billie GUERRIER MD Unavailable Unavailable Billie GUERRIER MD Unavailable Unavailable BARRACO, JAJA Unavailable Unavailable BARRACO, JAJA Unavailable Unavailable Chucky Low MD Unavailable Unavailable Chucky Low MD Unavailable Unavailable Chucky Low MD Unavailable Unavailable Chucky Low MD Unavailable Unavailable Chucky Low MD Unavailable Unavailable Chucky Low MD Unavailable Unavailable Chucky Low MD Unavailable Unavailable ERNESTINE ALDANA MD Unavailable Unavailable ERNESTINE ALDANA MD Unavailable Unavailable ERNESTINE ALDANA MD Unavailable Unavailable ERNESTINE ALDANA MD Unavailable Unavailable ERNESTINE ALDANA MD Unavailable Unavailable ERNESTINE ALDANA MD Unavailable Unavailable López, T Carlos PA Unavailable Unavailable López, T Carlos PA Unavailable Unavailable López, T Carlos PA Unavailable Unavailable López, T Carlos PA Unavailable Unavailable López, T Carlos PA Unavailable Unavailable López, T Carlos PA Unavailable Unavailable López, T Carlos PA Unavailable Unavailable López, T Carlos PA Unavailable Unavailable López, T Carlos PA Unavailable Unavailable López, T Carlos PA Unavailable Unavailable López, T Carlos PA Unavailable Unavailable López, T Carlos PA Unavailable Unavailable López, T Carlos PA Unavailable Unavailable López, T Carlos PA Unavailable Unavailable López, T Carlos PA Unavailable Unavailable López, T Carlos PA Unavailable Unavailable López, T Carlos PA Unavailable Unavailable Lóepz, T Carlos PA Unavailable Unavailable López, T Carlos PA Unavailable Unavailable López, T Carlos PA Unavailable Unavailable López, T Carlos PA Unavailable Unavailable López, T Carlos PA Unavailable Unavailable López, T Carlos PA Unavailable Unavailable López, T Carlos PA Unavailable Unavailable López, T Carlos PA Unavailable Unavailable López, T Carlos PA Unavailable Unavailable López, T Carlos PA Unavailable Unavailable López, T Carlos PA Unavailable Unavailable López, T Carlos PA Unavailable Unavailable López, T Carlos PA Unavailable Unavailable López, T Carlos PA Unavailable Unavailable López, T Carlos PA Unavailable Unavailable López, T Carlos PA Unavailable Unavailable López, T Carlos PA Unavailable Unavailable López, T Carlos PA Unavailable Unavailable Ólpez, T Carlos PA Unavailable Unavailable López, T Carlos PA Unavailable Unavailable López, T Carlos PA Unavailable Unavailable López, T Carlos PA Unavailable Unavailable López, T Carlos PA Unavailable Unavailable López, T Carlos PA Unavailable Unavailable López, T Carlos PA Unavailable Unavailable López, T Carlos PA Unavailable Unavailable Kulwinder Tran MD Unavailable Unavailable Kulwinder Tran MD Unavailable Unavailable Kulwinder Tran MD Unavailable Unavailable Kulwinder Tran MD Unavailable Unavailable Chelsea Afeejefferson CRUZ Unavailable Unavailable Chelsea Afeejefferson CRUZ Unavailable Unavailable Lindsay, Michael Unavailable Unavailable Lindsay, Michael Unavailable Unavailable Lindsay, Michael MD Unavailable Unavailable Lindsay, Michael MD Unavailable Unavailable Lindsay, Michael MD Unavailable Unavailable Lindsay, Michael MD Unavailable Unavailable Lindsay, Michael MD Unavailable Unavailable Lindsay, Michael MD Unavailable Unavailable Lindsay, Michael MD Unavailable Unavailable Lindsay, Michael MD Unavailable Unavailable Lindsay, Michael MD Unavailable Unavailable Lindsay, Michael MD Unavailable Unavailable Lindsay, Michael MD Unavailable Unavailable Lindsay, Michael MD Unavailable Unavailable Lindsay, Michael MD Unavailable Unavailable Lindsay, Michael MD Unavailable Unavailable Lindsay, Michael MD Unavailable Unavailable Lindsay, Michael MD Unavailable Unavailable Lindsay, Michael MD Unavailable Unavailable Lindsay, Michael MD Unavailable Unavailable Lindsay, Michael MD Unavailable Unavailable Lindsay, Michael MD Unavailable Unavailable Lindsay, Michael MD Unavailable Unavailable Lindsay, Michael MD Unavailable Unavailable Lindsay, Michael MD Unavailable Unavailable Lindsay, Michael MD Unavailable Unavailable Lindsay, Michael Unavailable Unavailable Lindsay, Michael MD Unavailable Unavailable Raleigh Rome MD Unavailable Unavailable Raleigh Rome MD Unavailable Unavailable Raleigh Rome MD Unavailable Unavailable Raleigh Rome MD Unavailable Unavailable Raleigh Rome MD Unavailable Unavailable Raleigh Rome MD Unavailable Unavailable Raleigh Rome MD Unavailable Unavailable Raleigh Rome MD Unavailable Unavailable Raleigh [place] MD Unavailable Unavailable Raleigh [place] MD Unavailable Unavailable Raleigh [place] MD Unavailable Unavailable Raleigh [place] MD Unavailable Unavailable Raleigh [place] MD Unavailable Unavailable Raleigh [place] MD Unavailable Unavailable Raleigh [place] MD Unavailable Unavailable Raleigh [place] MD Unavailable Unavailable Raleigh [place] MD Unavailable Unavailable Raleigh [place] MD Unavailable Unavailable Raleigh Rome MD Unavailable Unavailable Raleigh Rome MD Unavailable Unavailable Raleigh Rome MD Unavailable Unavailable Raleigh Rome MD Unavailable Unavailable Raleigh Rome MD Unavailable Unavailable Raleigh Rome MD Unavailable Unavailable Raleigh Rome MD Unavailable Unavailable Raleigh Romeshua MD Unavailable Unavailable Eris, Raleigh Snider MD Unavailable Unavailable Eris, Raleigh Snider MD Unavailable Unavailable Eris, Raleigh Snider MD Unavailable Unavailable Eris, Raleigh Snider MD Unavailable Unavailable Eris, Raleigh Snider MD Unavailable Unavailable Eris, Raleigh Snider MD Unavailable Unavailable Eris, Raleigh Snider MD Unavailable Unavailable Eris, Raleigh Snider MD Unavailable Unavailable Eris, Raleigh Snider MD Unavailable Unavailable Eris, Raleigh Snider MD Unavailable Unavailable Eris, Raleigh Snider MD Unavailable Unavailable Eris, Raleigh Snider MD Unavailable Unavailable Eris, Raleigh Snider MD Unavailable Unavailable Eris, Raleigh Snider MD Unavailable Unavailable Eris, Raleigh Snider MD Unavailable Unavailable Eris, Raleigh Snider MD Unavailable Unavailable Eris, Raleigh Snider MD Unavailable Unavailable Eris, Raleigh Snider MD Unavailable Unavailable Eris, Raleigh Snider MD Unavailable Unavailable Ned Crane Unavailable PHYSICIAN, ER Unavailable Unavailable VERTINO, Skye FARRELL MD Unavailable Unavailable VERTINO, Skye FARRELL MD Unavailable Unavailable VERTINO, Skye FARRELL MD Unavailable Unavailable VERTINO, Skye FARRELL MD Unavailable Unavailable VERTINO, Skye FARRELL MD Unavailable Unavailable VERTINO, Skye FARRELL MD Unavailable Unavailable VERTINO, Skye FARRELL MD Unavailable Unavailable VERTINO, Skye FARRELL MD Unavailable Unavailable VERTINO, Skye FARRELL MD Unavailable Unavailable VERTINO, Skye FARRELL MD Unavailable Unavailable VERTINO, Skye FARRELL MD Unavailable Unavailable VERTINO, Skye FARRELL MD Unavailable Unavailable VERTINO, Skye FARRELL MD Unavailable Unavailable VERTINO, Skye FARRELL MD Unavailable Unavailable VERTINO, Skye FARRELL MD Unavailable Unavailable VERTINO, Skye FARRELL MD Unavailable Unavailable VERTINO, Skye FARRELL MD Unavailable Unavailable VERTINO, Skye FARRELL MD Unavailable Unavailable VERTINO, Skye FARRELL MD Unavailable Unavailable VERTINO, Skye FARRELL MD Unavailable Unavailable VERTINO, Skye FARRELL MD Unavailable Unavailable VERTINO, Skye FARRELL MD Unavailable Unavailable VERTINO, Skye FARRELL MD Unavailable Unavailable VERTINO, Skye FARRELL MD Unavailable Unavailable VERTINO, Skye FARRELL MD Unavailable Unavailable VERTINO, Skye FARRELL MD Unavailable Unavailable VERTINO, Skye FARRELL MD Unavailable Unavailable VERTINO, Skye FARRELL MD Unavailable Unavailable VERTINO, Skye FARRELL MD Unavailable Unavailable VERTINO, Skye FARRELL MD Unavailable Unavailable VERTINO, Skye FARRELL MD Unavailable Unavailable VERTINOSkye MD Unavailable Unavailable VERTINOSkye MD Unavailable Unavailable VERTINO, Skye FARRELL MD Unavailable Unavailable VERTINO, Skye FARRELL MD Unavailable Unavailable VERTINO, Skye FARRELL MD Unavailable Unavailable JAMMIE, DANIELLE GOODMAN MD Unavailable Unavailable JAMMIE, DANIELLE GOODMAN MD Unavailable Unavailable JAMMIE, DANIELLE GOODMAN MD Unavailable Unavailable JAMMIE, DANIELLE GOODMAN MD Unavailable Unavailable JAMMIE, DANIELLE GOODMAN MD Unavailable Unavailable JAMMIE, DANIELLE GOODMAN MD Unavailable Unavailable JAMMIE, DANIELLE GOODMAN MD Unavailable Unavailable JAMMIE, DANIELLE GOODMAN MD Unavailable Unavailable JAMMIE, DANIELLE GOODMAN MD Unavailable Unavailable JAMMIE, DANIELLE GOODMAN MD Unavailable Unavailable JAMMIE, DANIELLE GOODMAN MD Unavailable Unavailable JAMMIE, DANIELLE GOODMAN MD Unavailable Unavailable JAMMIE, DANIELLE GOODMAN MD Unavailable Unavailable JAMMIE, DANIELLE GOODMAN MD Unavailable Unavailable JAMMIE, DANIELLE GOODMAN MD Unavailable Unavailable JAMMIE, DANIELLE GOODMAN MD Unavailable Unavailable JAMMIE, DANIELLE GOODMAN MD Unavailable Unavailable JAMMIE, DANIELLE GOODMAN MD Unavailable Unavailable JAMMIE, DANIELLE GOODMAN MD Unavailable Unavailable JAMMIE, DANIELLE GOODMAN MD Unavailable Unavailable JAMMIE, DANIELLE GOODMAN MD Unavailable Unavailable JAMMIE, DANIELLE GOODMAN MD Unavailable Unavailable JAMMIE, DANIELLE GOODMAN MD Unavailable Unavailable JAMMIE, DANIELLE GOODMAN MD Unavailable Unavailable JAMMIE, DANIELLE GOODMAN MD Unavailable Unavailable JAMMIE, DANIELLE GOODMAN MD Unavailable Unavailable JAMMIE, DANIELLE GOODMAN MD Unavailable Unavailable JAMMIE, DANIELLE GOODMAN MD Unavailable Unavailable JAMMIE, DANIELLE GOODMAN MD Unavailable Unavailable JAMMIE, DANIELLE GOODMAN MD Unavailable Unavailable JAMMIE, DANIELLE GOODMAN MD Unavailable Unavailable JAMMIE, DANIELLE GOODMAN MD Unavailable Unavailable JAMMIE, DANIELLE GOODMAN MD Unavailable Unavailable JAMMIE, DANIELLE GOODMAN MD Unavailable Unavailable JAMMIE, DANIELLE GOODMAN MD Unavailable Unavailable JAMMIE, DANIELLE GOODMAN MD Unavailable Unavailable JAMMIE, DANIELLE GOODMAN MD Unavailable Unavailable JAMMIE, DANIELLE GOODMAN MD Unavailable Unavailable JAMMIE, DANIELLE GOODMAN MD Unavailable Unavailable JAMMIE, DANIELLE GOODMAN MD Unavailable Unavailable JAMMIE, DANIELLE GOODMAN MD Unavailable Unavailable JAMMIE, DANIELLE GOODMAN MD Unavailable Unavailable JAMMIE, DANIELLE GOODMAN MD Unavailable Unavailable JAMMIE, DANIELLE GOODMAN MD Unavailable Unavailable JAMMIE, DANIELLE GOODMAN MD Unavailable Unavailable JAMMIE, DANIELLE GOODMAN MD Unavailable Unavailable JAMMIE, DANIELLE GOODMAN MD Unavailable Unavailable JAMMIE, DANIELLE GOODMAN MD Unavailable Unavailable JAMMIE, DANIELLE GOODMAN MD Unavailable Unavailable JAMMIE, DANIELLE GOODMAN MD Unavailable Unavailable JAMMIE, DANIELLE GOODMAN MD Unavailable Unavailable JAMMIE, DANIELLE GOODMAN MD Unavailable Unavailable JAMMIE, DANIELLE GOODMAN MD Unavailable Unavailable JAMMIE, DANIELLE GOODMAN MD Unavailable Unavailable JAMMIE, DANIELLE GOODMAN MD Unavailable Unavailable JAMMIE, DANIELLE GOODMAN MD Unavailable Unavailable JAMMIE, DANIELLE GOODMAN MD Unavailable Unavailable JAMMIE, DANIELLE GOODMAN MD Unavailable Unavailable JAMMIE, DANIELLE GOODMAN MD Unavailable Unavailable JAMMIE, DANIELLE GOODMAN MD Unavailable Unavailable JAMMIE, DANIELLE GOODMAN MD Unavailable Unavailable JAMMIE, DANIELLE GOODMAN MD Unavailable Unavailable JAMMIE, DANIELLE GOODMAN MD Unavailable Unavailable JAMMIE, DANIELLE GOODMAN MD Unavailable Unavailable JAMMIE, DANIELLE GOODMAN MD Unavailable Unavailable JAMMIE, DANIELLE GOODMAN MD Unavailable Unavailable JAMMIE, DANIELLE GOODMAN MD Unavailable Unavailable JAMMIE, DANIELLE GOODMAN MD Unavailable Unavailable JAMMIE, DANIELLE GOODMAN MD Unavailable Unavailable JAMMIE, DANIELLE GOODMAN MD Unavailable Unavailable JAMMIE, DANIELLE GOODMAN MD Unavailable Unavailable JAMMIE, DANIELLE GOODMAN MD Unavailable Unavailable JAMMIE, DANIELLE GOODMAN MD Unavailable Unavailable Brenna, Ayaan Yunior DO Unavailable Unavailable Brenna, Ayaan Yunior DO Unavailable Unavailable Brenna, Ayaan Yunior DO Unavailable Unavailable Brenna, Ayaan Yunior DO Unavailable Unavailable Brenna, Ayaan Yunior DO Unavailable Unavailable Brenna, Ayaan Yunior DO Unavailable Unavailable Brenna, Ayaan Yunior DO Unavailable Unavailable Brenna, Ayaan Yunior DO Unavailable Unavailable Brenna, Ayaan Yunior DO Unavailable Unavailable Brenna, Ayaan Yunior DO Unavailable Unavailable Brenna, Ayaan Yunior DO Unavailable Unavailable Brenna, Ayaan Yunior DO Unavailable Unavailable Brenna, Ayaan Yunior DO Unavailable Unavailable Brenna, Ayaan Yunior DO Unavailable Unavailable Brenna, Ayaan Yunior DO Unavailable Unavailable Brenna, Ayaan Yunior DO Unavailable Unavailable Brenna, Ayaan Yunior DO Unavailable Unavailable Brenna, Ayaan Yunior DO Unavailable Unavailable Brenna, Ayaan Yunior DO Unavailable Unavailable Brenna, Ayaan Yunior DO Unavailable Unavailable Brenna, Ayaan Yunior DO Unavailable Unavailable Brenna, Ayaan Yunior DO Unavailable Unavailable Kulwinder Tran MD Unavailable Unavailable Kulwinder Tran MD Unavailable Unavailable Kulwinder Tran MD Unavailable Unavailable Kulwinder Tran MD Unavailable Unavailable Kulwinder Tran MD Unavailable Unavailable Kulwinder Tran MD Unavailable Unavailable ERNESTINE ALDANA MD Unavailable Unavailable ERNESTINE ALDANA MD Unavailable Unavailable ERNESTINE ALDANA MD Unavailable Unavailable ERNESTINE ALDANA MD Unavailable Unavailable ERNESTINE ALDANA MD Unavailable Unavailable ERNESTINE ALDANA MD Unavailable Unavailable Billie GUERRIER MD Unavailable Unavailable CHEY, P SHAWN CRUZ Unavailable Unavailable CHEY, P SHAWN CRUZ Unavailable Unavailable CHEY, P SHAWN CRUZ Unavailable Unavailable CHEY, P SHAWN CRUZ Unavailable Unavailable CHEY, P SHAWN CRUZ Unavailable Unavailable CHEY, P SHAWN CRUZ Unavailable Unavailable CHEY P SHAWN CRUZ Unavailable Unavailable CHEYBillie MENARD MD Unavailable Unavailable CHEYBillie MENARD MD Unavailable Unavailable CHEYBillie UMANA MD Unavailable Unavailable CHEY P SHAWN CRUZ Unavailable Unavailable Billie GUERRIER MD Unavailable Unavailable CHEYBillie MENARD MD Unavailable Unavailable CHEY, P SHAWN CRUZ Unavailable Unavailable CHEY, P SHAWN CRUZ Unavailable Unavailable CHEY, P SHAWN CRUZ Unavailable Unavailable Billie GUERRIER MD Unavailable Unavailable CHEYBillie MENARD MD Unavailable Unavailable RHEA JOHN MD Unavailable Unavailable RHEA JOHN MD Unavailable Unavailable RHEA JOHN MD Unavailable Unavailable RHEA JOHN MD Unavailable Unavailable RHEA JOHN MD Unavailable Unavailable RHEA JOHN MD Unavailable Unavailable RHEA JOHN MD Unavailable Unavailable RHEA JOHN MD Unavailable Unavailable RHEA JOHN MD Unavailable Unavailable RHEA JOHN MD Unavailable Unavailable RHEA JOHN MD Unavailable Unavailable RHEA JOHN MD Unavailable Unavailable RHEA JOHN MD Unavailable Unavailable RHEA JOHN MD Unavailable Unavailable RHEA JOHN MD Unavailable Unavailable RHEA JOHN MD Unavailable Unavailable RHEA JOHN MD Unavailable Unavailable RHEA JOHN MD Unavailable Unavailable RHEA JOHN MD Unavailable Unavailable RHEA JOHN MD Unavailable Unavailable RHEA JOHN MD Unavailable Unavailable Re-disclosure Warning The records that you are about to access may contain information from federally-assisted alcohol or drug abuse programs. If such information is present, then the following federally mandated warning applies: This information has been disclosed to you from records protected by federal confidentiality rules (42 CFR part 2). The federal rules prohibit you from making any further disclosure of this information unless further disclosure is expressly permitted by the written consent of the person to whom it pertains or as otherwise permitted by 42 CFR part 2. A general authorization for the release of medical or other information is NOT sufficient for this purpose. The Federal rules restrict any use of the information to criminally investigate or prosecute any alcohol or drug abuse patient.The records that you are about to access may contain highly sensitive health information, the redisclosure of which is protected by Article 27-F of the [facility] Public Health law. If you continue you may have access to information: Regarding HIV / AIDS; Provided by facilities licensed or operated by the [facility] Office of Mental Health; or Provided by the [facility] Office for People With Developmental Disabilities. If such information is present, then the following [facility] mandated warning applies: This information has been disclosed to you from confidential records which are protected by state law. State law prohibits you from making any further disclosure of this information without the specific written consent of the person to whom it pertains, or as otherwise permitted by law. Any unauthorized further disclosure in violation of state law may result in a fine or long term sentence or both. A general authorization for the release of medical or other information is NOT sufficient authorization for further disc losure. Allergies and Adverse Reactions Type Description Substance Reaction Status Data Source(s ) aspirin Aspirin Aspirin dizzy/nausea and Active eCW1 ([facility]) Drug allergy Bactrim sulfamethoxazole / trimethoprim unknown reaction as a small child Active eCW1 ([facility]) Encounters Encounter Providers Location Date Indications Data Source(s ) Outpatient Attender: REX AGUDELO MD [id number] 09:18:39 AM EST [facility] Outpatient Attender: REX AGUDELO MD [id number] 12/21/2019 05:11:41 AM EST [facility] Outpatient Attender: REX AGUDELO MD [id number] 11/25/2019 04:59:47 AM EST [facility] Outpatient Attender: REX AGUDELO MD [id number] 11/20/2019 04:38:04 AM EST [facility] Outpatient Attender: Tylor Rome MD [facility] [place] 09/09/2020 11:30:00 AM EDT [facility] [address], [facility] [address] 09/08/2020 12:00:00 AM EDT eCW1 ([facility]) Outpatient Attender: Shabbir Forrester MD CMP Internal Med a [facility] [place] 08/25/2020 12:20:00 PM EDT [facility]) Outpatient Attender: Tylor Rome MD [facility] [place] 07/09/2020 03:41:00 AM EDT [facility] ([facility]) Outpatient Attender: Chucky Low MD [facility] [place] 07/08/2020 06:30:00 AM EDT [facility]) Outpatient Attender: Chucky Low MD [facility] [place] 07/07/2020 03:15:00 AM EDT [facility]) Outpatient Attender: Tylor Rome MD [facility] [place] 07/07/2020 03:15:00 AM EDT [facility]) Outpatient Attender: Chucky Low MD [facility] [place] 07/06/2020 03:16:00 AM EDT [facility]) Outpatient Attender: Tylor Rome MD [facility] [place] 07/05/2020 08:42:00 AM EDT [facility]) Outpatient Attender: DARBY AYALA PA-C [facility] [place] 07/05/2020 03:12:00 AM EDT [facility]) Outpatient Attender: DARBY AYALA PA-C [facility] [place] 07/04/2020 03:39:00 AM EDT [facility]) Outpatient Attender: Vonda Eason PA-C [facility] [place] 07/03/2020 03:49:00 AM EDT [facility]) Outpatient Attender: Vonda Eason PA-C [facility] [place] 07/02/2020 03:44:00 AM EDT [facility]) Outpatient Attender: Vonda Eason PA-C [facility]MP [facility] [place] 07/01/2020 03:03:00 AM EDT [facility] ([facility]) Outpatient Attender: DARBY AYALA PA-C [facility] [place] 06/30/2020 03:29:00 AM EDT [facility]) Outpatient Attender: DARBY AYALA PA-C [facility] [place] 06/29/2020 03:28:00 AM EDT [facility]) Outpatient Attender: Chucky Low MD [facility]MP [facility] at [place] 06/28/2020 03:03:00 AM EDT [facility]) Outpatient Attender: RICCARDO BARRY [facility] [place] 06/27/2020 03:18:00 AM EDT [facility]) Outpatient Attender: Carlos BARRY [facility] [place] 06/26/2020 05:31:00 AM EDT [facility]) Outpatient Attender: Vonda Eason PA-C [facility]MP [facility] [place] 06/25/2020 03:31:00 AM EDT [facility]) Outpatient Attender: RICCARDO BARRY CMP Internal Med at [place] 06/24/2020 03:09:00 AM EDT [facility]) Outpatient Attender: DARBY AYLAA PA-C [facility] [place] 06/23/2020 03:17:00 AM EDT [facility]) Outpatient Attender: DARBY AYALA PA-C [facility] [place] 06/22/2020 03:07:00 AM EDT [facility]) Outpatient Attender: Chucky Low MD CMP Internal [facility] at [place] 06/21/2020 03:04:00 AM EDT [facility]) Outpatient Attender: RICCARDO BARRY CMP [facility] [place] 06/20/2020 03:19:00 AM EDT [facility]) Outpatient Attender: Ned Crane CMP Internal Med a [facility] [place] 06/19/2020 03:55:00 AM EDT [facility]) Outpatient Attender: Ned Crane CMP Internal Med a [facility] [place] 06/18/2020 03:44:00 AM EDT [facility]) Outpatient Attender: Vonda Eason PA-C [facility]MP Internal [facility] [place] 06/17/2020 03:23:00 AM EDT [facility]) Outpatient Attender: DARBY AYALA PA-C [facility] [place] 06/16/2020 03:28:00 AM EDT [facility] [place] [facility] Attender: EFRAÍN LIANGAttender: SAVANNA LEE MDAttender: Michael Montoya MDAdmitter: Yunior Ceja DOConsultant: JOY MORLEY 06/15/2020 08:04:00 AM EDT [facility] Inpatient Attender: JAJA Coronel reese: SAVANNA LEE MDAttender: Michael Montoya MDAttender: RHEA JOHN MDAttender: SHAWN GUERRIER MDAttender: Kulwinder Tran MDAttender: Yunior Ceja DOAttender: Chato FENTON MDAttender: ER PHYSICIAN 06/15/2020 08:04:00 AM EDT [facility] Outpatient Attender: DARBY AYALA PA-C [facility] [place] 06/15/2020 03:21:00 AM EDT [facility]) Outpatient Attender: JAMI CRANE MD [facility]MP [facility] at [place] 06/14/2020 03:46:00 AM EDT [facility]) Inpatient Attender: JAJA LIANG MD Attender: SAVANNA LEE MDAttender: Michael Montoya MDAttender: RHEA ALVARO MDAttender: SHAWN CHEY MDAttender: Afeefa Shahnawaz MDAttender: ARTURO OQUENDO PAAttender: Yunior Ceja DOAttender: ERNESTINE ALDANA MDAttender: ER PHYSICIANAdmitter: Yunior Ceja DO 06/13/2020 05:11:30 PM EDT [facility] Inpatient Attender: JAJA Coronel reese: SAVANNA LEE MDAttender: Michael Montoya MDAttender: RHEA ALVARO MDAttender: SHAWN CHEY MDAttender: Afeefa Shahnawaz MDAttender: Chato FENTON MDAttender: Yunior Ceja DOAttender: ERNESTINE ALDANA MDAttender: ER PHYSICIANAdmitter: Yunior Ceja DO 06/13/2020 04:05:00 PM EDT - 07/09/2020 11:28:00 AM EDT [facility] Patient discharged. Outpatient Attender: Vonda Eason PA-C CMP Internal Med a [facility] [place] 06/13/2020 03:43:00 AM EDT [facility]) [place] [address] [facility] [address] 06/10/2020 12:00:00 AM EDT [facility] [place] [address] [facility] [address] 06/09/2020 12:00:00 AM EDT [facility] [address] [facility] [address] 03/18/2020 12:00:00 AM EDT [facility] [place] [address] [facility] [address] 03/13/2020 12:00:00 AM EDT eCW1 ([facility]) [facility] [place] [address] [facility] [address] 03/10/2020 12:00:00 AM EDT eCW1 ([facility]) [facility] [place] [address] [facility] [address] 11/26/2019 12:00:00 AM EST eCW1 ([facility]) Medications Medication Brand Name Start Date Product Form Dose Route Admi nistrative Instructions Pharmacy Instructions Status Indications Reaction Description Data Source(s) 0.01 % 05/19/2020 12:00:00 AM EDT drops 7 INSTILL ONE DROP IN EACH EYE AT BEDTIME INSTILL ONE DROP IN EACH EYE AT BEDTIME SOLD: 05/21/2020 [facility] 0.01 % 08/14/2019 12:00:00 AM EDT drops 7 INSTILL 1 DROP IN EACH EYE AT BEDTIME INSTILL 1 DROP IN EACH EYE AT BEDTIME SOLD: 03/13/2020 [facility] 0.01 % 08/14/2019 12:00:00 AM EDT drops 7 INSTILL 1 DROP IN EACH EYE AT BEDTIME INSTILL 1 DROP IN EACH EYE AT BEDTIME SOLD: 12/23/2019 [facility] Insurance Providers Payer name Policy type / Coverage type Policy ID Covered constitution party ID Covered constitution party's relationship to martínez Policy Martínez Plan Information MEDICARE [id number] SP [id number] U24 AAR HEALTH CARE OPTIONS [id number] SP [id number] SELF PAY AARP O [id number] S [id number] MEDICARE C [id number] S [id number] U24 Aarp Secondary [id number] Medicare Primary [id number] U24 AAR U [id number] Self [id number] MEDICARE A [id number] Self [id number] U24 AAR HEA [id number] S [id number] MEDICARE MCA [id number] S [id number] U24 MEDICARE MCA [id number] S [id number] U24 ANSI-Medicare Part B [id number] ANSI-Commercial [id number] ANSI-Commercial [id number] ANSI-Medicare Part B [id number] MEDICARE [id number] SP [id number] ANSI-Medicare Part B [id number] ANSI-Commercial [id number] ANSI-Medicare Part B [id number] ANSI-Commercial [id number] ANSI-Commercial [id number] ANSI-Medicare Part B [id number] Problems, Conditions, and Diagnoses Code Display Name Description Problem Type Effective Dates Data Source(s) 115474835 Chronic diastolic heart failure Chronic diastoli c heart failure Problem 09/09/2020 12:00:00 AM EDT [facility] ([facility]) [id number] Cardiac arrest Cardiac arrest Problem 09/09/2020 12:00: 00 AM EDT [facility] ([facility]) [id number] Essential hypertension Essential hypertension Problem 08/25/2020 12:00:00 AM EDT [facility] ([facility]) E95069 {At Risk for Deliberate Self Harm (Restr aint Risk)} {At Risk for Deliberate Self Harm (Restraint Risk)} Status:Resolved. Problem 07/01/2020 12:00:00 AM EDT [facility] D61.818 Other pancytopenia Other pancytopenia Diagnosis 02/2020 12:00:00 AM EDT [facility] Surgeries/Procedures Procedure Description Date Indications Data Source(s) Electrocardiogram Interpretation & Report Only 020 12:00:00 AM EDT [facility] ([facility]) Electrocardiogram Interpretation & Report Only 020 12:00:00 AM EDT [facility] ([facility]) Echocardiography, Tranthoracic Real-Time Image Documentation 06/29/2020 12:00:00 AM EDT [facility] EEG Phys/QHP Ea Incr>12HR<26HR After 24HR W/Veeg 06/29 12:00:00 AM EDT [facility] ([facility]) EEG Phys/QHP Ea Incr>12HR<26HR After 24HR W/Veeg 06/28 12:00:00 AM EDT [facility] ([facility]) EEG Phys/QHP Ea Incr>12HR<26HR After 24HR W/Veeg 06/18 12:00:00 AM EDT [facility] ([facility]) EEG Phys/QHP Ea Incr>12HR<26HR After 24HR W/Veeg 06/17 12:00:00 AM EDT [facility] ([facility]) EEG Phys/QHP Ea Incr>12HR<26HR After 24HR W/Veeg 06/16 12:00:00 AM EDT [facility] ([facility]) Electrocardiogram Interpretation & Report Only 020 12:00:00 AM EDT [facility] ([facility]) PHYSICIAN TELEPHONE EVALUATION 21-30 MIN 03/10/2020 12 :00:00 AM EDT eCW1 ([facility]) Results ID Date Data Source [id number] 12/15/2020 09:36:00 AM EST [facility] Name Value Range Interpretation Code Description Data Trish rce(s) Supporting Document(s) SARS coronavirus 2 RNA [Presence] in Res piratory specimen by TOPHER with probe detection NEGATIVE [facility] This lab was ordered by [facility] a nd reported by [facility]. ID Date Data Source [id number] 12/08/2020 08:23:00 AM EST [facility] Name Value Range Interpretation Code Description Data Trish rce(s) Supporting Document(s) SARS coronavirus 2 RNA [Presence] in Res piratory specimen by TOPHER with probe detection POSITIVE [facility] This lab was ordered by [facility] a nd reported by [facility]. ID Date Data Source [id number] 12/01/2020 09:57:00 AM EST [facility] Name Value Range Interpretation Code Description Data Trish rce(s) Supporting Document(s) SARS coronavirus 2 RNA [Presence] in Res piratory specimen by TPOHER with probe detection POSITIVE [facility] This lab was ordered by [facility] a nd reported by [facility]. ID Date Data Source [id number] 11/24/2020 10:24:00 AM EST [facility] Name Value Range Interpretation Code Description Data Trish rce(s) Supporting Document(s) SARS coronavirus 2 RNA [Presence] in Res piratory specimen by TOPHER with probe detection [facility] This lab was ordered by [facility] a nd reported by [facility]. ID Date Data Source [id number] 11/17/2020 12:20:00 PM EST [facility] Name Value Range Interpretation Code Description Data Trish rce(s) Supporting Document(s) SARS coronavirus 2 RNA [Presence] in Res piratory specimen by TOPHER with probe detection [facility] This lab was ordered by [facility] a nd reported by [facility]. ID Date Data Source [id number] 11/05/2020 09:00:00 AM EST [facility] Name Value Range Interpretation Code Description Data Trish rce(s) Supporting Document(s) SARS coronavirus 2 RNA [facility] This lab was ordered by [facility] and reported by [facility]. ID Date Data Source [id number] 11/04/2020 04:02:21 PM EST [facility] Name Value Range Interpretation Code Description Data Trish rce(s) Supporting Document(s) *No Show Note OREN v1 [facility] [id number]jIYm6MV4PY9WwLBavwiCbHCRupsOxR3QxRHOmENKRBJlxSXMm 8PA [file] Ps3FoLyuHMH1XTcnZM9kezJtGbMyDBKLDq8+SViOEsY7SRL9rYGoCr3WLaS8CFQWWkKoGF4UGBr= ID Date Data Source [id number] 11/01/2020 02:04:00 PM EST [facility] Name Value Range Interpretation Code Description Data Trish rce(s) Supporting Document(s) SARS coronavirus 2 RNA [facility] This lab was ordered by [facility] and reported by [facility]. ID Date Data Source [id number] 10/14/2020 12:00:00 PM EST [facility] Name Value Range Interpretation Code Description Data Trish rce(s) Supporting Document(s) SARS coronavirus 2 RNA [facility] This lab was ordered by [facility] and reported by [facility]. ID Date Data Source [id number] 10/08/2020 09:00:00 AM EST [facility] Name Value Range Interpretation Code Description Data Trish rce(s) Supporting Document(s) SARS coronavirus 2 RNA [facility] This lab was ordered by [facility] and reported by [facility]. ID Date Data Source [id number] 10/01/2020 12:25:00 PM EST [facility] Name Value Range Interpretation Code Description Data Trish rce(s) Supporting Document(s) SARS coronavirus 2 RNA [facility] This lab was ordered by [facility] and reported by [facility]. ID Date Data Source [id number] 09/25/2020 12:29:09 PM EST [facility] Name Value Range Interpretation Code Description Data Trish rce(s) Supporting Document(s) *No Show Note [facility] v[facility] PEIKMr2eRmKVKhXdr2nqYFruHZUuw8FwSZs1FL5DO3Pzux1Ce7NgGGEqUIHZBOfkDVsrBCBzU7A2XEcr 1dH [file] Urology Teacher/NCbQ5lMyh4wcRionjp2eqz5rBhtE5vPfe6RlTSk6XNASFGOZQDghnefEz7+Dc29g1hYayoYIC40Y9 [file] DQo= ID Date Data Source [id number] 07/09/2020 08:34:50 AM EDT [facility] Name Value Range Interpretation Code Description Data Trish rce(s) Supporting Document(s) WBC 3.7 10*3/uL (4.1-11.0) [facility] [place] RBC 2.93 10*6/uL (4.00-5.40) [facility] HGB 8.8 g/dL (12.0-16.0) [facility] HCT 26.9 % (36.0-47.0) [facility] MCV 91.9 fL (80.0-95.0) [facility] MCH 30.1 pg (27.0-32.0) [facility] MCHC 32.7 g/dL (32.0-36.0) [facility] RDW 19.1 % (10.5-14.5) [facility] PLT 36 10*3/uL (150-450) [facility] PLATELET COUNT VERIFIED BY TECH MPV 9.4 fL (7.1-10.7) [facility] NEUT % 78.0 % (35.0-75.0) [facility] BAND % 2.0 % (0.0-11.0) [facility] LYMPH % 15.0 % (16.0-52.0) [facility] MONO % 3.0 % (0.0-8.0) [facility] META % 2.0 % (0.0) [facility] NEUT # 2.9 10*3/uL (1.8-7.7) [facility] BAND # 0.1 10*3/uL [facility] LYMPH # 0.6 10*3/uL (1.2-4.8) [facility] MONO # 0.1 10*3/uL (0.0-0.8) [facility] META # 0.1 10*3/uL (0.0) [facility] TOXIC 1+ [facility] ANISO 2+ [facility] POIK 1+ [facility] POLY 1+ [facility] BASO STIP 1+ [facility] OVALO 1+ [facility] ACANTHO 1+ [facility] JACQUIE 1+ [facility] ID Date Data Source [id number] 07/08/2020 07:21:57 AM EDT [facility] Name Value Range Interpretation Code Description Data Trish rce(s) Supporting Document(s) WBC 4.1 10*3/uL (4.1-11.0) [facility] [place] RBC 2.92 10*6/uL (4.00-5.40) [facility] HGB 9.0 g/dL (12.0-16.0) [facility] HCT 27.1 % (36.0-47.0) [facility] MCV 92.8 fL (80.0-95.0) [facility] MCH 30.8 pg (27.0-32.0) [facility] MCHC 33.2 g/dL (32.0-36.0) [facility] RDW 18.3 % (10.5-14.5) [facility] PLT 32 10*3/uL (150-450) [facility] PLATELET COUNT VERIFIED BY TECH MPV 9.6 fL (7.1-10.7) [facility] NEUT % 81.2 % (35.0-75.0) [facility] LYMPH % 13.4 % (16.0-52.0) [facility] MONO % 4.7 % (0.0-8.0) [facility] EOS % 0.3 % (0.0-5.0) [facility] BASO % 0.4 % (0.0-4.0) [facility] NEUT # 3.3 10*3/uL (1.8-7.7) [facility] LYMPH # 0.5 10*3/uL (1.2-4.8) [facility] MONO # 0.2 10*3/uL (0.0-0.8) [facility] Eosinophils [#/volume] in Blood by Automated count 0.0 10*3/uL (0.0-0 .5) [facility] BASO # 0.0 10*3/uL (0.0-0.2) [facility] ID Date Data Source [id number] 07/08/2020 06:38:38 AM EDT [facility] Name Value Range Interpretation Code Description Data Trish rce(s) Supporting Document(s) PHOSPHORUS 1.6 mg/dL (2.5-4.5) L [facility] ID Date Data Source [id number] 07/08/2020 06:38:38 AM EDT [facility] Name Value Range Interpretation Code Description Data Trish rce(s) Supporting Document(s) MAGNESIUM 1.6 mg/dL (1.7-2.4) L [facility] ID Date Data Source [id number] 07/08/2020 06:38:38 AM EDT [facility] Name Value Range Interpretation Code Description Data Trish rce(s) Supporting Document(s) SODIUM 142 mmol/L (136-145) [facility] POTASSIUM 3.6 mmol/L (3.6-5.2) [facility] CHLORIDE 100 mmol/L (100-108) [facility] CO2 39 mmol/L (22-31) H [facility] ANION GAP 3 mmol/L (7-16) L [facility] UREA NITROGEN 22 mg/dL (7-24) [facility] CREATININE 0.67 mg/dL (0.60-1.00) [facility] BUN/CREAT RATIO 32.8 RATIO (10.0-20.0) H [facility] GLUCOSE 131 mg/dL (70-99) H [facility] CALCIUM 7.8 mg/dL (8.4-10.2) L [facility] GFR >60 ml/min/1.73m2 (>59) [facility] GFR ( AMER) >60 ml/min/1.73m2 (>59) [facility] GFR INTERPRETATION [facility] --NORMAL KIDNEY FUNCTION OR MILD DISEASE - GFR >OR= 60CHRONIC KIDNEY DISEASE - GFR 15 - 59RENAL FAILURE - GFR <15 Est. GFR calculation based on the MDRDstudy equation, which assumes a steadystate for creatinine. Est. GFR should notbe used for medication dosing. ID Date Data Source [id number] 07/07/2020 10:16:00 PM EDT [facility] DATE OF EXAM: 07/07/2020Venous Doppler l eft arm INDICATION: SWELLING TECHNIQUE: Grayscale and Doppler ultrasound evaluation of the left upper extremity Compression performed at assessable stations. COMPARISON: None. FINDINGS: There is normal compression where applicable. Normal Doppler waveforms of the deep veins of the upper extremity from antecubital through subclavian veins. The internal jugular and cephalic veins are unremarkable. Radial and ulnar veins are patent. No filling defect is noted. IMPRESSION: No evidence for deep venous thrombosis of the left upper extremity. Professional interpretation performed at [facility] .End of diagnostic report for accession: [id number] Interpreted: Gabbie Enciso MDTranscribed: 07/07/2020 10:15 PMSigned: 07/07/2020 10:16 PM Gabbie Enciso MD [facility] ACC # [id number] BILL # [id number] Name Value Range Interpretation Code Description Data Trish rce(s) Supporting Document(s) ID Date Data Source [id number] 07/11/2020 02:12:34 AM EDT [facility] Name Value Range Interpretation Code Description Data Trish rce(s) Supporting Document(s) [id number] ACTIVITY 49 L [facility] Reference range: >=61Unit: % INTERPRETIV E INFORMATION: [id number] Activity PEKIAN39 levels of less than 10 percent may be associated with either inherited (Ann-Tova 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 A variety of medical conditions may result in a mild to moderate deficiency of AZZVKF63 activity. Recent plasma exchange therapy may raise the observed JEADVH46 activity. Test developed and characteristics determined by [facility]. See Compliance Statement D: [facility]/CS Performed by [facility], [address] [place] [id number] [email or web address], Rcihard River MD, Lab. Director ID Date Data Source [id number] 07/07/2020 03:02:15 PM EDT [facility] Name Value Range Interpretation Code Description Data Trish rce(s) Supporting Document(s) SODIUM 140 mmol/L (136-145) [facility] POTASSIUM 4.2 mmol/L (3.6-5.2) [facility] CHLORIDE 100 mmol/L (100-108) [facility] CO2 38 mmol/L (22-31) H [facility] ANION GAP 2 mmol/L (7-16) L [facility] UREA NITROGEN 20 mg/dL (7-24) [facility] CREATININE 0.83 mg/dL (0.60-1.00) [facility] BUN/CREAT RATIO 24.1 RATIO (10.0-20.0) H [facility] GLUCOSE 183 mg/dL (70-99) H [facility] CALCIUM 7.6 mg/dL (8.4-10.2) L [facility] GFR >60 ml/min/1.73m2 (>59) [facility] GFR ( AMER) >60 ml/min/1.73m2 (>59) [facility] GFR INTERPRETATION [facility] --NORMAL KIDNEY FUNCTION OR MILD DISEASE - GFR >OR= 60CHRONIC KIDNEY DISEASE - GFR 15 - 59RENAL FAILURE - GFR <15 Est. GFR calculation based on the MDRDstudy equation, which assumes a steadystate for creatinine. Est. GFR should notbe used for medication dosing. ID Date Data Source [id number] 07/07/2020 08:16:18 AM EDT [facility] Name Value Range Interpretation Code Description Data Trish rce(s) Supporting Document(s) POC GLUCOSE 142 mg/dL (70-99) H [facility] PERFORMED BY CLINICAL STAFF ID Date Data Source [id number] 07/07/2020 10:17:40 AM EDT [facility] Name Value Range Interpretation Code Description Data Trish rce(s) Supporting Document(s) HAPTOGLOBIN @ 9 mg/dL (30-200) L [facility] ID Date Data Source [id number] 07/07/2020 07:52:49 AM EDT [facility] Name Value Range Interpretation Code Description Data Trish rce(s) Supporting Document(s) WBC 5.5 10*3/uL (4.1-11.0) [facility] AYALA ADJUSTED FOR NUCLEATED RBC'SCorrected on 07/07 AT 0752: Previously reported as 5.6 RBC 3.18 10*6/uL (4.00-5.40) L [facility] HGB 9.7 g/dL (12.0-16.0) L [facility] HCT 29.2 % (36.0-47.0) L [facility] MCV 91.7 fL (80.0-95.0) [facility] MCH 30.4 pg (27.0-32.0) [facility] MCHC 33.1 g/dL (32.0-36.0) [facility] RDW 18.2 % (10.5-14.5) H [facility] PLT 39 10*3/uL (150-450) L [facility] PLATELET COUNT VERIFIED BY TECH MPV 9.0 fL (7.1-10.7) [facility] NEUT % 76.0 % (35.0-75.0) H [facility] BAND % 7.0 % (0.0-11.0) [facility] LYMPH % 7.0 % (16.0-52.0) L [facility] MONO % 5.0 % (0.0-8.0) [facility] META % 3.0 % (0.0) H [facility] MYELO % 2.0 % (0.0) H [facility] NRBC 2.0 /100 WBC (0.0) H [facility] [place] NEUT # 4.2 10*3/uL (1.8-7.7) [facility] BAND # 0.4 10*3/uL [facility] LYMPH # 0.4 10*3/uL (1.2-4.8) L [facility] MONO # 0.3 10*3/uL (0.0-0.8) [facility] META # 0.2 10*3/uL (0.0) H [facility] MYELO # 0.1 10*3/uL (0.0) H [facility] TOXIC 1+ [facility] VACUOLES 1+ [facility] ANISO 2+ [facility] POIK 1+ [facility] POLY 2+ [facility] BASO STIP 1+ [facility] OVALO 1+ [facility] ACANTHO 1+ [facility] JACQUIE 1+ [facility] LARGE PLT 1+ [facility] ID Date Data Source [id number] 07/07/2020 06:58:12 AM EDT [facility] Name Value Range Interpretation Code Description Data Trish rce(s) Supporting Document(s) MAGNESIUM 1.6 mg/dL (1.7-2.4) L [facility] ID Date Data Source [id number] 07/07/2020 06:58:12 AM EDT [facility] Name Value Range Interpretation Code Description Data Trish rce(s) Supporting Document(s) LDH 602 U/L (84-246) H [facility] ID Date Data Source [id number] 07/07/2020 06:58:12 AM EDT [facility] Name Value Range Interpretation Code Description Data Trish rce(s) Supporting Document(s) SODIUM 141 mmol/L (136-145) [facility] POTASSIUM 2.9 mmol/L (3.6-5.2) LL [facility] RES[facility](S[facility] 07/07/2020 [place]663 [place] [id number] CHLORIDE 97 mmol/L (100-108) L [facility] CO2 40 mmol/L (22-31) H [facility] ANION GAP 4 mmol/L (7-16) L [facility] UREA NITROGEN 20 mg/dL (7-24) [facility] CREATININE 0.80 mg/dL (0.60-1.00) [facility] BUN/CREAT RATIO 25.0 RATIO (10.0-20.0) H [facility] GLUCOSE 164 mg/dL (70-99) H [facility] CALCIUM 7.7 mg/dL (8.4-10.2) L [facility] TOTAL PROTEIN 4.9 g/dL (6.4-8.2) L [facility] ALBUMIN 2.3 g/dL (3.2-4.5) L [facility] GLOBULIN 2.6 g/dL (2.7-4.3) L [facility] ALB/GLOB RATIO 0.9 RATIO [facility] ALKALINE PHOSPHATASE 76 U/L (45-117) [facility] BILIRUBIN,TOTAL 1.7 mg/dL (0.0-1.0) H [facility] PLEASE NOTE:Total bilirubin results may be falselyelevated in patients taking Eltrombopag. AST (SGOT) 105 U/L (11-39) H [facility] ALT (SGPT) 77 U/L (12-78) [facility] GFR >60 ml/min/1.73m2 (>59) [facility] GFR ( AMER) >60 ml/min/1.73m2 (>59) [facility] GFR INTERPRETATION [facility] --NORMAL KIDNEY FUNCTION OR MILD DISEASE - GFR >OR= 60CHRONIC KIDNEY DISEASE - GFR 15 - 59RENAL FAILURE - GFR <15 Est. GFR calculation based on the MDRDstudy equation, which assumes a steadystate for creatinine. Est. GFR should notbe used for medication dosing. ID Date Data Source [id number] 07/06/2020 08:30:00 PM EDT [facility] DATE OF EXAM: 07/06/2020EXAM: Chest 1V I NDICATION: SOB TECHNIQUE: Single AP view of the chest was obtained. COMPARISON: Chest x-ray dated 07/04/2020. FINDINGS: Multiple overlying chest leads are present. There is an unchanged right subclavian PICC with the distal tip terminating at the cavoatrial junction. Cardiac silhouette is unchanged. There is aortic atherosclerosis. There are small bilateral pleural effusions layering posteriorly bibasilar atelectasis and/or pneumonia. There is central vascular congestion and mild pulmonary edema. Findings have not substantially changed. The bones are demineralized. IMPRESSION: No significant change. Bilateral pleural effusions, bibasilar airspace disease, and mild edema. Professional interpretation performed at [facility] .End of diagnostic report for accession: [id number] Interpreted: Gabbie Enciso MDTranscribed: 07/06/2020 08:29 PMSigned: 07/06/2020 08:30 PM Gabbie Enciso MD [facility] # [id number] [facility] # [id number] Name Value Range Interpretation Code Description Data Trish rce(s) Supporting Document(s) ID Date Data Source [id number] 07/06/2020 08:53:05 PM EDT [facility] Name Value Range Interpretation Code Description Data Trish rce(s) Supporting Document(s) WBC 6.2 10*3/uL (4.1-11.0) [facility] [place] RBC 3.27 10*6/uL (4.00-5.40) L [facility] HGB 9.9 g/dL (12.0-16.0) L [facility] HCT 30.1 % (36.0-47.0) L [facility] MCV 92.0 fL (80.0-95.0) [facility] MCH 30.2 pg (27.0-32.0) [facility] MCHC 32.8 g/dL (32.0-36.0) [facility] RDW 19.1 % (10.5-14.5) H [facility] PLT 41 10*3/uL (150-450) L [facility] PLATELET COUNT VERIFIED BY TECH MPV 8.8 fL (7.1-10.7) [facility] ID Date Data Source [id number] 07/06/2020 08:46:54 PM EDT [facility] Name Value Range Interpretation Code Description Data Trish rce(s) Supporting Document(s) MAGNESIUM 1.3 mg/dL (1.7-2.4) L [facility] ID Date Data Source [id number] 07/06/2020 08:46:54 PM EDT [facility] Name Value Range Interpretation Code Description Data Trish rce(s) Supporting Document(s) TROPONIN I 0.08 ng/mL (<0.05) H [facility] Less than 0.05: Myocardial injury unlike lyGreater than or equal to 0.05: Highly suggestive of myocardial injuryCorrelation with rise and/or fall ofserial troponins, clinical symptomsand ECG changes is necessary. ID Date Data Source [id number] 07/06/2020 08:46:54 PM EDT [facility] Name Value Range Interpretation Code Description Data Trish rce(s) Supporting Document(s) SODIUM 142 mmol/L (136-145) [facility] POTASSIUM 3.7 mmol/L (3.6-5.2) [facility] CHLORIDE 103 mmol/L (100-108) [facility] CO2 33 mmol/L (22-31) H [facility] ANION GAP 6 mmol/L (7-16) L [facility] UREA NITROGEN 23 mg/dL (7-24) [facility] CREATININE 0.87 mg/dL (0.60-1.00) [facility] BUN/CREAT RATIO 26.4 RATIO (10.0-20.0) H [facility] GLUCOSE 172 mg/dL (70-99) H [facility] CALCIUM 7.8 mg/dL (8.4-10.2) L [facility] TOTAL PROTEIN 5.2 g/dL (6.4-8.2) L [facility] ALBUMIN 2.4 g/dL (3.2-4.5) L [facility] GLOBULIN 2.8 g/dL (2.7-4.3) [facility] ALB/GLOB RATIO 0.9 RATIO [facility] ALKALINE PHOSPHATASE 81 U/L (45-117) [facility] BILIRUBIN,TOTAL 1.5 mg/dL (0.0-1.0) H [facility] PLEASE NOTE:Total bilirubin results may be falselyelevated in patients taking Eltrombopag. AST (SGOT) 108 U/L (11-39) H [facility] ALT (SGPT) 78 U/L (12-78) [facility] GFR >60 ml/min/1.73m2 (>59) [facility] GFR ( AMER) >60 ml/min/1.73m2 (>59) [facility] GFR INTERPRETATION [facility] --NORMAL KIDNEY FUNCTION OR MILD DISEASE - GFR >OR= 60CHRONIC KIDNEY DISEASE - GFR 15 - 59RENAL FAILURE - GFR <15 Est. GFR calculation based on the MDRDstudy equation, which assumes a steadystate for creatinine. Est. GFR should notbe used for medication dosing. ID Date Data Source [id number] 07/06/2020 07:07:35 PM EDT [facility] Name Value Range Interpretation Code Description Data Trish rce(s) Supporting Document(s) POC GLUCOSE 174 mg/dL (70-99) H [facility] [place] PERFORMED BY CLINICAL STAFF ID Date Data Source [id number] 07/06/2020 05:15:58 PM EDT [facility] Name Value Range Interpretation Code Description Data Trish rce(s) Supporting Document(s) FIBRINOGEN 437 mg/dL (150-450) Lab [facility] ID Date Data Source [id number] 07/06/2020 08:20:00 AM EDT [facility] Name Value Range Interpretation Code Description Data Trish rce(s) Supporting Document(s) SARS coronavirus 2 RNA [Presence] in Res piratory specimen by TOPHER with probe detection Lab [facility] This lab was reported by [facility]. ID Date Data Source [id number] 07/06/2020 11:08:02 AM EDT [facility] Name Value Range Interpretation Code Description Data Trish rce(s) Supporting Document(s) SPECIMEN DESCRIPTION [facility] COVID19 RESULT (NDET) Lab [facility] THIS ASSAY AMPLIFIES AND DETECTSTHE TARG ET RNA USING REAL-TIME PCR.NEGATIVE 2019_NCOV RT-PCR RESULTS DONOT PRECLUDE 2019_NCOV INFECTION ANDSHOULD NOT BE USED THE SOLE BASISFOR PATIENT MANAGEMENT DECISIONS. COMMENT Lab [facility] UNDER AN EMERGENCY USE AUTHORIZATION(EUA ) FOR THE DETECTION AND/OR DIAGNOSISOF THE VIRUS THAT CAUSES COVID-19.EMAILED TO AT 11:05 ON 07/06/20 [id number]. ID Date Data Source [id number] 07/06/2020 01:35:33 PM EDT [facility] Name Value Range Interpretation Code Description Data Trish rce(s) Supporting Document(s) RETIC % 2.4 % (0.6-2.1) H [facility] PERFORMED AT [address] [place] [id number] RETIC INDEX 1.6 % (0.5-1.9) [facility] ABSOLUTE RETIC 0.07 10*6/uL (0.027-0.101) [facility] ID Date Data Source [id number] 07/06/2020 01:29:54 PM EDT [facility] Name Value Range Interpretation Code Description Data Trish rce(s) Supporting Document(s) HAPTOGLOBIN @ 19 mg/dL (30-200) L [facility] ID Date Data Source [id number] 07/06/2020 12:19:26 PM EDT [facility] Name Value Range Interpretation Code Description Data Trish rce(s) Supporting Document(s) NEUT % 84.0 % (35.0-75.0) H [facility] BAND % 8.0 % (0.0-11.0) [facility] LYMPH % 5.0 % (16.0-52.0) L [facility] MONO % 2.0 % (0.0-8.0) [facility] META % 1.0 % (0.0) H [facility] NEUT # 5.9 10*3/uL (1.8-7.7) [facility] BAND # 0.6 10*3/uL [facility] LYMPH # 0.4 10*3/uL (1.2-4.8) L [facility] MONO # 0.1 10*3/uL (0.0-0.8) [facility] META # 0.1 10*3/uL (0.0) H [facility] ANISO 1+ [facility] POIK 1+ [facility] POLY 1+ [facility] BASO STIP 1+ [facility] ACANTHO 1+ [facility] JACQUIE 1+ [facility] ID Date Data Source [id number] 07/06/2020 11:39:00 AM EDT [facility] Name Value Range Interpretation Code Description Data Trish rce(s) Supporting Document(s) LDH 560 U/L (84-246) H [facility] ID Date Data Source [id number] 07/06/2020 07:19:55 AM EDT [facility] Name Value Range Interpretation Code Description Data Trish rce(s) Supporting Document(s) WBC 7.0 10*3/uL (4.1-11.0) [facility] [place] RBC 3.07 10*6/uL (4.00-5.40) L [facility] HGB 9.2 g/dL (12.0-16.0) L [facility] HCT 28.1 % (36.0-47.0) L [facility] MCV 91.7 fL (80.0-95.0) [facility] MCH 30.1 pg (27.0-32.0) [facility] MCHC 32.8 g/dL (32.0-36.0) [facility] RDW 18.6 % (10.5-14.5) H [facility] PLT 41 10*3/uL (150-450) L [facility] PLATELET COUNT VERIFIED BY TECH MPV 8.7 fL (7.1-10.7) [facility] ID Date Data Source [id number] 07/06/2020 07:10:38 AM EDT [facility] Name Value Range Interpretation Code Description Data Trish rce(s) Supporting Document(s) SODIUM 144 mmol/L (136-145) [facility] POTASSIUM 3.1 mmol/L (3.6-5.2) L [facility] CHLORIDE 105 mmol/L (100-108) [facility] CO2 33 mmol/L (22-31) H [facility] ANION GAP 6 mmol/L (7-16) L [facility] UREA NITROGEN 25 mg/dL (7-24) H [facility] CREATININE 0.71 mg/dL (0.60-1.00) [facility] BUN/CREAT RATIO 35.2 RATIO (10.0-20.0) H [facility] GLUCOSE 153 mg/dL (70-99) H [facility] CALCIUM 7.8 mg/dL (8.4-10.2) L [facility] GFR >60 ml/min/1.73m2 (>59) [facility] GFR ( AMER) >60 ml/min/1.73m2 (>59) Lab [facility] GFR INTERPRETATION Lab [facility] --NORMAL KIDNEY FUNCTION OR MILD DISEASE - GFR >OR= 60CHRONIC KIDNEY DISEASE - GFR 15 - 59RENAL FAILURE - GFR <15 Est. GFR calculation based on the MDRDstudy equation, which assumes a steadystate for creatinine. Est. GFR should notbe used for medication dosing. ID Date Data Source [id number] 07/06/2020 09:14:00 PM EDT [facility] [id number] [place] [id number] NAME: GLENN SMYTHATE OF : 1940REPORT: DISCHARGE SUMMARYPATIENT NUMBER: [id number] STATUS: OF ADMISSION:DATE OF DISCHARGE:ROOM:ADDENDUMDISCHARGE DIAGNOSES:1. Encephalitis, type unknown at this point. No active treatment as she cannot tolerate IVIG.2. Cardiac arrest secondary to retroperitoneal bleed with pulseless electrical activity successfully resuscitated.3. CVA, right-sided.4. Status post bleeding.5. Confusion, improving.6. Partial seizure on Keppra.7. Pancytopenia, platelets worsening.I assumed care for Ms. Smyth on 07/04/2020. At that time her problems wereas follows:1. Cardiac arrest with successful resuscitation with pulseless electrical activity found to have a retroperitoneal bleed from the left iliolumbar artery, had a coiling on 06/30/2020 with 8 units of transfusion.2. She had encephalitis . I spoke with Dr. Jones. At that time, he wanted acyclovir restarted and Infectious Disease to see her again. The Infectious Disease people felt there was no need for acyclovir. At that time, Neurology decided to restart IVIG. She had a serious reaction to the first treatment the evening of the 07/04/2020 and it was stopped. This morning, she was short of breath. Her x-ray had bilateral pleural effusions. Her BNP was almost 30,000. I started her on Lasix and asked Dr. Tylor Rome to see her who agreed with the treatment and felt also she was in acute CHF. She also had a recent CVA on the most recent MRI. Because of the recent bleed, we cannot use aspirin and she is on a statin drug. As far as bleeding, it has stopped and her hematocrit is stable. As far as her confusion, her clinical status is improving. For her dysphagia, she still requires honey-thickened liquids but hopefully we can improve. As far as her pancytopenia, her platelets are getting worse and I plan to readdress that with Hematology tomorrow. I do not know why they are getting worse. She did have some hypomagnesemia which I have replaced.07/06/20Today Ms. Smyth felt a little better after diuresis. Her most active problems are1. encephalitis2. chf3. cva4. dysphagiaDICTATED BY: ARIA Armstrongictated: 07/05/2020 16:41DT: 07/05/2020 16:44Job #: [id number]:NOTE: [facility] computer generated reports are notconfirmed or authenticated unless they are signed by the providerElectronically Authenticated and Edited by:SAVANNA LEE MD On 07/06/2020 09:14 PM EDT Name Value Range Interpretation Code Description Data Trish rce(s) Supporting Document(s) ID Date Data Source [id number] 07/08/2020 08:33:00 AM EDT [facility] [address] [place], [place] [address]OPNSZSR NAME: BARBARA SMYTH OF : 1940REPORT: CONSULTATIONPATIENT NUMBER: [id number] STATUS: :CARDIOLOGY CONSULTATIONDATE OF CONSULTATION: 07/04/2020PROVIDER REQUESTING: RON Armstrong FOR CONSULTATION: Heart failure.HISTORY OF PRESENT ILLNESS: Sosa "Priscilla" is a very [id number] female who was admitted here on 06/13/2020 with altered mentalstatus after being [facility]. She has beenevaluated and followed here by Neurology for unclear etiology of heraltered mental status, but perhaps an autoimmune encephalitis. She has hadan extensive workup and has also been found to have a stroke. She had hercourse complicated by PEA cardiac arrest in the setting of acute anemiafrom a retroperitoneal bleed requiring significant blood transfusion. Itsounds like she had as many as 8 units of blood transfused. 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 I am askedto consult given a possible diagnosis of heart failure. Currently, shedenies any previous history of heart disease. She is awake and alert, bitconfused about what has been going on here at the hospital. She denies anychest pain or pressure. She is short of breath and has orthopnea. Shedenies any palpitations, lightheadedness or dizziness. She is just veryweak and fatigued. Her workup here recently demonstrated an elevatedNT-proBNP at 29,000, a troponin of 0.13 and a chest x-ray which suggeststhe presence of bilateral pleural effusions and lower lobe atelectasis. Ipresume that she is most likely volume overloaded in the setting of IVhydration and blood transfusions after her prolonged hospital stay withprofound anemia and related cardiac arrest. Her echocardiogram from06/29/2020, just less than 1 week ago, was personally reviewed. She haspreserved EF, no convincing evidence of significant diastolic dysfunctionor pulmonary hypertension.PAST MEDICAL HISTORY:1. Hypertension.2. Hyperlipidemia.3. 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 Stroke.ALLERGIES: Aspirin.HOME MEDICATIONS:1. Atorvastatin.2. Lumigan.3. Plavix 75.4. Lisinopril.CURRENT MEDICATIONS: Include;1. Lasix, which was just stared 20 mg IV twice daily.2. Pantoprazole.3. Keppra.4. Colace.5. Atorvastatin 40.6. Latanoprost eye drops.SOCIAL HISTORY: She lives with her . She is a retired legalsecretary, smoked many many years ago, no alcohol or drugs.FAMILY HISTORY: She tells me that her father had a cerebral hemorrhage. Mother of natural causes in old age.REVIEW OF SYSTEMS: Pertinent positives and negatives listed in the HPI,otherwise full 10-point review of systems was performed and found negative.PHYSICAL EXAMINATION:Temperature is 36.4, heart rate is 103, blood pressure 131/78, [id number], oxygen saturation 94 percent on 3 liters nasal cannula.General: She is awake, alert, oriented to person and place, in no acutedistress.HEENT: Mucous membranes are moist. Pharynx not erythematous. Sclerae areanicteric.Neck: There is no palpable cervical lymphadenopathy.Heart: Regular, S1, S2 slightly tachycardic, no murmur.Lungs: Clear to auscultation but diminished at the bases bilaterally withminimal crackles.Abdomen: Obese, soft, nondistended, nontender.Extremities: Warm and well-perfused. There is 1+ edema at the anklesbilaterally.Neuro: Cranial nerves are grossly intact and symmetric. Moving all fourextremities. Speech is fluent.LABORATORIES: Reviewed. Her troponin is 0.13. NT-proBNP is 29,000. Sodium 142, potassium 3.5, chloride 107, bicarbonate 29, BUN 27, creatinine0.65, glucose 144. WBC 8.8, hemoglobin 9.6, hematocrit 29, dusmifglh81,000.Her echo was personally reviewed. This demonstrates normal LV cavity, sizeand systolic function with an EF of greater than 55 percent. Normal RVsize and function. No significant valve disease. No pericardial effusionand probable normal PA pressure.Her ECG was reviewed, demonstrates sinus rhythm with low amplitude in thelimb leads.Chest x-ray demonstrates worsening bilateral effusions and bilateral lowerlobe atelectasis versus pneumonia.ASSESSMENT: Sosa Smyth is a pleasant 79-year-old with history ofhypertension, hyperlipidemia, prior stroke who comes in with altered mentalstatus, felt to have autoimmune encephalitis being treate d with steroids byNeurology. She did have an adverse response to IVIG. Her coursecomplicated by retroperitoneal bleed in the setting of thrombocytopenia. This was treated with IR-guided CT angiogram and coiling. She hadsignificant blood transfusion following this and has had some fluidresuscitation, now appears to be volume overload with pleural effusions andshortness of breath, possible diastolic heart failure, although there is nosignificant diastolic dysfunction on her echocardiogram. I think this ismore iatrogenic volume overload and acute illness volume overload, perhapswith some malnutrition and hypoalbuminemia as well.1. Acute diastolic congestive heart failure/volume overload secondary to blood transfusions and acute illness with malnutrition. I do agree with some IV diuresis 20 mg of Lasix twice daily. It sounds reasonable to start with, monitor ins and outs, electrolytes and renal function. As above, her echocardiogram does not really suggest any severe evidence of diastolic dysfunction.2. Status post PEA cardiac arrest secondary to retroperitoneal bleed treated with IR-guided embolization.3. Anemia and thrombocytopenia, being followed by Hem/Onc.4. 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 on steroids now, no IVIG.DICTATED BY: ARIA Liaoictated: 07/05/2020 12:53DT: 07/05/2020 12:58Job #: [id number]: Christa Duckworth MDNOTE: [facility] computer generated reports are notconfirmed or authenticated unless they are signed by the providerElectronically Authenticated by:TYLOR ROME MD On 07/08/2020 08:33 AM EDT Name Value Range Interpretation Code Description Data Trish rce(s) Supporting Document(s) ID Date Data Source [id number] 07/05/2020 07:20:45 AM EDT [facility] Name Value Range Interpretation Code Description Data Trish rce(s) Supporting Document(s) WBC 8.8 10*3/uL (4.1-11.0) [facility] [place] RBC 3.15 10*6/uL (4.00-5.40) L [facility] HGB 9.6 g/dL (12.0-16.0) L [facility] HCT 29.0 % (36.0-47.0) L [facility] MCV 92.0 fL (80.0-95.0) [facility] MCH 30.5 pg (27.0-32.0) [facility] MCHC 33.2 g/dL (32.0-36.0) [facility] RDW 17.9 % (10.5-14.5) H [facility] PLT 43 10*3/uL (150-450) L [facility] PLATELET COUNT VERIFIED BY TECH MPV 8.7 fL (7.1-10.7) [facility] ID Date Data Source [id number] 07/05/2020 07:19:20 AM EDT [facility] Name Value Range Interpretation Code Description Data Trish rce(s) Supporting Document(s) MAGNESIUM 1.9 mg/dL (1.7-2.4) [facility] ID Date Data Source [id number] 07/05/2020 07:19:20 AM EDT [facility] Name Value Range Interpretation Code Description Data Trish rce(s) Supporting Document(s) SODIUM 142 mmol/L (136-145) [facility] POTASSIUM 3.5 mmol/L (3.6-5.2) L [facility] CHLORIDE 107 mmol/L (100-108) [facility] CO2 29 mmol/L (22-31) [facility] ANION GAP 6 mmol/L (7-16) L [facility] UREA NITROGEN 27 mg/dL (7-24) H [facility] CREATININE 0.65 mg/dL (0.60-1.00) [facility] BUN/CREAT RATIO 41.5 RATIO (10.0-20.0) H [facility] GLUCOSE 144 mg/dL (70-99) H [facility] CALCIUM 8.0 mg/dL (8.4-10.2) L [facility] GFR >60 ml/min/1.73m2 (>59) [facility] GFR ( AMER) >60 ml/min/1.73m2 (>59) [facility] GFR INTERPRETATION [facility] --NORMAL KIDNEY FUNCTION OR MILD DISEASE - GFR >OR= 60CHRONIC KIDNEY DISEASE - GFR 15 - 59RENAL FAILURE - GFR <15 Est. GFR calculation based on the MDRDstudy equation, which assumes a steadystate for creatinine. Est. GFR should notbe used for medication dosing. ID Date Data Source [id number] 07/05/2020 12:33:02 PM EDT [facility] Name Value Range Interpretation Code Description Data Trish rce(s) Supporting Document(s) TROPONIN I 0.13 ng/mL (<0.05) H [facility] Less than 0.05: Myocardial injury unlike lyGreater than or equal to 0.05: Highly suggestive of myocardial injuryCorrelation with rise and/or fall ofserial troponins, clinical symptomsand ECG changes is necessary. ID Date Data Source [id number] 07/05/2020 12:33:02 PM EDT [facility] Name Value Range Interpretation Code Description Data Trish rce(s) Supporting Document(s) ALBUMIN 2.6 g/dL (3.2-4.5) L [facility] ID Date Data Source [id number] 07/04/2020 09:31:23 PM EDT [facility] Name Value Range Interpretation Code Description Data Trish rce(s) Supporting Document(s) NT PRO BNP 37656 pg/mL (0-450) H [facility] [place] ID Date Data Source [id number] 07/04/2020 09:31:23 PM EDT [facility] Name Value Range Interpretation Code Description Data Trish rce(s) Supporting Document(s) TROPONIN I 0.18 ng/mL (<0.05) H [facility] Less than 0.05: Myocardial injury unlike lyGreater than or equal to 0.05: Highly suggestive of myocardial injuryCorrelation with rise and/or fall ofserial troponins, clinical symptomsand ECG changes is necessary. ID Date Data Source [id number] 07/04/2020 09:01:00 PM EDT [facility] DATE OF EXAM: 07/04/2020Chest 1V Portabl e CLINICAL STATEMENT: SOB TECHNIQUE: Portable AP semierect view of the chest. COMPARISON: 07/01/2020. FINDINGS: Interval worsening of bilateral pleural effusions and bilateral lower lobe atelectasis or pneumonia. Catheter tip of the PICC line overlies the SVC/RA junction. Cardiac silhouette within normal limits. IMPRESSION: Worsening bilateral effusions and bilateral lower lobe atelectasis versus pneumonia compared with 07/01/2020. X7End of diagnostic report for accession: [id number] Interpreted: Chato Drummond MDTranscribed: 07/04/2020 09:01 PMSigned: 09:01 PM Chato Drummond MD [facility] # [id number] BILL # [id number] Name Value Range Interpretation Code Description Data Trish rce(s) Supporting Document(s) ID Date Data Source [id number] 07/04/2020 07:16:15 AM EDT [facility] Name Value Range Interpretation Code Description Data Trish rce(s) Supporting Document(s) PHOSPHORUS 2.8 mg/dL (2.5-4.5) [facility] ID Date Data Source [id number] 07/04/2020 07:16:15 AM EDT [facility] Name Value Range Interpretation Code Description Data Trish rce(s) Supporting Document(s) MAGNESIUM 1.4 mg/dL (1.7-2.4) L [facility] ID Date Data Source [id number] 07/04/2020 07:16:15 AM EDT [facility] Name Value Range Interpretation Code Description Data Trish rce(s) Supporting Document(s) SODIUM 142 mmol/L (136-145) [facility] POTASSIUM 3.6 mmol/L (3.6-5.2) [facility] CHLORIDE 108 mmol/L (100-108) [facility] CO2 25 mmol/L (22-31) [facility] ANION GAP 9 mmol/L (7-16) [facility] UREA NITROGEN 23 mg/dL (7-24) [facility] CREATININE 0.59 mg/dL (0.60-1.00) L [facility] BUN/CREAT RATIO 39.0 RATIO (10.0-20.0) H [facility] GLUCOSE 139 mg/dL (70-99) H [facility] CALCIUM 8.0 mg/dL (8.4-10.2) L [facility] GFR >60 ml/min/1.73m2 (>59) [facility] GFR ( AMER) >60 ml/min/1.73m2 (>59) [facility] GFR INTERPRETATION [facility] --NORMAL KIDNEY FUNCTION OR MILD DISEASE - GFR >OR= 60CHRONIC KIDNEY DISEASE - GFR 15 - 59RENAL FAILURE - GFR <15 Est. GFR calculation based on the MDRDstudy equation, which assumes a steadystate for creatinine. Est. GFR should notbe used for medication dosing. ID Date Data Source [id number] 07/04/2020 06:50:12 AM EDT [facility] Name Value Range Interpretation Code Description Data Trish rce(s) Supporting Document(s) WBC 10.1 10*3/uL (4.1-11.0) [facility] RBC 3.33 10*6/uL (4.00-5.40) L [facility] HGB 10.2 g/dL (12.0-16.0) L [facility] HCT 30.6 % (36.0-47.0) L [facility] MCV 91.8 fL (80.0-95.0) [facility] MCH 30.6 pg (27.0-32.0) [facility] MCHC 33.3 g/dL (32.0-36.0) [facility] RDW 18.8 % (10.5-14.5) H [facility] PLT 52 10*3/uL (150-450) L [facility] MPV 8.5 fL (7.1-10.7) [facility] ID Date Data Source [id number] 07/03/2020 07:48:16 PM EDT [facility] Name Value Range Interpretation Code Description Data Trish rce(s) Supporting Document(s) SODIUM 142 mmol/L (136-145) [facility] POTASSIUM 3.4 mmol/L (3.6-5.2) L [facility] CHLORIDE 107 mmol/L (100-108) [facility] CO2 24 mmol/L (22-31) [facility] ANION GAP 11 mmol/L (7-16) [facility] UREA NITROGEN 22 mg/dL (7-24) [facility] CREATININE 0.61 mg/dL (0.60-1.00) [facility] BUN/CREAT RATIO 36.1 RATIO (10.0-20.0) H [facility] GLUCOSE 168 mg/dL (70-99) H [facility] CALCIUM 7.7 mg/dL (8.4-10.2) L [facility] GFR >60 ml/min/1.73m2 (>59) [facility] GFR ( AMER) >60 ml/min/1.73m2 (>59) [facility] GFR INTERPRETATION [facility] --NORMAL KIDNEY FUNCTION OR MILD DISEASE - GFR >OR= 60CHRONIC KIDNEY DISEASE - GFR 15 - 59RENAL FAILURE - GFR <15 Est. GFR calculation based on the MDRDstudy equation, which assumes a steadystate for creatinine. Est. GFR should notbe used for medication dosing. ID Date Data Source [id number] 07/03/2020 05:54:20 AM EDT [facility] Name Value Range Interpretation Code Description Data Trish e(s) Supporting Document(s) SODIUM 143 mmol/L (136-145) [facility] POTASSIUM 3.7 mmol/L (3.6-5.2) [facility] CHLORIDE 109 mmol/L (100-108) H [facility] CO2 25 mmol/L (22-31) [facility] ANION GAP 9 mmol/L (7-16) [facility] UREA NITROGEN 24 mg/dL (7-24) [facility] CREATININE 0.73 mg/dL (0.60-1.00) [facility] BUN/CREAT RATIO 32.9 RATIO (10.0-20.0) H [facility] GLUCOSE 140 mg/dL (70-99) H [facility] CALCIUM 8.1 mg/dL (8.4-10.2) L [facility] GFR >60 ml/min/1.73m2 (>59) [facility] GFR ( AMER) >60 ml/min/1.73m2 (>59) [facility] GFR INTERPRETATION [facility] --NORMAL KIDNEY FUNCTION OR MILD DISEASE - GFR >OR= 60CHRONIC KIDNEY DISEASE - GFR 15 - 59RENAL FAILURE - GFR <15 Est. GFR calculation based on the MDRDstudy equation, which assumes a steadystate for creatinine. Est. GFR should notbe used for medication dosing. ID Date Data Source [id number] 07/03/2020 05:29:42 AM EDT [facility] Name Value Range Interpretation Code Description Data Trish rce(s) Supporting Document(s) WBC 9.6 10*3/uL (4.1-11.0) [facility] [place] RBC 3.25 10*6/uL (4.00-5.40) L [facility] HGB 9.9 g/dL (12.0-16.0) L [facility] HCT 29.3 % (36.0-47.0) L [facility] MCV 90.2 fL (80.0-95.0) [facility] MCH 30.5 pg (27.0-32.0) [facility] MCHC 33.9 g/dL (32.0-36.0) [facility] RDW 18.2 % (10.5-14.5) H [facility] PLT 59 10*3/uL (150-450) L [facility] MPV 8.7 fL (7.1-10.7) [facility] ID Date Data Source [id number] 07/02/2020 10:53:47 PM EDT [facility] Name Value Range Interpretation Code Description Data Trish rce(s) Supporting Document(s) WBC 10.3 10*3/uL (4.1-11.0) [facility] RBC 3.29 10*6/uL (4.00-5.40) L [facility] HGB 9.7 g/dL (12.0-16.0) L [facility] HCT 29.7 % (36.0-47.0) L [facility] MCV 90.3 fL (80.0-95.0) [facility] MCH 29.4 pg (27.0-32.0) [facility] MCHC 32.6 g/dL (32.0-36.0) [facility] RDW 17.6 % (10.5-14.5) H [facility] PLT 65 10*3/uL (150-450) L [facility] MPV 8.2 fL (7.1-10.7) [facility] ID Date Data Source [id number] 07/03/2020 08:25:00 AM EDT [facility] DATE OF EXAM: 07/02/2020 MRI OF THE BRAI N WITHOUT CONTRAST INDICATION:Follow-up prior abnormalities TECHNIQUE: Multiplanar and multisequence MRI images of the brain were obtained without the use of intravenous contrast. Sagittal T1, axial T2, axial T2 FLAIR and axial and coronal diffusion weighted images were obtained. The patient was unable to complete the examination. COMPARISONS: MRI brain 06/19/2020. FINDINGS: Marked patient motion artifact is present on all pulse sequences, despite repeating the examination. Within this confine: There is increased patchy areas of FLAIR hyperintensity in the right cerebral hemisphere, mainly within the right temporal, occipital and parietal lobes, with abnormal signal also seen in the splenium of the corpus callosum and the thalamus. There is new small areas of restricted diffusion in the right occipital periventricular white matter and the medial right occipital lobe compatible with new small acute infarcts. More subtle restricted diffusion is seen in the cortex of the right temporal, occipital and parietal lobes. The ventricles, cerebral sulci and cisterns are age appropriate. No mass-effect or shifting of the midline structures is present. The patient is status post bilateral intraocular lens implants. The visualized soft tissues are grossly unremarkable. IMPRESSION: Limited examination secondary to the patient's inability two complete the examination and marked motion artifact on all pulse sequences. Within this confine: New small areas of restricted diffusion in the right occipital lobe compatible with small acute infarcts. Increasing patchy areas of FLAIR hyperintensity in the right cerebral hemisphere including the right temporal, and parietal lobes, the right thalamus and the splenium of the corpus callosum. Cortical restricted diffusion in areas of the right temporal, parietal and occipital lobes. These findings are most likely related to encephalitis or metabolic encephalopathy. A preliminary report was provided by the on-call radiologist. Similar findings were reported. Professional interpretation performed at [facility] .End of diagnostic report for accession: [id number] Interpreted: Rachel Edwards MDTranscribed: 07/03/2020 08:15 AMSigned: 07/03/2020 08:25 AM Rachel Edwards MD [facility] # [id number] [facility] # [id number] Name Value Range Interpretation Code Description Data Trish rce(s) Supporting Document(s) ID Date Data Source [id number] 07/02/2020 04:44:26 PM EDT [facility] Name Value Range Interpretation Code Description Data Trish rce(s) Supporting Document(s) SODIUM 142 mmol/L (136-145) [facility] POTASSIUM 4.4 mmol/L (3.6-5.2) [facility] CHLORIDE 111 mmol/L (100-108) H [facility] CO2 22 mmol/L (22-31) [facility] ANION GAP 9 mmol/L (7-16) [facility] UREA NITROGEN 29 mg/dL (7-24) H [facility] CREATININE 0.83 mg/dL (0.60-1.00) [facility] BUN/CREAT RATIO 34.9 RATIO (10.0-20.0) H [facility] GLUCOSE 157 mg/dL (70-99) H [facility] CALCIUM 8.0 mg/dL (8.4-10.2) L [facility] GFR >60 ml/min/1.73m2 (>59) [facility] GFR ( AMER) >60 ml/min/1.73m2 (>59) [facility] GFR INTERPRETATION [facility] --NORMAL KIDNEY FUNCTION OR MILD DISEASE - GFR >OR= 60CHRONIC KIDNEY DISEASE - GFR 15 - 59RENAL FAILURE - GFR <15 Est. GFR calculation based on the MDRDstudy equation, which assumes a steadystate for creatinine. Est. GFR should notbe used for medication dosing. ID Date Data Source [id number] 07/02/2020 04:30:00 PM EDT [facility] Name Value Range Interpretation Code Description Data Trish rce(s) Supporting Document(s) WBC 10.8 10*3/uL (4.1-11.0) [facility] RBC 3.35 10*6/uL (4.00-5.40) L [facility] HGB 9.9 g/dL (12.0-16.0) L [facility] HCT 30.0 % (36.0-47.0) L [facility] MCV 89.7 fL (80.0-95.0) [facility] MCH 29.4 pg (27.0-32.0) [facility] MCHC 32.8 g/dL (32.0-36.0) [facility] RDW 18.4 % (10.5-14.5) H [facility] PLT 71 10*3/uL (150-450) L [facility] MPV 8.5 fL (7.1-10.7) [facility] ID Date Data Source [id number] 07/03/2020 08:53:42 AM EDT [facility] Name Value Range Interpretation Code Description Data Trish rce(s) Supporting Document(s) SPECIMEN DESCRIPTION [facility] STAPH SCREEN RESULTS (ONEGSA) [facility] COMMENT [facility] GENE TO DETECT STAPH AUREUS. (2) RT-P CR WAS PERFORMED FOR THE mecA AND SCCmec GENES TO DETECT METHICILLIN RESISTANCE IN STAPH AUREUS. ID Date Data Source [id number] 07/02/2020 04:58:41 AM EDT [facility] Name Value Range Interpretation Code Description Data Trish rce(s) Supporting Document(s) SODIUM 145 mmol/L (136-145) [facility] POTASSIUM 4.5 mmol/L (3.6-5.2) [facility] CHLORIDE 113 mmol/L (100-108) H [facility] CO2 21 mmol/L (22-31) L [facility] ANION GAP 11 mmol/L (7-16) [facility] UREA NITROGEN 31 mg/dL (7-24) H [facility] CREATININE 0.85 mg/dL (0.60-1.00) [facility] BUN/CREAT RATIO 36.5 RATIO (10.0-20.0) H [facility] GLUCOSE 122 mg/dL (70-99) H [facility] CALCIUM 8.2 mg/dL (8.4-10.2) L [facility] GFR >60 ml/min/1.73m2 (>59) [facility] GFR ( AMER) >60 ml/min/1.73m2 (>59) [facility] GFR INTERPRETATION [facility] --NORMAL KIDNEY FUNCTION OR MILD DISEASE - GFR >OR= 60CHRONIC KIDNEY DISEASE - GFR 15 - 59RENAL FAILURE - GFR <15 Est. GFR calculation based on the MDRDstudy equation, which assumes a steadystate for creatinine. Est. GFR should notbe used for medication dosing. ID Date Data Source [id number] 07/02/2020 04:17:42 AM EDT [facility] Name Value Range Interpretation Code Description Data Trish rce(s) Supporting Document(s) WBC 11.3 10*3/uL (4.1-11.0) H [facility] RBC 3.35 10*6/uL (4.00-5.40) L [facility] HGB 9.7 g/dL (12.0-16.0) L [facility] HCT 29.9 % (36.0-47.0) L [facility] MCV 89.3 fL (80.0-95.0) [facility] MCH 28.9 pg (27.0-32.0) [facility] MCHC 32.4 g/dL (32.0-36.0) [facility] RDW 17.0 % (10.5-14.5) H [facility] PLT 65 10*3/uL (150-450) L [facility] MPV 8.7 fL (7.1-10.7) [facility] ID Date Data Source [id number] 07/01/2020 07:58:03 PM EDT [facility] Name Value Range Interpretation Code Description Data Trish rce(s) Supporting Document(s) WBC 10.5 10*3/uL (4.1-11.0) [facility] RBC 3.09 10*6/uL (4.00-5.40) L [facility] HGB 9.0 g/dL (12.0-16.0) L [facility] HCT 27.4 % (36.0-47.0) L [facility] MCV 88.5 fL (80.0-95.0) [facility] MCH 29.2 pg (27.0-32.0) [facility] MCHC 33.0 g/dL (32.0-36.0) [facility] RDW 17.5 % (10.5-14.5) H [facility] PLT 60 10*3/uL (150-450) L [facility] MPV 8.9 fL (7.1-10.7) [facility] ID Date Data Source [id number] 07/01/2020 01:41:24 PM EDT [facility] Name Value Range Interpretation Code Description Data Trish rce(s) Supporting Document(s) SODIUM 145 mmol/L (136-145) [facility] POTASSIUM 4.8 mmol/L (3.6-5.2) [facility] CHLORIDE 116 mmol/L (100-108) H [facility] CO2 22 mmol/L (22-31) [facility] ANION GAP 7 mmol/L (7-16) [facility] UREA NITROGEN 33 mg/dL (7-24) H [facility] CREATININE 0.97 mg/dL (0.60-1.00) [facility] BUN/CREAT RATIO 34.0 RATIO (10.0-20.0) H [facility] GLUCOSE 127 mg/dL (70-99) H [facility] CALCIUM 7.8 mg/dL (8.4-10.2) L [facility] GFR 55 ml/min/1.73m2 (>59) L [facility] GFR ( AMER) >60 ml/min/1.73m2 (>59) [facility] GFR INTERPRETATION [facility] --NORMAL KIDNEY FUNCTION OR MILD DISEASE - GFR >OR= 60CHRONIC KIDNEY DISEASE - GFR 15 - 59RENAL FAILURE - GFR <15 Est. GFR calculation based on the MDRDstudy equation, which assumes a steadystate for creatinine. Est. GFR should notbe used for medication dosing. ID Date Data Source [id number] 07/01/2020 01:17:09 PM EDT [facility] Name Value Range Interpretation Code Description Data Trish rce(s) Supporting Document(s) WBC 11.0 10*3/uL (4.1-11.0) [facility] RBC 3.14 10*6/uL (4.00-5.40) L [facility] HGB 9.3 g/dL (12.0-16.0) L [facility] HCT 27.8 % (36.0-47.0) L [facility] MCV 88.6 fL (80.0-95.0) [facility] MCH 29.6 pg (27.0-32.0) [facility] MCHC 33.4 g/dL (32.0-36.0) [facility] RDW 16.5 % (10.5-14.5) H [facility] PLT 60 10*3/uL (150-450) L [facility] MPV 8.8 fL (7.1-10.7) [facility] ID Date Data Source [id number] 07/01/2020 07:25:11 AM EDT [facility] Name Value Range Interpretation Code Description Data Trish rce(s) Supporting Document(s) LACTIC ACID 1.1 mmol/L (0.4-2.0) [facility] ID Date Data Source [id number] 07/01/2020 07:16:34 AM EDT [facility] Name Value Range Interpretation Code Description Data Trish rce(s) Supporting Document(s) WBC 11.9 10*3/uL (4.1-11.0) H [facility] RBC 3.17 10*6/uL (4.00-5.40) L [facility] HGB 9.4 g/dL (12.0-16.0) L [facility] HCT 28.0 % (36.0-47.0) L [facility] MCV 88.3 fL (80.0-95.0) [facility] MCH 29.7 pg (27.0-32.0) [facility] MCHC 33.7 g/dL (32.0-36.0) [facility] RDW 17.2 % (10.5-14.5) H [facility] PLT 61 10*3/uL (150-450) L [facility] MPV 9.0 fL (7.1-10.7) [facility] ID Date Data Source [id number] 07/01/2020 08:24:00 AM EDT [facility] DATE OF EXAM: 07/01/2020CHEST RADIOGRAPH , SINGLE VIEW INDICATION: PNEUMONIA, EVALUATE FOR COMPARISON: 06/30/2020. TECHNIQUE: Semi-upright AP Portable view of the chest. FINDINGS: Support devices: Right upper extremity PICC tip overlies the cavoatrial junction. Lungs/Pleura: Unchanged left pleural effusion. Bibasilar opacities, increased on the right. Diffuse interstitial prominence and emphysematous changes. No pneumothorax. Cardiomediastinal contours: Within normal limits. Soft tissues/upper abdomen: Within normal limits. Bones: Unremarkable. IMPRESSION: Bibasilar opacities, increased on the right, which could reflect pneumonia or atelectasis. Unchanged left pleural effusion. Professional interpretation performed at [facility] .End of diagnostic report for accession: [id number] Interpreted: Dixie Garcia MDTranscribed: 07/01/2020 08:22 AMSigned: 07/01/2020 08:24 AM Dixie Garcia MD [facility] # [id number] [facility] # [id number] Name Value Range Interpretation Code Description Data Trish rce(s) Supporting Document(s) ID Date Data Source [id number] 07/01/2020 01:11:07 AM EDT [facility] Name Value Range Interpretation Code Description Data Trish rce(s) Supporting Document(s) LACTIC ACID 1.3 mmol/L (0.4-2.0) [facility] ID Date Data Source [id number] 07/01/2020 01:45:59 AM EDT [facility] Name Value Range Interpretation Code Description Data Trish rce(s) Supporting Document(s) WBC 11.9 10*3/uL (4.1-11.0) H [facility] ADJUSTED FOR NUCLEATED RBC'SCorrected on 07/01 AT 0145: Previously reported as 12.0 RBC 3.15 10*6/uL (4.00-5.40) L [facility] HGB 9.2 g/dL (12.0-16.0) [facility] HCT 27.6 % (36.0-47.0) [facility] MCV 87.7 fL (80.0-95.0) [facility] MCH 29.2 pg (27.0-32.0) [facility] MCHC 33.3 g/dL (32.0-36.0) [facility] RDW 17.0 % (10.5-14.5) [facility] PLT 56 10*3/uL (150-450) [facility] MPV 8.8 fL (7.1-10.7) [facility] NEUT % 89.0 % (35.0-75.0) [facility] BAND % 6.0 % (0.0-11.0) [facility] LYMPH % 1.0 % (16.0-52.0) [facility] MONO % 3.0 % (0.0-8.0) [facility] MYELO % 1.0 % (0.0) [facility] NRBC 1.0 /100 WBC (0.0) [facility] NEUT # 10.6 10*3/uL (1.8-7.7) [facility] BAND # 0.7 10*3/uL [facility] LYMPH # 0.1 10*3/uL (1.2-4.8) [facility] MONO # 0.4 10*3/uL (0.0-0.8) [facility] MYELO # 0.1 10*3/uL (0.0) [facility] ANISO 1+ [facility] POIK 1+ [facility] POLY 1+ [facility] OVALO 1+ [facility] ID Date Data Source [id number] 07/01/2020 01:36:33 AM EDT [facility] Name Value Range Interpretation Code Description Data Trish rce(s) Supporting Document(s) PHOSPHORUS 3.4 mg/dL (2.5-4.5) [facility] ID Date Data Source [id number] 07/01/2020 01:36:33 AM EDT [facility] Name Value Range Interpretation Code Description Data Trish rce(s) Supporting Document(s) MAGNESIUM 2.0 mg/dL (1.7-2.4) [facility] ID Date Data Source [id number] 07/01/2020 01:36:33 AM EDT [facility] Name Value Range Interpretation Code Description Data Trish rce(s) Supporting Document(s) SODIUM 145 mmol/L (136-145) [facility] POTASSIUM 4.6 mmol/L (3.6-5.2) [facility] CHLORIDE 114 mmol/L (100-108) H [facility] CO2 22 mmol/L (22-31) [facility] ANION GAP 9 mmol/L (7-16) [facility] UREA NITROGEN 34 mg/dL (7-24) H [facility] CREATININE 1.05 mg/dL (0.60-1.00) H [facility] BUN/CREAT RATIO 32.4 RATIO (10.0-20.0) [facility] GLUCOSE 134 mg/dL (70-99) H [facility] CALCIUM 7.6 mg/dL (8.4-10.2) L [facility] GFR 50 ml/min/1.73m2 (>59) L [facility] GFR ( AMER) >60 ml/min/1.73m2 (>59) [facility] GFR INTERPRETATION [facility] --NORMAL KIDNEY FUNCTION OR MILD DISEASE - GFR >OR= 60CHRONIC KIDNEY DISEASE - GFR 15 - 59RENAL FAILURE - GFR <15 Est. GFR calculation based on the MDRDstudy equation, which assumes a steadystate for creatinine. Est. GFR should notbe used for medication dosing. ID Date Data Source [id number] 06/30/2020 06:41:27 PM EDT [facility] Name Value Range Interpretation Code Description Data Trish rce(s) Supporting Document(s) LACTIC ACID 1.3 mmol/L (0.4-2.0) [facility] [place] ID Date Data Source [id number] 06/30/2020 06:47:05 PM EDT [facility] Name Value Range Interpretation Code Description Data Trish rce(s) Supporting Document(s) SODIUM 144 mmol/L (136-145) [facility] POTASSIUM 4.5 mmol/L (3.6-5.2) [facility] CHLORIDE 114 mmol/L (100-108) H [facility] CO2 23 mmol/L (22-31) [facility] ANION GAP 7 mmol/L (7-16) [facility] UREA NITROGEN 35 mg/dL (7-24) H [facility] CREATININE 1.16 mg/dL (0.60-1.00) H [facility] BUN/CREAT RATIO 30.2 RATIO (10.0-20.0) [facility] GLUCOSE 129 mg/dL (70-99) H [facility] CALCIUM 7.6 mg/dL (8.4-10.2) L [facility] GFR 45 ml/min/1.73m2 (>59) L [facility] GFR ( AMER) 54 ml/min/1.73m2 (>59) L [facility] GFR INTERPRETATION [facility] --NORMAL KIDNEY FUNCTION OR MILD DISEASE - GFR >OR= 60CHRONIC KIDNEY DISEASE - GFR 15 - 59RENAL FAILURE - GFR <15 Est. GFR calculation based on the MDRDstudy equation, which assumes a steadystate for creatinine. Est. GFR should notbe used for medication dosing. ID Date Data Source [id number] 06/30/2020 06:37:56 PM EDT [facility] Name Value Range Interpretation Code Description Data Trish rce(s) Supporting Document(s) PT 10.7 s (9.2-11.9) [facility] INR 1.02 [facility] SUGGESTED THERAPEUTIC RANGES USING INR F ORSTABILIZED ANTICOAGULATED PATIENTS:STANDARD DOSE THERAPY INR 2.0-3.0 DVT, PE, PREVENT DVT OR EMBOLISMHIGH DOSE THERAPY INR 2.5-3.5 PREVENT EMBOLISM FROM MECHANICAL HEART VALVE ID Date Data Source [id number] 06/30/2020 06:28:03 PM EDT [facility] Name Value Range Interpretation Code Description Data Trish rce(s) Supporting Document(s) WBC 12.5 10*3/uL (4.1-11.0) H [facility] RBC 3.50 10*6/uL (4.00-5.40) L [facility] HGB 10.2 g/dL (12.0-16.0) L [facility] HCT 30.2 % (36.0-47.0) L [facility] MCV 86.3 fL (80.0-95.0) [facility] MCH 29.0 pg (27.0-32.0) [facility] MCHC 33.6 g/dL (32.0-36.0) [facility] RDW 16.5 % (10.5-14.5) H [facility]ldon PLT 58 10*3/uL (150-450) L [facility] MPV 8.6 fL (7.1-10.7) [facility] ID Date Data Source [id number] 06/30/2020 01:17:25 PM EDT [facility] Name Value Range Interpretation Code Description Data Trish rce(s) Supporting Document(s) POC GLUCOSE 118 mg/dL (70-99) H [facility] NOTIFIED NURSEPERFORMED BY CLINICAL S TAFF ID Date Data Source [id number] 07/02/2020 09:08:32 AM EDT [facility] SPECIMEN DESCRIPTION GROINSPECIAL REQUESTS NONECULTURE RESULTS NO METHICILLIN RESISTANT STAPH AUREUS ISOLATED.REPORT STATUS FINAL 07/02/2020 Name Value Range Interpretation Code Description Data Trish rce(s) Supporting Document(s) ID Date Data Source [id number] 06/30/2020 07:20:18 PM EDT [facility] Name Value Range Interpretation Code Description Data Trish rce(s) Supporting Document(s) HAPTOGLOBIN @ 72 mg/dL (30-200) [facility] ID Date Data Source [id number] 06/30/2020 02:03:08 PM EDT [facility] Name Value Range Interpretation Code Description Data Trish rce(s) Supporting Document(s) APTT 27.8 s (22.0-34.3) [facility] ID Date Data Source [id number] 06/30/2020 02:03:08 PM EDT [facility] Name Value Range Interpretation Code Description Data Trish rce(s) Supporting Document(s) PT 10.9 s (9.2-11.9) [facility] INR 1.04 [facility] SUGGESTED THERAPEUTIC RANGES USING INR F ORSTABILIZED ANTICOAGULATED PATIENTS:STANDARD DOSE THERAPY INR 2.0-3.0 DVT, PE, PREVENT DVT OR EMBOLISMHIGH DOSE THERAPY INR 2.5-3.5 PREVENT EMBOLISM FROM MECHANICAL HEART VALVE ID Date Data Source [id number] 06/30/2020 02:03:08 PM EDT [facility] Name Value Range Interpretation Code Description Data Trish rce(s) Supporting Document(s) FIBRINOGEN 319 mg/dL (150-450) [facility] ID Date Data Source [id number] 06/30/2020 01:32:10 PM EDT [facility] Name Value Range Interpretation Code Description Data Trish rce(s) Supporting Document(s) LACTIC ACID 1.1 mmol/L (0.4-2.0) [facility] [place] ID Date Data Source [id number] 06/30/2020 01:38:29 PM EDT [facility] Name Value Range Interpretation Code Description Data Trish rce(s) Supporting Document(s) WBC 11.6 10*3/uL (4.1-11.0) H [facility] RBC 3.71 10*6/uL (4.00-5.40) L [facility] HGB 10.8 g/dL (12.0-16.0) L [facility] HCT 32.1 % (36.0-47.0) L [facility] MCV 86.6 fL (80.0-95.0) [facility] MCH 29.2 pg (27.0-32.0) [facility] MCHC 33.8 g/dL (32.0-36.0) [facility] RDW 16.3 % (10.5-14.5) H [facility] PLT 58 10*3/uL (150-450) L [facility] MPV 9.1 fL (7.1-10.7) [facility] ID Date Data Source [id number] 06/30/2020 10:57:00 AM EDT [facility] DATE OF EXAM: 06/30/2020EXAM:Chest 1V Po rtable CLINICAL INDICATION: COPD TECHNIQUE: Two x-rays of the chest were obtained. COMPARISON: Chest x-ray dated 06/28/2020. CT abdomen pelvis dated 06/30/2020. FINDINGS: ETT 6.7 cm above the margo.NGT within the stomach.No left lower lobe airspace disease concerning for pneumonia.Normal cardiac silhouette.. IMPRESSION: 1. New left lower lobe airspace disease concerning for pneumonia. Professional interpretation performed at [facility] .End of diagnostic report for accession: [id number] Interpreted: Joe Beckett MDTranscribed: 06/30/2020 10:56 AMSigned: 06/30/2020 10:57 AM Joe Beckett MD [facility] # [id number] [facility] # [id number] Name Value Range Interpretation Code Description Data Trish rce(s) Supporting Document(s) ID Date Data Source [id number] 06/30/2020 05:13:33 AM EDT [facility] Name Value Range Interpretation Code Description Data Trish rce(s) Supporting Document(s) POC GLUCOSE 134 mg/dL (70-99) H [facility] PERFORMED BY CLINICAL STAFF ID Date Data Source [id number] 06/30/2020 06:00:25 AM EDT [facility] Name Value Range Interpretation Code Description Data Trish rce(s) Supporting Document(s) SODIUM 144 mmol/L (136-145) [facility] POTASSIUM 4.0 mmol/L (3.6-5.2) [facility] CHLORIDE 113 mmol/L (100-108) H [facility] CO2 22 mmol/L (22-31) [facility] ANION GAP 9 mmol/L (7-16) [facility] UREA NITROGEN 36 mg/dL (7-24) H [facility] CREATININE 1.11 mg/dL (0.60-1.00) H [facility] BUN/CREAT RATIO 32.4 RATIO (10.0-20.0) H [facility] GLUCOSE 134 mg/dL (70-99) H [facility] CALCIUM 7.1 mg/dL (8.4-10.2) L [facility] GFR 47 ml/min/1.73m2 (>59) L [facility] GFR ( AMER) 57 ml/min/1.73m2 (>59) L [facility] GFR INTERPRETATION [facility] --NORMAL KIDNEY FUNCTION OR MILD DISEASE - GFR >OR= 60CHRONIC KIDNEY DISEASE - GFR 15 - 59RENAL FAILURE - GFR <15 Est. GFR calculation based on the MDRDstudy equation, which assumes a steadystate for creatinine. Est. GFR should notbe used for medication dosing. ID Date Data Source [id number] 06/30/2020 05:54:41 AM EDT [facility] Name Value Range Interpretation Code Description Data Trish rce(s) Supporting Document(s) WBC 9.0 10*3/uL (4.1-11.0) [facility] [place] RBC 3.19 10*6/uL (4.00-5.40) L [facility] HGB 9.4 g/dL (12.0-16.0) L [facility] HCT 27.2 % (36.0-47.0) L [facility] PATIENT TRANSFUSED MCV 85.4 fL (80.0-95.0) [facility] MCH 29.3 pg (27.0-32.0) [facility] MCHC 34.4 g/dL (32.0-36.0) [facility] RDW 15.9 % (10.5-14.5) H [facility] PLT 48 10*3/uL (150-450) L [facility] PLATELET COUNT VERIFIED BY TECHPATIENT T RANSFUSED MPV 8.4 fL (7.1-10.7) [facility] NEUT % 83.0 % (35.0-75.0) H [facility] BAND % 3.0 % (0.0-11.0) [facility] LYMPH % 4.0 % (16.0-52.0) L [facility] MONO % 10.0 % (0.0-8.0) H [facility] NEUT # 7.5 10*3/uL (1.8-7.7) [facility] BAND # 0.3 10*3/uL [facility] LYMPH # 0.4 10*3/uL (1.2-4.8) L [facility] MONO # 0.9 10*3/uL (0.0-0.8) H [facility] ANISO 1+ [facility] POIK 1+ [facility] OVALO 1+ [facility] JACQUIE 1+ [facility] ID Date Data Source [id number] 06/30/2020 05:34:54 AM EDT [facility] Name Value Range Interpretation Code Description Data Trish rce(s) Supporting Document(s) LACTIC ACID 1.5 mmol/L (0.4-2.0) [facility] [place] ID Date Data Source [id number] 06/30/2020 10:49:00 AM EDT [facility] DATE OF EXAM: 06/30/2020CTA ABDOMEN AND PELVIS: Indication: RULE OUT BLEEDING. 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 HB DROPPED TO 5.7 AGAIN FROM 7.2., STAT READ Technique: 100 mL Omnipaque 350 injected followed by arterial phase and delayed CT the abdomen and pelvis obtained. 3D volume rendered images as well as multiplanar maximum image projection reconstructions obtained on the workstation. One or more of the following dose reduction techniques were utilized in effectively lowering the radiation dose for this examination: Automated Exposure Control, Adjustment of the mA and/or kV according to patient size, or Iterative reconstruction. Comparison: CTA abdomen and pelvis 06/28/2020 Vascular findings: Stable aortic calcified atherosclerosis. There is stable focal 1.8 cm saccular outpouching at the left lateral aspect of the lower abdominal aorta containing low-density material compatible with thrombus or ulcerated plaque. The celiac artery is diminutive however uniform in caliber. No aneurysm or stenosis. The left hepatic artery is unremarkable. The right hepatic artery is replaced from the SMA. The SMA is normal in caliber with scattered calcified plaques. There is no evidence of gastrointestinal hemorrhage or intraperitoneal hemorrhage. There is a slight increase in amount of left retroperitoneal hematoma however there has been some redistribution making accurate quantification difficult. The patient is status post: Localization of an iliolumbar branch, multiple vascular coils are seen within the branch vessel immediately anterior to the left upper sacrum. There is no contrast blush or evidence of extravasation. A vascular sheath is present in the right common femoral artery. Nonvascular findings: Pulmonary: There is a small left pleural effusion and left basilar compressive atelectasis. Hepatobiliary: No mass or acute pathology Endocrine: No acute pathology of pancreas and adrenal glands. Genitourinary: Normal symmetric renal enhancement. Reproductive organs are not well evaluated. Gastrointestinal: NG tube within the stomach. The stomach is collapsed. No bowel dilatation. Diverticulosis. No gastrointestinal hemorrhage. Musculoskeletal: There is increased edema throughout the subcutaneous soft tissues. Impression: 1. Slight increase in volume of left retroperitoneal free fluid compared to the pre-embolization prior study. Redistribution of hematoma contents limit accurate quantification. 2. Status post coil embolization of left iliolumbar artery. No evidence of active retroperitoneal or intraperitoneal hemorrhage.3. Diffuse increased subcutaneous edema likely secondary to aggressive hydration and resuscitation. Professional interpretation performed by [facility] .End of diagnostic report for accession: [id number] Interpreted: Hugo Madison MDTranscribed: 06/30/2020 10:36 AMSigned: 06/30/2020 10:49 AM Hugo Madison MD [facility] # [id number] [facility] # [id number] Name Value Range Interpretation Code Description Data Trish rce(s) Supporting Document(s) ID Date Data Source [id number] 06/30/2020 02:34:08 AM EDT [facility] Name Value Range Interpretation Code Description Data Trish rce(s) Supporting Document(s) POC GLUCOSE 131 mg/dL (70-99) H [facility] Pito PERFORMED BY CLINICAL STAFF ID Date Data Source [id number] 06/30/2020 01:19:39 AM EDT [facility] Name Value Range Interpretation Code Description Data Trish rce(s) Supporting Document(s) POC GLUCOSE 78 mg/dL (70-99) [facility] PERFORMED BY CLINICAL STAFF ID Date Data Source [id number] 06/30/2020 02:46:54 AM EDT [facility] Name Value Range Interpretation Code Description Data Trish rce(s) Supporting Document(s) CALCIUM IONIZED 4.76 mg/dL (4.64-5.28) [facility] IONIZED CALCIUM NORMALIZED TO PH 7.40 AN D 37 DEGREES C. ID Date Data Source [id number] 06/30/2020 02:40:29 AM EDT [facility] Name Value Range Interpretation Code Description Data Trish rce(s) Supporting Document(s) PHOSPHORUS 2.1 mg/dL (2.5-4.5) L [facility] ID Date Data Source [id number] 06/30/2020 02:40:29 AM EDT [facility] Name Value Range Interpretation Code Description Data Trish rce(s) Supporting Document(s) MAGNESIUM 2.2 mg/dL (1.7-2.4) [facility] ID Date Data Source [id number] 06/30/2020 02:40:29 AM EDT [facility] Name Value Range Interpretation Code Description Data Trish rce(s) Supporting Document(s) SODIUM 144 mmol/L (136-145) [facility] POTASSIUM 4.3 mmol/L (3.6-5.2) [facility] CHLORIDE 113 mmol/L (100-108) H [facility] CO2 24 mmol/L (22-31) [facility] ANION GAP 7 mmol/L (7-16) [facility] UREA NITROGEN 36 mg/dL (7-24) H [facility] CREATININE 1.12 mg/dL (0.60-1.00) H [facility] BUN/CREAT RATIO 32.1 RATIO (10.0-20.0) H [facility] GLUCOSE 179 mg/dL (70-99) H [facility] CALCIUM 6.9 mg/dL (8.4-10.2) L [facility] TOTAL PROTEIN 3.8 g/dL (6.4-8.2) L [facility] ALBUMIN 2.3 g/dL (3.2-4.5) L [facility] GLOBULIN 1.5 g/dL (2.7-4.3) L [facility] ALB/GLOB RATIO 1.5 RATIO [facility] ALKALINE PHOSPHATASE 26 U/L (45-117) L [facility] BILIRUBIN,TOTAL 0.7 mg/dL (0.0-1.0) [facility] PLEASE NOTE:Total bilirubin results may be falselyelevated in patients taking Eltrombopag. AST (SGOT) 40 U/L (11-39) H [facility] ALT (SGPT) 30 U/L (12-78) [facility] GFR 47 ml/min/1.73m2 (>59) L [facility] GFR ( AMER) 57 ml/min/1.73m2 (>59) L [facility] GFR INTERPRETATION [facility] --NORMAL KIDNEY FUNCTION OR MILD DISEASE - GFR >OR= 60CHRONIC KIDNEY DISEASE - GFR 15 - 59RENAL FAILURE - GFR <15 Est. GFR calculation based on the MDRDstudy equation, which assumes a steadystate for creatinine. Est. GFR should notbe used for medication dosing. ID Date Data Source [id number] 06/30/2020 02:25:08 AM EDT [facility] Name Value Range Interpretation Code Description Data Trish rce(s) Supporting Document(s) WBC 8.6 10*3/uL (4.1-11.0) [facility] [place] RBC 1.93 10*6/uL (4.00-5.40) L [facility] HGB 5.7 g/dL (12.0-16.0) [facility] RESULT(S) CALLED TO AND READ BACK ALYSANASHSkye Sheldon ON ICUN AT 0157 ON 06.30.2020 [place] [id number] HCT 16.6 % (36.0-47.0) LL [facility] RESULT(S) CALLED TO AND READ BACK MINER[place] Y ON ICUN AT 0157 ON 06.30.2020 [place] [id number] MCV 86.2 fL (80.0-95.0) [facility] MCH 29.4 pg (27.0-32.0) [facility] MCHC 34.1 g/dL (32.0-36.0) [facility] RDW 17.7 % (10.5-14.5) H [facility] PLT 55 10*3/uL (150-450) L [facility] MPV 8.7 fL (7.1-10.7) [facility] NEUT % 83.0 % (35.0-75.0) H [facility] BAND % 4.0 % (0.0-11.0) [facility] LYMPH % 7.0 % (16.0-52.0) L [facility] MONO % 4.0 % (0.0-8.0) [facility] MYELO % 2.0 % (0.0) H [facility] NEUT # 7.1 10*3/uL (1.8-7.7) [facility] BAND # 0.3 10*3/uL [facility] LYMPH # 0.6 10*3/uL (1.2-4.8) L [facility] MONO # 0.3 10*3/uL (0.0-0.8) [facility] MYELO # 0.2 10*3/uL (0.0) H [facility] TOXIC 1+ [facility] ANISO 1+ [facility] POIK 1+ [facility] OVALO 1+ [facility] LARGE PLT 1+ [facility] ID Date Data Source [id number] 06/30/2020 01:59:01 AM EDT [facility] Name Value Range Interpretation Code Description Data Trish rce(s) Supporting Document(s) LACTIC ACID 2.9 mmol/L (0.4-2.0) [facility] [place] ID Date Data Source [id number] 06/30/2020 01:57:17 AM EDT [facility] Name Value Range Interpretation Code Description Data Trish rce(s) Supporting Document(s) PT 12.2 s (9.2-11.9) H [facility] INR 1.17 [facility] SUGGESTED THERAPEUTIC RANGES USING INR F ORSTABILIZED ANTICOAGULATED PATIENTS:STANDARD DOSE THERAPY INR 2.0-3.0 DVT, PE, PREVENT DVT OR EMBOLISMHIGH DOSE THERAPY INR 2.5-3.5 PREVENT EMBOLISM FROM MECHANICAL HEART VALVE ID Date Data Source [id number] 06/30/2020 12:40:42 AM EDT [facility] Name Value Range Interpretation Code Description Data Trish rce(s) Supporting Document(s) POC GLUCOSE 74 mg/dL (70-99) [facility] PERFORMED BY CLINICAL STAFF ID Date Data Source [id number] 06/30/2020 12:40:27 AM EDT [facility] Name Value Range Interpretation Code Description Data Trish rce(s) Supporting Document(s) POC GLUCOSE 67 mg/dL (70-99) L [facility] PERFORMED BY CLINICAL STAFF ID Date Data Source [id number] 06/29/2020 07:15:07 PM EDT [facility] Name Value Range Interpretation Code Description Data Trish rce(s) Supporting Document(s) POC GLUCOSE 139 mg/dL (70-99) H [facility] PERFORMED BY CLINICAL STAFF ID Date Data Source [id number] 06/29/2020 07:20:55 PM EDT [facility] Name Value Range Interpretation Code Description Data Trish rce(s) Supporting Document(s) WBC 10.0 10*3/uL (4.1-11.0) [facility] ADJUSTED FOR NUCLEATED RBC'SCorrected on 06/29 AT 1920: Previously reported as 10.1 RBC 2.51 10*6/uL (4.00-5.40) L [facility] HGB 7.2 g/dL (12.0-16.0) L [facility] HCT 21.3 % (36.0-47.0) L [facility] MCV 84.8 fL (80.0-95.0) [facility] MCH 28.7 pg (27.0-32.0) [facility] MCHC 33.8 g/dL (32.0-36.0) [facility] RDW 17.9 % (10.5-14.5) H [facility] PLT 74 10*3/uL (150-450) L [facility] MPV 8.2 fL (7.1-10.7) [facility] NEUT % 88.0 % (35.0-75.0) H [facility] LYMPH % 6.0 % (16.0-52.0) L [facility] MONO % 6.0 % (0.0-8.0) [facility] NRBC 1.0 /100 WBC (0.0) [facility] [place] NEUT # 8.8 10*3/uL (1.8-7.7) H [facility] LYMPH # 0.6 10*3/uL (1.2-4.8) L [facility] MONO # 0.6 10*3/uL (0.0-0.8) [facility] ANISO 2+ [facility] POLY 1+ [facility] ID Date Data Source [id number] 06/29/2020 07:11:41 PM EDT [facility] Name Value Range Interpretation Code Description Data Trish rce(s) Supporting Document(s) SODIUM 146 mmol/L (136-145) H [facility] POTASSIUM 3.3 mmol/L (3.6-5.2) L [facility] CHLORIDE 118 mmol/L (100-108) H [facility] CO2 20 mmol/L (22-31) L [facility] ANION GAP 8 mmol/L (7-16) [facility] UREA NITROGEN 30 mg/dL (7-24) H [facility] CREATININE 1.00 mg/dL (0.60-1.00) [facility] BUN/CREAT RATIO 30.0 RATIO (10.0-20.0) H [facility] GLUCOSE 117 mg/dL (70-99) H [facility] CALCIUM 6.3 mg/dL (8.4-10.2) L [facility] GFR 53 ml/min/1.73m2 (>59) L [facility] GFR ( AMER) >60 ml/min/1.73m2 (>59) [facility] GFR INTERPRETATION [facility] --NORMAL KIDNEY FUNCTION OR MILD DISEASE - GFR >OR= 60CHRONIC KIDNEY DISEASE - GFR 15 - 59RENAL FAILURE - GFR <15 Est. GFR calculation based on the MDRDstudy equation, which assumes a steadystate for creatinine. Est. GFR should notbe used for medication dosing. ID Date Data Source [id number] 06/29/2020 07:00:17 PM EDT [facility] Name Value Range Interpretation Code Description Data Trish rce(s) Supporting Document(s) LACTIC ACID 1.5 mmol/L (0.4-2.0) [facility] ID Date Data Source [id number] 07/05/2020 09:59:02 AM EDT [facility] SPECIMEN DESCRIPTION PERIPHERALSP ECIAL REQUESTS NONECULTURE RESULTS NO GROWTH 6 DAYSREPORT STATUS FINAL 07/05/2020 Name Value Range Interpretation Code Description Data Trish rce(s) Supporting Document(s) ID Date Data Source [id number] 07/05/2020 09:59:02 AM EDT [facility] SPECIMEN DESCRIPTION PERIPHERALSP ECIAL REQUESTS NONECULTURE RESULTS NO GROWTH 6 DAYSREPORT STATUS FINAL 07/05/2020 Name Value Range Interpretation Code Description Data Trish rce(s) Supporting Document(s) ID Date Data Source [id number] 06/29/2020 12:45:49 PM EDT [facility] Name Value Range Interpretation Code Description Data Trish rce(s) Supporting Document(s) POC GLUCOSE 160 mg/dL (70-99) H [facility] PERFORMED BY CLINICAL STAFF ID Date Data Source [id number] 06/30/2020 07:13:52 AM EDT [facility] Name Value Range Interpretation Code Description Data Trish rce(s) Supporting Document(s) WBC 12.3 10*3/uL (4.1-11.0) H [facility] ADJUSTED FOR NUCLEATED RBC'SCorrected on 06/29 AT 1313: Previously reported as 12.4 RBC 2.68 10*6/uL (4.00-5.40) L [facility] HGB 7.8 g/dL (12.0-16.0) L [facility] HCT 22.9 % (36.0-47.0) [facility] MCV 85.2 fL (80.0-95.0) [facility] MCH 29.0 pg (27.0-32.0) [facility] MCHC 34.0 g/dL (32.0-36.0) [facility] RDW 18.4 % (10.5-14.5) [facility] PLT 81 10*3/uL (150-450) L [facility] MPV 8.1 fL (7.1-10.7) [facility] NEUT % 82.0 % (35.0-75.0) [facility] BAND % 2.0 % (0.0-11.0) [facility] LYMPH % 6.0 % (16.0-52.0) [facility] MONO % 8.0 % (0.0-8.0) [facility] META % 2.0 % (0.0) [facility] NRBC 1.0 /100 WBC (0.0) [facility] NEUT # 10.1 10*3/uL (1.8-7.7) [facility] BAND # 0.2 10*3/uL [facility] LYMPH # 0.7 10*3/uL (1.2-4.8) L [facility] MONO # 1.0 10*3/uL (0.0-0.8) [facility] META # 0.2 10*3/uL (0.0) [facility] TOXIC 1+ [facility] ANISO 2+ [facility] POIK 1+ [facility] POLY 1+ [facility] OVALO 1+ [facility] ACANTHO 1+ [facility] JACQUIE 1+ [facility] DIFF COMMENT [facility] DIFF COMMENT [facility] SLIDE REVIEWED BY LEATHER COVERER [id number] ON ID Date Data Source [id number] 06/29/2020 01:06:41 PM EDT [facility] Name Value Range Interpretation Code Description Data Trish rce(s) Supporting Document(s) LACTIC ACID 2.3 mmol/L (0.4-2.0) [facility] ID Date Data Source [id number] 06/29/2020 12:56:37 PM EDT [facility] Name Value Range Interpretation Code Description Data Trish rce(s) Supporting Document(s) URINE WBC (0-5) [facility] URINE RBC (0-2) [facility] ID Date Data Source [id number] 06/29/2020 12:46:14 PM EDT [facility] Name Value Range Interpretation Code Description Data Trish rce(s) Supporting Document(s) PT 11.6 s (9.2-11.9) [facility] INR 1.11 [facility] SUGGESTED THERAPEUTIC RANGES USING INR F ORSTABILIZED ANTICOAGULATED PATIENTS:STANDARD DOSE THERAPY INR 2.0-3.0 DVT, PE, PREVENT DVT OR EMBOLISMHIGH DOSE THERAPY INR 2.5-3.5 PREVENT EMBOLISM FROM MECHANICAL HEART VALVE ID Date Data Source [id number] 06/29/2020 12:40:51 PM EDT [facility] Name Value Range Interpretation Code Description Data Trish rce(s) Supporting Document(s) COLOR [facility] APPEARANCE [facility] SPEC GRAV URINE (1.003-1.030) [facility] PH URINE 5.5 (5.0-7.5) [facility] LEUK ESTERASE (NEG) [facility] NITRITE URINE (NEG) [facility] PROTEIN URINE (NEG) A [facility] GLUCOSE URINE (NEG) [facility] KETONE URINE (NEG) [facility] UROBILINOGEN 1.0 mg/dL (0-1.0) [facility] BILIRUBIN URINE (NEG) [facility] BLOOD/HGB URINE (NEG) [facility] ID Date Data Source [id number] 06/29/2020 02:24:00 PM EDT [facility] DATE OF EXAM: 06/29/2020Angiogram and em bolization of retroperitoneal hematoma INDICATION:Expanding left retroperitoneal hematoma requiring massive transfusion protocol and pressors, concern for active bleeding Comparison/correlation: CT angiogram 06/28/2020 Radiation exposure time: 12 minutes 55 secondsFluoroscopic images: 3 Informed consent for the procedure was obtained by explaining the possible benefits and risks, including bleeding and infection. All elements of routine sterile technique were employed to prevent catheter-related infection including hand hygiene, skin preparation, and sterile ultrasound techniques if applicable. 1% lidocaine used for local anesthetic. PROCEDURE AND FINDINGS: The right common femoral artery was accessed using a micropuncture needle under ultrasound guidance, and exchanged over wire for 5 Sammarinese sheath. A 5 Sammarinese Omni Flush catheter was then advanced over a wire and used to perform an aortogram focusing on the left side of abdomen. This showed a site of active hemorrhage arising from a tiny branch of an iliolumbar artery, arising from left internal iliac artery. The amorphous catheter was exchanged over wire for a Kumpe catheter, which was used to select the left common iliac artery. Selective angiogram was performed by hand to identify takeoff of left internal iliac artery. A 3 Sammarinese microcatheter was then advanced through the 5 Sammarinese catheter, and used to select the left internal iliac artery, followed by the iliolumbar branch arising from it. Superselective arteriogram was performed, but not demonstrate the active bleeding as well as the aortogram did. Vessel was embolized with a 3 mm x 6 cm [employer] interlock coil. A 3 mm x 2 cm Tornado coil was stuffed into the interlock coil. Repeated contrast injection is still demonstrated patency of the vessel, probably cause the patient's clotting cascade is dysfunctional. For this reason, a Gelfoam slurry was then injected into the coils. The catheter was then retracted, and repeat angiogram performed to demonstrate lack of opacification of this vessel. The catheters were removed. The right femoral artery sheath was left in placed and sutured to the skin such that it can be used as a pressure transducer. The patient was sent back to the ICU in similar condition as arrival to IR. IMPRESSION:Technically successful embolization of left iliolumbar branch of the left internal iliac artery. Professional interpretation performed at [facility] End of diagnostic report for accession: [id number] Interpreted: Travis Richardson MDTranscribed: 06/29/2020 02:16 PMSigned: 06/29/2020 02:24 PM Travis Richardson MD [facility] # [id number] BILL # [id number] Name Value Range Interpretation Code Description Data Trish rce(s) Supporting Document(s) ID Date Data Source [id number] 06/29/2020 08:28:24 AM EDT [facility] Name Value Range Interpretation Code Description Data Trish rce(s) Supporting Document(s) LACTIC ACID 4.3 mmol/L (0.4-2.0) [facility] RESULT(S) CALLED TO AND READ BACK BYCAIO SOTO ON 06/29/20 AT 0827 [place] [id number] ID Date Data Source [id number] 06/29/2020 07:33:45 AM EDT [facility] Name Value Range Interpretation Code Description Data Trish rce(s) Supporting Document(s) MUSE EKG PDF [facility] BGARYe4aDgOWAwCxk2GmZtFcYRClOK4evnk0I3A9mVQoF8VtrENut7jsU7JxZ7DkJXSaDYKBKP0PdHAv jb2 [file] A6c05A/z3qpUL79Zt+8/H78/PwN/vn3//lm35ygw113/BELmPNfP/fVc10/On+crm specialist/TJH1oobz661gWWs NX6K/kEW80pGXNIwfq78de/lRugtg4pH7R/Vijl3G4E/2a7wodW+9fintyjibOGwsks4py8RwaYboks+ NwgvkeSfmv97j7q+1l535811F6i6/sSvOShuwjX7Ex 7masmlVA6m+W014h1NQs7Z2N27h3yvQ870wU85yyBsHvu/2Tt91Sx412/01v8D/7/55ywyTdG10FdtP/ [file] THLMmR199IeB/iAYBwcnHmnAB/cqoYFCNjf1AHaRZPnzGmdeNSyyeFls+RENÉ+4JGRoxI1iHP5VvCs9s R53vvc89pdwyxoJHRs3x4PLW/oA4cW+YV6qwiGgEdFtkPLTnkPHFu8KsOZkoltZpMs2sQadOZMaHaOpr lkMOTqye/PIHVqa3qwbmUlStuGLKxgqPqeBCdO6lSO tcEd6XpVUREOYaSXn4ycoMEc0ERLzQPTwdmeG1NWG+IhUYfXX9ySLnQL7MWJeXPW3PPq/WOlnrRJmDE/ 3v6hAN2HBDn4OBQRu0Ba608PFkEWsSZS4GFthlb0cRNGLwN1urkHDvjVw76DypLBVOXDCZ6lVAbT0xVF zXaQrtHbYG1mUSL4OJKNMAkX73XAHVRSwGKw9BD6gF Gw4+lVVfUaT6AKutgJj1KM/YmxXbeOMp9FcB+YNcmC/xIzM0vAYlPG+SEfuD6nr1skxvVq+DkOti41h7 Iuk6WBC6mKjEmaVyj8EPXfkmrmb6wEZTRZz4GN7zxD2O8mTwVbGMH8CYGvdqyUkJhTUHfVM+MV+cWBzG eFXZdZLBUZEP48P323gNPI7fJg/6tcESNqREP4FmNM Angelic/JsvYRXuTozw9u35PE5pJRRw7mYCqKL9W0nIpyOh/rYEZ5zyF6W7AByD2sPMAUYv/oFkAKHS4iDMu [file] [employer] research [employer] ebusiness operations+oeJ/1jIK3cpG+iC1Jjnz48jGmbgvvm+iY9EGvAp jLi0KuD3L24UuAiV18gXed3xfqqJ2bN2NbQq/LrY/N5q6m9H/X/0u1qwz2smi2vN/wtW90OaR/UM+N+7 DXEnrzyvdx6+rk1l0l3e/cx/a32Sqg7piiP80b8wulh+P9uuM+3q/j/XkR60gyzjhk5/F+P0HG0WcWDD K7Fz1rMK0Vzr4D3IvMgX+9O+s+4jkUctB+w249A/Ec gK2LtGM9C3g/iiZmEUx91X+76200n5I+N+J5P/FNaO72ftbm51kJ0TJ/bno3A5p89a9fQgK8jnb06c7m 9Fc7cB/9pyRygixgoAuCJAxvKH040Yta85lKvqalTz49R6kQ7sYs/4JkefC6h2hY8uL5vNLp1bttg+xd df+tb66slQru/ylPrAE4z9tNng7H4hpc3E0//fYcmH B8+9nQ4B0f4/r9leE5od26Npnf0v76D/C57W998ii/2DeHja7a49nQs43tjsVrQTIZatr0vGP3g/EIr1 2zitmW9QzhMpmuF3bL4CueVlehdKC1OKS5Q4O01M7ce/SuzCX39g8/z3EI7/MfDP+0dz5QvrbZDw2M6T q5jkVnXB7g/VF4io3kyS0cBY/YKw75t/0+0l63epyj 3/0nQkovRcq2xmZsbhm6zrd9c/Mq9rmKy70FrOy2iBC+cmcc1AuJ2b3kDcNa+XsXy3zwg6YzpqbFdrBg /sbphJREE9TGNSkJ1e47ESVuu9KXOWLJ/L8khekq8NfXbYB0FDyEOIMePWrOu//z9DZo+av/rdllXVwL dXJ3bUMkjNzsftLcNayte/nyk30G637Zew38rI/zaq kmNr234xqY5H7scX/XO/e/l00i75386veoG921emmYv7T8Ghlg0DrKLVTNqQrgoj/6PO1q6IeWN/U7Gt 3QOQQfp82XaqKTGa9m9WcJIZ56FfjVf5LvylO/N2WCtij41HTQQ/j0wRg+iFkHMetgDB/D5NJj295BRw CQGWXmh8mSl/O9YpqEDBxg5mDt+TRWHPy+B7+vI0Y7 5iT/5uAojdX/tzd4xnjvakw+f+PvG3/f+Lvh74a/H04pjJqi+Lvj7/Ayd4vhwQUIW7O/S2Pdf3/tQmNF fJoyYuLvGL/rwckSuF5fgTK//vgsjXX//mKp7hi5//0rwmDI21/9p6lcZBL1X+rP7++E7c0ENJIPD88/ 4+/lq0w9Zt642rlFz969b1+4FamRbJ3b883Y/v6+76 mjAL457UO3v1Zy0925sP2hgdKT9z5+//5o9F1Gnz3u2nNWz252k/S7nfGcv6/8/X1fr+cN9Rw8/75v/b pAmuXyH8efxuLhL0fPSZ54apQx+t+J59/3rX+Qtbg5V8HEB34N8ut5262utW76/PpfGuv+G3/H+5bG6n gB0Gzeu/uO8/FQGuv+G3+P3+/75mfOt4+Wxrr//v7+ fjuzpqgiwih3VA84//9xxetUgt8yR2j5C4nnDDQ/v++i4Rkqbd+m4e+Fns3hicqO2U70/v9XmobBUfbq P4bF7cm25/zFk1zf+Z1rAtbOz++b/96zcSUEy2DW7+/uF7LapGeB/b1q0776k/ko1zf/JjRWrm8+ei8K 1HameCtf3+/A3wPPf/IsWbf8RlDhg4/f/VrwYVO2Z9 9/goM7GsF1vWNbR7/f+PwtzdM9Yk/k3BtCkj/8/oZb190PsUkjTmS+fw88n/h7fs+/+gm92GictE/vn4 Z+9oY2Tb1U0Ct7ipIO0c8Ek4/vr13D+xre1/C+0Fdp+G4F2CyC4/J8BmKxzI/x+e15olqL5z20puQLXW 1A1SnCoCTFF8c24otvn/B3w9/dazsbVgjl1IMojD6Z zyf68+Ww0j/9n/DnV1/1b/3qq/oWeE/4X9+oHFY/s/D8/vzHv2+k93D/9++v//9nsPW3mepoQPVJ [file] evU8lUtuxNUuWE316diU5z8VLTJRsfR5/o3h7HTh98g6Z/c9tZqK7uM/71v/7zn/tami+dflf7z//7zP/ 7P+ud//vOf/++f//2f/3oT/kD3+ee///XecXnD//Wv 94rLhIf+A5B/5WuFf/S6Xf+Dj3/pzXBWuhmyI4Xka6q/kY8+SPRuvJwnQavp8QvBM1C/4/dv0qvv//j9 Cxf9/Kwt3WuRYz/5EmVueQ20D2n5/8Jtt1SzO3XgdI/ZUx95+B3LV85AzeZ7VkuVOw8ZP8TR5JwLLnXa +X4/Q9/g213mkcpAQWhBR+uwTXiD/dIei4qfp9/Portia 345Vfr+5ffDjvyceT/1vx585cawbLAlndVnw1L3o266jwW1B96dM6Laf6rH+pk3M82u618jOtUfd+CX3 L9W633ClHGZ13RnoAfEzjjK9+YUWbk54TdpM2I/xr61/hPaxv0k+6bW231/F5X285f8Taz/jDI+8bID+ L91a/SX7h5VO3E7+foD948Qk/xKzsq/EeXfN/6+YG7 j3DsvkB/rQ9oKyZMbo+T2phULboT3186aL/4csizv/wWj/7yKxV++n1vJYS6X3+9e67xZF2s2PbI/vUc Dzob1hxw+iWeB+IjTdsa8R+QyT9k+nW9xIp3+d4d1LMv5Bg1IHU5uM0Cw54XUR51BoXvx2X3g3Z0Y8eC Z/vtny1xfa5RJ5PXpXNbQy3ScThs3g5iW7+EPKfPeE mM34S+bfu0jlTl/Wz9eCGxlxcb1SgRnmaSWa1FYU7Fjc0T+F1Rb68oS5V+6N9j+V9t01LyK/r3BPJ5+b 1h0A++P18+72WRCX/ly9yRemr5A0L+crrSv50K73bgz/q/d0Q+gqTqM77Qy+QfyD/qpwV2YZ62DYP7UJ LD6xm+6cTVTp6/QrCDLZX81Wc2KAAIX729Z1OQ+NNv 72NLACBeiCmse80DmHNKJKDV5C/KHXwlwFdS+ZpsUgz01n4/7DfI47249o2/MeEN+fe25Sdv0u2UR+gv v1bf+4PwS+1T7tKBbo/QE/WZ99tQU9zf1D+/Nxj0Qj5CVsQT0K/1vvRdJoikl5eiq6NJN78hdvXJenpP IqEi8LV0h3o//fK7+0zF6BhHo60xa63WXxwlN+joX9 0jD/nkz1Va08TG1EJE2QTEBEiQiHWXqdCGozG+Qyalmc75G2RkMumg9SEp6FyZeEBqFxPWyrNJh2CCQx I3XhIBtf/JYW1GBLR25S845znZu1bhabuP7842x+CXwtmS099FNfzw89oh9+bp8iAM+p76+AZdkc/gDS u47sZneiiYyJ+k8FWHA/AMPwOLKYQiXbFl7kbZ+Kq+ A9uD4VKhTPhl0GSkOXN5e3BnGO+fGQkuJop61J/tA7hQYxEVosDoRHJiCR+B+bfwVeWfkOeEPCfkOSHP KcgH/QdY15J2R+C3kqJXJu3TFa7T5PqEkHHl+I1Xv+JyS600S+8O2C/3qt8G19aY/p6X+qCxa2iuDgsF f/rqN6m+8U00Psv96Hoo9C9/fPWFN+cgxHA0s63U6n mOO85pvT5k/NRkT5m9K98KEra/fpuXM+ez73SJY+1rzlW6N/ZYW93swQgANulLz7ot30X2wAz29bFsNl tesGgZe+9XdB+91ysmDLri++luIMm0gc/1B1yoL53l5Ym0ZVkI+kxnMggHRw3sj/ep0j6bZ023umJ638 q76dA3E5Ye5PcsM+IrL75sZp+6YdAddP/Oh2ptPusV su8puVh+xEc/bx6mlU7Zt+135bEgN3+7E70+nd1YHFf1k62LfstHrrmaLszZ/duTPjh0OdDpt7096e+q zWG/9zD4il4vi0avk9JFS3leKlp96F9z4t03FyUwJ0/zekA8aF99/47zl9NDeuRZI5jNOdjJ/Be+umHk E8g/QB+9wYnuGh8q+0XxY9f7sIX758QMF00hn+xWAR 9hG8i1fVpzquh9E8259dOTIh6+3L4LX/W/ywji9TB3Xx6N+KrzTOR/DK3IE6m6oq+ue68/DPc2GR9kFJ wWtmAu5fnej5LnS1QF8y3FCxYM7xQtW8F+swFAc0enrm/3HiqqN2++Jv/XftV1K/oT4azKg9HpH/86+t chzw5+3UBH/ht1crOuCMw9eoTfO+JKpZ8SW++9hiuf Lcaq83kFR4U0WDL6gfuk7PUCu/X+DsxHha+2WBgrAO67IG0P0higppO3ZaGl6aT+leg02Mba+Hu6yvZw zDX5J/rGfdwtG7kzniOnJXumweGF0yM7l+A3wW/hq2r/iai0eVvp3MT+D/gt+1V9c2b/qC0GZfABIiAG L+xX+gwlG6GExh/0OD602I997Aa7TR75EJqVj19c9+ 0zeEOfWR/p84A++eg7cL4Sb2AE3hFbt6Geh/XD4EH20sB9vm0rN/IJ1DO++VqfsU/qk/h++lefWS/omv Gr2B/VII2SE1VFu/YXtPBV0/kR9QL2jG/hq/4B8N5S5mTNtlZGvDn0ns+VoCfyOcgH/FdXM0FQY8kMJ7 mgC+gC+gYd/MqMXwW+UjGUO/hKxUEHvwJ+BfwK+rfw TNbC1ZH/gZb0Ep7i2AF1tL5zh0/3Bn3je/Bb+3WNT39k/S4Tu5vNO+se/Kw7QB/0oSs1ndBvju2D8uYM quBXwa+CXwW/MlnickIdkola0JpmfMG7e/jeQAe/qO0VpAgPYo3HN/CJLta3j/4LXa4VYbbQFr2jSy8v +6Fq6F/rS4owff55ipmT5rRlz+jajd19RzgmLh D2Tpj1it5QqrK/7gJax88y+gId+xqLo1Bx11Iyhk712wz/zyQrl925v8AkvFelD38b5pb8ORQo14QJyg rdBS3RnF52R/YHNTAfBeajQP/G0W4zJL9K2ikrE7KnVagfpC1A+ibQw1FkK/IckOeEvkrwm+A3wW+C3x PJXk5PqbW4AqgG8OqhS/mThwP8FI6T7maP68J2z/1B TeirM/ZJPZiPDuajg/kI+4OK/NR9gS1S4hVZ8Mzbuz/k+YDfg/494Pegfw/692D+LNt3KT3Vhp4Tj/Y8 oC/QF+jy1d+e4deAr+wZPGnAV/IgtsmMMVPBkT1jW/ZUXSOT8C/o4HdN/xfhCmS1DFvDQhQjhV0X8Is1 YqyYloOogIved94cwn5vIvZB6MX4mRQj0NfdG96u3W c5tdRwWKjSDWIDFXt5AOc/ZTh/CJWdMVC4vvncBDWuTwwj8P1gv2L+ie/BL/XJokzu17TqgNChQedixh c6HHfKw48Z602za5Cndgn0orqfpvxenZPJTA/X52U782H+iTiV8RfieiUoayAdIU2zn97Cfzm+Ffwq+F Xwq+BXwa+JP0XV6m0ldNkxoQcg0ykQq/MbZpBnQ/8a 5NkgzwZ+Dfwa+DXwa+DXwC/nrSMyYq8lcYrlVdHRsnYmsEI/mn346X+DXwe/Dn4d/Eb9krVw8GyWk282 q2aK13mh7AE/YD7rX/SfE8kCCo52Y+m50rO3tW6sL6h6y3EuoO6TG/uzxZzfeM/Qf+EN+si26qb2uRsl s8+8p+e/7DudhN9E6S1s+8B0ehsZ+R/Vq471Dis/+e tno4SfC32v1BW4LumErp97p1J+UXyv+K3ixUzz02BKGf+J/q6Fk5S62qb7K72+kcF+ZbBfGfCVHeCNwl elzwtfaYc/0B3t6iUZ+PpQBbdWerQc2zu8dR7oWgidF+j5zL+TcM2p20G41ndd/urjwFf+wWn74Yq/Bm /4M+vtowmsMaEcDMcYH3OabfCPXvNO/eVXK/98EAZ9 1guO/JOaZ678cr5j8/yLlehmtk9y5hbPwa/W3/EHoK2Q2/NX8tq3/T1/JVH/6nce1d/zV3KK/u7/apVl vGuP8mdC+pr+dewPOvCVY3/B4lC31Ynf+MarTE7MM/07Dream6kuy9K/O+oCKmHv2cO25bEboLM+5WIo d/MMzvCkKW7FJ/iVWQ+7wMu10cssad921ts82IW+1v hBF9w7iyay+06iWo858xW8t6vHPQP8Ef/jSKtZG5A95cx/sF/5Rv/ifLvrzL+uo69cF+eLkplz5fbu7g jf7rqR/+Bn15l/XWf+dTXQRz+4gk5fvbbaxuG/86c9PwE/oM/+yhjBxe1cnXn07Co0wgjoG+KaZ91o6M c2zAsA50jkGf+5zf6v2+mcJrCLQ6L+gfwT+SfyB7+1 P/jOp+6z/+u1P1hl+ex3uw/ecBfQZ7/Nxr9HzKF+5zfcFfkbygW/oe703VzV1MW7TUGQd8/RffZ/3Wc/ 4LB14nP53htq3/5g/VyDDnoY66kg66EKVff6rb2qL+iG+doort5O4MC735c/E/mcb5/ZT14HzXUElzm8 b+hSc707GopfCsiYCMQjg+Sc46U5LhwW+VhPw/cGuk 89a3+pntD6XA+1X5cwHgg9yX/J/8x+t7/ji2081pf2vU7+v+evuqz3/MY7me3O+gG/B/035dsMk9lx9d G5Te39a2xoEY/qZ86L+lh4MR5v/IafA/mvv1awmYt3I48kaaVfzgH97n073yz4ZCG+I+l8BZdQbZUiHE 4h/znfHs/s62vQS0zt+WzJV5C9P/i7bS8Kf6n/Y816 P2C/Cpy/CuwPxhLQB0/Ricvj6xypO+evAvcHA/Ramy/pFN372D4io6XTtfNqyb6u/5e9ForDgHP5tKNwS IbO/KHJ4iJPLD/YHQ8Y+NQI1HpP0pzVNpy4sLme75SXKW5BD9GMewD5WefQ+96yPYs/1A5xjAWE+FVvw Pfjds/8bG/27B0/GBr8b/bsN+YPfDX43+N3gF/argP 0cGD0W6Z4W+9Uih09jwiZf+G7hYxY2FeH+TgLkbTNzMngcni0Xfz+hDrojH/NiWH0KgrC1RafE6D+NfT SqJhrKEuyCc1MJWyu23jxG+xuiNVgc2iZcvZ4viLrij/7ErX5fWUR9fo1ko6/TFbhJqbA3q5E0G943my /Q0b+bNxWwXmP5NycExoJPpg22VfmvD+fbA+fbA+fb u7SxMxnHG+tj93qMchF+YGB/DPV4NUc6ZLJgpHaON5PZkdwEEs0F9liI+3AHpJsH4KDlvsUfFxcSH3aY PAfkGfcHA/Ramy/uDkZDnhDwn+NN9avW3bgZ7f3F2wGw3e6NzMjV0eN/8PeN7NaNRc6WzJHRE4NB46Alv /K6mukJXOW8PFO5GV0EIbhSGdZxwWruYCoiS+Marquise/c E4jnID+rw3DKOm6ie0/QC+keZ8bSldBCA+G94T6Zh4FglFor4ah/OJ4Ap2g4IIqM8O32/mwxZg8tk5Qd 1vHaMP8GbuaP7ZdYs9wV6tj1/+F6Ykk26wQgZmjv4wiTle8S/TXw4HhXGOpGgmng2w2riGaK1ueWHnKV kYIV6X/a837CdE9b+4tH/DRVGuKJ/fPHXp+ghyNQ7n y65cD0g0R5/QsT/t5A553I+6VJO6d90hyY/zm2o3k0L1lgx0ok+wr1zbn+Ky7CbpJ/czd9wr53MlFk73 eXbXjft7/jrirxzxVw7/wojd8NDUAS/aH+sT/D8tl2eSd082X3q/2dO+gncG6fXv+sO2rA2a8uf/cthX Pnt/wTO+/p8zbrr0Wa+p3/u56aW5Hq/q597K4zxpZS zPPr/cP63vy6/Tb3x7+k79nh/U+6/n9/ygZB/z/OA9/+Qy74975j1Ll2GlGw4jqung913j/F1849B2no P+yhfe7+r/I4f/wxwbO06uw+PYH/TV31+FwhUljkw9wS4RSeHy7sN72jB7jxkOgiuxU5V23FT/+0A+5u 9u/7Tc2dw9di+3b4s7cM+7/c+O+Cs/CV8xZ23ylRhL 0V/EX/lp/9QLeeBoXC9moNGDDeoYr7Fa0A/GPtjmieqwE15Js434u0O+0K3/j9z6++kK7cSi087n+B7h /KDj/IYyno1Vr5Nx31nf8XdRIGrvivLR4MeBZlrO2OM5b//vu+T4vPtqC/yVI/7KHeuzY/76RDm+v8jP 1G0zh9o0tz+9z+G4192cJ16zfj7Z8gv/iG93x/fXe/ [file] IDUgMCBSCgo+FahgkIXoaYkfEXLSLLK5QhDYAEGLE5O= ID Date Data Source [id number] 06/29/2020 07:33:45 AM EDT [facility] Name Value Range Interpretation Code Description Data Trish rce(s) Supporting Document(s) MUSE EKG PDF encoded [facility] PFEGMv4mYpTFPnKjy6SkTvCeONMdEU9mcfb4E6J9uTFiP5ByzBOsq0alT6IqL0XtBRIlFKCWCH5FxXSe jb2 [file] r/n0vvIi3i3t6Bb2hrx44e6uGm8218hRy1710oKrc8 82/Nrdrw2//9fV1uF+avK/PDS/PzdW1+eHF+vq7ODy/Pz9f1+eEF+vm6Qj+8RD9f1+iHF+nn6y h73GE1cNiNPKn/UiNBgvw36MCOrofgUnIsikVt7j6GcjT03lUJpIphoFVUchPGGLNPjoPLYiMWp19HbM pOs4Cj4mMFnSQUkoKKIRfOdyIGivK6EuaQvKMz+kQo UORLoQglinxpFKFIkfGtKpus/PKTQkW+lQwPbkxUUuBEKguWD6D1Jv80AKdX5JycQLSIiRrTzWiTP6Wx gN4bxLcZfnK+lItQusiXdhGKF/yWY8E9Mv/7IVwy6FhEPLMAcSqLoTtNDcXzdZGr/+4+mjMCY2wO+dIy VePyV4gTIXxaM01BRY53SLkqxVIvZHXCGkVotlVjGc 50jVDYiH/dRnGMX98mWVtpuD1D4xi+4P7X1TkNyqSLGFiJEOJAB69pXzib6WckLFPEgHwqdoJMX94sXV vypXaEcke+9J6V0QtF6wOUApbYGYZGP9+lVri28Gb5XIPAvPduqsJMN+0jFD/udR7G1hm+6A3APKeXPb CUKQsPCBKDZG7wGHxT0WlGHTCEmFeskBTNFq1tHWWd pYaEcki+9JBSD+iWSnEmGp9MV1e6bA99KIyI8KbAZjPCmficmG3MGt1z6FW8cGmHkps/9JBSD+mXHlLq Xd6MR2r2sL85NLgD2FjAMlYYlwbbiQ2QHo4i9UH2kUvBtxc/8zMtQfOdoWkpmn+Fx3tLot2/W5rmO0/T UhGdlOkThisO0aUloYf2jyJajpMPJo/inr0W4tA36w NKPaRfekiph/NSNno7rR9xFaGi9b25zXBQ+qWHlHpIv/SQUg/gzw4Q2eZ25yVUFiVdkimie/RKAfp6hK 8tRaHe0r75sFSO+qWHlHpIv/SQUg/tsx8Z6gF99xTFYtTrblgcs/EPGjf7zJ5uWxPz6m92xDJB+qWHlH pIv/SQUg/lmg9S9zB19pJMHfHpaxpac/FCBng4oT4t JpDs1x88pMZZ+qWHlHpIv/SQUg/ogp2O3mN54mAd39pP4OZ+SLmORWDqbQNBydJOQ6ZgGuIWLrhooJNK YiT0R+mP0h+lP0p/lP4M+jPoz6A/g/4M+jPoz6A/g/4M+jPoz6A/g/4M+jPoz6A/g/5M+jPpz6Q/k/5M +jPpz6Q/k/5M+jPpz6Q/k/5M+jPpz6Q/k/4Y/TH6Y/ TH6I/RH6M/Rn+M/th2Alyc3SfCYJQ/Rn+M/qy0pulk8Ziae0Vwgh3Ho2n+OP1x+uP0x+mP0x+nP05/hospital product specialist [file] technical solution architect+EOluDZSmdBFn9OzDg5mtplLHXXWmOJcM5Mm9XUpvIKZEtAYcm+bgVH1GSXIs/NoilrT5k0HfLxvH [file] 6bCeIa15UVwU0yfBb//9IT++gC/gClyBb+AbeJQ3+40Cn5loXWy1qmZu7Vd/4XK0hgj6PqnWZe4ywK kr5msWl1LUC/eLahKn2Sy7Bgti2Vi2ZRaaUpqvNUMU T+XvK15528kFpp+d+6VdGJMN7VZ6KI6vbZhH7u06obUt+P1GPni+4V/faZP91Md0n/roB39vyYqq4hyh PF/K0yK9E5EwHFrpD4aV7HPW6mmbSohK5/laz2+l2N5aff7ZmQa5jcA2F4Vz/qv8Dub+q5vWO6+iuf8q v4Pe+3M091/hWy08U1C4OJ/Usz6LhvudzF/gG7gBN+ M4AkfxvAwg/Ibm/TLWTBvt4sqh08v7GF28k1VE85/UV8DO3NR9Pb/AF/VQRUTo0L13KjtyQbfXP/ADvP adxFw7CjZE9MM3LX/AJ/XSkXUnzTN8Qx/Tu2ro7oijQedwV7hn04aUjpN/wE/nI/v9ReEjoY3u/nmHf5 XfrJ3+VfgYO/0rzf/Q91evjb0Q1PKwqm+5ZT1/e4s+ n27IjfuglH/fvsO/3tUEgJ88d76m9F0/Kt/XfflxJh7694WkfvU65G/t0etHO/qjFcA1MdKT67bKC+D3 Pf+8c/9L9lGzn1x29/kvUhjnZ176/yrvJ/dfZVly/1NTGlhe5Quac/K3Q22b66x0nLVxpGB1AbyUyTU1 AB/AB/WVgWSbwFjsGz7Ay96/sr5J6zc+Yamb19O5QK zPF/uvdu2/ubDaZI3GJ/ABfAKfwFff/6QkkzZSlsgH0a1PE/xc2LWfPN/lwA/v52z5nbWe+13pGpGG7b x/ic0u436EqhKcvLzu9s+3c//ZJDOexLrbQ86p/6h/SHe/p90/b0X/aLb6nQC/hbhKQxGM6166hK+wez 1lp3/2Dt4gd0Kr/e6t3W2eAwaDowRZ35fdr8mSxGil P52iF77Sv4k50ae5+lktq1qi/3kb+fr4F3vmz6qZs9Eelyehzw2qh60849ZFsCSfdFnsC74QClzEO1VJ 49jfvrG/mMe7krf1u/ymePuTO/5cvBL4x67g+AK+hKoeUb9Vj+BF2PG89HseDyknb2/V625zp35k/vb8 gw9al2oxA/yPRrMY8Vp6iceJ9aJnDmU6xB+8T/crm specialist+/ [file] vojYG64UTVfTFgP7sgBOovio6V6IzqiJ3oKYetk+Continuity Editor [file] 4+DwL8LBA4pTOkYsq2ObR6QQjqCHJRSv== ID Date Data Source [id number] 06/29/2020 09:04:09 AM EDT [facility] Name Value Range Interpretation Code Description Data Trish rce(s) Supporting Document(s) NEUT % 86.0 % (35.0-75.0) [facility] LYMPH % 3.0 % (16.0-52.0) [facility] MONO % 11.0 % (0.0-8.0) [facility] NEUT # 10.3 10*3/uL (1.8-7.7) [facility] LYMPH # 0.4 10*3/uL (1.2-4.8) [facility] MONO # 1.3 10*3/uL (0.0-0.8) [facility] ID Date Data Source [id number] 06/29/2020 08:58:31 AM EDT [facility] Name Value Range Interpretation Code Description Data Trish rce(s) Supporting Document(s) TOTAL PROTEIN 4.4 g/dL (6.4-8.2) L [facility] ALBUMIN 2.6 g/dL (3.2-4.5) L [facility] GLOBULIN 1.8 g/dL (2.7-4.3) L [facility] ALB/GLOB RATIO 1.4 RATIO [facility] BILIRUBIN,TOTAL 0.9 mg/dL (0.0-1.0) [facility] PLEASE NOTE:Total bilirubin results may be falselyelevated in patients taking Eltrombopag. BILIRUBIN,CONJUGATED 0.4 mg/dL (0.0-0.3) [facility] BILIRUBIN,UNCONJ. 0.5 mg/dL (0.0-0.7) [facility] ALKALINE PHOSPHATASE 38 U/L (45-117) [facility] AST (SGOT) 40 U/L (11-39) [facility] ALT (SGPT) 33 U/L (12-78) [facility] ID Date Data Source [id number] 06/29/2020 08:13:20 AM EDT [facility] Name Value Range Interpretation Code Description Data Trish rce(s) Supporting Document(s) PHOSPHORUS 4.0 mg/dL (2.5-4.5) [facility] ID Date Data Source [id number] 06/29/2020 08:13:20 AM EDT [facility] Name Value Range Interpretation Code Description Data Trish rce(s) Supporting Document(s) MAGNESIUM 2.6 mg/dL (1.7-2.4) H [facility] ID Date Data Source [id number] 06/29/2020 08:13:20 AM EDT [facility] Name Value Range Interpretation Code Description Data Trish rce(s) Supporting Document(s) SODIUM 143 mmol/L (136-145) [facility] POTASSIUM 3.6 mmol/L (3.6-5.2) [facility] CHLORIDE 111 mmol/L (100-108) [facility] CO2 23 mmol/L (22-31) [facility] ANION GAP 9 mmol/L (7-16) [facility] UREA NITROGEN 38 mg/dL (7-24) [facility] CREATININE 1.46 mg/dL (0.60-1.00) [facility] BUN/CREAT RATIO 26.0 RATIO (10.0-20.0) [facility] GLUCOSE 209 mg/dL (70-99) [facility] CALCIUM 6.4 mg/dL (8.4-10.2) L [facility] GFR 34 ml/min/1.73m2 (>59) L [facility] GFR ( AMER) 42 ml/min/1.73m2 (>59) L [facility] GFR INTERPRETATION [facility] --NORMAL KIDNEY FUNCTION OR MILD DISEASE - GFR >OR= 60CHRONIC KIDNEY DISEASE - GFR 15 - 59RENAL FAILURE - GFR <15 Est. GFR calculation based on the MDRDstudy equation, which assumes a steadystate for creatinine. Est. GFR should notbe used for medication dosing. ID Date Data Source [id number] 06/29/2020 07:56:39 AM EDT [facility] Name Value Range Interpretation Code Description Data Trish rce(s) Supporting Document(s) WBC 12.0 10*3/uL (4.1-11.0) [facility] RBC 2.75 10*6/uL (4.00-5.40) L [facility] HGB 8.0 g/dL (12.0-16.0) L [facility] HCT 23.8 % (36.0-47.0) [facility] MCV 86.5 fL (80.0-95.0) [facility] MCH 29.1 pg (27.0-32.0) [facility] MCHC 33.6 g/dL (32.0-36.0) [facility] RDW 17.0 % (10.5-14.5) [facility] PLT 86 10*3/uL (150-450) L [facility] MPV 8.2 fL (7.1-10.7) [facility] ID Date Data Source [id number] 06/29/2020 06:25:21 AM EDT [facility] Name Value Range Interpretation Code Description Data Trish rce(s) Supporting Document(s) POC GLUCOSE 214 mg/dL (70-99) [facility] PERFORMED BY CLINICAL STAFF ID Date Data Source [id number] 06/29/2020 05:13:28 AM EDT [facility] Name Value Range Interpretation Code Description Data Trish rce(s) Supporting Document(s) WBC 12.8 10*3/uL (4.1-11.0) [facility] RBC 4.08 10*6/uL (4.00-5.40) [facility] HGB 11.5 g/dL (12.0-16.0) L [facility] HCT 35.7 % (36.0-47.0) L [facility] MCV 87.4 fL (80.0-95.0) [facility] PATIENT TRANSFUSED MCH 28.2 pg (27.0-32.0) [facility] MCHC 32.2 g/dL (32.0-36.0) [facility] RDW 17.2 % (10.5-14.5) [facility] PLT 68 10*3/uL (150-450) L [facility] MPV 9.1 fL (7.1-10.7) [facility] ID Date Data Source [id number] 06/30/2020 05:34:39 AM EDT [facility] UNIT NUMBER [id number] LOOD COMPONENT TYPE LR PAS2 PLATELETSUNIT DIVISION 00STATUS OF UNIT TRANSFUSEDTRANSFUSION STATUS OK TO TRANSFUSEUNIT NUMBER [id number] COMPONENT TYPE LR PAS1 PLATELETSUNIT DIVISION 00STATUS OF UNIT REL FROM ALLOCTRANSFUSION STATUS OK TO TRANSFUSE Name Value Range Interpretation Code Description Data Trish rce(s) Supporting Document(s) ID Date Data Source [id number] 06/30/2020 05:34:39 AM EDT [facility] UNIT NUMBER [id number] LOOD COMPONENT TYPE THAWED PLASMA <24UNIT DIVISION 00STATUS OF UNIT TRANSFUSEDTRANSFUSION STATUS OK TO TRANSFUSEUNIT NUMBER [id number] COMPONENT TYPE THAWED PLASMA <24UNIT DIVISION 00STATUS OF UNIT TRANSFUSEDTRANSFUSION STATUS OK TO TRANSFUSEUNIT NUMBER [id number] COMPONENT TYPE THAWED PLASMA <24UNIT DIVISION 00STATUS OF UNIT REL FROM ALLOCTRANSFUSION STATUS OK TO TRANSFUSEUNIT NUMBER [id number] COMPONENT TYPE THAWED PLASMA <24UNIT DIVISION 00STATUS OF UNIT REL FROM ALLOCTRANSFUSION STATUS OK TO TRANSFUSE Name Value Range Interpretation Code Description Data Trish rce(s) Supporting Document(s) ID Date Data Source [id number] 06/29/2020 04:09:12 AM EDT [facility] Name Value Range Interpretation Code Description Data [facility] rce(s) Supporting Document(s) SODIUM 143 mmol/L (136-145) [facility] POTASSIUM 4.0 mmol/L (3.6-5.2) [facility] CHLORIDE 111 mmol/L (100-108) [facility] CO2 22 mmol/L (22-31) [facility] ANION GAP 10 mmol/L (7-16) [facility] UREA NITROGEN 38 mg/dL (7-24) H [facility] CREATININE 1.40 mg/dL (0.60-1.00) H [facility] BUN/CREAT RATIO 27.1 RATIO (10.0-20.0) [facility] GLUCOSE 245 mg/dL (70-99) H [facility] CALCIUM 6.2 mg/dL (8.4-10.2) L [facility] GFR 36 ml/min/1.73m2 (>59) L [facility] GFR ( AMER) 44 ml/min/1.73m2 (>59) L [facility] GFR INTERPRETATION [facility] --NORMAL KIDNEY FUNCTION OR MILD DISEASE - GFR >OR= 60CHRONIC KIDNEY DISEASE - GFR 15 - 59RENAL FAILURE - GFR <15 Est. GFR calculation based on the MDRDstudy equation, which assumes a steadystate for creatinine. Est. GFR should notbe used for medication dosing. ID Date Data Source [id number] 06/29/2020 03:15:57 AM EDT [facility] Name Value Range Interpretation Code Description Data Trish rce(s) Supporting Document(s) SOURCE [facility] FIO2 75 % [facility] PH 7.45 (7.35-7.45) [facility] PCO2 32 mm[Hg] (32-48) [facility] PO2 179 mm[Hg] (83-108) H [facility] O2 SATURATION 98.7 % (95.0-99.0) [facility] BASE DEFICIT 2.0 mmol/L (0.0-2.0) [facility] HCO3 21.8 mmol/L (21.0-29.0) [facility] TOTAL CO2 22.8 mmol/L (23.0-32.0) L [facility] BODY TEMPERATURE 98.6 [degF] [facility] ID Date Data Source [id number] 06/29/2020 02:03:36 AM EDT [facility] Name Value Range Interpretation Code Description Data Trish rce(s) Supporting Document(s) POC GLUCOSE 194 mg/dL (70-99) H [facility] PERFORMED BY CLINICAL STAFF ID Date Data Source [id number] 06/29/2020 03:41:35 AM EDT [facility] Name Value Range Interpretation Code Description Data Trish rce(s) Supporting Document(s) WBC 7.5 10*3/uL (4.1-11.0) [facility] [place] ADJUSTED FOR NUCLEATED RBC'SCorrected on 06/29 AT 0323: Previously reported as 7.6 RBC 1.65 10*6/uL (4.00-5.40) L [facility] HGB 5.4 g/dL (12.0-16.0) LL [facility] HCT 15.7 % (36.0-47.0) [facility] HHRESULT(S) CALLED TO AND READ BACK RENÉ RAMOS AT 3ICU ON 06/29/2020 [place] 0230 [place] [id number] MCV 94.7 fL (80.0-95.0) [facility] MCH 32.4 pg (27.0-32.0) H [facility] MCHC 34.2 g/dL (32.0-36.0) [facility] RDW 17.5 % (10.5-14.5) [facility] PLT 42 10*3/uL (150-450) L [facility] PLATELET COUNT VERIFIED BY TECH MPV 8.3 fL (7.1-10.7) [facility] ID Date Data Source [id number] 06/29/2020 03:19:07 AM EDT [facility] Name Value Range Interpretation Code Description Data Trish rce(s) Supporting Document(s) CALCIUM IONIZED 3.96 mg/dL (4.64-5.28) L [facility] IONIZED CALCIUM NORMALIZED TO PH 7.40 AN D 37 DEGREES C. ID Date Data Source [id number] 06/29/2020 03:09:37 AM EDT [facility] Name Value Range Interpretation Code Description Data Trish rce(s) Supporting Document(s) SODIUM 147 mmol/L (136-145) [facility] POTASSIUM 5.7 mmol/L (3.6-5.2) [facility] NO VISIBLE HEMOLYSIS CHLORIDE 116 mmol/L (100-108) H [facility] CO2 23 mmol/L (22-31) [facility] ANION GAP 8 mmol/L (7-16) [facility] UREA NITROGEN 32 mg/dL (7-24) H [facility] CREATININE 1.06 mg/dL (0.60-1.00) [facility] BUN/CREAT RATIO 30.2 RATIO (10.0-20.0) [facility] GLUCOSE 195 mg/dL (70-99) H [facility] CALCIUM 5.0 mg/dL (8.4-10.2) LL [facility] RESULT(S) CALLED TO AND READ BACK BYLAYTON Cano ICU 0308 06/29/[place] [id number] GFR 50 ml/min/1.73m2 (>59) L [facility] GFR ( AMER) >60 ml/min/1.73m2 (>59) [facility] GFR INTERPRETATION [facility] --NORMAL KIDNEY FUNCTION OR MILD DISEASE - GFR >OR= 60CHRONIC KIDNEY DISEASE - GFR 15 - 59RENAL FAILURE - GFR <15 Est. GFR calculation based on the MDRDstudy equation, which assumes a steadystate for creatinine. Est. GFR should notbe used for medication dosing. ID Date Data Source [id number] 06/29/2020 03:09:37 AM EDT [facility] Name Value Range Interpretation Code Description Data Trish rce(s) Supporting Document(s) MAGNESIUM 3.3 mg/dL (1.7-2.4) H [facility] ID Date Data Source [id number] 06/29/2020 03:09:37 AM EDT [facility] Name Value Range Interpretation Code Description Data Trish rce(s) Supporting Document(s) CK 81 U/L (26-192) [facility] ID Date Data Source [id number] 06/29/2020 03:09:37 AM EDT [facility] Name Value Range Interpretation Code Description Data Trish rce(s) Supporting Document(s) PHOSPHORUS 2.4 mg/dL (2.5-4.5) L [facility] ID Date Data Source [id number] 06/29/2020 02:58:07 AM EDT [facility] Name Value Range Interpretation Code Description Data Trish rce(s) Supporting Document(s) LACTIC ACID 4.0 mmol/L (0.4-2.0) [facility] [place] RESULT(S) CALLED TO AND READ BACK BYSAN [facility] ICU 0257 06/29/20 [place] [id number] ID Date Data Source [id number] 06/29/2020 01:01:03 AM EDT [facility] Name Value Range Interpretation Code Description Data Trish rce(s) Supporting Document(s) LACTIC ACID 3.5 mmol/L (0.4-2.0) H [facility] [place] ID Date Data Source [id number] 06/28/2020 11:41:00 PM EDT [facility] Name Value Range Interpretation Code Description Data Trish rce(s) Supporting Document(s) WBC 8.2 10*3/uL (4.1-11.0) [facility] [place] RBC 2.77 10*6/uL (4.00-5.40) L [facility] [place] HGB 8.8 g/dL (12.0-16.0) L [facility] HCT 26.2 % (36.0-47.0) L [facility] MCV 94.9 fL (80.0-95.0) [facility] PATIENT TRANSFUSED MCH 31.9 pg (27.0-32.0) [facility] MCHC 33.6 g/dL (32.0-36.0) [facility] RDW 18.0 % (10.5-14.5) H [facility] [place] PLT 76 10*3/uL (150-450) L [facility] [place] MPV 8.8 fL (7.1-10.7) [facility] ID Date Data Source [id number] 06/29/2020 12:35:32 AM EDT [facility] CLERICAL CHECK CLERICAL CHEC K OKPRE RXN SPEC ALEJANDRA NORMALPOST RXN SPEC ALEJANDRA NORMALTRANSFUSION REACTION SEE SEPARATE TRANSFUSION REACTION REPORT FOR PAT HOLOGIST INTERPRETATION.TESTING SITE PERFORMED AT [address] [place] [address] [id number] ABO/Rh B NEGATIVEDAT, C3 SPECIFIC NEGATIVEPOST RX TOM NEGATIVE Name Value Range Interpretation Code Description Data Trish rce(s) Supporting Document(s) ID Date Data Source [id number] 06/28/2020 11:42:29 PM EDT [facility] Name Value Range Interpretation Code Description Data Trish rce(s) Supporting Document(s) POC GLUCOSE 191 mg/dL (70-99) H [facility] PERFORMED BY CLINICAL STAFF ID Date Data Source [id number] 07/01/2020 01:43:00 PM EDT [facility] DATE OF EXAM: 06/28/2020Addendum BeginsC T ANGIOGRAM OF LOWER EXTREMITIES CLINICAL INFORMATION: BLEED COMPARISON/CORRELATION: No existing prior relevant imaging studies are available. TECHNIQUE: Axial images were obtained with IV contrast from. Three dimensional reconstructions were created from source data by technologist at a dedicated workstation. One or more of the following dose reduction techniques were utilized in effectively lowering the radiation dose for this examination: Automated Exposure Control, Adjustment of the mA and/or kV according to patient size, or Iterative reconstruction. CONTRAST: 100 mL of Omnipaque 350 was administered for this examination. VASCULAR FINDINGS: Right Lower Extremity: The common femoral, superficial femoral, profunda femoris and popliteal arteries are patent without evidence of any significant stenosis. There is three vessel runoff to the foot. Left Lower Extremity: The common femoral, superficial femoral, profunda femoris and popliteal arteries are patent without evidence of any significant stenosis. There is three vessel runoff to the foot. IMPRESSION:No lower extremity vascular stenosis or aneurysm. [id number] EndsCTA ABDOMEN AND PELVIS: Indication: Acute hypotension and anemia. Rule out hemorrhage. Technique: 100 mL Omnipaque 350 injected followed by arterial phase and delayed CT the abdomen and pelvis obtained. 3D volume rendered images as well as multiplanar maximum image projection reconstructions obtained on the workstation. One or more of the following dose reduction techniques were utilized in effectively lowering the radiation dose for this examination: Automated Exposure Control, Adjustment of the mA and/or kV according to patient size, or Iterative reconstruction. Comparison: CT abdomen pelvis without contrast 06/25/2020 Vascular findings: The aorta demonstrates scattered calcified atherosclerosis. There is focal saccular outpouching at the left lateral aspect of the lower abdominal aorta containing low-density material compatible with thrombus or ulcerated plaque. The saccular diameter measures 1.4 cm. The transverse diameter of the aorta at this level measures 1.8 cm. The celiac artery is diminutive however uniform in caliber. No aneurysm or stenosis. The left hepatic artery is unremarkable. The right hepatic artery is replaced from the SMA. The SMA is normal in caliber with scattered calcified plaques. There is no evidence of gastrointestinal hemorrhage or intraperitoneal hemorrhage. There is moderate atherosclerosis of the common iliac arteries which are normal in caliber. Surrounding the left iliac artery and extending superiorly within the left retroperitoneum there is free fluid of mixed density some of which demonstrates hyperdensity compatible with hematoma. At the level of the left iliac crest there is a small focus of contrast extravasation arising from a distal branch of an iliolumbar branch which arises from the left internal iliac artery. The contrast blush can be noted on series 2 image 86. The course of the bleeding vessel is best appreciated on series 10 coronal MIP images 28-30. Nonvascular findings: Pulmonary: There is a small left pleural effusion and left basilar compressive atelectasis. Hepatobiliary: No mass or acute pathology Endocrine: No acute pathology of pancreas and adrenal glands. Genitourinary: Normal symmetric renal enhancement. Reproductive organs are not well evaluated. Gastrointestinal: NG tube within the stomach. The stomach is collapsed. No bowel dilatation. Diverticulosis. No gastrointestinal hemorrhage. Impression: 1. Moderate to large volume left retroperitoneal free fluid of mixed density compatible with hematoma.2. Active extravasation noted arising from left iliolumbar branch arising from the internal iliac artery.3. 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 A contemporaneous preliminary report was provided by [facility] teleradiology services. Discrepant findings were noted and relayed to the interventional radiologist, a possible intervention is planned. Professional interpretation performed at [facility] .End of diagnostic report for accession: [id number] Interpreted: Hugo Madison MDTranscribed: 06/29/2020 09:24 AMSigned: 07/01/2020 01:43 PM Hugo Madison MD [facility] # [id number] BILL # [id number] Name Value Range Interpretation Code Description Data Trish rce(s) Supporting Document(s) ID Date Data Source [id number] 06/30/2020 01:34:00 AM EDT [facility] DATE OF EXAM: 06/28/2020CT Angio Chest W OW Contrast INDICATION: ACTIVE BLEED, BLOOD LOSS GREATER THAN 1000 ML COMPARISON: None TECHNIQUE: CT Angio Chest WOW Contrast was performed with and without contrast, following intravenous administration of 100 mL of Omnipaque-300. 3D post processing was performed on the [employer] workstation. Sagittal and coronal reformatted images were obtained. One or more of the following dose reduction techniques were utilized in effectively lowering the radiation dose for this examination: Automated Exposure Control, Adjustment of the mA and/or kV according to patient size, or Iterative reconstruction. FINDINGS: CHEST: The thoracic aorta appears unremarkable. Ectatic ascending thoracic aorta, 3.3 x 3.5 cm. There is no evidence of aortic aneurysm or dissection. No filling defects are identified within the main pulmonary arteries, interlobar, or segmental branches, to suggest pulmonary embolus. Status post intubation. No significant axillary, mediastinal, or hilar lymphadenopathy is identified. There are no pleural or pericardial effusions. The trachea and central bronchi are patent. Centrilobular emphysema. No suspicious pulmonary nodule is identified. Abdominal ascites. Orogastric tube. IMPRESSION: No evidence of aortic dissection. Ectatic ascending thoracic aorta but no aneurysm. Small bilateral pleural effusions. Left lower lobe basilar atelectasis. A preliminary report was provided by [facility] at the time of the examination with similar findings reported. Professional interpretation performed at [facility] .End of diagnostic report for accession: [id number] Interpreted: Rebecca Alcantara MDTranscribed: 06/29/2020 05:09 PMSigned: 06/30/2020 01:34 AM Rebecca Alcantara MD [facility] # [id number] BILL # [id number] Name Value Range Interpretation Code Description Data Trish rce(s) Supporting Document(s) ID Date Data Source [id number] 06/28/2020 10:59:00 PM EDT [facility] [id number] [place], [place] [address]IQNWCNC NAME: BARBARA SMYTH OF : 1940REPORT: CONSULTATIONPATIENT NUMBER: [id number] STATUS: :GASTROENTEROLOGY CONSULTATIONDATE OF CONSULTATION: 06/28/2020CHIEF COMPLAINT: Coffee-ground emesis, dropping hemoglobin/hematocrit.HISTORY OF PRESENT ILLNESS: An 79-year-old admitted to ICU status postrespiratory failure on the floor, code blue, GI evaluation for episode ofcoffee-ground emesis and dropping hemoglobin/hematocrit. [facility] after seizure activity,left-sided facial twitching. Under the care of Neurology. The patient hadseizure activity this afternoon on the floor. She got hypotensive andhypoxic to 70 percent, status was code blue, and she was intubated. Shehad episode of coffee- ground emesis. Her hemoglobin and hematocrityesterday was 10.6 and 31.1. CBC right now, hemoglobin 4.8, hematocrit 14.The patient is seen in the ICU. Her present on the bedside. Thepatient is intubated, noncommunicative at present, unable to give anyhistory, gave the history. There is no prior history of GI bleed,hematemesis or peptic ulcer disease. She never had EGD or colonoscopy inthe past. There is no history of recent use of NSAIDs at present.CURRENT VITALS: Temperature 36.9, pulse 90, blood pressure 98/56.PAST MEDICAL HISTORY: Left-sided facial twitching.PAST SURGICAL HISTORY: None.FAMILY HISTORY: No family history of peptic ulcer disease.REVIEW OF SYSTEMS: Not possible because the patient is intubated statuspost respiratory failure. The patient admitted to ICU with episode ofcoffee-ground emesis, hypotensive and hypoxic.SOCIAL HISTORY: As per , no history of smoking, alcohol or illicitdrugs.MEDICATION IN THE HOSPITAL: Insulin lispro, Keppra, methylprednisolone,Depakote, Xalatan eyedrops. P.r.n. medication bisacodyl, acetaminophen.PHYSICAL EXAMINATION: The patient is intubated, endotracheal tube inplace. Nasogastric tube in place with some coffee-ground material. Nofresh blood in the nasogastric tube. HEENT Examination: Pallor positive,icterus negative. Neck: Supple. Chest: Bilateral air entry. Abdomen: Soft, nontender. Extremities: No edema. DRAFTER TOPOGRAPHICAL: She responds to tactilestimuli.LABORATORY DATA: PT 14.5, INR 1.41. WBC 9.4, hemoglobin 4.8, [id number], MCV 13.6, *------* 38.5, platelets 99. Glucose 161. Lactic acid 5.2. Sodium 142, potassium 3.4, chloride 111, bicarb 19, BUN 37, creatinine1.32, calcium level 6.6. Total bilirubin 0.3, alk phos 38, ALT 27, AST 41,albumin 1.7, globin 2.ASSESSMENT: An 79-year-old female admitted to ICU with respiratoryfailure, hypotensive, coffee-ground emesis possibly has upper GI ble edsecondary to stress-induced gastropathy. Rule out peptic ulcer disease,gastric or duodenal ulcer. Nasogastric tube contains small amount ofcoffee-ground material. No fresh blood. No melena stool reported atpresent. The patient got bolus of normal saline.RECOMMENDATION: Keep the patient n.p.o., supportive care. Transfuse PRBCsto keep hemoglobin at least more than 8 g. Avoid any kind of NSAIDs. Protonix 80 mg bolus, then infusion at 8 mg per hour. Monitor CBC andbowel movements. The patient needs supportive care at present. Furthermanagement depends upon the clinical course. Endoscopy will be performedbased on the clinical condition and the lab results. We will follow thepatient.DICTATED BY: ARIA Rosasictated: 06/28/2020 19:57DT: 06/28/2020 20:06Job #: [id number]: [facility] computer generated reports are notconfirmed or authenticated unless they are signed by the providerElectronically Authenticated by:NISHI RICH MD On 06/28/2020 10:59 PM EDT Name Value Range Interpretation Code Description Data Trish rce(s) Supporting Document(s) ID Date Data Source [id number] 06/28/2020 07:28:46 PM EDT [facility] Name Value Range Interpretation Code Description Data Trish rce(s) Supporting Document(s) VALPROIC ACID 46 ug/mL (50-110) L [facility] ID Date Data Source [id number] 06/28/2020 07:28:46 PM EDT [facility] Name Value Range Interpretation Code Description Data Trish rce(s) Supporting Document(s) SODIUM 142 mmol/L (136-145) [facility] POTASSIUM 3.4 mmol/L (3.6-5.2) L [facility] CHLORIDE 111 mmol/L (100-108) H [facility] CO2 19 mmol/L (22-31) L [facility] ANION GAP 12 mmol/L (7-16) [facility] UREA NITROGEN 37 mg/dL (7-24) H [facility] CREATININE 1.32 mg/dL (0.60-1.00) H [facility] BUN/CREAT RATIO 28.0 RATIO (10.0-20.0) H [facility] GLUCOSE 161 mg/dL (70-99) H [facility] CALCIUM 6.6 mg/dL (8.4-10.2) L [facility] TOTAL PROTEIN 3.7 g/dL (6.4-8.2) L [facility] ALBUMIN 1.7 g/dL (3.2-4.5) L [facility] GLOBULIN 2.0 g/dL (2.7-4.3) L [facility] ALB/GLOB RATIO 0.9 RATIO [facility] ALKALINE PHOSPHATASE 38 U/L (45-117) L [facility] BILIRUBIN,TOTAL 0.3 mg/dL (0.0-1.0) [facility] PLEASE NOTE:Total bilirubin results may be falselyelevated in patients taking Eltrombopag. AST (SGOT) 41 U/L (11-39) H [facility] ALT (SGPT) 27 U/L (12-78) [facility] GFR 39 ml/min/1.73m2 (>59) L [facility] GFR ( AMER) 47 ml/min/1.73m2 (>59) L [facility] GFR INTERPRETATION [facility] --NORMAL KIDNEY FUNCTION OR MILD DISEASE - GFR >OR= 60CHRONIC KIDNEY DISEASE - GFR 15 - 59RENAL FAILURE - GFR <15 Est. GFR calculation based on the MDRDstudy equation, which assumes a steadystate for creatinine. Est. GFR should notbe used for medication dosing. ID Date Data Source [id number] 06/28/2020 07:27:11 PM EDT [facility] Name Value Range Interpretation Code Description Data Trish rce(s) Supporting Document(s) PHOSPHORUS 2.3 mg/dL (2.5-4.5) L [facility] ID Date Data Source [id number] 06/28/2020 07:27:11 PM EDT [facility] [place] Name Value Range Interpretation Code Description Data Trish rce(s) Supporting Document(s) MAGNESIUM 1.3 mg/dL (1.7-2.4) L [facility] ID Date Data Source [id number] 06/29/2020 03:28:06 PM EDT [facility] Name Value Range Interpretation Code Description Data Trish rce(s) Supporting Document(s) KEPPRA @ 28 ug/mL (5-30) [facility] ID Date Data Source [id number] 06/28/2020 07:00:27 PM EDT [facility] Name Value Range Interpretation Code Description Data Trish rce(s) Supporting Document(s) PT 14.5 s (9.2-11.9) H [facility] [place] INR 1.41 [facility] SUGGESTED THERAPEUTIC RANGES USING INR F ORSTABILIZED ANTICOAGULATED PATIENTS:STANDARD DOSE THERAPY INR 2.0-3.0 DVT, PE, PREVENT DVT OR EMBOLISMHIGH DOSE THERAPY INR 2.5-3.5 PREVENT EMBOLISM FROM MECHANICAL HEART VALVE ID Date Data Source [id number] 06/28/2020 06:55:11 PM EDT [facility] [place] Name Value Range Interpretation Code Description Data Trish rce(s) Supporting Document(s) WBC 9.4 10*3/uL (4.1-11.0) [facility] [place] RBC 1.24 10*6/uL (4.00-5.40) L [facility] HGB 4.8 g/dL (12.0-16.0) LL [facility] RESULT(S) CALLED TO AND READ BACK [facility] [place] 185206/28/[place] [address] HCT 14.0 % (36.0-47.0) LL [facility] RESULT(S) CALLED TO AND READ BACK [facility] ICU [place] 185206/28/20 [place] [id number] MCV 113.6 fL (80.0-95.0) H [facility] MCH 38.5 pg (27.0-32.0) H [facility] MCHC 33.9 g/dL (32.0-36.0) [facility] RDW 13.2 % (10.5-14.5) [facility] PLT 99 10*3/uL (150-450) L [facility] MPV 9.3 fL (7.1-10.7) [facility] ID Date Data Source [id number] 07/02/2020 12:34:59 AM EDT [facility] SPEC EXP DATE 07/01/2020PATI ENT ABO/Rh B NEGATIVEANTIBODY SCREEN NEGATIVETESTING SITE PERFORMED AT [address] [place] [address] [id number] NUMBER [id number] COMPONENT TYPE LEUKOPOOR RED CELLSUNIT DIVISION 00STATUS OF UNIT TRANSFUSEDTRANSFUSION STATUS OK TO TRANSFUSECROSSMATCH RESULT COMPATIBLEUNIT NUMBER [id number] COMPONENT TYPE LEUKOPOOR RED CELLSUNIT DIVISION 00STATUS OF UNIT TRANSFUSEDTRANSFUSION STATUS OK TO TRANSFUSECROSSMATCH RESULT COMPATIBLEUNIT NUMBER [id number] COMPONENT TYPE LEUKOPOOR RED CELLSUNIT DIVISION 00STATUS OF UNIT TRANSFUSEDTRANSFUSION STATUS OK TO TRANSFUSECROSSMATCH RESULT COMPATIBLEUNIT NUMBER [id number] COMPONENT TYPE LEUKOPOOR RED CELLSUNIT DIVISION 00STATUS OF UNIT TRA NSFUSEDTRANSFUSION STATUS OK TO TRANSFUSECROSSMATCH RESULT COMPATIBLEUNIT NUMBER [id number] COMPONENT TYPE LEUKOPOOR RED CELLSUNIT DIVISION 00STATUS OF UNIT TRANSFUSEDTRANSFUSION STATUS OK TO TRANSFUSECROSSMATCH RESULT COMPATIBLEUNIT NUMBER [id number] COMPONENT TYPE LEUKOPOOR RED CELLSUNIT DIVISION 00STATUS OF UNIT REL FROM ALLOCTRANSFUSION STATUS OK TO TRANSFUSECROSSMATCH RESULT COMPATIBLEUNIT NUMBER [id number] COMPONENT TYPE LEUKOPOOR RED CELLSUNIT DIVISION 00STATUS OF UNIT TRANSFUSEDTRANSFUSION STATUS OK TO TRANSFUSECROSSMATCH RESULT COMPATIBLEUNIT NUMBER [id number] COMPONENT TYPE LEUKOPOOR RED CELLSUNIT DIVISION 00STATUS OF UNIT REL FROM ALLOCTRANSFUSION STATUS OK TO TRANSFUSECROSSMATCH RESULT COMPATIBLEUNIT NUMBER [id number] COMPONENT TYPE LEUKOPOOR RED CELLSUNIT DIVISION 00STATUS OF UNIT TRANSFUSEDTRANSFUSION STATUS OK TO TRANSFUSECROSSMATCH RESULT COMPATIBLE Name Value Range Interpretation Code Description Data Trish rce(s) Supporting Document(s) TYPE AND SCREEN [facility] PATIENT ABO/Rh B NEGATIVE ID Date Data Source [id number] 06/28/2020 07:04:11 PM EDT [facility] Name Value Range Interpretation Code Description Data Trish rce(s) Supporting Document(s) LACTIC ACID 5.2 mmol/L (0.4-2.0) [facility] [place] RESULT(S) [facility] [place] [address] [place] [id number] 06/28/2020 ID Date Data Source [id number] 06/28/2020 08:03:00 PM EDT [facility] DATE OF EXAM: 06/28/2020CHEST, SINGLE PO RTABLE VIEW. INDICATION: Respiratory failure COMPARISON: 06/21/2020 TECHNIQUE: A portable radiograph of the chest was obtained. FINDINGS: An endotracheal tube is visualized, appropriately positioned approximately 5.6 cm proximal to the margo. An additional tube is seen overlying the left hemithorax, possibly representing an enteric tube or materials overlying the patient. Minimal focal opacity is seen at the left lung base, nonspecific however most likely representing atelectasis or early infiltrate. No large pleural effusions or pulmonary edema is seen. The cardiomediastinal silhouette is unremarkable. Visualized osseous structures are within normal limits. IMPRESSION: Status post endotracheal tube placement, appropriately positioned. Minimal focal opacity at the left lung base which is nonspecific and may represent atelectasis versus infiltrate. Recommend attention on interval follow-up. No pulmonary edema or large pleural effusions. K6End of diagnostic report for accession: [id number] Interpreted: Tani Witt MDTranscribed: 06/28/2020 08:00 PMSigned: 06/28/2020 08:03 PM Tani Witt MD [facility] # [id number] BILL # [id number] Name Value Range Interpretation Code Description Data Trish rce(s) Supporting Document(s) ID Date Data Source [id number] 06/28/2020 06:02:00 PM EDT [facility] Name Value Range Interpretation Code Description Data Trish rce(s) Supporting Document(s) POC GLUCOSE 186 mg/dL (70-99) H [facility] NOTIFIED NURSEPERFORMED BY CLINICAL S TAFF ID Date Data Source [id number] 06/28/2020 08:04:05 PM EDT [facility] PATIENT ABO/Rh B NEGATIVEBLO OD BANK COMMENT BLOOD TYPE CONFIRMED. Name Value Range Interpretation Code Description Data Trish rce(s) Supporting Document(s) ID Date Data Source [id number] 06/28/2020 05:23:49 PM EDT [facility] Name Value Range Interpretation Code Description Data [facility] rce(s) Supporting Document(s) WBC 9.5 10*3/uL (4.1-11.0) [facility] [place] RBC 1.47 10*6/uL (4.00-5.40) L [facility] HGB 5.6 g/dL (12.0-16.0) LL [facility] RESULT(S) CALLED TO AND READ BACK BYKELL Y 6N AT 1623 [id number]. HCT 16.8 % (36.0-47.0) LL [facility] RESULT(S) CALLED TO AND READ BACK BYKELL Y 6N AT 1623 [id number]. MCV 114.5 fL (80.0-95.0) H [facility] MCH 38.2 pg (27.0-32.0) H [facility] MCHC 33.3 g/dL (32.0-36.0) [facility] RDW 13.8 % (10.5-14.5) [facility] PLT 107 10*3/uL (150-450) L [facility] MPV 9.3 fL (7.1-10.7) [facility] ID Date Data Source [id number] 06/28/2020 04:55:50 PM EDT [facility] Name Value Range Interpretation Code Description Data Trish rce(s) Supporting Document(s) PHOSPHORUS 2.6 mg/dL (2.5-4.5) [facility] ID Date Data Source [id number] 06/28/2020 04:55:50 PM EDT [facility] Name Value Range Interpretation Code Description Data Trish rce(s) Supporting Document(s) MAGNESIUM 1.4 mg/dL (1.7-2.4) L [facility] ID Date Data Source [id number] 06/28/2020 04:55:50 PM EDT [facility] Name Value Range Interpretation Code Description Data Trish rce(s) Supporting Document(s) SODIUM 141 mmol/L (136-145) [facility] POTASSIUM 3.8 mmol/L (3.6-5.2) [facility] CHLORIDE 109 mmol/L (100-108) H [facility] CO2 21 mmol/L (22-31) L [facility] ANION GAP 11 mmol/L (7-16) [facility] UREA NITROGEN 39 mg/dL (7-24) H [facility] CREATININE 1.44 mg/dL (0.60-1.00) H [facility] BUN/CREAT RATIO 27.1 RATIO (10.0-20.0) H [facility] GLUCOSE 192 mg/dL (70-99) H [facility] CALCIUM 7.1 mg/dL (8.4-10.2) L [facility] GFR 35 ml/min/1.73m2 (>59) L [facility] GFR ( AMER) 42 ml/min/1.73m2 (>59) L [facility] GFR INTERPRETATION [facility] --NORMAL KIDNEY FUNCTION OR MILD DISEASE - GFR >OR= 60CHRONIC KIDNEY DISEASE - GFR 15 - 59RENAL FAILURE - GFR <15 Est. GFR calculation based on the MDRDstudy equation, which assumes a steadystate for creatinine. Est. GFR should notbe used for medication dosing. ID Date Data Source [id number] 06/28/2020 04:31:44 PM EDT [facility] Name Value Range Interpretation Code Description Data Trish rce(s) Supporting Document(s) CALCIUM IONIZED 4.56 mg/dL (4.64-5.28) L [facility] IONIZED CALCIUM NORMALIZED TO PH 7.40 AN D 37 DEGREES C. ID Date Data Source [id number] 06/28/2020 02:45:34 PM EDT [facility] Name Value Range Interpretation Code Description Data Trish rce(s) Supporting Document(s) POC GLUCOSE 191 mg/dL (70-99) H [facility] PERFORMED BY CLINICAL STAFF ID Date Data Source [id number] 06/27/2020 07:22:54 AM EDT [facility] Name Value Range Interpretation Code Description Data Trihs rce(s) Supporting Document(s) SODIUM 138 mmol/L (136-145) [facility] POTASSIUM 3.1 mmol/L (3.6-5.2) L [facility] CHLORIDE 100 mmol/L (100-108) [facility] CO2 31 mmol/L (22-31) [facility] ANION GAP 7 mmol/L (7-16) [facility] UREA NITROGEN 27 mg/dL (7-24) H [facility] CREATININE 0.88 mg/dL (0.60-1.00) [facility] BUN/CREAT RATIO 30.7 RATIO (10.0-20.0) H [facility] GLUCOSE 150 mg/dL (70-99) H [facility] CALCIUM 8.2 mg/dL (8.4-10.2) L [facility] GFR >60 ml/min/1.73m2 (>59) [facility] GFR ([facility] AM) >60 ml/min/1.73m2 (>59) [facility] GFR INTERPRETATION [facility] --NORMAL KIDNEY FUNCTION OR MILD DISEASE - GFR >OR= 60CHRONIC KIDNEY DISEASE - GFR 15 - 59RENAL FAILURE - GFR <15 Est. GFR calculation based on the MDRDstudy equation, which assumes a steadystate for creatinine. Est. GFR should notbe used for medication dosing. ID Date Data Source [id number] 06/27/2020 06:45:35 AM EDT [facility] Name Value Range Interpretation Code Description Data Trish rce(s) Supporting Document(s) WBC 6.3 10*3/uL (4.1-11.0) [facility] RBC 2.77 10*6/uL (4.00-5.40) L [facility] HGB 10.6 g/dL (12.0-16.0) L [facility] HCT 31.1 % (36.0-47.0) L [facility] MCV 112.5 fL (80.0-95.0) H [facility] MCH 38.2 pg (27.0-32.0) H [facility] MCHC 34.0 g/dL (32.0-36.0) [facility] RDW 13.4 % (10.5-14.5) [facility] PLT 111 10*3/uL (150-450) L [facility] MPV 8.5 fL (7.1-10.7) [facility] ID Date Data Source [id number] 06/26/2020 07:38:49 AM EDT [facility] Name Value Range Interpretation Code Description Data Trish rce(s) Supporting Document(s) SODIUM 137 mmol/L (136-145) [facility] POTASSIUM 3.0 mmol/L (3.6-5.2) L [facility] CHLORIDE 99 mmol/L (100-108) L [facility] CO2 29 mmol/L (22-31) [facility] ANION GAP 9 mmol/L (7-16) [facility] UREA NITROGEN 26 mg/dL (7-24) H [facility] CREATININE 1.02 mg/dL (0.60-1.00) H [facility] BUN/CREAT RATIO 25.5 RATIO (10.0-20.0) H [facility] GLUCOSE 144 mg/dL (70-99) H [facility] CALCIUM 7.9 mg/dL (8.4-10.2) L [facility] GFR 52 ml/min/1.73m2 (>59) L [facility] GFR ( AMER) >60 ml/min/1.73m2 (>59) [facility] GFR INTERPRETATION [facility] --NORMAL KIDNEY FUNCTION OR MILD DISEASE - GFR >OR= 60CHRONIC KIDNEY DISEASE - GFR 15 - 59RENAL FAILURE - GFR <15 Est. GFR calculation based on the MDRDstudy equation, which assumes a steadystate for creatinine. Est. GFR should notbe used for medication dosing. ID Date Data Source [id number] 06/26/2020 07:09:47 AM EDT [facility] Name Value Range Interpretation Code Description Data Trish rce(s) Supporting Document(s) WBC 5.7 10*3/uL (4.1-11.0) [facility] RBC 2.86 10*6/uL (4.00-5.40) L [facility] HGB 11.1 g/dL (12.0-16.0) L [facility] HCT 32.4 % (36.0-47.0) L [facility] MCV 113.3 fL (80.0-95.0) H [facility] MCH 38.8 pg (27.0-32.0) H [facility] MCHC 34.2 g/dL (32.0-36.0) [facility] RDW 13.5 % (10.5-14.5) [facility] PLT 102 10*3/uL (150-450) L [facility] MPV 8.6 fL (7.1-10.7) [facility] ID Date Data Source [id number] 06/25/2020 04:41:00 PM EDT [facility] DATE OF EXAM: 06/25/2020CT CHEST, ABDOM EN AND PELVIS WITHOUT CONTRAST CLINICAL HISTORY: MALIGNANCY WORK UP COMPARISON: None CONTRAST: None. TECHNIQUE: Axial CT images were obtained of the chest, abdomen and pelvis without contrast. Additional coronal and sagittal reformatted images were obtained. One or more of the following dose reduction techniques were utilized in effectively lowering the radiation dose for this examination: Automated Exposure Control, Adjustment of the mA and/or kV according to patient size, or Iterative reconstruction. The lack of intravenous contrast hampers the evaluation of solid organs and the ability to detect and characterize soft tissue abnormalities. CT CHEST FINDINGS: Lines and devices: None. Lungs: Severe centrilobular and paraseptal emphysema. Pleural-parenchymal scarring at the apices. No mass or consolidation.Large airways: Unremakable. Pleura: Unremarkable. Vessels: Diffuse atherosclerotic changes. Heart: Coronary artery calcifications. Small pericardial fluid. Mediastinum: Unremarkable. Soft tissues: Enlargement and heterogeneity of the right lobe of the thyroid with substernal extension. Bones: Multilevel degenerative changes of the spine. CT ABDOMEN AND PELVIS FINDINGS: Liver: Unremarkable. Gallbladder: Cholelithiasis. Pancreas: Unremarkable.Spleen: Unremarkable.Adrenals: Unremarkable. Kidneys/Ureters: Unremarkable.Bladder: Unremarkable. Bowel: Colonic diverticulosis. No bowel dilation or thickening. Small hiatal hernia. Normal appendix. Peritoneum/Retroperitoneum: Unremarkable. Reproductive Organs: Unremarkable. Lymph Nodes: No gross adenopathy.Vessels: Diffuse atherosclerotic calcifications. 3.1 x 1.9 cm saccular aneurysm of the infrarenal aorta. Soft Tissues: Small fat-containing left inguinal hernia. Anterior abdominal wall injection sites.Bones: Levoscoliotic curvature of the lumbar spine with multilevel degenerative changes. Attenuation of the L1 vertebral body compatible with osteoporosis. IMPRESSION: CT CHEST: 1. No mass or obvious lymphadenopathy chest.2. Severe emphysema.3. Enlargement and heterogeneity of the right thyroid lobe with substernal extension. This would be better assessed with ultrasound. CT ABDOMEN AND PELVIS: 1. No mass or lymphadenopathy in the abdomen or pelvis allowing for unenhanced technique.2. Cholelithiasis.3. Saccular infrarenal abdominal aortic aneurysm, 3.1 x 1.9 cm. Professional interpretation performed at [facility] .End of diagnostic report for accession: [id number] Interpreted: Dixie Garcia MDTranscribed: 06/25/2020 04:31 PMSigned: 06/25/2020 04:41 PM Dixie Garcia MD [facility] ACC # [id number] BILL # [id number] Name Value Range Interpretation Code Description Data Trish rce(s) Supporting Document(s) ID Date Data Source [id number] 06/25/2020 04:41:00 PM EDT [facility] DATE OF EXAM: 06/25/2020CT CHEST, ABDOM EN AND PELVIS WITHOUT CONTRAST CLINICAL HISTORY: MALIGNANCY WORK UP COMPARISON: None CONTRAST: None. TECHNIQUE: Axial CT images were obtained of the chest, abdomen and pelvis without contrast. Additional coronal and sagittal reformatted images were obtained. One or more of the following dose reduction techniques were utilized in effectively lowering the radiation dose for this examination: Automated Exposure Control, Adjustment of the mA and/or kV according to patient size, or Iterative reconstruction. The lack of intravenous contrast hampers the evaluation of solid organs and the ability to detect and characterize soft tissue abnormalities. CT CHEST FINDINGS: Lines and devices: None. Lungs: Severe centrilobular and paraseptal emphysema. Pleural-parenchymal scarring at the apices. No mass or consolidation.Large airways: Unremakable. Pleura: Unremarkable. Vessels: Diffuse atherosclerotic changes. Heart: Coronary artery calcifications. Small pericardial fluid. Mediastinum: Unremarkable. Soft tissues: Enlargement and heterogeneity of the right lobe of the thyroid with substernal extension. Bones: Multilevel degenerative changes of the spine. CT ABDOMEN AND PELVIS FINDINGS: Liver: Unremarkable. Gallbladder: Cholelithiasis. Pancreas: Unremarkable.Spleen: Unremarkable.Adrenals: Unremarkable. Kidneys/Ureters: Unremarkable.Bladder: Unremarkable. Bowel: Colonic diverticulosis. No bowel dilation or thickening. Small hiatal hernia. Normal appendix. Peritoneum/Retroperitoneum: Unremarkable. Reproductive Organs: Unremarkable. Lymph Nodes: No gross adenopathy.Vessels: Diffuse atherosclerotic calcifications. 3.1 x 1.9 cm saccular aneurysm of the infrarenal aorta. Soft Tissues: Small fat-containing left inguinal hernia. Anterior abdominal wall injection sites.Bones: Levoscoliotic curvature of the lumbar spine with multilevel degenerative changes. Attenuation of the L1 vertebral body compatible with osteoporosis. IMPRESSION: CT CHEST: 1. No mass or obvious lymphadenopathy chest.2. Severe emphysema.3. Enlargement and heterogeneity of the right thyroid lobe with substernal extension. This would be better assessed with ultrasound. CT ABDOMEN AND PELVIS: 1. No mass or lymphadenopathy in the abdomen or pelvis allowing for unenhanced technique.2. Cholelithiasis.3. Saccular infrarenal abdominal aortic aneurysm, 3.1 x 1.9 cm. Professional interpretation performed at [facility] .End of diagnostic report for accession: [id number] Interpreted: Dixie Garcia MDTranscribed: 06/25/2020 04:31 PMSigned: 06/25/2020 04:41 PM Dixie Garcia MD [facility] # [id number] BILL # [id number] Name Value Range Interpretation Code Description Data Trish rce(s) Supporting Document(s) ID Date Data Source [id number] 06/25/2020 07:21:48 AM EDT [facility] Name Value Range Interpretation Code Description Data Trish rce(s) Supporting Document(s) SODIUM 140 mmol/L (136-145) [facility] POTASSIUM 3.1 mmol/L (3.6-5.2) L [facility] CHLORIDE 102 mmol/L (100-108) [facility] CO2 29 mmol/L (22-31) [facility] ANION GAP 9 mmol/L (7-16) [facility] UREA NITROGEN 27 mg/dL (7-24) H [facility] CREATININE 0.99 mg/dL (0.60-1.00) [facility] BUN/CREAT RATIO 27.3 RATIO (10.0-20.0) H [facility] GLUCOSE 168 mg/dL (70-99) H [facility] CALCIUM 8.5 mg/dL (8.4-10.2) [facility] GFR 54 ml/min/1.73m2 (>59) L [facility] GFR ( AMER) >60 ml/min/1.73m2 (>59) [facility] GFR INTERPRETATION [facility] --NORMAL KIDNEY FUNCTION OR MILD DISEASE - GFR >OR= 60CHRONIC KIDNEY DISEASE - GFR 15 - 59RENAL FAILURE - GFR <15 Est. GFR calculation based on the MDRDstudy equation, which assumes a steadystate for creatinine. Est. GFR should notbe used for medication dosing. ID Date Data Source [id number] 06/25/2020 06:51:51 AM EDT [facility] Name Value Range Interpretation Code Description Data Trish rce(s) Supporting Document(s) WBC 5.1 10*3/uL (4.1-11.0) [facility] RBC 3.01 10*6/uL (4.00-5.40) L [facility] HGB 11.5 g/dL (12.0-16.0) L [facility] HCT 33.8 % (36.0-47.0) L [facility] MCV 112.4 fL (80.0-95.0) H [facility] MCH 38.1 pg (27.0-32.0) H [facility] MCHC 33.9 g/dL (32.0-36.0) [facility] RDW 13.6 % (10.5-14.5) [facility] PLT 108 10*3/uL (150-450) L [facility] MPV 7.9 fL (7.1-10.7) [facility] ID Date Data Source [id number] 06/24/2020 03:50:00 PM EDT [facility] DATE OF EXAM: 06/24/2020CT-GUIDED BONE M ARROW BIOPSY INDICATION: Pancytopenia. PROCEDURE: One or more of the following dose reduction techniques were utilized in effectively lowering the radiation dose for this examination: Automated Exposure Control, Adjustment of the mA and/or kV according to patient size, or Iterative Reconstruction. With the patient in the prone position, unenhanced images were obtained through the pelvis. The right iliac crest was chosen as the target. Using a standard bone marrow needle with drill, marrow aspirate and core biopsy were obtained and submitted to the technologist on site. The patient tolerated the procedure without difficulty. IMPRESSION: CT-guided bone marrow biopsy. Conscious sedation: Fentanyl and Versed were utilized for the purpose of conscious sedation with constant hemodynamic and oximetry monitoring. Physician monitored sedation time totaled 20 minutes. Professional interpretation performed at [facility] [employer] report for accession: [id number] Interpreted: Ayaan Strauss MDTranscribed: 06/24/2020 03:46 PMSigned: 06/24/2020 03:50 PM Ayaan Strauss MD [facility] # [id number] BILL # [id number] Name Value Range Interpretation Code Description Data Trish rce(s) Supporting Document(s) ID Date Data Source [id number] 06/24/2020 03:57:05 PM EDT [facility] Name Value Range Interpretation Code Description Data Trish rce(s) Supporting Document(s) BONE MARROW COMP [facility] ID Date Data Source [id number] 06/26/2020 08:25:13 PM EDT [facility] [place], [place] [address]Khn# SURGICAL PATHOLOGY REPORTPatient Name:GLENN SMYTHOB:1940Received:06/25/2020Accession #:[id number](s) Received: A: Bone marrow biopsy, rightB: Bone marrow aspirate, rightC: Bone marrow smearsClinical Diagnosis and History: Pancytopenia. Poor aspirate obtained all clot slide attempted noflow/cyto. DIAGNOSIS:BONE MARROW BIOPSY MILDLY HYPOCELLULAR MARROW WITH STAINABLE IRON. (SEE MICROSCOPIC DESCRIPTION)PERIPHERAL SMEAR WITH MACROCYTOSIS, NEUTROPHILIA, MILD THR OMBOCYTOPENIAAND NUCLEATED RBCS.MICROSCOPIC DIAGNOSIS: CBC shows hematocrit of 12.4 with a hemoglobin of 12.4 with hematocrit of37.0%. MCV is elevated at 115 with normal RDW at 13.7. White count is7,100 with 90% neutrophils, 4% lymphocytes, 6% monocytes, and 3 nucleatedRBCs identified per 100 white cells. Platelet count is 108,000. Review of the peripheral smear shows RBCs with target cells noted. Occasional jacquie cells are present. Nucleated RBCs are identified. Thecells are macrocytic with no dual population of cells identified. Themajority of the white cells are segmented neutrophils. The neutrophilsshow occasional toxic granulation and cytoplasmic vacuoles. Nohypersegmented neutrophils are noted. Platelets are adequate. Bone marrow aspirate and touch preps are dilute with blood . There isscant marrow for evaluation.Iron stain shows stainable iron present in sideroblasts with nosignificant ringed sideroblasts identified. In a 100 cell count on thedilute smear, 49% of the cells are myeloid precursors in all stages ofmaturation with prominent neutrophils, No megaloblastic changes noted.29% of the cells are erythroid precursors with nuclear to cytoplasmicdyssynchrony and occasional binucleation, 20% are small round lymphocytes,and 2% are plasma cells. Bone marrow block shows clotted blood only. No particles are identified. Special stain for iron shows no deposition on block with lack of particlesidentified. Bone marrow biopsy shows bony trabeculae with variable hypocellular marrowwith stromal hemorrhage. Overall cellularity is approximately 40%. Themarrow is polymorphou s with adequate megakaryocytes. M:E ratio isapproximately 1:1 with prominent erythroid precursors. Stainable iron is present, mainly in macrophages, with no ringedsideroblasts identified. Special studies: Immunostains for cytokeratin, CD34, CD20 and CD3 andreticulin stain are done on the biopsy and block. Reticulin stain shows mild focal patchy increase in the biopsy. Cytokeratin stain is negative. CD3 and CD20 highlight a crushed lymphoidaggregated. CD34 stains mainly vessels with no increase in mononuclearcells. The evaluation of the marrow is limited due to lack of aspirate and clotmaterial . 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 GROSS DESCRIPTION: Specimen A received in formalin labeled &quot ;right bone marrow biopsy" is a1.4 x 0.3 cm cylindrical red-brown to black core of bone. The specimen issubmitted in toto for microscopic examination following decal. (1 block) Specimen B received in formalin labeled "right bone marrow aspirate" is a1.0 x 1.0 x 0.6 cm red-brown to black portion of clotted blood. Thespecimen is sectioned and is entirely submitted for microscopicexamination. (1 block) hiwot/rceReported: 06/26/2020Electronically Signed Out By Kelley Murry M.D. d[facility]elC[facility] [place], [place] [address]Yeddrfqec component performed at [facility], Histopathology, [address] [place] [address], [phone].Reported at [facility], [address] [place] [address], [phone].This report may include immunohistochemical or in-situ hybridizationresults. Testing was developed and the performance characteristicsdetermined by [facility] [employer] [facility], as required byCLIA '88. The FDA has determined that approval for specific use is notnecessary for clinical use. The quality of Hematoxylin and Eosin stainsand as applicable, for all immunohistochemical and/or special stains,including positive and negative controls, were reviewed and consideredappropriate.ICD codes:CPT4 codes: A: 35745D, 43693R, 65667P, 08698A, 62403d, 59411(3)B: 25719O, 41158Q, 90146P, 42516G, 61663b, 46634(3)C: 25158Y, 22921DGZ Name Value Range Interpretation Code Description Data Trish rce(s) Supporting Document(s) ID Date Data Source [id number] 06/24/2020 09:17:44 AM EDT [facility] Name Value Range Interpretation Code Description Data Trish rce(s) Supporting Document(s) NEUT % 90.0 % (35.0-75.0) H [facility] LYMPH % 4.0 % (16.0-52.0) L [facility] MONO % 6.0 % (0.0-8.0) [facility] NRBC 3.0 /100 WBC (0.0) H [facility] NEUT # 6.4 10*3/uL (1.8-7.7) [facility] LYMPH # 0.3 10*3/uL (1.2-4.8) L [facility] MONO # 0.4 10*3/uL (0.0-0.8) [facility] ANISO 1+ [facility] POIK 1+ [facility] MACRO 2+ [facility] TARGET 2+ [facility] JACQUIE 1+ [facility] ID Date Data Source [id number] 06/24/2020 09:17:44 AM EDT [facility] Name Value Range Interpretation Code Description Data Trish rce(s) Supporting Document(s) WBC 7.1 10*3/uL (4.1-11.0) [facility] ADJUSTED FOR NUCLEATED RBC'SCorrected on 06/24 AT 0917: Previously reported as 7.3 RBC 3.21 10*6/uL (4.00-5.40) L [facility] HGB 12.4 g/dL (12.0-16.0) [facility] HCT 37.0 % (36.0-47.0) [facility] MCV 115.0 fL (80.0-95.0) H [facility] MCH 38.5 pg (27.0-32.0) H [facility] MCHC 33.4 g/dL (32.0-36.0) [facility] RDW 13.7 % (10.5-14.5) [facility] PLT 108 10*3/uL (150-450) L [facility] MPV 8.1 fL (7.1-10.7) [facility] ID Date Data Source [id number] 06/24/2020 08:04:14 AM EDT [facility] Name Value Range Interpretation Code Description Data Trish rce(s) Supporting Document(s) MAGNESIUM 1.5 mg/dL (1.7-2.4) L [facility] ID Date Data Source [id number] 06/24/2020 08:04:14 AM EDT [facility] Name Value Range Interpretation Code Description Data Trish rce(s) Supporting Document(s) SODIUM 138 mmol/L (136-145) [facility] POTASSIUM 3.2 mmol/L (3.6-5.2) L [facility] CHLORIDE 105 mmol/L (100-108) [facility] CO2 24 mmol/L (22-31) [facility] ANION GAP 9 mmol/L (7-16) [facility] UREA NITROGEN 24 mg/dL (7-24) [facility] CREATININE 1.07 mg/dL (0.60-1.00) H [facility] BUN/CREAT RATIO 22.4 RATIO (10.0-20.0) H [facility] GLUCOSE 97 mg/dL (70-99) [facility] CALCIUM 8.7 mg/dL (8.4-10.2) [facility] GFR 49 ml/min/1.73m2 (>59) L [facility] GFR ( AMER) 60 ml/min/1.73m2 (>59) [facility] GFR INTERPRETATION [facility] --NORMAL KIDNEY FUNCTION OR MILD DISEASE - GFR >OR= 60CHRONIC KIDNEY DISEASE - GFR 15 - 59RENAL FAILURE - GFR <15 Est. GFR calculation based on the MDRDstudy equation, which assumes a steadystate for creatinine. Est. GFR should notbe used for medication dosing. ID Date Data Source [id number] 06/24/2020 03:10:00 PM EDT [facility] DATE OF EXAM: 06/23/2020LUMBAR PUNCTURE USING FLUOROSCOPIC GUIDANCE INDICATION: Encephalitis. PROCEDURE AND MATERIALS: The patient was placed in the left lateral position and the lower back was prepped and draped in sterile fashion. A local anesthetic was injected.The subarachnoid space was accessed at the L2-L3 level with a 22 gauge spinal needle and 10 mL of clear CSF was obtained. The fluid was submitted for the requested studies. Fluoroscopy was personally supervised by Dr. Strauss.Radiation Exposure Time: 36 seconds Number of images obtained: 1 IMPRESSION: Fluoroscopically guided Lumbar Puncture as described. Procedure performed by JHONNY Jacobo. Professional interpretation performed at [facility] .End of diagnostic report for accession: [id number] Interpreted: Bernardo Kelly MDTranscribed: 06/24/2020 02:37 PMSigned: 06/24/2020 03:10 PM Bernardo Kelly MD -- [facility] # [id number] BILL # [id number] Name Value Range Interpretation Code Description Data Trish rce(s) Supporting Document(s) ID Date Data Source [id number] 07/03/2020 07:42:12 AM EDT [facility] Name Value Range Interpretation Code Description Data Trish rce(s) Supporting Document(s) TEST NAME [facility] PAC1 PARANEOPLASTIC AUTOANTIBODY EVALUAT ION,SPINAL FLUID TO [facility] RESULT [facility] PERFORMING LAB [facility] [address] [place] [address] ID Date Data Source [id number] 06/29/2020 08:25:13 AM EDT [facility] Name Value Range Interpretation Code Description Data Trish rce(s) Supporting Document(s) TEST NAME [facility] [id number] N METHYL ASPARTATE RECEPTOR AB,I GG,CSF WITH REFLEX TO TITER RESULT: [facility] PERFORMING LAB: [facility] [address] [place] [address] ID Date Data Source [id number] 06/23/2020 05:08:06 PM EDT [facility] Name Value Range Interpretation Code Description Data Trish rce(s) Supporting Document(s) CSF GLUCOSE 81 mg/dL (40-75) H [facility] ID Date Data Source [id number] 06/23/2020 05:08:06 PM EDT [facility] Name Value Range Interpretation Code Description Data Trish rce(s) Supporting Document(s) CSF TOTAL PROTEIN 70 mg/dL (15-45) H [facility] ID Date Data Source [id number] 06/25/2020 08:51:54 AM EDT [facility] Name Value Range Interpretation Code Description Data Trish rce(s) Supporting Document(s) TUBE NUMBER [facility] COLOR (COLR) [facility] APPEAR (CLEAR) [facility] SUPERNATANT COLOR PENDING (COLR) [facility] RBC 651 /uL (0) H [facility] SUPERNATANT APPEAR PENDING (CLEAR) [facility] TOTAL NUCLEATED CNT 1 /uL (0-5) [facility] NEUT % 75 % (0-6) H [facility] LYMPH % 15 % (40-80) L [facility] MONO % 10 % (15-45) L [facility] COMMENT [facility] DIFFERENTIAL PERFORMED ON CYTOCENTRIFUGE D SMEAR PATHOLOGIST COMM [facility] ABUNDANT BLOOD.Betsy MURRY MD06/24/20 ID Date Data Source [id number] 06/23/2020 12:23:43 PM EDT [facility] Name Value Range Interpretation Code Description Data Trish rce(s) Supporting Document(s) POC GLUCOSE 148 mg/dL (70-99) H [facility] NOTIFIED NURSEPERFORMED BY CLINICAL S TAFF ID Date Data Source [id number] 06/23/2020 09:53:03 AM EDT [facility] Name Value Range Interpretation Code Description Data Trish rce(s) Supporting Document(s) POC GLUCOSE 149 mg/dL (70-99) H [facility] NOTIFIED NURSEPERFORMED BY CLINICAL S TAFF ID Date Data Source [id number] 06/23/2020 02:53:56 PM EDT [facility] Name Value Range Interpretation Code Description Data Trish rce(s) Supporting Document(s) RETIC % 0.7 % (0.6-2.1) [facility] PERFORMED AT [address] [place] [address] RETIC INDEX 0.6 % (0.5-1.9) [facility] ABSOLUTE RETIC 0.02 10*6/uL (0.027-0.101) L [facility] ID Date Data Source [id number] 06/23/2020 02:09:56 PM EDT [facility] Name Value Range Interpretation Code Description Data Trish rce(s) Supporting Document(s) FOLATE @ 17.0 ng/mL (3.1-17.5) [facility] ID Date Data Source [id number] 06/23/2020 12:19:30 PM EDT [facility] Name Value Range Interpretation Code Description Data Trish rce(s) Supporting Document(s) LDH 301 U/L (84-246) H [facility] ID Date Data Source [id number] 06/23/2020 08:15:21 AM EDT [facility] Name Value Range Interpretation Code Description Data Trish rce(s) Supporting Document(s) SODIUM 143 mmol/L (136-145) [facility] POTASSIUM 3.6 mmol/L (3.6-5.2) [facility] CHLORIDE 106 mmol/L (100-108) [facility] CO2 24 mmol/L (22-31) [facility] ANION GAP 13 mmol/L (7-16) [facility] UREA NITROGEN 21 mg/dL (7-24) [facility] CREATININE 1.23 mg/dL (0.60-1.00) H [facility] BUN/CREAT RATIO 17.1 RATIO (10.0-20.0) [facility] GLUCOSE 147 mg/dL (70-99) H [facility] CALCIUM 8.6 mg/dL (8.4-10.2) [facility] GFR 42 ml/min/1.73m2 (>59) L [facility] GFR ( AMER) 51 ml/min/1.73m2 (>59) L [facility] GFR INTERPRETATION [facility] --NORMAL KIDNEY FUNCTION OR MILD DISEASE - GFR >OR= 60CHRONIC KIDNEY DISEASE - GFR 15 - 59RENAL FAILURE - GFR <15 Est. GFR calculation based on the MDRDstudy equation, which assumes a steadystate for creatinine. Est. GFR should notbe used for medication dosing. ID Date Data Source [id number] 06/23/2020 08:12:35 AM EDT [facility] Name Value Range Interpretation Code Description Data [facility](s) Supporting Document(s) WBC 2.5 10*3/uL (4.1-11.0) L [facility] AYALA ADJUSTED FOR NUCLEATED RBC'SCorrected on 06/23 AT 0812: Previously reported as 2.5 RBC 3.17 10*6/uL (4.00-5.40) L [facility] HGB 12.0 g/dL (12.0-16.0) [facility] HCT 36.0 % (36.0-47.0) [facility] MCV 113.6 fL (80.0-95.0) H [facility] MCH 37.8 pg (27.0-32.0) H [facility] MCHC 33.3 g/dL (32.0-36.0) [facility] RDW 13.9 % (10.5-14.5) [facility] PLT 128 10*3/uL (150-450) L [facility] MPV 7.9 fL (7.1-10.7) [facility] NEUT % 84.0 % (35.0-75.0) H [facility] BAND % 1.0 % (0.0-11.0) [facility] LYMPH % 14.0 % (16.0-52.0) L [facility] MONO % 1.0 % (0.0-8.0) [facility] NRBC 2.0 /100 WBC (0.0) H [facility] AYALA NEUT # 2.1 10*3/uL (1.8-7.7) [facility] BAND # 0.0 10*3/uL [facility] LYMPH # 0.4 10*3/uL (1.2-4.8) L [facility] MONO # 0.0 10*3/uL (0.0-0.8) [facility] ANISO 1+ [facility] MACRO 1+ [facility] TARGET 1+ [facility] JACQUIE 1+ [facility] LARGE PLT 1+ [facility] ID Date Data Source [id number] 06/24/2020 09:09:03 PM EDT [facility] [place] [place] [address]Qdr# MISCELLANEOUS CYTOLOGY REPORTAccession #: [id number] of Specimen(s): A: Cerebrospinal Fluid Tube #4Clinical Diagnosis and History: Left facial twitchingGross DescriptionCerebrospinal Fluid Tube #4: Less than 1 cc pink fluid. Final DiagnosisSpecimen AdequacySatisfactoryFinal DiagnosisNEGATIVE FOR MALIGNANCY Neutrophils, lymphocytes and monocytes.Reported: 06/24/2020 21:07Electronically Signed Out By Kelley Murry M.D.Pathology AssociatesCytotechnologist: Lisa Padilla CT([facility] [place]etoMckayJayeshrceProcessed and screened at [facility], [address] [place] [address], [facility].This report may include immunohistochemical or in-situ hybridizationresults. Testing was developed and the performance characteristicsdetermined by [facility], [facility], as required byCLIA '88. The FDA has determined that approval for specific use is notnecessary for clinical use. The quality of Hematoxylin and Eosin stainsand as applicable, for all immunohistochemical and/or special stains,including positive and negative controls, were reviewed and consideredappropriate. CPT Code: A: 10226T Name Value Range Interpretation Code Description Data Trish rce(s) Supporting Document(s) ID Date Data Source [id number] 06/22/2020 09:16:04 PM EDT [facility] Name Value Range Interpretation Code Description Data Trish rce(s) Supporting Document(s) POC GLUCOSE 138 mg/dL (70-99) H [facility] NOTIFIED NURSEPERFORMED BY CLINICAL S TAFF ID Date Data Source [id number] 06/22/2020 06:24:40 PM EDT [facility] SOLO Name Value Range Interpretation Code Description Data Trish rce(s) Supporting Document(s) POC GLUCOSE 99 mg/dL (70-99) [facility] GARCIA Y NOTIFIED NURSEPERFORMED BY CLINICAL S TAFF ID Date Data Source [id number] 06/22/2020 12:39:07 PM EDT [facility] SOLO Name Value Range Interpretation Code Description Data Trish rce(s) Supporting Document(s) WBC 4.6 10*3/uL (4.1-11.0) [facility] AYALA ADJUSTED FOR NUCLEATED RBC'SCorrected on 06/22 AT 1238: Previously reported as 4.6 RBC 2.99 10*6/uL (4.00-5.40) L [facility] HGB 11.4 g/dL (12.0-16.0) L [facility] HCT 34.3 % (36.0-47.0) L [facility] MCV 114.7 fL (80.0-95.0) H [facility] MCH 38.3 pg (27.0-32.0) H [facility] MCHC 33.4 g/dL (32.0-36.0) [facility] RDW 14.1 % (10.5-14.5) [facility] PLT 125 10*3/uL (150-450) L [facility] MPV 7.9 fL (7.1-10.7) [facility] NEUT % 74.0 % (35.0-75.0) [facility] BAND % 1.0 % (0.0-11.0) [facility] LYMPH % 12.0 % (16.0-52.0) L [facility] MONO % 11.0 % (0.0-8.0) H [facility] EOS % 2.0 % (0.0-5.0) [facility] NRBC 1.0 /100 WBC (0.0) H [facility] [place] [place] NEUT # 3.4 10*3/uL (1.8-7.7) [facility] BAND # 0.0 10*3/uL [facility] LYMPH # 0.6 10*3/uL (1.2-4.8) L [facility] MONO # 0.5 10*3/uL (0.0-0.8) [facility] Eosinophils [#/volume] in Blood by Automated count 0.1 10*3/uL (0.0-0 .5) [facility] ANISO 1+ [facility] MACRO 2+ [facility] ID Date Data Source [id number] 06/22/2020 12:21:31 PM EDT [facility] Name Value Range Interpretation Code Description Data Trish rce(s) Supporting Document(s) SODIUM 144 mmol/L (136-145) [facility] POTASSIUM 3.8 mmol/L (3.6-5.2) [facility] CHLORIDE 110 mmol/L (100-108) H [facility] CO2 21 mmol/L (22-31) L [facility] ANION GAP 13 mmol/L (7-16) [facility] UREA NITROGEN 18 mg/dL (7-24) [facility] CREATININE 1.30 mg/dL (0.60-1.00) H [facility] BUN/CREAT RATIO 13.8 RATIO (10.0-20.0) [facility] GLUCOSE 105 mg/dL (70-99) H [facility] CALCIUM 8.9 mg/dL (8.4-10.2) [facility] GFR 39 ml/min/1.73m2 (>59) L [facility] GFR ( AMER) 48 ml/min/1.73m2 (>59) L [facility] GFR INTERPRETATION [facility] --NORMAL KIDNEY FUNCTION OR MILD DISEASE - GFR >OR= 60CHRONIC KIDNEY DISEASE - GFR 15 - 59RENAL FAILURE - GFR <15 Est. GFR calculation based on the MDRDstudy equation, which assumes a steadystate for creatinine. Est. GFR should notbe used for medication dosing. ID Date Data Source [id number] 06/21/2020 12:54:00 PM EDT [facility] DATE OF EXAM: 06/21/2020EXAM: Chest 2V I NDICATION: CHECK LUNG VOLUMES TECHNIQUE: AP and two lateral views of the chest were obtained. COMPARISON: None available at the time of this dictation. FINDINGS: Cardiomediastinal contours are within normal limits. The lungs are clear. There is mild scarring in the lung apices. No pleural effusion or pneumothorax. No acute osseous abnormality. IMPRESSION: No acute cardiopulmonary process. Professional interpretation performed at [facility] .End of diagnostic report for accession: [id number] Interpreted: Gabbie Enciso MDTran scribed: 06/21/2020 12:54 PMSigned: 06/21/2020 12:54 PM Gabbie Enciso MD [facility] # [id number] BILL # [id number] Name Value Range Interpretation Code Description Data Trish rce(s) Supporting Document(s) ID Date Data Source [id number] 06/21/2020 09:32:22 AM EDT [facility] Name Value Range Interpretation Code Description Data Trish rce(s) Supporting Document(s) WBC 5.0 10*3/uL (4.1-11.0) [facility] [place] RBC 2.73 10*6/uL (4.00-5.40) L [facility] HGB 10.6 g/dL (12.0-16.0) L [facility] HCT 31.0 % (36.0-47.0) L [facility] MCV 113.9 fL (80.0-95.0) H [facility] MCH 38.9 pg (27.0-32.0) H [facility] MCHC 34.2 g/dL (32.0-36.0) [facility] RDW 13.5 % (10.5-14.5) [facility] PLT 128 10*3/uL (150-450) L [facility] MPV 7.9 fL (7.1-10.7) [facility] NEUT % 77.0 % (35.0-75.0) H [facility] LYMPH % 16.0 % (16.0-52.0) [facility] MONO % 6.0 % (0.0-8.0) [facility] EOS % 1.0 % (0.0-5.0) [facility] NEUT # 3.9 10*3/uL (1.8-7.7) [facility] LYMPH # 0.8 10*3/uL (1.2-4.8) L [facility] MONO # 0.3 10*3/uL (0.0-0.8) [facility] Eosinophils [#/volume] in Blood by Automated count 0.1 10*3/uL (0.0-0 .5) [facility] POIK 1+ [facility] MACRO 2+ [facility] JACQUIE 1+ [facility] LARGE PLT 1+ [facility] ID Date Data Source [id number] 06/21/2020 09:28:41 AM EDT [facility] Name Value Range Interpretation Code Description Data Trish rce(s) Supporting Document(s) MAGNESIUM 1.9 mg/dL (1.7-2.4) [facility] ID Date Data Source [id number] 06/21/2020 09:28:41 AM EDT [facility] Name Value Range Interpretation Code Description Data Trish rce(s) Supporting Document(s) SODIUM 139 mmol/L (136-145) [facility] POTASSIUM 3.9 mmol/L (3.6-5.2) [facility] CHLORIDE 104 mmol/L (100-108) [facility] CO2 24 mmol/L (22-31) [facility] ANION GAP 11 mmol/L (7-16) [facility] UREA NITROGEN 13 mg/dL (7-24) [facility] CREATININE 0.94 mg/dL (0.60-1.00) [facility] BUN/CREAT RATIO 13.8 RATIO (10.0-20.0) [facility] GLUCOSE 77 mg/dL (70-99) [facility] CALCIUM 8.8 mg/dL (8.4-10.2) [facility] GFR 57 ml/min/1.73m2 (>59) L [facility] GFR ( AMER) >60 ml/min/1.73m2 (>59) [facility] GFR INTERPRETATION [facility] --NORMAL KIDNEY FUNCTION OR MILD DISEASE - GFR >OR= 60CHRONIC KIDNEY DISEASE - GFR 15 - 59RENAL FAILURE - GFR <15 Est. GFR calculation based on the MDRDstudy equation, which assumes a steadystate for creatinine. Est. GFR should notbe used for medication dosing. ID Date Data Source [id number] 06/19/2020 12:37:00 PM EDT [facility] DATE OF EXAM: 06/19/2020 MRI OF THE BRAI N WITH AND WITHOUT CONTRAST INDICATION:Right temporal and insular abnormality. TECHNIQUE: Multiplanar and multisequence MRI images of the brain were obtained before and after the intravenous administration of 10/10 mL ProHance COMPARISONS: MRI brain 06/15/2020 FINDINGS: Again seen are patchy areas of T2 and FLAIR hyperintensity in the right thalamus, right insular cortex and the cortex of the right temporal lobe extending toward the right parietal lobe which are more conspicuous compared to the previous examination. There is subtle increased diffusion signa l associated with these areas but no abnormal enhancement. No significant mass- effect or shifting of the midline structures is present. There is no intracranial hemorrhage. The ventricles, cerebral sulci and cisterns are age appropriate. Scattered foci of T2 and FLAIR hyperintensity within the periventricular and subcortical white matter is most consistent with the sequela of chronic small vessel ischemic disease. The patient is status post bilateral intraocular lens implants. The visualized soft tissues are unremarkable. IMPRESSION: Abnormal cortical and subcortical T2 and FLAIR hyperintensity ex tending from the right frontal insula into the right temporal parietal region and involving the right thalamus. This most likely represents encephalitis versus persistent post ictal changes.. No intracranial hemorrhage or abnormal enhancement. X1End of diagnostic report for accession: [id number] Interpreted: Rachel Edwards MDTranscribed: 06/19/2020 12:25 PMSigned: 06/19/2020 12:37 PM Rachel Edwards MD [facility] # [id number] BILL # [id number] Name Value Range Interpretation Code Description Data Trish rce(s) Supporting Document(s) ID Date Data Source [id number] 06/19/2020 07:59:44 AM EDT [facility] Name Value Range Interpretation Code Description Data Trish rce(s) Supporting Document(s) PHOSPHORUS 1.8 mg/dL (2.5-4.5) L [facility] ID Date Data Source [id number] 06/19/2020 07:59:44 AM EDT [facility] Name Value Range Interpretation Code Description Data Trish rce(s) Supporting Document(s) MAGNESIUM 1.7 mg/dL (1.7-2.4) [facility] ID Date Data Source [id number] 06/19/2020 07:59:44 AM EDT [facility] Name Value Range Interpretation Code Description Data Trish rce(s) Supporting Document(s) SODIUM 139 mmol/L (136-145) [facility] POTASSIUM 3.4 mmol/L (3.6-5.2) L [facility] CHLORIDE 104 mmol/L (100-108) [facility] CO2 29 mmol/L (22-31) [facility] ANION GAP 6 mmol/L (7-16) L [facility] UREA NITROGEN 9 mg/dL (7-24) [facility] CREATININE 0.79 mg/dL (0.60-1.00) [facility] BUN/CREAT RATIO 11.4 RATIO (10.0-20.0) [facility] GLUCOSE 129 mg/dL (70-99) H [facility] CALCIUM 8.2 mg/dL (8.4-10.2) L [facility] TOTAL PROTEIN 5.6 g/dL (6.4-8.2) L [facility] ALBUMIN 2.6 g/dL (3.2-4.5) L [facility] GLOBULIN 3.0 g/dL (2.7-4.3) [facility] ALB/GLOB RATIO 0.9 RATIO [facility] ALKALINE PHOSPHATASE 56 U/L (45-117) [facility] BILIRUBIN,TOTAL 0.4 mg/dL (0.0-1.0) [facility] PLEASE NOTE:Total bilirubin results may be falselyelevated in patients taking Eltrombopag. AST (SGOT) 33 U/L (11-39) [facility] ALT (SGPT) 28 U/L (12-78) [facility] GFR >60 ml/min/1.73m2 (>59) [facility] GFR ( AMER) >60 ml/min/1.73m2 (>59) [facility] GFR INTERPRETATION [facility] --NORMAL KIDNEY FUNCTION OR MILD DISEASE - GFR >OR= 60CHRONIC KIDNEY DISEASE - GFR 15 - 59RENAL FAILURE - GFR <15 Est. GFR calculation based on the MDRDstudy equation, which assumes a steadystate for creatinine. Est. GFR should notbe used for medication dosing. ID Date Data Source [id number] 06/19/2020 07:42:07 AM EDT [facility] Name Value Range Interpretation Code Description Data Trish rce(s) Supporting Document(s) CALCIUM IONIZED 5.08 mg/dL (4.64-5.28) [facility] IONIZED CALCIUM NORMALIZED TO PH 7.40 AN D 37 DEGREES C. ID Date Data Source [id number] 06/19/2020 07:04:15 AM EDT [facility] Name Value Range Interpretation Code Description Data Trish rce(s) Supporting Document(s) WBC 3.1 10*3/uL (4.1-11.0) L [facility] [place] RBC 2.75 10*6/uL (4.00-5.40) L [facility] HGB 10.6 g/dL (12.0-16.0) L [facility] HCT 31.0 % (36.0-47.0) L [facility] MCV 112.9 fL (80.0-95.0) H [facility] MCH 38.6 pg (27.0-32.0) H [facility] MCHC 34.2 g/dL (32.0-36.0) [facility] RDW 13.5 % (10.5-14.5) [facility] PLT 135 10*3/uL (150-450) L [facility] MPV 8.2 fL (7.1-10.7) [facility] ID Date Data Source [id number] 06/19/2020 09:39:44 AM EDT [facility] Name Value Range Interpretation Code Description Data Trish rce(s) Supporting Document(s) KEPPRA @ 27 ug/mL (5-30) [facility] ID Date Data Source [id number] 06/18/2020 07:19:37 PM EDT [facility] Name Value Range Interpretation Code Description Data Trish rce(s) Supporting Document(s) VITAMIN B12 @ 883 pg/mL (193-986) [facility] ID Date Data Source [id number] 06/18/2020 01:36:09 PM EDT [facility] Name Value Range Interpretation Code Description Data Trish rce(s) Supporting Document(s) VALPROIC ACID 95 ug/mL (50-110) [facility] ID Date Data Source [id number] 06/18/2020 01:33:01 AM EDT [facility] Name Value Range Interpretation Code Description Data Trish rce(s) Supporting Document(s) CALCIUM IONIZED 4.96 mg/dL (4.64-5.28) [facility] IONIZED CALCIUM NORMALIZED TO PH 7.40 AN D 37 DEGREES C. ID Date Data Source [id number] 06/18/2020 01:32:46 AM EDT [facility] Name Value Range Interpretation Code Description Data Trish rce(s) Supporting Document(s) SODIUM 138 mmol/L (136-145) [facility] POTASSIUM 4.4 mmol/L (3.6-5.2) [facility] SLIGHT HEMOLYSIS CHLORIDE 106 mmol/L (100-108) [facility] CO2 27 mmol/L (22-31) [facility] ANION GAP 5 mmol/L (7-16) L [facility] UREA NITROGEN 8 mg/dL (7-24) [facility] CREATININE 0.69 mg/dL (0.60-1.00) [facility] BUN/CREAT RATIO 11.6 RATIO (10.0-20.0) [facility] GLUCOSE 87 mg/dL (70-99) [facility] CALCIUM 7.9 mg/dL (8.4-10.2) L [facility] TOTAL PROTEIN 5.5 g/dL (6.4-8.2) L [facility] ALBUMIN 2.3 g/dL (3.2-4.5) L [facility] GLOBULIN 3.2 g/dL (2.7-4.3) [facility] ALB/GLOB RATIO 0.7 RATIO [facility] ALKALINE PHOSPHATASE 41 U/L (45-117) L [facility] BILIRUBIN,TOTAL 0.4 mg/dL (0.0-1.0) [facility] PLEASE NOTE:Total bilirubin results may be falselyelevated in patients taking Eltrombopag. AST (SGOT) 41 U/L (11-39) H [facility] ALT (SGPT) 27 U/L (12-78) [facility] GFR >60 ml/min/1.73m2 (>59) [facility] GFR ( AMER) >60 ml/min/1.73m2 (>59) [facility] GFR INTERPRETATION [facility] --NORMAL KIDNEY FUNCTION OR MILD DISEASE - GFR >OR= 60CHRONIC KIDNEY DISEASE - GFR 15 - 59RENAL FAILURE - GFR <15 Est. GFR calculation based on the MDRDstudy equation, which assumes a steadystate for creatinine. Est. GFR should notbe used for medication dosing. ID Date Data Source [id number] 06/18/2020 01:31:57 AM EDT [facility] Name Value Range Interpretation Code Description Data Trish rce(s) Supporting Document(s) PHOSPHORUS 2.9 mg/dL (2.5-4.5) [facility] ID Date Data Source [id number] 06/18/2020 01:31:57 AM EDT [facility] Name Value Range Interpretation Code Description Data Trish rce(s) Supporting Document(s) MAGNESIUM 1.5 mg/dL (1.7-2.4) L [facility] ID Date Data Source [id number] 06/18/2020 01:05:10 AM EDT [facility] Name Value Range Interpretation Code Description Data Trish rce(s) Supporting Document(s) WBC 2.8 10*3/uL (4.1-11.0) L [facility] [place] RBC 2.69 10*6/uL (4.00-5.40) L [facility] HGB 10.4 g/dL (12.0-16.0) L [facility] HCT 30.5 % (36.0-47.0) L [facility] MCV 113.4 fL (80.0-95.0) H [facility] MCH 38.4 pg (27.0-32.0) H [facility] MCHC 33.9 g/dL (32.0-36.0) [facility] RDW 13.4 % (10.5-14.5) [facility] PLT 143 10*3/uL (150-450) L [facility] MPV 7.9 fL (7.1-10.7) [facility] ID Date Data Source [id number] 06/17/2020 08:25:00 AM EDT [facility] DATE OF EXAM: 06/17/2020CT BRAIN WITHOUT CONTRAST CLINICAL STATEMENT: Altered mental status. TECHNIQUE: CT of the head was performed using 5 mm collimation from the base of skull to the vertex without contrast. COMPARISON: MRI brain 06/15/2020. FINDINGS: The abnormalities demonstrated on recent MRI examination are not demonstrated on this imaging modality. The ventricles and sulci are within normal limits. There is no acute parenchymal hemorrhage, mass, mass- effect or midline shift. There is no extra-axial fluid collection. There is no loss of nunez-white matter differentiation to suggest acute territorial infarct. The calvarium is intact. The visualized paranasal sinuses and orbits appear unremarkable. IMPRESSION: Unremarkable unenhanced head CT. D7End of diagnostic report for accession: [id number] Interpreted: Kaden Kapadia MDTranscribed: 06/17/2020 08:24 AMSigned: 06/17/2020 08:25 AM Kaden Kapadia MD [facility] # [id number] BILL # [id number] Name Value Range Interpretation Code Description Data Trish rce(s) Supporting Document(s) ID Date Data Source [id number] 06/17/2020 02:56:21 AM EDT [facility] Name Value Range Interpretation Code Description Data Trish rce(s) Supporting Document(s) CALCIUM IONIZED 4.92 mg/dL (4.64-5.28) [facility] IONIZED CALCIUM NORMALIZED TO PH 7.40 AN D 37 DEGREES C. ID Date Data Source [id number] 06/17/2020 02:52:16 AM EDT [facility] Name Value Range Interpretation Code Description Data Trish rce(s) Supporting Document(s) SODIUM 137 mmol/L (136-145) [facility] POTASSIUM 4.4 mmol/L (3.6-5.2) [facility] CHLORIDE 104 mmol/L (100-108) [facility] CO2 27 mmol/L (22-31) [facility] ANION GAP 6 mmol/L (7-16) L [facility] UREA NITROGEN 12 mg/dL (7-24) [facility] CREATININE 0.78 mg/dL (0.60-1.00) [facility] BUN/CREAT RATIO 15.4 RATIO (10.0-20.0) [facility] GLUCOSE 115 mg/dL (70-99) H [facility] CALCIUM 7.7 mg/dL (8.4-10.2) L [facility] TOTAL PROTEIN 5.6 g/dL (6.4-8.2) L [facility] ALBUMIN 2.5 g/dL (3.2-4.5) L [facility] GLOBULIN 3.1 g/dL (2.7-4.3) [facility] ALB/GLOB RATIO 0.8 RATIO [facility] ALKALINE PHOSPHATASE 51 U/L (45-117) [facility] BILIRUBIN,TOTAL 0.5 mg/dL (0.0-1.0) [facility] PLEASE NOTE:Total bilirubin results may be falselyelevated in patients taking Eltrombopag. AST (SGOT) 38 U/L (11-39) [facility] ALT (SGPT) 32 U/L (12-78) [facility] GFR >60 ml/min/1.73m2 (>59) [facility] GFR ( AMER) >60 ml/min/1.73m2 (>59) [facility] GFR INTERPRETATION [facility] --NORMAL KIDNEY FUNCTION OR MILD DISEASE - GFR >OR= 60CHRONIC KIDNEY DISEASE - GFR 15 - 59RENAL FAILURE - GFR <15 Est. GFR calculation based on the MDRDstudy equation, which assumes a steadystate for creatinine. Est. GFR should notbe used for medication dosing. ID Date Data Source [id number] 06/17/2020 02:52:16 AM EDT [facility] Name Value Range Interpretation Code Description Data Trish rce(s) Supporting Document(s) PHOSPHORUS 2.6 mg/dL (2.5-4.5) [facility] ID Date Data Source [id number] 06/17/2020 02:52:16 AM EDT [facility] Name Value Range Interpretation Code Description Data Trish rce(s) Supporting Document(s) MAGNESIUM 1.8 mg/dL (1.7-2.4) [facility] ID Date Data Source [id number] 06/17/2020 02:34:34 AM EDT [facility] Name Value Range Interpretation Code Description Data Trish rce(s) Supporting Document(s) WBC 3.2 10*3/uL (4.1-11.0) L [facility] [place] RBC 2.66 10*6/uL (4.00-5.40) [facility] HGB 10.3 g/dL (12.0-16.0) [facility] HCT 30.2 % (36.0-47.0) [facility] MCV 113.3 fL (80.0-95.0) [facility] MCH 38.7 pg (27.0-32.0) [facility] MCHC 34.2 g/dL (32.0-36.0) [facility] RDW 13.4 % (10.5-14.5) [facility] PLT 153 10*3/uL (150-450) [facility] MPV 8.1 fL (7.1-10.7) [facility] ID Date Data Source [id number] 06/16/2020 02:47:57 AM EDT [facility] Name Value Range Interpretation Code Description Data Trish rce(s) Supporting Document(s) CALCIUM IONIZED 5.12 mg/dL (4.64-5.28) [facility] IONIZED CALCIUM NORMALIZED TO PH 7.40 AN D 37 DEGREES C. ID Date Data Source [id number] 06/16/2020 01:45:23 AM EDT [facility] Name Value Range Interpretation Code Description Data Trish rce(s) Supporting Document(s) PHOSPHORUS 2.7 mg/dL (2.5-4.5) [facility] ID Date Data Source [id number] 06/16/2020 01:45:23 AM EDT [facility] Name Value Range Interpretation Code Description Data Trish rce(s) Supporting Document(s) MAGNESIUM 1.7 mg/dL (1.7-2.4) [facility] ID Date Data Source [id number] 06/16/2020 01:45:23 AM EDT [facility] Name Value Range Interpretation Code Description Data Trish rce(s) Supporting Document(s) SODIUM 135 mmol/L (136-145) L [facility] POTASSIUM 3.8 mmol/L (3.6-5.2) [facility] CHLORIDE 101 mmol/L (100-108) [facility] CO2 26 mmol/L (22-31) [facility] ANION GAP 8 mmol/L (7-16) [facility] UREA NITROGEN 19 mg/dL (7-24) [facility] CREATININE 0.73 mg/dL (0.60-1.00) [facility] BUN/CREAT RATIO 26.0 RATIO (10.0-20.0) [facility] GLUCOSE 101 mg/dL (70-99) H [facility] CALCIUM 8.0 mg/dL (8.4-10.2) L [facility] TOTAL PROTEIN 5.5 g/dL (6.4-8.2) L [facility] ALBUMIN 2.6 g/dL (3.2-4.5) L [facility] GLOBULIN 2.9 g/dL (2.7-4.3) [facility] ALB/GLOB RATIO 0.9 RATIO [facility] ALKALINE PHOSPHATASE 52 U/L (45-117) [facility] BILIRUBIN,TOTAL 0.4 mg/dL (0.0-1.0) [facility] PLEASE NOTE:Total bilirubin results may be falselyelevated in patients taking Eltrombopag. AST (SGOT) 37 U/L (11-39) [facility] ALT (SGPT) 34 U/L (12-78) [facility] GFR >60 ml/min/1.73m2 (>59) [facility] GFR ( AMER) >60 ml/min/1.73m2 (>59) [facility] GFR INTERPRETATION [facility] --NORMAL KIDNEY FUNCTION OR MILD DISEASE - GFR >OR= 60CHRONIC KIDNEY DISEASE - GFR 15 - 59RENAL FAILURE - GFR <15 Est. GFR calculation based on the MDRDstudy equation, which assumes a steadystate for creatinine. Est. GFR should notbe used for medication dosing. ID Date Data Source [id number] 06/16/2020 01:04:38 AM EDT [facility] Name Value Range Interpretation Code Description Data Trish rce(s) Supporting Document(s) WBC 3.0 10*3/uL (4.1-11.0) [facility] [place] RBC 2.69 10*6/uL (4.00-5.40) L [facility] HGB 10.3 g/dL (12.0-16.0) L [facility] HCT 30.4 % (36.0-47.0) L [facility] MCV 113.1 fL (80.0-95.0) H [facility] MCH 38.4 pg (27.0-32.0) H [facility] MCHC 33.9 g/dL (32.0-36.0) [facility] RDW 13.4 % (10.5-14.5) [facility] PLT 165 10*3/uL (150-450) [facility] MPV 8.1 fL (7.1-10.7) [facility] ID Date Data Source [id number] 06/16/2020 09:00:00 AM EDT [facility] DATE OF EXAM: 06/15/2020[facility] MRI BRAIN WITHOUT AND WITH CONTRAST CLINICAL STATEMENT: Encephalitis. TECHNIQUE: MRI of the brain was performed with and without contrast, following intravenous administration of 10 ml Prohance/ 10 ml vial. The following pulse sequences were performed: Sagittal T1 and axial T1,T2, FLAIR, GRE, DWI, post-contrast axial, sagittal, and coronal T1. COMPARISON: 06/13/2020. FINDINGS: Subtle asymmetric patchy areas of T2 signal hyperintensity are identified within the right insula, right temporal lobe, and pulvinar. In addition, there is suggestion of abnormal asymmetric cortical diffusion hyperintensity involving the right temporal and parietal lobes, without definite corresponding low signal on ADC maps. There is no significant parenchymal or meningeal enhancement. There is no acute parenchymal hemorrhage, extra-axial fluid collection, mass, mass-effect or midline shift. The ventricles are normal in size and configuration. Normal intracranial arterial fl ow-voids are present. The visualized paranasal sinuses and orbits appear unremarkable. IMPRESSION: Since 06/13/2020, Subtle asymmetric patchy areas of T2 signal hyperintensity within the right insula and temporal lobe, with associated apparent asymmetric cortical diffusion hyperintensity involving the right temporal and parietal lobes. Although these findings are nonspecific, the possibility of encephalitis or reversible postictal cerebral edema may be considered. Professional interpretation performed at [facility] .End of diagnostic report for accession: [id number] Interpreted: Kaden Kapadia MDTranscribed: 06/16/2020 08:49 AMSigned: 06/16/2020 09:00 AM Kaden Kapadia MD [facility] # [id number] BILL # [id number] Name Value Range Interpretation Code Description Data Trish rce(s) Supporting Document(s) ID Date Data Source [id number] 06/16/2020 06:32:00 PM EDT [facility] DATE OF EXAM: 06/15/2020LUMBAR PUNCTURE USING FLUOROSCOPIC GUIDANCE INDICATION: Seizure. Radiation Exposure Time: 23 seconds Number of images obtained: 1 PROCEDURE AND MATERIALS: Informed consent was obtained. The patient was placed in a left lateral position and the lower back was prepped and draped in sterile fashion. 1% lidocaine was injected for local anesthesia. The subarachnoid space was accessed at the L2-L3 level. Opening pressure was 10 cm H2O. Very difficult obtaining fluid. Approximately 6 mL of clear colorless CSF was obtained. The fluid was submitted for the requested studies. Of note, there was slight blood-tinged fluid with manipulation of needle to attempt additional fluid. No further manipulation was attempted. Fluoroscopic personal supervision provided by Dr. Richardson. COMPLICATIONS: None. IMPRESSION: Uncomplicated lumbar puncture, as described. Procedure performed by Linnette Jiménez NP. Professional interpretation performed at [facility] .End of diagnostic report for accession: [id number] Interpreted: Travis Richardson MDTranscribed: 06/15/2020 05:23 PMSigned: 06/16/2020 06:32 PM Travis Richardson MD [facility] # [id number] [facility] # [id number] Name Value Range Interpretation Code Description Data Trish rce(s) Supporting Document(s) ID Date Data Source [id number] 06/21/2020 10:21:11 AM EDT [facility] Name Value Range Interpretation Code Description Data Trish rce(s) Supporting Document(s) HSV SOURCE [facility] HERPES SIMP PCR [facility] Not Detected NOT DETECTED - A negative r esult does not rule out the presence of PCR inhibitors in the patient specimen or assay specific nucleic acid in concentrations below the level of detection by the assay. Herpes Simplex Virus by PCR was not detected; therefore, no further testing added. INTERPRETIVE INFORMATION: Herpes Simplex Virus by PCR Test developed and characteristics determined by [facility]. See Compliance Statement B: [employer] Performed by [facility], [address] [facility] [place] [address] [email or web address], Richard River MD, Lab. Director ID Date Data Source [id number] 06/21/2020 09:00:58 AM EDT [facility] Name Value Range Interpretation Code Description Data Trish rce(s) Supporting Document(s) SOURCE [facility] VARICELLA ZOSTER PCR [facility] Not Detected NOT DETECTED - A negative r esult does not rule out the presence of PCR inhibitors in the patient specimen or assay specific nucleic acid in concentrations below the level of detection by the assay. INTERPRETIVE INFORMATION: Varicella-Zoster Virus by PCR Test developed and characteristics determined by [facility]. See Compliance Statement B: [employer] Performed by [facility], [address] [facility] [address] [email or web address], Richard River MD, Lab. Director ID Date Data Source [id number] 06/18/2020 07:53:39 PM EDT [facility] Name Value Range Interpretation Code Description Data Trish rce(s) Supporting Document(s) VDRL CSF Lab [facility] Non ReactiveReference range: Non Reactiv e Because the VDRL was Non Reactive, the VDRL titer was not performed. Performed by [facility], [address] [facility] [place] [address] [email or web address], Richard River MD, Lab. Director ID Date Data Source [id number] 06/17/2020 07:50:44 AM EDT [facility] SPECIMEN DESCRIPTION CEREBROSPINA L FLUIDSPECIAL REQUESTS NONEGRAM STAIN RARE (<1/LPF) WHITE BLOOD CELLS NO BACTERIACULTURE RESULTS NO GROWTHREPORT STATUS FINAL 06/17/2020 Name Value Range Interpretation Code Description Data Trish rce(s) Supporting Document(s) ID Date Data Source [id number] 06/17/2020 07:47:48 AM EDT [facility] Name Value Range Interpretation Code Description Data Trish rce(s) Supporting Document(s) RESULT [facility] PERFORMING LAB [facility] [address] [place] [address] ID Date Data Source [id number] 06/16/2020 02:23:54 PM EDT [facility] Name Value Range Interpretation Code Description Data Trish rce(s) Supporting Document(s) TUBE NUMBER [facility] COLOR (COLR) A [facility] APPEAR (CLEAR) [facility] SUPERNATANT COLOR (COLR) A [facility] SUPERNATANT APPEAR (CLEAR) [facility] RBC 328 /uL (0) H [facility] TOTAL NUCLEATED CNT 1 /uL (0-5) [facility] NEUT % 60 % (0-6) H [facility] LYMPH % 40 % (40-80) [facility] TOTAL CELLS COUNTED 10 [facility] COMMENT [facility] SLIDE TO BE REVIEWED PATHOLOGIST COMM [facility] REVIEWED BY MD CYNTHIA06/16/20 ID Date Data Source [id number] 06/15/2020 04:36:26 PM EDT [facility] Name Value Range Interpretation Code Description Data Trish rce(s) Supporting Document(s) CSF TOTAL PROTEIN 63 mg/dL (15-45) H [facility] ID Date Data Source [id number] 06/15/2020 04:36:26 PM EDT [facility] Name Value Range Interpretation Code Description Data Trish rce(s) Supporting Document(s) CSF GLUCOSE 52 mg/dL (40-75) [facility] ID Date Data Source [id number] 06/16/2020 02:43:52 PM EDT [facility] [address] [place], [place] [address]Cmh# MISCELLANEOUS CYTOLOGY REPORTAccession #: [id number] of Specimen(s): A: Cerebrospinal Fluid Tube #4Clinical Diagnosis and History: Gross DescriptionCerebrospinal Fluid Tube #4: 1 cc clear colorless fluid. Final DiagnosisSpecimen AdequacySatisfactoryFinal DiagnosisNEGATIVE FOR MALIGNANCY Scattered lymphocytes and monocytes. Processed and screened at [facility], [address] [place], [place], [address].As applicable, positive and negative controls for all immunohistochemicaland/or special stains were reviewed and considered appropriate. Reported: 06/16/2020 14:42Electronically Signed Out By Chato Ledesma M.D.Pathology AssociatesCytotechnologist: Phoebe Wong CT([facility] ICD Code: G40.89 CPT Code: A: [id number] Name Value Range Interpretation Code Description Data Trish rce(s) Supporting Document(s) ID Date Data Source [id number] 06/14/2020 07:58:10 AM EDT [facility] Name Value Range Interpretation Code Description Data Trish rce(s) Supporting Document(s) SODIUM 131 mmol/L (136-145) L [facility] POTASSIUM 3.6 mmol/L (3.6-5.2) [facility] CHLORIDE 96 mmol/L (100-108) L [facility] CO2 20 mmol/L (22-31) L [facility] ANION GAP 15 mmol/L (7-16) [facility] UREA NITROGEN 24 mg/dL (7-24) [facility] CREATININE 0.81 mg/dL (0.60-1.00) [facility] BUN/CREAT RATIO 29.6 RATIO (10.0-20.0) H [facility] GLUCOSE 97 mg/dL (70-99) [facility] CALCIUM 9.0 mg/dL (8.4-10.2) [facility] GFR >60 ml/min/1.73m2 (>59) [facility] GFR ( AMER) >60 ml/min/1.73m2 (>59) [facility] GFR INTERPRETATION [facility] --NORMAL KIDNEY FUNCTION OR MILD DISEASE - GFR >OR= 60CHRONIC KIDNEY DISEASE - GFR 15 - 59RENAL FAILURE - GFR <15 Est. GFR calculation based on the MDRDstudy equation, which assumes a steadystate for creatinine. Est. GFR should notbe used for medication dosing. ID Date Data Source [id number] 06/14/2020 07:58:10 AM EDT [facility] Name Value Range Interpretation Code Description Data Trish rce(s) Supporting Document(s) MAGNESIUM 2.0 mg/dL (1.7-2.4) [facility] ID Date Data Source [id number] 06/14/2020 07:26:48 AM EDT [facility] Name Value Range Interpretation Code Description Data Trish rce(s) Supporting Document(s) WBC 3.1 10*3/uL (4.1-11.0) L [facility] [place] RBC 3.16 10*6/uL (4.00-5.40) L [facility] HGB 12.2 g/dL (12.0-16.0) [facility] HCT 36.0 % (36.0-47.0) [facility] [address] [place] [address] MCV 114.1 fL (80.0-95.0) H [facility] MCH 38.6 pg (27.0-32.0) H [facility] MCHC 33.8 g/dL (32.0-36.0) [facility] RDW 13.1 % (10.5-14.5) [facility] PLT 163 10*3/uL (150-450) [facility] MPV 8.1 fL (7.1-10.7) [facility] ID Date Data Source [id number] 06/14/2020 08:32:00 AM EDT [facility] DATE OF EXAM: 06/13/2020[facility] MRA NECK WITHOUT CONTRAST CLINICAL STATEMENT: Left facial twitching. TECHNIQUE: MRA of the neck was performed without intravenous contrast, utilizing 2 dimensional kyak-oj-bjzzgh technique. COMPARISON: None. FINDINGS: Normal antegrade flow is identified within bilateral common carotid and extracranial vertebral arteries. There is no evidence of hemodynamically significant stenosis or dissection. Measurement of carotid stenosis is based upon NASCET criteria, which is calculated from the ratio of the linear luminal diameter of the narrowest segment of the diseased portion of the artery to the diameter of the artery beyond any poststenotic dilatation. Accurate evaluation of percent carotid stenosis is limited on this examination, due to noncontrast technique and motion artifact. IMPRESSION: No evidence of hemodynamically significant stenosis. D7End of diagnostic report for accession: [id number] Interpreted: Kaden Kapadia MDTranscribed: 06/14/2020 08:31 AMSigned: 06/14/2020 08:32 AM Kaden Kapadia MD [facility] # [id number] BILL # [id number] Name Value Range Interpretation Code Description Data Trish rce(s) Supporting Document(s) ID Date Data Source [id number] 06/14/2020 08:30:00 AM [facility]: [facility]2020[facility] MRI BRAIN WITHOUT CONTRAST CLINICAL STATEMENT: Seizures. TECHNIQUE: MRI of the brain was performed without gadolinium. The following pulse sequences were performed: Sagittal T1 and axial T2, FLAIR, GRE, axial and coronal DWI. COMPARISON: None. FINDINGS: There is no acute parenchymal hemorrhage, extra-axial fluid collection, mass, mass-effect or midline shift. There is no evidence of restricted diffusion to suggest acute infarction. The ventricles and sulci are prominent, compatible with age- appropriate atrophy. Scattered T2 signal hyperintensities are identified within the periventricular and subcortical white matter, compatible with mild chronic microvascular ischemic changes. Normal intracranial arterial flow-voids are present. The visualized paranasal sinuses and orbits appear unremarkable. IMPRESSION: No evidence of acute intracranial pathology. Age appropriate atrophy and mild chronic microvascular white matter ischemic disease. D7End of diag nostic report for accession: [id number] Interpreted: Kaden Kapadia MDTranscribed: 06/14/2020 08:23 AMSigned: 06/14/2020 08:30 AM Kaden Kapadia MD N: [id number] [facility] # [id number] BILL # [id number] Name Value Range Interpretation Code Description Data Trish rce(s) Supporting Document(s) ID Date Data Source [id number] 06/15/2020 10:18:25 AM EDT [facility] SPECIMEN DESCRIPTION URINE, COLLE CTION METHOD NOT SPECIFIEDCULTURE RESULTS >100,000 CFU/ML ESCHERICHIA COLI IMPORTANT NOTE FOR COMPLICATED INFECTIONS SUCH UROSEPSIS CEFAZOLIN SHOULD HAVE A GEORGE OF LESS THAN OR EQUAL TO 2 TO BE CONSIDERED SUSCEPTIBLE. CONTACT MICROBIOLOGY FOR FURTHER TESTING IF WARRANTED. GEORGE NUMBERS CAN NOT BE DIRECTLY COMPARED ACROSS DIFFERENT ANTIBIOTICS. GEORGE VALUES ARE OCCASIONALLY USEFUL. SUSCEPTIBLE OR RESISTANT INTERPRETATIONS ALONE ARE SUFFICIENT FOR ANTIBIOTIC SELECTION IN THE GREAT MAJORITY OF INFECTIONS.REPORT STATUS FINAL 06/15/2020ORGANISM ESCHERICHIA COLIMETHOD MICAMIKACIN <=2 SUSCEPTIBLEAMOXICILLIN/CLAVULANIC AC <=2/1 SUSCEPTIBLEAMPICILLIN <=2 SUSCEPTIBLE ISOLATES SUSCEPTIBLE TO AMPICILLIN ARE ALSO SUSCEPTIBLE TO AMOXICILLIN.CEFAZOLIN <=4 SUSCEPTIBLE FOR UNCOMPLICATED UTI'S,CEFAZOLIN GEORGE RESULTS LESS THAN OR EQUAL TO 16 MCG/ML PREDICT SUSCEPTIBILITY OF THE FOLLOWING ORAL CEPHALOSPORINS:CEFACLOR,CEFDINIR, CEFPODOXIME,CEFPROZIL,CEFUROXIME AND CEPHALEXIN.CEFOXITIN <=4 SUSCEPTIBLECEFTAZIDIME <=1 SUSCEPTIBLECEFTRIAXONE <=1 SUSCEPTIBLECIPROFLOXACIN <=0.25 SUSCEPTIBLEGENTAMICIN <=1 SUSCEPTIBLELEVOFLOXACIN <=0.12 SUSCEPTIBLEMEROPENEM <=0.25 SUSCEPTIBLENITROFURANTOIN 64 INTERMEDIATEPIPERACILLIN/TAZOBACTAM <=4 SUSCEPTIBLETETRACYCLINE <=1 SUSCEPTIBLE ISOLATES SUSCEPTIBLE TO TETRACYCLINE ARE ALSO SUSCEPTIBLE TO DOXYCYCLINE AND MINOCYCLINE.TOBRAMYCIN <=1 SUSCEPTIBLETRIMETH/SULFA <=1/19 SUSCEPTIBLEERTAPENEM <=0.5 SUSCEPTIBLE Name Value Range Interpretation Code Description Data Trish rce(s) Supporting Document(s) ID Date Data Source [id number] 06/13/2020 07:43:59 PM EDT [facility] Name Value Range Interpretation Code Description Data Trish rce(s) Supporting Document(s) URINE WBC (0-5) [facility] URINE RBC (0-2) [facility] EPITHELIAL CELLS 1+ [HPF] [facility] BACTERIA 3+ [HPF] [facility] MUCUS 1+ [HPF] [facility] ID Date Data Source [id number] 06/13/2020 07:16:57 PM EDT [facility] Name Value Range Interpretation Code Description Data Trish rce(s) Supporting Document(s) COLOR [facility] PERFORMED AT [address] [place] [address] APPEARANCE [facility] SPEC GRAV URINE 1.016 (1.003-1.030) [facility] PH URINE 5.5 (5.0-7.5) [facility] LEUK ESTERASE 1+ (NEG) A [facility] NITRITE URINE (NEG) [facility] PROTEIN URINE (NEG) [facility] GLUCOSE URINE (NEG) [facility] KETONE URINE 2+ (NEG) A [facility] UROBILINOGEN 1.0 mg/dL (0-1.0) [facility] BILIRUBIN URINE (NEG) [facility] BLOOD/HGB URINE (NEG) [facility] ID Date Data Source [id number] 06/13/2020 04:45:45 PM EDT [facility] Name Value Range Interpretation Code Description Data Trish rce(s) Supporting Document(s) MUSE EKG PDF encoded [facility] spital SSQGHp6nMcRENvEzt7BaFsMyYUMkQF4ammd0Y9O0nJMsD4IyfHNvs4jmY4ShL2EyAVXnUCGNFI1AeONo jb2 [file] FYXMPV38NgHqF1gIvsP/S6V/9yLl6N/FeK9V/Hayley/t 2LjKuaJ/97kadngmRi7njrMP4ZhKY+qY8c/MFa6FxZkN5ea2gxURpFqtDVBjgM9P798Bzxgx2MFYmXjn nB2JAwGpbemthBX2laQxfTd06iHuy38cA1+LtwCu9wYQiiiZlKrIoqydWM3t5j43bX9O2Qy3qRR9aQ9r 0SPRxW50lHMoSp4MmOPA7QVvyBaSMgIjWKT3MwnK1b 9KN30/sq6v1mA+fb5gjS5iHGtGQpDe+D2aCMlId8p6Fwm+jfZa/rNo66+lYm8ypueaDH8V2ed8W4pp8s 5dX6f7jy/cnd1wCvQdwxRTaRe6YMkkLCmmrsmbY3YL7aS0R8l+3Yziu3vKz/vCOyyqi4Hete3n/LPIfu G+zwvfKjsK8X/j4u3B1iGyIzXMtSrj8Ro1ztkC7KJs 0f7zT9az5za9u99npt5Bt+1CAk5momam0Km1u9Sh6KDhkdlgobrdp3qHN9MdjY/bvV/LvV/Ls1/btEZp x3gHwHi7vE/b0EuWP3iO0v7Y3Odg1e7/EphCn3Q/u50F6TqPuXOvpst1ha0zxx8gNlLzCmr+xCvXuRcc sAwU4ib1CBY7hh2Sx3/kPMVlwnFo64uFDEuMXeA93c K6sTDu2zm9+2zS/b+ci1LysQScF6wkNcJw9xx+OofTqOGvVuPqnzS/vULu3T/tI+7S+FsaqT80ogHqhn 33ubj4kqwuXuFbyV89aa9DWjNvhisZconrQ3x+zbFdFbrkR1sMBy/NKKzi+i0DttFJ+77k4Vw0nGy4tQ B3ilsp4gue9d2o1XAOqjGmR9ciZfb0pi3HR4t1M7na +udlpuiKy1ozO0JMtdeaLOJ8SeyE492m0ZZA2IgcTeIbuU2SpEj4u2V7WCwMxjQyhUAw2nPzGmO4f8Sq g1/V1Wry4hD/27jUi/v5le79toVq0s780X1S8O8HwfnqtMzbfU/gym manager/KppDF3f0wmxv6aZazo2bWjhB6 1/0rv6gF8o2+mFy5U9edaPs63J2++wrat+me2sF0Cu ZZ7z8NQrNi7g394i712k5yD6I8HMlgJHiD6IqRo6q7Wj47PNXoEW57oY6lsWab4c3K4qC2dfDjNDZDvc 1M/QwuwS0/W3uZrf6a8jG8O2iCOb/7SCd3gOe7Dq5u2F5Aw7Hkz7ACbPC96WTgwvv6LY31qOFaDc9uhf HRdxt3LbdgffLf4Alr2553WTsb3Ob6IP/v2qMLzhPf oP2gc6GO44s4CWPwUxRchgcm80a53w1Mk79A95uX899OWx6Cml8aC0AEEL6+I3DW6AM1XaMeOKbFVj4s zxeezXrR7i3r0xPGlsmJb6S8IqAifA3Ir4wbjqYmNQa45mzydzJp4yqB9bgfpaWEdL+oxh5oBqvmwxvH hB4jzQttzzbcwSyhOzJqm2DHm5MubwD7z36ibl0w08 27ZOU+2rnygfXrTiD2+7E8hCn1ny1E8eO0+qmtYOgO1Lpb5O40RyayLqIPhSwmQurdlei5ixyINalv3x lufBZ3GKSg3fXHE6x+aMAm5Dn9zG7uHcoYNo9s/SoXcvB/7EAnSrGG5Zs9p483MJ/dRzod073+a5rDz4 5j2NYqi3OpU5cV9E3gEiiRQk4cMrd77zv9CS85J/1K T97Kwd4Oz5zyViqchHjlrKhvN27CTxI2zcLdHNC2b+k9I9jMk+lkO05Q4/vHV8lscpQ53p6GcvRxxgff 868g2oTPQuu5E0E/3n8efYcft3zMNF/rqLjIO/ou9g4B707T+Z2f2YwAVtLgnTY49jih+f/7P0+8cFRO j2Jwu83lmKEJHnYZ031yfvx/nhBy03ZA1D5/4JlURa IwWoFqwh6MqjP7hEXWgKimp4TQBv9gW8aLtKm9AD6vgLj4DEnq798h50ge/84X5qO6d8R/l65AOvUD/L Hsnzu+ztDI64zMuEaR0nCD/ajrVjc43ue5yvxX+6nlPtXfdHvev+qNO/z3jDG8A+5VS5I2EcTY789xJe B82/27t+J+cHyvbSK6tyzzOaYW+cPCgdpi82A+rUu+ dppY5vHjqm8jK5SX/dH/MAu6I5zyJhL3l3a4d5j6i3g1n3uqj30ohw2yR8NwaNsLwaIxvjZSE4wT6p7n l+6aZ3+hfZN7cg+pffbYF30WI856/UlVWd8EdFnmwfI76AD4Hnt7etwy9qSDG7Zbq0LbVKf7feSf78cO 03q7jrxCFN+vova2EiKrmMsPFr8YT2pwqegq22q3/r L6Z3u+syNf3JkGY2lYEo/qQRyaadO1nF660R5kF6jH0H0/alfsy+uyC0nquEe2XutPo+zCzdPqL7EA2z t/QV2h3l16rgsM/bzb/he34t2db1aB5e5+me/l0+ODzg3ODe/NAacmDch233y451k2Dyon9IhbZJ+LS/ xKf3A+MPq3Xn07w86g5p/btEzfLU+SW+uro5JfuD01 Evd6et5XEaYeel0StJ+FEqKQZ9GuI/gyYgjS3LwIW9EQm8piEe/EKXi8SSc9dPeSfZTdzrcY9jXCkGcV Y8bFCdeGy9GUGlazLLPpug/Cristal/JNFd6i1cO+qiyr4onz1unTR388Lh8GFQZQF3h3EAc0/GB6vVMUYr1 [file] Bjspfz/O5kvI+q16Blr2egdcw8swkcqdHBkvypYuk/ B9nOQfoS2IeZ88U4s2uZ01Xw6cf6OLE0gj+X7o7ArTLsfeGkumqF7Vgydt/ClA1W4C3ba0E0nZa7ytBd 910O38KAcvWBiQ7AcqF7bCxqLf7oX/pdrYd+V+v07yYa/5+zN7b6NMjeu/03imd+eckGIOn+UY9aEaZL WYqq+sr5UlxBgVPWDSadi40PXD9q/8jWR7Y+sv1Jj/ aljpwwr6PSeLC+G0qe69vsPOm+7qU+sk+57M3wN7ybdw2ZM//On9O244o4mRz73yBdPgY18g3glPu3wC KkqmMXrvpwv6C6H0r9rj7LhOrCp1jZI+ezdUfozaxxN887cqYZwL2e9knjNE1kB268ygXplvvQ+wz3S2 O/Ck7M10Png35qvg3/1Dxb8i7Ya/iom1fQj0l2ObRs HkU1/rc/42h/+sv+fJW2MBf3Ig34bxGcpxdq/aNf2N6k/xzHb8NfS/vML/tTL3t/3qSW46roaQYt5eoT 30E3UbxQqK9OE5kP8w/Au80PIR2AFvmkyad6l3U2Vc8e9La5X265t4k6qYifaB7iN2ga2X32Is1p5U2L 7vmqjdfF9hezLgbNWOkmqogO1MZg7gc7T3uG/MjmR2 YfmX1k/pH5R7Y+svWREdfZvc+R2QmpU7l2HNsN0MEsfgpLXw8Q7fyJ7x//8T6DtU+3WD7hZV4RcJY3z3 yRKxPRKMwuuXW1isjipYPbajkRMAqpnMNKP/B3Olg1aLwv1sT/rgq8cvz6v7aOT39fmTOvpDfESz27cF Dz0uSopl1+430Gy/sMWbud+wDrnF+fn69iptYwexGa dd5/es35pjd0yDvs/ovov5Nj81hwEURhnbF7MeOy33zbM9Mzezic5x4vjY58n/eQcxKpl4W75ksjKyM2 2i3D+ls2Tn3pPvUQ/hCD170iswbHoBbm88Ckv/jLRs3O5tvecGcLg6g1AbJ8H7an22mGWO5spGl5K5T4 XMo/cfrnv/WJk/k8sfJpic57uQ9UhJk9KnnRUoe0Ts /LneayGq4zfZgWUVr4Kd9fCCDrnqLF0kzO11MZFako9h1/jhnIDjIu5F4Sj/Continuity Editor+8Xb25UE2d5n6/6ZX5 [file] MzQzMQolJUVPRg== ID Date Data Source [id number] 06/13/2020 05:50:26 PM EDT [facility] Name Value Range Interpretation Code Description Data Trish rce(s) Supporting Document(s) WBC 3.9 10*3/uL (4.1-11.0) [facility] RBC 3.13 10*6/uL (4.00-5.40) [facility] HGB 11.9 g/dL (12.0-16.0) [facility] HCT 35.5 % (36.0-47.0) [facility] MCV 113.2 fL (80.0-95.0) [facility] MCH 38.0 pg (27.0-32.0) [facility] MCHC 33.6 g/dL (32.0-36.0) [facility] RDW 13.3 % (10.5-14.5) [facility] PLT 170 10*3/uL (150-450) [facility] MPV 8.2 fL (7.1-10.7) [facility] NEUT % 54.0 % (35.0-75.0) [facility] LYMPH % 29.0 % (16.0-52.0) [facility] MONO % 17.0 % (0.0-8.0) [facility] NEUT # 2.1 10*3/uL (1.8-7.7) [facility] LYMPH # 1.1 10*3/uL (1.2-4.8) [facility] MONO # 0.7 10*3/uL (0.0-0.8) [facility] ANISO 1+ [facility] POLY 1+ [facility] MACRO 2+ [facility] ID Date Data Source [id number] 06/13/2020 05:34:24 PM EDT [facility] Name Value Range Interpretation Code Description Data Trish rce(s) Supporting Document(s) TSH,ULTRASENSITIVE @ 0.419 mIU/L (0.360-4.170) [facility] PERFORMED AT [address] [place] [id number] ID Date Data Source [id number] 06/13/2020 05:34:24 PM EDT [facility] Name Value Range Interpretation Code Description Data Trish rce(s) Supporting Document(s) MAGNESIUM 1.3 mg/dL (1.7-2.4) L [facility] ID Date Data Source [id number] 06/13/2020 05:34:24 PM EDT [facility] Name Value Range Interpretation Code Description Data Trish rce(s) Supporting Document(s) LIPASE 334 U/L (65-230) H [facility] ID Date Data Source [id number] 06/13/2020 05:34:24 PM EDT [facility] Name Value Range Interpretation Code Description Data Trish rce(s) Supporting Document(s) TOTAL PROTEIN 7.4 g/dL (6.4-8.2) [facility] ALBUMIN 3.5 g/dL (3.2-4.5) [facility] GLOBULIN 3.9 g/dL (2.7-4.3) [facility] ALB/GLOB RATIO 0.9 RATIO [facility] BILIRUBIN,TOTAL 0.7 mg/dL (0.0-1.0) [facility] PLEASE NOTE:Total bilirubin results may be falselyelevated in patients taking Eltrombopag. BILIRUBIN,CONJUGATED 0.3 mg/dL (0.0-0.3) [facility] BILIRUBIN,UNCONJ. 0.4 mg/dL (0.0-0.7) [facility] ALKALINE PHOSPHATASE 58 U/L (45-117) [facility] AST (SGOT) 36 U/L (11-39) [facility] ALT (SGPT) 34 U/L (12-78) [facility] ID Date Data Source [id number] 06/13/2020 05:34:24 PM EDT [facility] Name Value Range Interpretation Code Description Data Trish rce(s) Supporting Document(s) TROPONIN I <0.05 ng/mL (<0.05) [facility] Less than 0.05: Myocardial injury unlike lyGreater than or equal to 0.05: Highly suggestive of myocardial injuryCorrelation with rise and/or fall ofserial troponins, clinical symptomsand ECG changes is necessary. ID Date Data Source [id number] 06/13/2020 05:34:24 PM EDT [facility] Name Value Range Interpretation Code Description Data Trish rce(s) Supporting Document(s) SODIUM 131 mmol/L (136-145) L [facility] POTASSIUM 3.8 mmol/L (3.6-5.2) [facility] CHLORIDE 96 mmol/L (100-108) L [facility] CO2 24 mmol/L (22-31) [facility] ANION GAP 11 mmol/L (7-16) [facility] UREA NITROGEN 25 mg/dL (7-24) H [facility] CREATININE 0.99 mg/dL (0.60-1.00) [facility] BUN/CREAT RATIO 25.3 RATIO (10.0-20.0) H [facility] GLUCOSE 106 mg/dL (70-99) H [facility] CALCIUM 9.1 mg/dL (8.4-10.2) [facility] GFR 54 ml/min/1.73m2 (>59) L [facility] GFR ( AMER) >60 ml/min/1.73m2 (>59) [facility] GFR INTERPRETATION [facility] --NORMAL KIDNEY FUNCTION OR MILD DISEASE - GFR >OR= 60CHRONIC KIDNEY DISEASE - GFR 15 - 59RENAL FAILURE - GFR <15 Est. GFR calculation based on the MDRDstudy equation, which assumes a steadystate for creatinine. Est. GFR should notbe used for medication dosing. ID Date Data Source [id number] 06/13/2020 05:24:48 PM EDT [facility] Name Value Range Interpretation Code Description Data Trish rce(s) Supporting Document(s) CALCIUM IONIZED 5.04 mg/dL (4.64-5.28) [facility] IONIZED CALCIUM NORMALIZED TO PH 7.40 AN D 37 DEGREES C. Procedure Social History Code Duration Value Status Description Data Source(s ) Smoking 09/09/2020 12:00:00 AM EDT Patient has n ever smoked (pipe, cigarette, cigar) completed Patient has never smoked (pipe, cigarett e, cigar) [facility] ([facility]) Smoking 06/13/2020 10:34:00 PM EDT Denies Ever Smoked complete d Denies Ever Smoked [facility] Smoking 03/20/2020 12:00:00 AM EDT Former Smoker completed Former Smoker eCW1 (Pending Sale To [facility]) Smoking 03/20/2020 12:00:00 AM EDT Former Smoker completed Former Smoker eCW1 (Pending Sale To [facility]) Vital Signs ID Date Data Source UNK Name Value Range Interpretation Code Description Data Source(s) Body temperature 37 anatoly Normal (applies to non-numeric results) 37 anatoly [facility] Respiratory rate 18 min Normal (applies to non-numeric results) 18 min [facility] Heart rate 94 min Normal (applies to non-numeric resul ts) 94 min [facility] Diastolic blood pressure 74 mm[Hg] Normal (applies to non-numeric results) 74 mm[Hg] [facility] Systolic blood pressure 112 mm[Hg] Normal (applies t o non-numeric results) 112 mm[Hg] [facility] Deprecated Oxygen saturation in Capillary blood by Oximetry 98 % Normal (applies to non-numeric results) 98 % [facility] Body weight Measured 70.8 kg Normal (applies to non-num osman results) 70.8 kg [facility] Inhaled oxygen concentration 100 % Normal (appl ies to non-numeric results) 100 % [facility] Body height 167.67625158596706 cm Normal (applies to non-numeric results) 167.81603706861304 cm [facility] Body mass index (BMI) [Ratio] 22.42 kg/m2 No rmal (applies to non-numeric results) 22.42 kg/m2 [facility] Diastolic blood pressure mm[Hg] eCW1 (Pending Sale To [facility]) Systolic blood pressure 110 mm[Hg] 110 mm[Hg] e CW1 (Pending Sale To [facility]) Body mass index (BMI) [Ratio] 21.10 kg/m2 21.10 kg/m2 [facility] (Pending Sale To [facility]) Body height 63.5 [in_us] 63.5 [in_us] eCW1 ([facility]) Body weight Measured [lb_av] W1 (Pending Sale To [facility])
[2020-12-17] MEDS ORDERED: LORazepam 0.5 MG TAB PO STA (17:32)
--- NOTE | 2020-12-17 17:37 | REPVR ---
PROCEDURE INFORMATION: Exam: CT Angiography Chest With Contrast Exam date and time: 12/17/2020 5:08 PM Age: 80 years old Clinical indication: Chest pain; Additional info: H/o covid, chest pain, R/O pe. TECHNIQUE: Imaging protocol: Computed tomographic angiography of the chest with intravenous contrast. 3D rendering (Not supervised by radiologist): MIP and/or 3D reconstructed images were created by the technologist. Radiation optimization: All CT scans at this facility use at least one of these dose optimization techniques: automated exposure control; mA and/or kV adjustment per patient size (includes targeted exams where dose is matched to clinical indication); or iterative reconstruction. Contrast material: ISOVUE 370; Contrast volume: 75 ml; Contrast route: INTRAVENOUS (IV); COMPARISON: CT Chest with contrast 11/08/2020 10:33 AM FINDINGS: Pulmonary arteries: No evidence of pulmonary artery emboli. Aorta: No thoracic aortic aneurysm or dissection. Lungs: There is centrilobular emphysema most extensive in the upper lobes. There is biapical fibrosis more extensive on the right. More nodular in appearance on the right as seen on series 403 images 47 to 54. The appearance is stable compared with the prior scan no consolidation. For inflation. Pleural spaces: Unremarkable. No pneumothorax. No pleural effusion. Heart: There are coronary artery calcifications peer Lymph nodes: Unremarkable. No enlarged lymph nodes. Bones/joints: There are degenerative changes of of the thoracic spine. No Acute fracture. Soft tissues: Unremarkable. IMPRESSION: 1. No evidence of pulmonary artery emboli. 2. COPD. 3. Biapical fibrosis, more extensive on the right. Underlying neoplasm cannot be excluded, however the appearance is stable compared with prior scan. 4. No acute findings. Electronically signed by: Dick Mckinney On 12/17/2020 17:36:55 PM
== END 2020-12-17 18:29 | disposition home or self-care (01) ==
LOC: EDBD 15:05 → M ED 15:05
DX: J44.9 Chronic obstructive pulmonary disease, unspecified (principal); R91.8 Other nonspecific abnormal finding of lung field; Z86.19 Personal history of other infectious and parasitic diseases; E11.9 Type 2 diabetes mellitus without complications; I10 Essential (primary) hypertension; Z86.73 Personal history of transient ischemic attack (TIA), and cerebral infarction without residual deficits; E78.5 Hyperlipidemia, unspecified; Z79.899 Other long term (current) drug therapy; Z88.8 Allergy status to other drugs, medicaments and biological substances
CPT/HCPCS: 71045; 71275; 80047; 99284; Q9967

== ENCOUNTER → 2020-12-21 | Outpatient (REF) | payer MEDICARE ==
[~2020-12-21] MED LIST changes: +LISI-538 PO; +LISI-542 PO; -LISI-898 PO; -LISI10TA22 PO; +LISI10TA4 PO; -LISI20TA33 PO; +LISI40TA PO; -LISI40TA4 PO; +MAG400TA PO; -MAGN400T35 PO; +QUET1TAB7 PO; -QUET25TA3 PO
--- NOTE | 2020-12-21 16:32 | REPPI ---
INDICATION: SWELLING 466-1. COMPARISON: None. TECHNIQUE: AP and lateral views are presented. FINDINGS: AP and lateral views of the left hand demonstrate soft tissue swelling about the wrist and at the PIP joints of the 4 fingers.. No fracture or subluxation is seen. No opaque foreign body noted. IMPRESSION: Diffuse soft tissue swelling. No fracture or other acute bony abnormality is appreciated.. <Electronically signed by Jai Flores > 12/21/20 [id number]
== END ==
PROVIDERS: ATTEND Internal Medicine
DX: M79.89 Other specified soft tissue disorders (principal)

== ENCOUNTER → 2020-12-22 | Outpatient (REF) | payer MEDICARE ==
[2020-12-22 10:22] LABS: BASO % 0.3 % (0.0-1.0); EOS # 0.1 10^3/uL (0.0-0.5); EOS % 2.5 % (0.0-3.0); HEMATOCRIT 29.2 % (36.0-47.0); HEMOGLOBIN 9.3 g/dl (12.0-15.5); LYMPH # 0.8 10^3/uL (1.5-5.0); LYMPH % 23.3 % (24.0-44.0); MEAN CORPUSCULAR HEMOGLOBIN 37.1 pg (27.0-33.0); MEAN CORPUSCULAR HGB CONC 31.8 g/dl (32.0-36.5); MONO # 0.6 10^3/uL (0.0-0.8); MONO % 18.9 % (0.0-5.0); NEUTROPHILS # 1.8 10^3/uL (1.5-8.5); NEUTROPHILS % 54.7 % (36.0-66.0); PLATELET COUNT, AUTOMATED 170 10^3/uL (150-450); RED BLOOD COUNT 2.51 10^6/uL (4.00-5.40); WHITE BLOOD COUNT 3.2 10^3/uL (4.0-10.0)
[2020-12-22 10:28] LABS: MEAN CORPUSCULAR VOLUME 116.3 fl (80.0-96.0)
[2020-12-22 10:48] LABS: PLATELET ESTIMATE NORMAL (NORMAL)
[2020-12-22 10:49] LABS: ANISOCYTOSIS 2+
[2020-12-22 11:04] LABS: ALBUMIN 3.3 GM/DL (3.2-5.2); ALT/SGPT 26 U/L (12-78); BILIRUBIN,DIRECT 0.2 MG/DL (0.0-0.2); BILIRUBIN,TOTAL 0.4 MG/DL (0.2-1.0); BLOOD UREA NITROGEN 27 MG/DL (7-18); CALCIUM LEVEL 9.1 MG/DL (8.8-10.2); CARBON DIOXIDE LEVEL 21 MEQ/L (21-32); CHLORIDE LEVEL 102 MEQ/L (98-107); CREATININE FOR GFR 1.05 MG/DL (0.55-1.30); GLOMERULAR FILTRATION RATE 53.5 (>32); GLUCOSE, FASTING 131 MG/DL (70-100); POTASSIUM SERUM 4.9 MEQ/L (3.5-5.1); RHEUMATOID FACTOR QUANT < 10.0 IU/ML (<15.0); SODIUM LEVEL 134 MEQ/L (136-145); TOTAL PROTEIN 6.3 GM/DL (6.4-8.2); URIC ACID 5.3 MG/DL (2.6-6.0)
[2020-12-22 11:10] LABS: ERYTHROCYTE SEDIMENTATION RATE 52 mm/hr (0-30)
[2020-12-23 11:08] LABS: ANTINUCLEAR ANTIBODIES DIRECT Negative (Negative)
== END ==
PROVIDERS: ATTEND Internal Medicine
DX: E03.9 Hypothyroidism, unspecified (principal)

== ENCOUNTER → 2020-12-23 | Outpatient (REF) | payer MEDICARE ==
[2020-12-23 12:24] LABS: CREATININE FOR GFR 1.12 MG/DL (0.55-1.30); GLOMERULAR FILTRATION RATE 49.7 (>32); POTASSIUM SERUM 4.4 MEQ/L (3.5-5.1)
== END ==
PROVIDERS: ATTEND Internal Medicine
DX: I50.9 Heart failure, unspecified (principal)

== ENCOUNTER → 2020-12-28 | Outpatient (REF) | payer MEDICARE ==
[~2020-12-28] MED LIST changes: -LISI-538 PO; -LISI-542 PO; +LISI-898 PO; +LISI10TA22 PO; -LISI10TA4 PO; +LISI20TA33 PO; -LISI40TA PO; +LISI40TA4 PO; -MAG400TA PO; +MAGN400T35 PO; -QUET1TAB7 PO; +QUET25TA3 PO
--- NOTE | 2020-12-28 16:32 | REPPI ---
INDICATION: EDEMA 466. COMPARISON: Comparison left hand radiographs 21 December 2020.. TECHNIQUE: Three views presented. FINDINGS: Three views of the left hand demonstrate diffuse soft tissue swelling dorsally over the metacarpals. This is a bit more pronounced than on the 21 December 2020 study. There is diffuse osteopenia. No fracture or subluxation is seen.. . No opaque foreign body noted. IMPRESSION: Diffuse osteopenia. Diffuse soft tissue swelling over the metacarpals, somewhat more pronounced than on the 21 December 2020 study. No acute bony abnormality.. <Electronically signed by Jai Flores > 12/28/20 [id number]
== END ==
PROVIDERS: ATTEND Physician Assistant
DX: M79.89 Other specified soft tissue disorders (principal); M85.842 Other specified disorders of bone density and structure, left hand

== ENCOUNTER → 2020-12-29 | Outpatient (REF) | payer MEDICARE ==
[2020-12-29 12:18] LABS: BLOOD UREA NITROGEN 22 MG/DL (7-18); CARBON DIOXIDE LEVEL 28 MEQ/L (21-32); CHLORIDE LEVEL 101 MEQ/L (98-107); CREATININE FOR GFR 0.95 MG/DL (0.55-1.30); GLOMERULAR FILTRATION RATE > 60.0 (>32); GLUCOSE, FASTING 129 MG/DL (70-100); SODIUM LEVEL 136 MEQ/L (136-145)
== END ==
PROVIDERS: ATTEND Internal Medicine
DX: R03.1 Nonspecific low blood-pressure reading (principal)

== ENCOUNTER → 2021-01-14 | Outpatient (REF) | payer MEDICARE ==
--- NOTE | 2021-01-14 17:58 | REPPI ---
INDICATION: SWELLING/BRUISING 466-1. COMPARISON: Comparison left hand radiographs are from 28 December 2020.. TECHNIQUE: Two views of the left hand are obtained. FINDINGS: AP and latter views of the oral left hand demonstrate diffuse osteopenia. There is soft tissue swelling dorsally over the carpals and metacarpals similar to the prior study. No fracture or subluxation is seen. No acute bony abnormality is appreciated.. . No opaque foreign body noted. IMPRESSION: No acute bony abnormality. Dorsal soft tissue swelling persists.. <Electronically signed by Jai Flores > 01/14/21 [id number]
== END ==
PROVIDERS: ATTEND Physician Assistant
DX: M85.842 Other specified disorders of bone density and structure, left hand (principal); M79.89 Other specified soft tissue disorders

== ENCOUNTER → 2021-02-22 | Outpatient (REF) | payer MEDICARE ==
[2021-02-22 11:25] LABS: APPEARANCE, URINE CLEAR (CLEAR); BACTERIA, URINE AUTO NEGATIVE (NEGATIVE); BILIRUBIN, URINE AUTO NEGATIVE (NEGATIVE); BLOOD, URINE BLOOD NEGATIVE (NEGATIVE); COLOR, URINE YELLOW (YELLOW); GLUCOSE, URINE (UA) AUTO NEGATIVE (NEGATIVE); KETONE, URINE AUTO NEGATIVE (NEGATIVE); LEUKOCYTE ESTERASE, URINE AUTO NEGATIVE (NEGATIVE); MUCUS, URINE SMALL (NEGATIVE); NITRITE, URINE AUTO NEGATIVE (NEGATIVE); PROTEIN, URINE AUTO NEGATIVE (NEGATIVE); RBC, URINE AUTO 2 /HPF (0-3); SPECIFIC GRAVITY URINE AUTO 1.018 (1.002-1.035); SQUAMOUS EPITHELIAL CELL UR AU 1 /HPF (0-6); UROBILINOGEN, URINE AUTO 0.2 mg/dL (0.0-2.0); WBC, URINE AUTO 0 /HPF (0-3)
[2021-02-22 11:33] LABS: HEMATOCRIT 33.1 % (36.0-47.0); HEMOGLOBIN 11.1 g/dl (12.0-15.5); MEAN CORPUSCULAR HEMOGLOBIN 35.7 pg (27.0-33.0); MEAN CORPUSCULAR HGB CONC 33.5 g/dl (32.0-36.5); MEAN CORPUSCULAR VOLUME 106.4 fl (80.0-96.0); PLATELET COUNT, AUTOMATED 146 10^3/uL (150-450); RED BLOOD COUNT 3.11 10^6/uL (4.00-5.40); WHITE BLOOD COUNT 3.7 10^3/uL (4.0-10.0)
[2021-02-22 12:00] LABS: CALCIUM LEVEL 9.2 MG/DL (8.8-10.2); GLOMERULAR FILTRATION RATE 56.6 (>32); POTASSIUM SERUM 3.7 MEQ/L (3.5-5.1)
== END ==
PROVIDERS: ATTEND Internal Medicine
DX: R41.82 Altered mental status, unspecified (principal)

== ENCOUNTER → 2021-02-26 | Outpatient (REF) | payer MEDICARE ==
[2021-02-26 15:13] LABS: INFLUENZA A AMPLIFICATION NEGATIVE (NEGATIVE); INFLUENZA B AMPLIFICATION NEGATIVE (NEGATIVE)
== END ==
PROVIDERS: ATTEND Internal Medicine
DX: Z11.52 Encounter for screening for COVID-19 (principal)

== ENCOUNTER → 2021-03-04 | Outpatient (REF) | payer MEDICARE | PROVIDERS: ATTEND Internal Medicine | DX: Z20.822 Contact with and (suspected) exposure to COVID-19 (principal) ==